=== PATIENT | male | born 1945 | race Caucasian/White ===

== ENCOUNTER → 2017-06-26 10:34 | Outpatient (CLI) | payer MEDICARE, OTHER, SELFPAY ==
[2017-06-26 12:41] LABS: BUN 24 mg/dL (7-18); Chloride 105 mmol/L (98-107); Creatinine, Serum 0.98 mg/dL (0.70-1.30); EST Glomerular Filtration Rate 81 mL/min (>60); Est Glom Filt Rate - Afr Amer 98 mL/min (>60); Potassium 4.5 mmol/L (3.5-5.1); Sodium Level 140 mmol/L (136-145)
== END ==
PROVIDERS: Family Provider Family Medicine; PCP Family Medicine
DX: Z94.1 Heart transplant status (principal)
CPT/HCPCS: 36415; 82435; 82565; 84132; 84295; 84520

== ENCOUNTER 2017-10-11 09:38 | Emergency (ER) | payer MEDICARE, OTHER, SELFPAY ==
[2017-10-11 09:40] VITALS: BP 135/74; PULSE 97; RESP 17; TEMP 36.9; O2SAT 97; BMI 34.0
--- NOTE | 2017-10-11 10:04 | ED.DCSUM_ITS ---
- ER Visit Summary Date of Service: 10/11/17 Chief Complaint: Diarrhea History of Present Illness: The patient is a 72 M who presents with diarrhea beginning on Saturday. Patient recently traveled home from [facility] where he was on vacation. Patient states that on Saturday evening at the airport he began to feel ill. By Saturday he was having diarrhea as well as a few small episodes of emesis. He notes borborygmi. He describes the stool as brown liquid. No bright red blood or mucus. He is a heart transplant patient on immunosuppressive therapy. He denies any fevers. He states he feels that perhaps he is not urinating as much as he normally has. Physical Examination: Afebrile vital signs are stable Gen: Well-nourished well-developed Head: Normocephalic atraumatic Eyes: Perrl EOMI ENT: TMs clear no rhinorrhea moist mucous membranes Neck: Supple no lymphadenopathy no JVD nontender CVS: Regular rate rhythm no murmurs normal S1-S2 Respiratory: No distress clear to auscultation bilaterally chest nontender Abdomen: Soft nontender nondistended normal bowel sounds no masses Back: Nontender Extremity: Nontender no edema Skin: Normal color no rash Neuro: alert orientated ?3 CN II-XII intact normal strength sensation reflexes gait cerebellar Psych: Normal affect normal mood Test Results: CBC is normal. BUN is 23 with a normal creatinine. Liver enzymes are normal. Emergency Department Course and Treatment: Patient provided a stool specimen and it was actually semisolid. He received IV fluids. Stool studies are pending. Going to write the patient to have ciprofloxacin if his diarrhea returns. Otherwise he will not take it and continue to hydrate at home Impression: 1. Diarrhea This note was generated with [employer] dictation software. It may contain incorrect words, spelling, and punctuation that were not noted in review of the chart prior to signing ED Disposition - Plan for ED Patient: Disposition: Home or Assisted Living Chief Complaint: Diarrhea Instructions: ED Gastroenteritis Report Pend Prescriptions: Ciprofloxacin [Cipro] 500 mg PO BID #10 tab Referrals: Sharan Solorzano DO [Primary Care Provider] - 3-5 Days if not improving
[2017-10-11] MEDS: 0.9% Normal Saline 1,000 ML 999 ML IV (10:15)
[2017-10-11 10:29] LABS: Absolute Lymphocyte Count 0.86 X10^3/ul (0.83-4.51); Absolute Neutrophil Count 4.2 X10^3/uL (2.0-7.7); Basophil# 0.01 X10^3/uL; Basophil% 0.2 % (0-1); Eosinophil# 0.05 X10^3/uL; Eosinophils% 0.9 % (0-5); Hematocrit 46.3 % (40-54); Hemoglobin 15.4 g/dl (13.0-16.5); Lymphocyte # 0.86 X10^3/ul (4.0); Lymphocyte % 14.9 % (19-41); Mean Corp Hgb Conc 33.3 g/gl (32-36); Mean Corpuscular Hgb 29.2 pg (27.0-32.0); Mean Corpuscular Volume 87.7 fL (80-94); Mean Platelet Vol. 10.6 fl (6.2-12.0); Monocyte# 0.62 X10^3/uL; Monocyte% 10.7 % (0-10); Neutrophil # 4.23 X10^3/uL (2.7-7.7); POSITIVE COUNT NO; POSITIVE DIFFERENTIAL NO; POSITIVE MORPHOLOGY NO; Platelet Count 132 K/mm3 (150-450); Red Blood Count 5.28 M/mm3 (4.6-6.2); White Blood Count 5.8 K/mm3 (4.4-11.0)
[2017-10-11 10:43] LABS: ALB/GLOB Ratio 1.1 RATIO (0.9-2.4); AST(SGOT) 11 U/L (15-37); Alanine Aminotransfer ALT/SGPT 21 U/L (16-61); Albumin, Serum 3.8 g/dL (3.2-5.0); Alkaline Phosphatase 100 U/L (45-117); Anion Gap 6 (5-15); BUN 23 mg/dL (7-18); BUN/Creat Ratio 24.8 RATIO (10-20); Calcium,Total 8.5 mg/dL (8.5-10.1); Chloride 109 mmol/L (98-107); Creatinine, Serum 0.93 mg/dL (0.70-1.30); EST Glomerular Filtration Rate 86 mL/min (>60); Est Glom Filt Rate - Afr Amer 104 mL/min (>60); Estimated Creatinine Clearance 76.31 ml/min; Globulin 3.4 g/dL (2.2-4.2); Glucose 88 mg/dL (74-106); Potassium 4.5 mmol/L (3.5-5.1); Protein, Total 7.2 g/dL (6.4-8.2); Sodium Level 139 mmol/L (136-145)
[2017-10-11 12:47] VITALS: BP 139/76; PULSE 68; RESP 15; O2SAT 96
--- NOTE | 2017-10-13 12:29 | ED.RN ---
Pt returned call and informed of positive stool culture for norovirus. He states his stool has progressed to mostly soft stools with intermittent watery stool. verbalized understanding that virus will progress naturally. he was encouraged to practice proper hygiene and return [facility] with any concerns.
== END 2017-10-11 12:52 | disposition home or self-care (01) ==
PROVIDERS: Emergency Provider Emergency Medicine; Family Provider Family Medicine; PCP Family Medicine
DX: R19.7 Diarrhea, unspecified (principal); I11.0 Hypertensive heart disease with heart failure; I50.9 Heart failure, unspecified; M10.9 Gout, unspecified; G47.33 Obstructive sleep apnea (adult) (pediatric); Z79.82 Long term (current) use of aspirin; Z79.899 Other long term (current) drug therapy; Z94.1 Heart transplant status; Z87.891 Personal history of nicotine dependence
CPT/HCPCS: 80053; 82274; 83630; 85025; 87177; 87209; 87506; 96360; 96361; 99283; J7030

== ENCOUNTER → 2018-02-25 10:02 | Outpatient (CLI) | payer MEDICARE, OTHER, SELFPAY ==
[2018-02-25 11:06] LABS: Uric Acid 5.4 mg/dL (3.5-7.2)
== END ==
PROVIDERS: Family Provider Family Medicine; PCP Family Medicine; Referring Provider Family Medicine; Visit Provider Family Medicine
DX: M10.9 Gout, unspecified (principal)
CPT/HCPCS: 36415; 84550

== ENCOUNTER → 2018-04-21 14:15 | Outpatient (CLI) | payer MEDICARE, OTHER, SELFPAY ==
[2018-04-20 08:40] VITALS: BMI 35.3
== END ==
PROVIDERS: Family Provider Family Medicine; PCP Family Medicine; Referring Provider Physician Assistant; Visit Provider Physician Assistant
DX: J02.9 Acute pharyngitis, unspecified (principal)
CPT/HCPCS: 87081

== ENCOUNTER → 2018-04-24 11:54 | Outpatient (CLI) | payer MEDICARE, OTHER, SELFPAY ==
[2018-04-24 11:06] VITALS: BMI 35.3
--- NOTE | 2018-04-24 11:59 | RAD_ITS ---
STUDY: X-RAY CHEST REASON FOR EXAM: Male, 73 years old. One-month history of cough. Hemoptysis. TECHNIQUE: PA and lateral views of the chest. COMPARISON: Comparison is made with prior study dated July 14, 2015. FINDINGS: Since prior study, there is a new infiltrate in the right middle lobe. Stable pleural parenchymal changes at the left lung base in keeping with scarring. Stable mild scarring at the right lung base. Sternal cerclage wires and vascular clips are present from a prior sternotomy and coronary artery bypass graft procedure (CABG). Normal mediastinum and palma. Normal visualized pulmonary arteries. There is atherosclerotic calcification of the aortic arch with tortuosity. There are diffuse degenerative changes of the visualized thoracic spine. Normal visualized ribs, clavicles, and shoulders. There is no demonstrated abnormality of the visualized soft tissue structures of the upper abdomen. RAD/Chest PA and Lateral IMPRESSION: New infiltrate in the right middle lobe. Stable pleural parenchymal changes at the left lung base. Electronically Signed: Luis Felipe Morales MD at 13:09 EST Tel [phone], Service support ,
== END ==
PROVIDERS: Family Provider Family Medicine; PCP Family Medicine; Referring Provider Nurse Practitioner Family; Visit Provider Nurse Practitioner Family
DX: R05 Cough (principal)
CPT/HCPCS: 71046

== ENCOUNTER → 2018-05-14 11:23 | Outpatient (CLI) | payer MEDICARE, OTHER, SELFPAY ==
[2018-05-14 10:32] VITALS: BMI 35.3
--- NOTE | 2018-05-14 11:40 | RAD_ITS ---
STUDY: X-RAY CHEST REASON FOR EXAM: Male, 73 years old. Pneumonia for follow-up. Patient feeling better. TECHNIQUE: PA and lateral chest. COMPARISON: April 24, 2017. July 14, 2015. October 07, 2013. FINDINGS: Previously noted patchy density right midlung is no longer present. Nodular density right lung base stable since at least 2014. No change in scattered areas of fibrosis left mid and lower lung as well as blunting left costophrenic angle, the latter compatible pleural scar. No pneumothorax. Sternal wires are present. Normal size heart. Normal mediastinum and palma. Normal visualized pulmonary arteries. Normal visualized aortic arch and descending thoracic aorta. Normal visualized thoracic spine. Normal visualized ribs, clavicles, and shoulders. There is no demonstrated abnormality of the visualized soft tissue structures of the upper abdomen. RAD/Chest PA and Lateral IMPRESSION: Resolution of right middle lobe pneumonia. Stable chronic changes bilaterally left greater than right. Electronically Signed: Adrien Nava MD at 3:21 EST , Service support ,
== END ==
PROVIDERS: Family Provider Family Medicine; PCP Family Medicine; Referring Provider Family Medicine; Visit Provider Family Medicine
DX: J18.1 Lobar pneumonia, unspecified organism (principal)
CPT/HCPCS: 71046

== ENCOUNTER → 2018-08-08 08:36 | Outpatient (CLI) | payer MEDICARE, OTHER, SELFPAY ==
[2018-08-07 16:43] VITALS: BMI 35.3
[2018-08-08 08:38] LABS: Bacteria 0 SEEN /hpf (None Seen); Mucous, Urine 0 SEEN /hpf (<or=2+); Red Blood Cells-Urine 0 SEEN /hpf (0-5); Squamous Epithelial Cells - UA 0 SEEN /hpf (0-5); White Blood Cells 0 SEEN /hpf (0-5)
[2018-08-08 12:49] LABS: Color, Urine Yellow (Yellow); Glucose, Dipstick Normal (Normal); Ketone-Dipstick Negative (Negative); Leukocyte Esterase-Dipstick Negative /ul (Negative); Nitrite-Dipstick Negative (Negative); Occult Blood-Urine Negative /ul (Negative); Protein-Dipstick Negative (Negative); Specific Gravity, Urine 1.015 (1.002-1.030); Urine Bilirubin Dipstick Negative (Negative); Urine Clarity Clear (Clear); Urine Urobilinogen Normal (Normal)
[2018-08-08 13:16] LABS: Anion Gap 8 (5-15); BUN 26 mg/dL (7-18); Calcium,Total 9.2 mg/dL (8.5-10.1); Chloride 109 mmol/L (98-107); Creatinine, Serum 1.04 mg/dL (0.70-1.30); EST Glomerular Filtration Rate 75 mL/min (>60); Est Glom Filt Rate - Afr Amer 90 mL/min (>60); Glucose 109 mg/dL (74-106); Potassium 4.6 mmol/L (3.5-5.1); Sodium Level 142 mmol/L (136-145)
== END ==
PROVIDERS: Family Provider Family Medicine; PCP Family Medicine; Visit Provider Family Medicine
DX: R55 Syncope and collapse (principal); E88.89 Other specified metabolic disorders
CPT/HCPCS: 36415; 80048; 81001

== ENCOUNTER → 2018-08-15 14:49 | Outpatient (CLI) | payer MEDICARE, OTHER, SELFPAY ==
[2018-08-07 16:43] VITALS: BMI 35.3
--- NOTE | 2018-08-15 14:53 | ECHOCS_ITS ---
Reason For Study: Syncope Procedure This was a 2D Doppler, Color Flow transthoracic echocardiogram. The study was technically difficult. Contrast injection was performed. Exam performed in department. Left Ventricle Normal LV size. Mild concentric left ventricular hypertrophy. Left ventricular systolic function is normal. The estimated ejection fraction is 55 %. Stage 3 diastolic dysfunction. No regional wall motion abnormalities noted. Right Ventricle Normal RV size. Normal systolic function. Atria The left atrium is moderately enlarged. Normal right atrium. Mitral Valve Mitral valve not well visualized. Tricuspid Valve The tricuspid valve is not well visualized. Mild (1+) tricuspid valve insufficiency. Pulmonary artery systolic pressure is 29 mmHg. Aortic Valve The aortic valve is not well visualized. Pulmonic Valve The pulmonic valve is not well visualized. Great Vessels Normal aortic root. The pulmonary artery is normal size. Normal inferior vena cava. Pericardium/Pleural No pericardial effusion. Medication 22 gauge I.V. with prn adaptor inserted into right arm. Diluted definity 3ml given slow IV push to enhance endocardial definition. MMode/2D Measurements & Calculations LVIDd: 3.9 cm IVSd: 1.4 cm Ao root diam: 3.5 cm LVIDs: 2.9 cm LVPWd: 1.3 cm LA dimension: 5.3 cm FS: 25.5 % LAV(MOD-sp4): 83.1 ml LVAd ap4: 31.8 cm2 SV(MOD-sp4): 51.2 ml EDV(MOD-sp4): 99.6 ml EDV(sp4-el): 101.4 ml LVAs ap4: 19.9 cm2 ESV(MOD-sp4): 48.3 ml ESV(sp4-el): 50.6 ml EF(MOD-sp4): 51.5 % EF(sp4-el): 50.1 % SV(sp4-el): 50.8 ml LA A4 area: 27.3 cm2 RA A4 area: 18.2 cm2 Time Measurements MV dec time: 0.18 sec Doppler Measurements & Calculations MV E max guillermo: 81.3 cm/sec Lat Peak E' Guillermo: 19.1 cm/sec Med Peak E' Guillermo: 14.6 cm/sec MV A max guillermo: 35.0 cm/sec E/E' lat: 4.2 E/E' med: 5.6 MV E/A: 2.3 MV V2 max: 118.5 cm/sec MV P1/2t max guillermo: 119.3 cm/sec Ao V2 max: 107.8 cm/sec MV max P.6 mmHg MV P1/2t: 45.0 msec Ao max P.7 mmHg MV V2 mean: 57.9 cm/sec Ao V2 mean: 69.9 cm/sec MV mean P.7 mmHg MV dec slope: 775.8 cm/sec2 Ao mean P.4 mmHg MV V2 VTI: 20.1 cm MVA(P1/2t): 4.9 cm2 Ao V2 VTI: 18.0 cm LV V1 max: 93.7 cm/sec TR max guillermo: 256.6 cm/sec LV V1 max P.5 mmHg TR max P.3 mmHg LV V1 mean P.8 mmHg LV V1 mean: 60.3 cm/sec LV V1 VTI: 17.2 cm Interpretation Summary Normal LV size. Mild concentric left ventricular hypertrophy. Left ventricular systolic function is normal. The estimated ejection fraction is 55 %. Stage 3 diastolic dysfunction. Mild (1+) tricuspid valve insufficiency. Contrast injection was performed. Ordering Physician: Sharan Solorzano Referring Physician: Sharan Solorzano Performed By: Jhon Nunez RCS
== END ==
PROVIDERS: Family Provider Family Medicine; PCP Family Medicine; Referring Provider Family Medicine; Visit Provider Family Medicine
DX: R55 Syncope and collapse (principal); G47.33 Obstructive sleep apnea (adult) (pediatric)
CPT/HCPCS: 93306; Q9957; A4216; C8929

== ENCOUNTER → 2019-03-10 10:02 | Outpatient (CLI) | payer MEDICARE, OTHER, SELFPAY ==
[2019-03-10 09:32] VITALS: BMI 34.7
[2019-03-10 13:08] LABS: Uric Acid 7.1 mg/dL (3.5-7.2)
== END ==
PROVIDERS: Family Provider Family Medicine; PCP Family Medicine; Visit Provider Family Medicine
DX: E78.5 Hyperlipidemia, unspecified (principal)
CPT/HCPCS: 36415; 84550

== ENCOUNTER → 2020-03-20 | Outpatient (CLI) | payer MEDICARE, OTHER, SELFPAY ==
[2020-02-03 10:13] VITALS: BMI 34.7
== END | disposition home or self-care (01) ==
PROVIDERS: PCP Family Medicine; Referring Provider Physician Assistant Medical; Visit Provider Physician Assistant Medical
DX: Z71.84 Encounter for health counseling related to travel (principal)
CPT/HCPCS: 87635; U0003

== ENCOUNTER → 2021-02-03 11:41 | Outpatient (CLI) | payer MEDICARE, OTHER, SELFPAY ==
[2021-02-03 15:12] LABS: Absolute Lymphocyte Count 0.95 X10^3/uL (0.83-4.51); Basophil# 0.03 X10^3/uL; Basophil% 0.5 % (0-1); Eosinophil# 0.06 X10^3/uL; Eosinophils% 1.1 % (0-5); Hematocrit 49.7 % (40-54); Hemoglobin 16.1 g/dL (13.0-16.5); Lymphocyte # 0.95 X10^3/ul (0.83-4.51); Lymphocyte % 17.1 % (19-41); Mean Corp Hgb Conc 32.4 g/dL (32-36); Mean Corpuscular Hgb 29.5 pg (27.0-32.0); Mean Corpuscular Volume 91.2 fL (80-94); Mean Platelet Vol. 11.8 fl (6.2-12.0); Monocyte# 0.52 X10^3/uL; Monocyte% 9.4 % (0-10); NRBC Flagged by Analyzer 0 % (0-5); Neutrophil # 3.95 X10^3/uL (2.7-7.7); Neutrophil % 71.4 % (47-70); Platelet Count 165 K/mm3 (150-450); RBC Distribution Width CV 14.3 % (11.6-14.6); Red Blood Count 5.45 M/mm3 (4.6-6.2); White Blood Count 5.5 K/mm3 (4.4-11.0)
[2021-02-03 15:28] LABS: Anion Gap 7 (5-15); BUN 23 mg/dL (7-18); BUN/Creat Ratio 21.9 RATIO (10-20); Calcium,Total 9.2 mg/dL (8.5-10.1); Chloride 105 mmol/L (98-107); Creatinine, Serum 1.05 mg/dL (0.70-1.30); EST Glomerular Filtration Rate 73 mL/min (>60); Est Glom Filt Rate - Afr Amer 89 mL/min (>60); Glucose 93 mg/dL (74-106); Potassium 4.6 mmol/L (3.5-5.1); Sodium Level 140 mmol/L (136-145)
== END ==
PROVIDERS: PCP Family Medicine; Referring Provider Physician Assistant; Visit Provider Physician Assistant
DX: R42 Dizziness and giddiness (principal)
CPT/HCPCS: 36415; 80048; 85025

== ENCOUNTER → 2021-03-16 10:14 | Outpatient (CLI) | payer MEDICARE, OTHER, SELFPAY ==
[2021-03-16 14:41] LABS: Mucous, Urine 0 SEEN /hpf (<or=2+); Red Blood Cells-Urine 0 SEEN /hpf (0-5); Squamous Epithelial Cells - UA 0 SEEN /hpf (0-5); White Blood Cells 0 SEEN /hpf (0-5)
[2021-03-16 15:22] LABS: Color, Urine Yellow (Yellow); Glucose, Dipstick Normal (Normal); Ketone-Dipstick Negative (Negative); Leukocyte Esterase-Dipstick Negative /ul (Negative); Nitrite-Dipstick Negative (Negative); Occult Blood-Urine Negative /ul (Negative); Protein-Dipstick 15 mg/dl (Negative); Specific Gravity, Urine 1.025 (1.002-1.030); Urine Bilirubin Dipstick Negative (Negative); Urine Clarity Clear (Clear); Urine Urobilinogen Normal (Normal)
[2021-03-16 15:41] LABS: Bacteria RARE /hpf (None Seen)
== END ==
PROVIDERS: PCP Family Medicine; Referring Provider Physician Assistant; Visit Provider Physician Assistant
DX: U07.1 COVID-19 (principal); R35.0 Frequency of micturition; R05.9 Cough, unspecified
CPT/HCPCS: 81001; 87635; U0005; U0003

== ENCOUNTER 2021-03-20 16:05 | Outpatient (CLI) | payer MEDICARE, OTHER, SELFPAY ==
[2021-03-20] MEDS: 0.9% Saline Lock 10 ML Syringe IV (16:33)
[2021-03-20 16:34] VITALS: BP 111/71; PULSE 90; RESP 16; TEMP 36.9; O2SAT 99; BMI 35.3
[2021-03-20 17:11] VITALS: BP 121/67; PULSE 80; RESP 16; TEMP 37.1; O2SAT 98
[2021-03-20 17:59] VITALS: BP 108/65; PULSE 80; RESP 16; TEMP 37; O2SAT 99
== END 2021-03-20 18:20 | disposition home or self-care (01) ==
LOC: MS3OUT 16:06 → MS3 16:07
PROVIDERS: PCP Family Medicine; Referring Provider Nurse Practitioner Adult Health; Visit Provider Nurse Practitioner Adult Health
DX: Z23 Encounter for immunization (principal); U07.1 COVID-19; Z94.1 Heart transplant status
CPT/HCPCS: J7050; M0245; Q0245; A4216

== ENCOUNTER → 2021-04-13 08:59 | Outpatient (CLI) | payer MEDICARE, OTHER, SELFPAY ==
[2021-04-13 10:31] LABS: Erythrocyte Sedimentation Rate 16 mm/hr (0-20)
[2021-04-13 10:53] LABS: CRP, High Sensitivity Cardiac 4.42 mg/L
== END ==
PROVIDERS: PCP Family Medicine; Referring Provider Family Medicine; Visit Provider Family Medicine
DX: U07.1 COVID-19 (principal); E78.2 Mixed hyperlipidemia
CPT/HCPCS: 36415; 85652; 86141

== ENCOUNTER 2021-08-14 08:33 | Emergency (ER) | payer MEDICARE, OTHER, SELFPAY ==
[2021-08-14 08:34] VITALS: BP 151/86; PULSE 81; RESP 21; TEMP 35.7; O2SAT 100; BMI 37.8
--- NOTE | 2021-08-14 09:11 | EKG12_ITS ---
Test Reason : Blood Pressure : / mmHG Vent. Rate : 081 BPM Atrial Rate : 081 BPM P-R Int : 166 ms QRS Dur : 104 ms QT Int : 390 ms P-R-T Axes : 039 -33 008 degrees QTc Int : 453 ms Normal sinus rhythm Left axis deviation Nonspecific T wave abnormality Abnormal ECG Confirmed by NURY GONZALEZ, SOILA ([id number]), videotape editor MAURO NICOLE ([id number]) on 08/16/2021 9:21:57 AM Referred By: HARSH Confirmed By:SOILA ARRINGTON MD
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
[2021-08-14 09:19] LABS: Absolute Lymphocyte Count 1.22 X10^3/uL (0.83-4.51); Absolute Neutrophil Count 3.6 X10^3/uL (2.0-7.7); Basophil# 0.03 X10^3/uL; Basophil% 0.5 % (0-1); Eosinophil# 0.08 X10^3/uL; Eosinophils% 1.4 % (0-5); Hematocrit 49.8 % (40-54); Hemoglobin 16.7 g/dL (13.0-16.5); Lymphocyte # 1.22 X10^3/ul (0.83-4.51); Lymphocyte % 22.1 % (19-41); Mean Corp Hgb Conc 33.5 g/dL (32-36); Mean Corpuscular Hgb 30.4 pg (27.0-32.0); Mean Corpuscular Volume 90.7 fL (80-94); Mean Platelet Vol. 10.6 fl (6.2-12.0); Monocyte# 0.54 X10^3/uL; Monocyte% 9.8 % (0-10); NRBC Flagged by Analyzer 0 % (0-5); Neutrophil # 3.61 X10^3/uL (2.7-7.7); Neutrophil % 65.5 % (47-70); Platelet Count 172 K/mm3 (150-450); RBC Distribution Width CV 14.1 % (11.6-14.6); RBC Distribution Width SD 47.3 fl (35.1-43.9); Red Blood Count 5.49 M/mm3 (4.6-6.2); White Blood Count 5.5 K/mm3 (4.4-11.0)
--- NOTE | 2021-08-14 09:30 | RAD_ITS ---
STUDY: X-RAY CHEST REASON FOR EXAM: Male, 76 years old. Syncope, Hx heart transplant 6 years ago TECHNIQUE: Single AP portable view of the chest. COMPARISON: Comparison is made with prior study dated 05/14/2018. FINDINGS: EKG electrodes are seen. Persistent pleural-parenchymal changes at the left lung base although there has been mild degree of improvement. Stable mild increased markings at the right lung base. There is no demonstrated pleural abnormality. Sternal cerclage wires are present from a prior sternotomy. Normal mediastinum and palma. Normal visualized pulmonary arteries. There is atherosclerotic calcification of the aortic arch with tortuosity. There are diffuse degenerative changes of the visualized thoracic spine. Normal visualized ribs, clavicles, and shoulders. There is no demonstrated abnormality of the visualized soft tissue structures of the upper abdomen. RAD/Chest 1 View (Portable) IMPRESSION: Persistent pleural parenchymal changes at the left lung base. There has been mild improvement as compared to prior study. Electronically Signed: Luis Felipe Morales MD at 10:10 EDT ,
[2021-08-14 09:52] LABS: ALB/GLOB Ratio 1.2 RATIO (0.9-2.4); AST(SGOT) 8 U/L (15-37); Alanine Aminotransfer ALT/SGPT 18 U/L (16-61); Albumin, Serum 4.2 g/dL (3.2-5.0); Alkaline Phosphatase 69 U/L (45-117); Anion Gap 5 (5-15); BUN 25 mg/dL (7-18); BUN/Creat Ratio 23.4 RATIO (10-20); Calcium,Total 9.4 mg/dL (8.5-10.1); Chloride 108 mmol/L (98-107); Creatinine, Serum 1.07 mg/dL (0.70-1.30); EST Glomerular Filtration Rate 72 mL/min (>60); Est Glom Filt Rate - Afr Amer 87 mL/min (>60); Estimated Creatinine Clearance 62.54 ml/min; Globulin 3.4 g/dL (2.2-4.2); Glucose 109 mg/dL (74-106); Potassium 4.7 mmol/L (3.5-5.1); Protein, Total 7.6 g/dL (6.4-8.2); Sodium Level 140 mmol/L (136-145); Troponin-I HS 4 pg/mL (3.0-78.0)
[2021-08-14 10:21] VITALS: BP 136/100; PULSE 77; RESP 22; O2SAT 100
[2021-08-14 10:42] VITALS: BP 141/68; PULSE 81; RESP 19; O2SAT 100
== END 2021-08-14 10:42 | disposition home or self-care (01) ==
PROVIDERS: Emergency Provider Emergency Medicine; PCP Family Medicine; Visit Provider Emergency Medicine
DX: R55 Syncope and collapse (principal); Z94.1 Heart transplant status; I10 Essential (primary) hypertension; E78.5 Hyperlipidemia, unspecified; E66.9 Obesity, unspecified; Z68.37 Body mass index [BMI] 37.0-37.9, adult; Z95.810 Presence of automatic (implantable) cardiac defibrillator; Z79.82 Long term (current) use of aspirin; Z79.899 Other long term (current) drug therapy; Z87.891 Personal history of nicotine dependence
CPT/HCPCS: 71045; 80053; 84484; 85025; 93005; 93225; 93226; 99285

== ENCOUNTER → 2021-08-14 | Outpatient (CLI) | payer MEDICARE, OTHER, SELFPAY | END | disposition home or self-care (01) | LOC: PSN 10:15 | PROVIDERS: PCP Family Medicine; Referring Provider Internal Medicine Cardiovascular Disease; Visit Provider Internal Medicine Cardiovascular Disease | DX: Z00.00 Encounter for general adult medical examination without abnormal findings (principal) ==

== ENCOUNTER → 2021-08-29 | Outpatient (CLI) | payer MEDICARE, OTHER, SELFPAY ==
--- NOTE | 2021-08-29 07:06 | MRI_ITS ---
EXAM: MR HEAD WITHOUT AND WITH INTRAVENOUS CONTRAST CLINICAL INDICATION: syncope, dizziness TECHNIQUE: Multiplanar and multisequence MR images of the brain were obtained without and with intravenous contrast. This report was created using [employer] report generation technology. CONTRAST: 23 mL of IV Dotarem. COMPARISON: CTA head 09/08/2016. FINDINGS: BRAIN AND EXTRA-AXIAL SPACES: No focal signal abnormalities throughout the brain parenchyma in all of the pulse sequences. Following IV contrast administration, there are no abnormal enhancing lesions intraaxially and extra-axially. No intra- or extra-axial hemorrhage. No evidence of acute infarct. No intracranial mass or mass effect. There is preservation of the alan/white matter interface. Posterior fossa structures are unremarkable. Ventricles are appropriate for age. No hydrocephalus. Basal cisterns are patent. SELLA: Unremarkable. Normal sella turcica, pituitary gland, infundibular stalk, optic chiasm and hypothalamus. AUDITORY SYSTEM: Unremarkable. The internal auditory canals are patent. BONES/JOINTS: Unremarkable. No discrete lytic or blastic abnormalities. SINUSES: Unremarkable as visualized. Clear. MASTOID AIR CELLS: Unremarkable as visualized. Clear. ORBITS: Unremarkable as visualized. Both globes, extraocular muscles, optic nerves and retrobulbar fat appear unremarkable. VASCULATURE: Unremarkable as visualized. Normal flow voids in the major intracranial circulation. MRI/Brain W/WO Contrast IMPRESSION: Normal MRI brain with and without contrast. Electronically Signed: Anderson Sequeira MD at 12:27 EDT ,
[2021-08-29 07:31] LABS: CREATININE FINGERSTICK 0.9 mg/dL (0.70-1.30); EGFR FINGERSTICK > 60.0000 mL/min (>60)
--- NOTE | 2021-08-29 08:18 | CDU_ITS ---
Reason For Study: syncope Rt. Velocities/BP Lt. Velocities/BP Prox CCA 89.1/18.6 cm/sec. Prox CCA 112.0/24.3 cm/sec. Mid CCA 72.1/14.7 cm/sec. Mid CCA 81.4/21.2 cm/sec. Dist CCA 70.8/14.7 cm/sec. Dist CCA 87.6/28.6 cm/sec. Prox ICA 70.9/20.0 cm/sec. Prox ICA 57.9/13.5 cm/sec. Mid ICA 61.8/16.3 cm/sec. Mid ICA 73.0/26.7 cm/sec. Dist ICA 69.1/23.7 cm/sec. Dist ICA 69.2/23.9 cm/sec. Rt. ICA/CCA = 1.1. Lt. ICA/CCA = .9. Prox ECA 122.9/20.6 cm/sec. Prox ECA 119.5/21.2 cm/sec. Rt. Vert. 43.4/12.7 cm/sec. Lt. Vert. 47.5/14.5 cm/sec. Right Extracranial There is homogeneous, smooth atherosclerotic plaque noted in the right common carotid artery. There is heterogeneous, irregular atherosclerotic plaque noted in the right internal carotid artery. There is heterogeneous, irregular atherosclerotic plaque noted in the right external carotid artery. Antegrade flow is noted in the right vertebral artery. Left Extracranial There is intimal thickening but no significant atherosclerotic plaque noted in the left common carotid artery. There is heterogeneous, irregular atherosclerotic plaque noted in the left internal carotid artery. There is intimal thickening but no significant atherosclerotic plaque noted in the left external carotid artery. Antegrade flow is noted in the left vertebral artery. Procedure Carotid Duplex 37705. This is a Carotid Duplex examination using B-mode, color flow and specral Doppler. The exam was diagnostic. Exam performed in department. VL/Carotid Duplex Ultrasound Interpretation Summary Mild (<50%) stenosis right extracranial internal carotid. Mild (<50%) stenosis left extracranial internal carotid. Flow within the vertebral arteries is antegrade bilaterally. Ordering Physician: Pedro Forbes Performed By: Fernando Delgado RVT
== END | disposition home or self-care (01) ==
LOC: MRI 07:06
PROVIDERS: PCP Family Medicine; Referring Provider Nurse Practitioner Family; Visit Provider Nurse Practitioner Family
DX: R55 Syncope and collapse (principal); R42 Dizziness and giddiness; E78.2 Mixed hyperlipidemia
CPT/HCPCS: 70553; 93880; A9575

== ENCOUNTER 2021-10-11 00:24 | Emergency (ER) | payer MEDICARE, OTHER, SELFPAY ==
[2021-10-11 00:24] VITALS: BP 151/87; PULSE 74; RESP 16; TEMP 35.9; O2SAT 96; BMI 36.1
--- NOTE | 2021-10-11 00:35 | RAD_ITS ---
EXAM: XR CHEST, 1 VIEW CLINICAL INDICATION: + COVID + COVID TECHNIQUE: Frontal view of the chest. This report was created using [employer] report generation technology. COMPARISON: Chest x-rays 08/14/2021 and 05/14/2018. CT scan chest 01/14/2015. FINDINGS: LUNGS AND PLEURAL SPACES: There are fibrotic changes in the left mid and lower lung castro as well as chronic pleural thickening. No pneumothorax. No effusion. HEART: Unremarkable. Cardiac silhouette not enlarged. MEDIASTINUM: Central airways and mediastinal contour are unremarkable. BONES/JOINTS: There are sternotomy wires. There are multilevel degenerative changes in the visualized spine. SOFT TISSUES: Unremarkable. RAD/Chest 1 View (Portable) IMPRESSION: 1. Chronic pleural and parenchymal changes in the left lung field. 2. No evidence for acute cardiopulmonary pathology. Electronically Signed: Gerardo Lam MD at 2:13 EDT Reading Location ID and State: [facility] / [place] , Service support ,
--- NOTE | 2021-10-11 00:36 | EKG12_ITS ---
Test Reason : N/V Blood Pressure : / mmHG Vent. Rate : 073 BPM Atrial Rate : 073 BPM P-R Int : 162 ms QRS Dur : 100 ms QT Int : 394 ms P-R-T Axes : 057 -23 064 degrees QTc Int : 434 ms Normal sinus rhythm Incomplete right bundle branch block Nonspecific T wave abnormality Abnormal ECG Confirmed by BOGDAN GONZALEZ, KAYLA ([id number]), greeting card editor MAURO NICOLE ([id number]) on 10/12/2021 11:06:34 AM Referred By: KALI Confirmed By:KAYLA MCFADDEN MD
--- NOTE | 2021-10-11 01:06 | EDS_ITS ---
HPI History of Present Illness Chief Complaint: Nausea/Vomiting/Diarrhea Informant: patient Narrative Narrative: Patient is 76-year-old male with history of heart transplant through [facility] in May 2015 as well as diagnosis of COVID-19 infection 1 week ago. Patient started having symptoms 10 days ago. He was placed on Paxlovid 1 week ago. He finished a 5-day course on Saturday (10/08) and notes he is continue to have body aches, headache, bad taste and smell, diarrhea and now is having worsening vomiting. He was concern for dehydration as he drove all the liquids to drink tonight and then started having dry heaves. He is also concerned because he continued to take his tacromilus while on the antiviral therapy and later found out that these can react. Not sure if this was contributing to his symptoms. Has had some mild blood in his stool but attributes that to a hemorrhoid that bleeds. Denies any recent fevers. Does have a mild cough that is intermittently productive. Does have some mild associated shortness of breath with exertion. Denies any chest pain. No other complaints at this time. States he did send a message to his information systems coordinator this evening but has not heard back as it is after hours. [facility] Medical History Acute renal insufficiency Cellulitis and abscess of face Chronic back pain COVID-19 (03/2021) Diastolic dysfunction Difficulty balancing Essential (primary) hypertension Fatigue Gout Hyperbilirubinemia Hyperlipemia Hyponatremia Nonischemic cardiomyopathy Obesity Obstructive sleep apnea Osteoarthritis Osteopenia Personal history of immunosuppressive therapy Positional lightheadedness Renal insufficiency Skin cancer SOB (shortness of breath) Spinal stenosis Ventricular tachycardia Ventricular tachycardia Home Medications pravastatin 40 mg tablet 40 mg PO QHS 07/21/15 [History Last Taken Unknown] magnesium oxide 400 mg PO QDAY 07/24/17 [History Last Taken Unknown] tacrolimus 1 mg capsule, immediate-release 1 mg PO Q12H 07/24/17 [History Last Taken Unknown] aspirin 81 mg tablet,delayed release (Adult Aspirin Regimen) 81 mg PO DAILY 09/15/19 [History Last Taken Unknown] melatonin 5 mg capsule 10 mg PO QHS 09/15/19 [History Last Taken Unknown] multivitamin 1 cap PO DAILY 09/15/19 [History Last Taken Unknown] mycophenolate mofetil 250 mg capsule 250 mg PO BID 09/15/19 [History Last Taken Unknown] vitamin B complex (B Complex-Vitamin B12) 1 tab PO DAILY 09/29/19 [History Last Taken Unknown] calcium carbonate 600 mg calcium (1,500 mg) tablet (Calcium) 600 mg PO BID 06/28/20 [History Last Taken Unknown] losartan 25 mg tablet 25 mg PO BID 08/21/21 [History Last Taken Unknown] cholestyramine (with sugar) 4 gram powder for susp in a packet 4 g PO TID #20 ea 09/26/21 [Rx Last Taken Unknown] nirmatrelvir 300 mg (150 mg x 2)-ritonavir 100 mg tablet (EUA) (Paxlovid 300 mg () See Rx Instructions PO .COMPLEX #30 tabs 10/04/21 [Rx Last Taken Unknown] Allergy/AdvReac Type Severity Reaction Status Date / Time ramipril AdvReac Intermediate Cough Verified 08/18/21 10:04 Family History Father Diabetes Heart disease Myocardial infarction, Onset Age: 65 Mother Heart disease Lupus Arthritis CVA (cerebral vascular accident) Grandfather Colon cancer Heart disease Aunt Diabetes Brother Seizures Surgical History H/O right heart catheterization (11/25/18) History of appendectomy History of basal cell carcinoma History of cataract extraction History of heart transplant (06/04/15) History of left heart catheterization (05/2018) history of LVAD implant History of nasal septoplasty History of tonsillectomy and adenoidectomy History of tricuspid valve annuloplasty Presence of biventricular implantable cardioverter-defibrillator (ICD) Social History Smoking Status: Former smoker how long ago did patient quit smokin alcohol intake: never substance use type: does not use what type of physical activity do you participate in: walking frequency: 5-6 times per week ROS ROS ED Constitutional Constitutional ED: Denies chills or fever(s) Eyes Eyes: Denies change in vision ENT ENT ED: Denies rhinorrhea or sore throat Cardiovascular Cardiovascular: Denies chest pain or palpitations Respiratory/Chest Respiratory/Chest: Reports cough and dyspnea on exertion; Denies dyspnea Gastrointestinal Gastrointestinal: Reports diarrhea, nausea and vomiting; Denies abdominal pain Genitourinary Genitourinary ED: Denies dysuria or hematuria Musculoskeletal Musculoskeletal: Reports myalgias; Denies back pain Integumentary Denies rash Neurologic Neurologic: Reports headache(s); Denies paresthesias or weakness Psychiatric Psychiatric: Denies anxiety Hematologic/Lymphatic Hematologic/Lymphatic: Denies easy bleeding or easy bruising EXAM Physical Exam Const Vital Signs: 10/11/21 00:24 10/11/21 01:53 10/11/21 05:47 Temperature 96.6 F L 98.1 F Temperature Source Oral Pulse Rate 74 72 77 Respiratory Rate 16 18 14 Blood Pressure 151/87 H 137/86 H 142/84 H Blood Pressure Mean 108 103 103 Pulse Ox 96 95 97 Oxygen Delivery Method Room Air Room Air Positive well nourished and well developed General Appearance ED: well developed and NAD HEENT Reports moist mucous membranes Negative for trauma Eyes PERRL and EOMs intact bilaterally Neck supple and no JVD Chest Wall inspection of chest normal Resp normal respiratory effort and clear to auscultation bilaterally Auscultation: Negative for rales, rhonchi or wheezes Cardio regular rate, regular rhythm and no murmurs GI normal to inspection, nondistended, normoactive bowel sounds and non-tender Neuro oriented x3 and CN's II-XII intact bilaterally Sensorium / Orientation: alert Motor Exam: Negative for general weakness Psych mental status grossly normal Skin no rashes or lesions noted and no wounds MDM MDM MDM Narrative Medical decision making narrative: Patient is evaluated for generalized malaise, vomiting and concern for dehydration. If he recently had COVID-19 infection and completed a course of antiviral therapy, Paxlovid, 3 days ago. In addition patient just realized today after looking up online that his antirejection medication interacted with the antiviral. Patient is given IV fluids as well as IV Zofran in the emergency room. He has symptomatic improvement and is looking better. He is found to have an NETTE with a creatinine of 1.43. His baseline is 1. Potassium is mildly elevated at 5.4 however he does not have EKG changes concerning for hyperkale lazarus. The remainder of his work-up is largely negative. I did send off a Tacrolimus level but this is a send out. Given that he is a heart transplant patient and it is possible that he could have tacrolimus toxicity causing acute kidney injury I did contact the information systems coordinator at [facility]. They recommended admission to [facility] instead of [facility]. Patient is begrudgingly agreeable with this. He is excepted by Dr. Lau for further treatment and evaluation of NETTE as well as monitoring his antirejection medications. Work-up is otherwise normal and he remains hemodynamically stable in the emergency room. Lab Data Attestation: I reviewed the patient's lab results. Labs: Laboratory Results - last 24 hr 10/11/21 10/11/21 10/11/21 01:35 01:35 01:35 WBC 7.8 RBC 4.89 Hgb 14.3 Hct 42.9 MCV 87.7 MCH 29.2 MCHC 33.3 RDW Std Deviation 44.1 H RDW Coeff of Jaimie 13.8 Plt Count 143 L MPV 10.3 Immature Gran % (Auto) 0.600 Neut % (Auto) 81.7 H Lymph % (Auto) 9.9 L [place] % (Auto) 7.4 Eos % (Auto) 0.1 Baso % (Auto) 0.3 Absolute Neuts (auto) 6.4 Absolute Lymphs (auto) 0.77 L Nucleated RBC % 0 Sodium 137 Potassium 5.4 H Chloride 104 Carbon Dioxide 28.0 Anion Gap 5 BUN 36 H Creatinine 1.43 H Estim Creat Clear Calc 46.79 Est GFR (MDRD) Af Amer 62 Est GFR (MDRD) Non-Af 51 L BUN/Creatinine Ratio 25.2 H Glucose 126 H Calcium 9.9 Total Bilirubin 1.30 H AST 7 L ALT 14 L Alkaline Phosphatase 72 Total Creatine Kinase 30 L Total Protein 7.4 Albumin 3.7 Globulin 3.7 Albumin/Globulin Ratio 1.0 Lipase 15 L Urine Color Urine Clarity Urine pH Ur Specific [place] Urine Protein Urine Glucose (UA) Urine Ketones Urine Occult Blood Urine Nitrite Urine Bilirubin Urine Urobilinogen Ur Leukocyte Esterase Urine RBC Urine WBC Ur Squamous Epith Cells Urine Bacteria Urine Mucus 10/11/21 03:20 WBC RBC Hgb Hct MCV MCH MCHC RDW Std Deviation RDW Coeff of Jaimie Plt Count MPV Immature Gran % (Auto) Neut % (Auto) Lymph % (Auto) [place] % (Auto) Eos % (Auto) Baso % (Auto) Absolute Neuts (auto) Absolute Lymphs (auto) Nucleated RBC % Sodium Potassium Chloride Carbon Dioxide Anion Gap BUN Creatinine Estim Creat Clear Calc Est GFR (MDRD) Af Amer Est GFR (MDRD) Non-Af BUN/Creatinine Ratio Glucose Calcium Total Bilirubin AST ALT Alkaline Phosphatase Total Creatine Kinase Total Protein Albumin Globulin Albumin/Globulin Ratio Lipase Urine Color Yellow Urine Clarity Clear Urine pH 6.0 Ur Specific [place] 1.015 Urine Protein Negative Urine Glucose (UA) Normal Urine Ketones Negative Urine Occult Blood Negative Urine Nitrite Negative Urine Bilirubin Negative Urine Urobilinogen Normal Ur Leukocyte Esterase Negative Urine RBC 0 SEEN Urine WBC 0 SEEN Ur Squamous Epith Cells 0 SEEN Urine Bacteria 0 SEEN Urine Mucus 0 SEEN Radiography Chest X-Ray - ED: 1 View, Read by ED Physician, Read by Radiologist and No Acute Disease Diagnostic Testing: Clinical Impression(s) from Imaging Studies Chest X-Ray 10/11/21 00:35 IMPRESSION: 1. Chronic pleural and parenchymal changes in the left lung field. 2. No evidence for acute cardiopulmonary pathology. Electronically Signed: Gerardo Lam MD at 2:13 EDT Reading Location ID and State: [facility] / [place] , Service support , Rhythm Strip Rhythm Strip: Sinus Rhythm Rate: 73 Ectopy: None EKG Initial EKG: Attestation: I personally reviewed and interpreted this EKG as follows: Interpretation: Sinus Rhythm Comments: Normal sinus rhythm at a rate of 73 Slight left axis Normal intervals Normal ST segments Discharge Plan Triage Chief Complaint: Nausea/Vomiting/Diarrhea ED Provider: Teressa George Dx/Rx/DC Orders Clinical Impression: NETTE (acute kidney injury), Heart transplant, orthotopic, status, COVID-19, Vomiting Prescriptions: No Action magnesium oxide 400 mg capsule 400 mg capsule 400 mg PO QDAY mycophenolate mofetil 250 mg capsule 250 mg PO BID aspirin [Adult Aspirin Regimen] 81 mg tablet,delayed release (DR/EC) 81 mg PO DAILY melatonin 5 mg capsule 10 mg PO QHS multivitamin capsule 1 cap PO DAILY calcium carbonate [Calcium 600] 600 mg calcium (1,500 mg) tablet 600 mg PO BID vitamin B complex [B Complex-Vitamin B12] Tablet 1 tab PO DAILY cholestyramine (with sugar) 4 gram powder in packet 4 g PO TID Qty: 20 2RF Rx Instructions: administer w/meal; avoid other meds within 1hr before or 4-6hr after dose Paxlovid (EUA) 300 mg (150 mg x 2)-100 mg tablet See Rx Instructions PO .COMPLEX Qty: 30 0RF Rx Instructions: take TWO 150 mg tablets of nirmatrelvir with ONE 100 mg tablet of ritonavir twice daily for 5 days PO pravastatin 40 MG tablet 40 mg PO QHS tacrolimus 1 mg capsule 1 mg PO Q12H losartan 25 mg tablet 25 mg PO BID Primary Care Provider: Sharan Solorzano Referrals: Sharan Solorzano, [Primary Care Provider] - Disposition Disposition: Acute Care Hospital Discharge Location: [facility]
[2021-10-11] MEDS: Ondansetron 4 MG/2 ML Vial IV (01:34)
[2021-10-11] MEDS: 0.9% Normal Saline 1,000 ML 1000 ML IV (01:35)
[2021-10-11 01:49] LABS: Absolute Lymphocyte Count 0.77 X10^3/uL (0.83-4.51); Absolute Neutrophil Count 6.4 X10^3/uL (2.0-7.7); Basophil# 0.02 X10^3/uL; Basophil% 0.3 % (0-1); Eosinophil# 0.01 X10^3/uL; Eosinophils% 0.1 % (0-5); Hematocrit 42.9 % (40-54); Hemoglobin 14.3 g/dL (13.0-16.5); Lymphocyte # 0.77 X10^3/ul (0.83-4.51); Lymphocyte % 9.9 % (19-41); Mean Corp Hgb Conc 33.3 g/dL (32-36); Mean Corpuscular Hgb 29.2 pg (27.0-32.0); Mean Corpuscular Volume 87.7 fL (80-94); Mean Platelet Vol. 10.3 fl (6.2-12.0); Monocyte# 0.58 X10^3/uL; Monocyte% 7.4 % (0-10); NRBC Flagged by Analyzer 0 % (0-5); Neutrophil # 6.36 X10^3/uL (2.7-7.7); Neutrophil % 81.7 % (47-70); Platelet Count 143 K/mm3 (150-450); RBC Distribution Width CV 13.8 % (11.6-14.6); RBC Distribution Width SD 44.1 fl (35.1-43.9); Red Blood Count 4.89 M/mm3 (4.6-6.2); White Blood Count 7.8 K/mm3 (4.4-11.0)
[2021-10-11 01:53] VITALS: BP 137/86; PULSE 72; RESP 18; O2SAT 95
[2021-10-11 02:03] LABS: AST(SGOT) 7 U/L (15-37); Alanine Aminotransfer ALT/SGPT 14 U/L (16-61); Albumin, Serum 3.7 g/dL (3.2-5.0); Alkaline Phosphatase 72 U/L (45-117); Anion Gap 5 (5-15); BUN 36 mg/dL (7-18); BUN/Creat Ratio 25.2 RATIO (10-20); Calcium,Total 9.9 mg/dL (8.5-10.1); Chloride 104 mmol/L (98-107); Creatinine, Serum 1.43 mg/dL (0.70-1.30); EST Glomerular Filtration Rate 51 mL/min (>60); Est Glom Filt Rate - Afr Amer 62 mL/min (>60); Estimated Creatinine Clearance 46.79 ml/min; Globulin 3.7 g/dL (2.2-4.2); Glucose 126 mg/dL (74-106); Lipase 15 U/L (73-393); Potassium 5.4 mmol/L (3.5-5.1); Protein, Total 7.4 g/dL (6.4-8.2); Sodium Level 137 mmol/L (136-145)
[2021-10-11 02:05] LABS: CPK Total, Creatine Kinase 30 U/L (39-308)
[2021-10-11 04:00] LABS: Bacteria 0 SEEN /hpf (None Seen); Mucous, Urine 0 SEEN /hpf (<or=2+); Red Blood Cells-Urine 0 SEEN /hpf (0-5); Squamous Epithelial Cells - UA 0 SEEN /hpf (0-5); White Blood Cells 0 SEEN /hpf (0-5)
[2021-10-11 04:09] LABS: Color, Urine Yellow (Yellow); Glucose, Dipstick Normal (Normal); Ketone-Dipstick Negative (Negative); Leukocyte Esterase-Dipstick Negative /ul (Negative); Nitrite-Dipstick Negative (Negative); Occult Blood-Urine Negative /ul (Negative); Protein-Dipstick Negative (Negative); Specific Gravity, Urine 1.015 (1.002-1.030); Urine Bilirubin Dipstick Negative (Negative); Urine Clarity Clear (Clear); Urine Urobilinogen Normal (Normal)
[2021-10-11 05:47] VITALS: BP 142/84; PULSE 77; RESP 14; TEMP 36.7; O2SAT 97
[2021-10-11 07:31] VITALS: BP 145/95; PULSE 81; RESP 20; O2SAT 96
[2021-10-18 11:14] LABS: Tacrolimus (FK506) 75.5 ng/mL (2.0-20.0)
--- NOTE | 2021-10-18 11:35 | ED.RN ---
1125 THIS RN SPOKE WITH , ED PHYSICIAN ON DUTY, TO REPORT HIGH TACROLIMUS VALUE OF 75.5. PER DR. BLAND, PT WAS TRANSFERRED TO [facility] FOR FURTHER TREATMENT. NO OTHER INTERVENTIONS ON OUR END NEEDED.
== END 2021-10-11 08:33 | disposition short-term general hospital (02) ==
PROVIDERS: Emergency Provider Emergency Medicine; PCP Family Medicine; Visit Provider Emergency Medicine
DX: N17.9 Acute kidney failure, unspecified (principal); Z94.1 Heart transplant status; U07.1 COVID-19; E78.5 Hyperlipidemia, unspecified; I10 Essential (primary) hypertension; E66.9 Obesity, unspecified; Z68.36 Body mass index [BMI] 36.0-36.9, adult; Z79.82 Long term (current) use of aspirin; Z79.899 Other long term (current) drug therapy; Z87.891 Personal history of nicotine dependence; Z86.16 Personal history of COVID-19
CPT/HCPCS: 71045; 80053; 80197; 81001; 82550; 83690; 85025; 93005; 96361; 96374; 99285; J7030; A4216; J2405

== ENCOUNTER → 2021-10-23 | Outpatient (CLI) | payer MEDICARE, OTHER, SELFPAY ==
[2021-10-23 11:08] LABS: BUN 35 mg/dL (7-18); Chloride 102 mmol/L (98-107); Creatinine, Serum 1.31 mg/dL (0.70-1.30); EST Glomerular Filtration Rate 57 mL/min (>60); Est Glom Filt Rate - Afr Amer 69 mL/min (>60); Glucose 128 mg/dL (74-106); Potassium 4.7 mmol/L (3.5-5.1); Sodium Level 138 mmol/L (136-145)
[2021-10-28 23:57] LABS: Tacrolimus (FK506) 4.7 ng/mL (2.0-20.0)
== END | disposition home or self-care (01) ==
PROVIDERS: PCP Family Medicine
DX: R40.20 Unspecified coma (principal); Z48.21 Encounter for aftercare following heart transplant; Z94.1 Heart transplant status
CPT/HCPCS: 36415; 80048; 80051; 80197; 82374; 82435; 82565; 82947; 84132; 84295; 84520

== ENCOUNTER → 2021-10-26 | Outpatient (CLI) | payer MEDICARE, OTHER, SELFPAY ==
[2021-10-26 12:00] LABS: Absolute Lymphocyte Count 0.95 X10^3/uL (0.83-4.51); Absolute Neutrophil Count 5.4 X10^3/uL (2.0-7.7); Basophil# 0.03 X10^3/uL; Basophil% 0.4 % (0-1); Eosinophil# 0.07 X10^3/uL; Hematocrit 41.5 % (40-54); Hemoglobin 13.7 g/dL (13.0-16.5); Lymphocyte # 0.95 X10^3/ul (0.83-4.51); Lymphocyte % 13.2 % (19-41); Mean Corpuscular Hgb 29.3 pg (27.0-32.0); Mean Corpuscular Volume 88.9 fL (80-94); Monocyte# 0.74 X10^3/uL; Monocyte% 10.3 % (0-10); NRBC Flagged by Analyzer 0 % (0-5); Neutrophil # 5.37 X10^3/uL (2.7-7.7); Neutrophil % 74.4 % (47-70); Platelet Count 211 K/mm3 (150-450); RBC Distribution Width CV 14.5 % (11.6-14.6); RBC Distribution Width SD 46.5 fl (35.1-43.9); Red Blood Count 4.67 M/mm3 (4.6-6.2); White Blood Count 7.2 K/mm3 (4.4-11.0)
[2021-10-26 12:25] LABS: Anion Gap 8 (5-15); BUN 28 mg/dL (7-18); BUN/Creat Ratio 24.1 RATIO (10-20); Calcium,Total 9.3 mg/dL (8.5-10.1); Chloride 104 mmol/L (98-107); Creatinine, Serum 1.16 mg/dL (0.70-1.30); EST Glomerular Filtration Rate 65 mL/min (>60); Est Glom Filt Rate - Afr Amer 79 mL/min (>60); Glucose 170 mg/dL (74-106); Potassium 4.4 mmol/L (3.5-5.1); Sodium Level 137 mmol/L (136-145)
== END | disposition home or self-care (01) ==
LOC: BIMLAB 10:36
PROVIDERS: PCP Family Medicine; Referring Provider Physician Assistant; Visit Provider Physician Assistant
DX: N14.1 Nephropathy induced by other drugs, medicaments and biological substances (principal); T45.1X5A Adverse effect of antineoplastic and immunosuppressive drugs, initial encounter; K63.89 Other specified diseases of intestine; U07.1 COVID-19; I10 Essential (primary) hypertension; E78.2 Mixed hyperlipidemia
CPT/HCPCS: 36415; 80048; 85025

== ENCOUNTER → 2021-12-20 | Outpatient (CLI) | payer MEDICARE, OTHER, SELFPAY ==
[2021-12-20 12:18] LABS: Creatinine, Serum 0.91 mg/dL (0.70-1.30); EST Glomerular Filtration Rate 86 mL/min (>60); Est Glom Filt Rate - Afr Amer 104 mL/min (>60); Uric Acid 6.9 mg/dL (3.5-7.2)
== END | disposition home or self-care (01) ==
LOC: BIMLAB 10:18
PROVIDERS: PCP Family Medicine; Referring Provider Family Medicine; Visit Provider Family Medicine
DX: M10.9 Gout, unspecified (principal)
CPT/HCPCS: 36415; 82565; 84550

== ENCOUNTER → 2022-06-20 | Outpatient (CLI) | payer MEDICARE, OTHER, SELFPAY ==
[2022-06-20 10:47] LABS: Bacteria 0 SEEN /hpf (None Seen); Mucous, Urine 0 SEEN /hpf (<or=2+); Red Blood Cells-Urine 0 SEEN /hpf (0-5); Squamous Epithelial Cells - UA 0 SEEN /hpf (0-5); White Blood Cells 0 SEEN /hpf (0-5)
[2022-06-20 12:31] LABS: Color, Urine Yellow (Yellow); Glucose, Dipstick Normal (Normal); Ketone-Dipstick Negative (Negative); Leukocyte Esterase-Dipstick Negative /ul (Negative); Nitrite-Dipstick Negative (Negative); Occult Blood-Urine Negative /ul (Negative); Protein-Dipstick Negative (Negative); Specific Gravity, Urine 1.015 (1.002-1.030); Urine Bilirubin Dipstick Negative (Negative); Urine Clarity Clear (Clear); Urine Urobilinogen Normal (Normal)
[2022-06-20 13:10] LABS: PSA,Total- Diagnostic 0.96 ng/mL (0.0-4.0)
== END | disposition home or self-care (01) ==
LOC: BIMLAB 10:47
PROVIDERS: PCP Family Medicine; Referring Provider Family Medicine; Visit Provider Family Medicine
DX: I10 Essential (primary) hypertension (principal); R35.0 Frequency of micturition
CPT/HCPCS: 36415; 81001; 84153

== ENCOUNTER 2022-07-30 13:00 | Outpatient (RCR) | payer MEDICARE, OTHER, SELFPAY ==
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
--- NOTE | 2022-07-30 14:48 | HP.PTDCSUM ---
It has been my pleasure to treat MARLENY DRAPER referred by Dr. Sharan Solorzano DO, with the diagnosis of Balance Problems for a total of 10 visit(s). Discharge Date: 07/30/22 Please see the following information for a summary of their discharge status. Subjective: Pt feels that there has been some improvement. He reports that at times he may have dizzy with rolling over or turning his head. As far as how he is improving. He feels that he is doing the exercises with less veering and swaying. R knee pain (arthritis) Pain Intensity (Out of 10): 2 % Improvement: 50 Objective/Function: FGA 22. CATSIB 120. Walks 90+ feet with EO and CGA and no veering. VOR: head and eyes together and smooth pursuit X 60 seconds with no dizziness and CGA Goal 1:: I HEP Goal Progress: Goal Met Goal 2:: Increase balance by increase FGA score (score at eval was 13) Goal Progress: Goal Met Goal 3:: Increase balance by increase CATSIB score (score was 90 at eval) Goal Progress: Goal Met Goal 4:: Be able to walk with horizontal head turns without veering or dizzines (pool door tp alan phil) Goal Progress: Goal Met Goal 5:: Be able to complete standing smooth pursuit and head and eye movements together for 1 min without dizziness or LOB Goal Progress: Progressing Goal 6:: Be able to walk 90 feet without veering Goal Progress: Goal Met Plan: DC PT to HEP Discharge Comments: DC PT to HEP If there are questions or concerns regarding this patient's physical therapy, please feel free to call me at [phone]. Thank you for the referral of this patient. Sincerely, Geneva Pratt, MPT Balance/Gait/Functional tests - Balance/Special Test Scores Functional Gait Assessment Score: 22 % Disability: 26.6700 CATSIB Score (Max score 120 seconds): 120 Lower Extremity Functional Score: 54
== END 2022-07-30 19:00 | disposition home or self-care (01) ==
LOC: PT 13:00
PROVIDERS: PCP Family Medicine; Referring Provider Family Medicine; Visit Provider Family Medicine
DX: R26.81 Unsteadiness on feet (principal)
CPT/HCPCS: 97110; 97162; 97530

== ENCOUNTER 2023-02-02 11:39 | Emergency (ER) | payer MEDICARE, OTHER, SELFPAY ==
[2023-02-02 11:40] VITALS: BP 133/82; PULSE 80; RESP 16; TEMP 36.6; O2SAT 100
--- NOTE | 2023-02-02 12:01 | RAD_ITS ---
INDICATION: fall EXAMINATION/TECHNIQUE: X-RAY - XR Chest 1 View COMPARISON: 02/10 2022 FINDINGS: LINES/DEVICES: None. LUNGS: Moderate left lower lobe and mild right lower lobe fibrosis stable. MEDIASTINUM AND CARDIOVASCULAR STRUCTURES: Mild cardiomegaly. Status post sternotomy. BONES AND SOFT TISSUES: Unremarkable. RAD/Chest 1 View (Portable) IMPRESSION: Moderate left lower lobe and mild right lower lobe fibrosis. Electronically Signed: Pedro Taylor MD at 12:38 EDT ,
--- NOTE | 2023-02-02 12:03 | EKG12_ITS ---
Test Reason : SYNCOPE Blood Pressure : / mmHG Vent. Rate : 080 BPM Atrial Rate : 080 BPM P-R Int : 160 ms QRS Dur : 102 ms QT Int : 388 ms P-R-T Axes : 054 -33 022 degrees QTc Int : 447 ms Normal sinus rhythm Left axis deviation Incomplete right bundle branch block Nonspecific T wave abnormality Abnormal ECG Confirmed by REYES GONZALEZ, WALLY ([id number]), editorial manager MAGALY RODRIGUEZ ([id number]) on 02/05/2023 12:37:10 PM Referred By: SANTI Confirmed By:JANENE CHAMBERS MD
--- NOTE | 2023-02-02 12:05 | EDS_ITS ---
HPI History of Present Illness Chief Complaint: Syncope Narrative Narrative: Presents after syncopal episode. He developed hiccups after which he became quite lightheaded felt like he was going to pass out braced himself and then had a syncopal episode. He has had 3 prior episodes of syncope secondary to hiccups in the past. He does have a history of heart transplant, he is on immune suppressants. No head injury. He has some slight right-sided chest wall pain after the fall no extremity injury. He is denying any palpitations. No fevers or chills. No shortness of breath or pleuritic component. [facility] Medical History Acute renal insufficiency Cellulitis and abscess of face Chronic back pain COVID-19 (03/2021) COVID-19 (10/04/21) Diastolic dysfunction Difficulty balancing Essential (primary) hypertension Fatigue Fecal urgency Gastroenteritis due to norovirus Gout Hyperbilirubinemia Hyperlipemia Hyponatremia Loss of consciousness Nonischemic cardiomyopathy Obesity Obstructive sleep apnea Osteoarthritis Osteopenia Personal history of immunosuppressive therapy Positional lightheadedness Renal insufficiency Skin cancer SOB (shortness of breath) Spinal stenosis 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 Ventricular tachycardia Ventricular tachycardia Home Medications pravastatin 40 mg tablet 40 mg PO QHS 07/21/15 [History Last Taken Unknown] magnesium oxide 400 mg PO QDAY 07/24/17 [History Last Taken Unknown] tacrolimus 1 mg capsule, immediate-release 1 mg PO Q12H 07/24/17 [History Last Taken Unknown] aspirin 81 mg tablet,delayed release (Adult Aspirin Regimen) 81 mg PO DAILY 09/15/19 [History Last Taken Unknown] melatonin 5 mg capsule 10 mg PO QHS 09/15/19 [History Last Taken Unknown] multivitamin 1 cap PO DAILY 09/15/19 [History Last Taken Unknown] mycophenolate mofetil 250 mg capsule 250 mg PO BID 09/15/19 [History Last Taken Unknown] calcium citrate 315 mg calcium-vitamin D3 6.25 mcg (250 unit) tablet 1 tab PO BID 05/25/22 [History Last Taken Unknown] cyanocobalamin (vitamin B-12) 1,000 mcg capsule 1,000 mcg PO DAILY 05/25/22 [History Last Taken Unknown] losartan 50 mg tablet 50 mg PO DAILY 05/25/22 [History Last Taken Unknown] allopurinol 100 mg tablet 100 mg PO DAILY #90 tabs 12/26/22 [Rx Last Taken Unknown] terbinafine HCl 250 mg tablet 250 mg PO DAILY #30 tabs 12/26/22 [Rx Last Taken Unknown] Allergy/AdvReac Type Severity Reaction Status Date / Time ramipril AdvReac Intermediate Cough Verified 02/02/23 11:43 Family History Father Diabetes Heart disease Myocardial infarction, Onset Age: 65 Mother Heart disease Lupus Arthritis CVA (cerebral vascular accident) Grandfather Colon cancer Heart disease Aunt Diabetes Brother Seizures Surgical History H/O right heart catheterization (11/25/18) Heart transplant, orthotopic, 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) History of appendectomy History of basal cell carcinoma History of cataract extraction History of heart transplant (06/04/15) History of left heart catheterization (05/2018) history of LVAD implant History of nasal septoplasty History of tonsillectomy and adenoidectomy History of tricuspid valve annuloplasty Presence of biventricular implantable cardioverter-defibrillator (ICD) Social History Smoking Status: Former smoker how long ago did patient quit smokin alcohol intake: never substance use type: does not use what type of physical activity do you participate in: walking frequency: 5-6 times per week ROS ROS ED ROS Narrative Past medical history: Reviewed Medications: Reviewed Social history: Noncontributory Review of systems: All systems negative except as indicated General: No fever. Syncope as in HPI Eyes: No visual changes ENT: No upper airway congestion, normal voice Neck: No neck pain Cardiovascular: No chest pain Respiratory: No shortness of breath or cough Gastrointestinal: No abdominal pain, nausea vomiting or diarrhea Genitourinary: No dysuria Musculoskeletal: Denies myalgias no difficulty with ambulation Skin: No rash Neurological: No memory loss, confusion or any focal weakness EXAM Physical Exam Narrative Exam Narrative: Physical exam General: Well nourished, Well developed, No Acute Distress Head: Normocephalic, Atraumatic Eyes: Conjunctiva not pale ENT: Moist mucous membranes Neck: Supple, Nontender, No lymphadenopathy Cardiovascular: Regular rate, Regular rhythm Chest wall: Midline scars that are old, left posterior axillary line lower rib pain this is mild without any evidence of bruising. Respiratory: No distress, CTA bilaterally Abdomen: Soft, Nontender, Nondistended Back: Nontender, Normal Inspection. Negative for: CVA tenderness Extremities: Nontender, No edema Skin: Normal color, No rash Neurological: Alert, Normal Strength, Normal Sensation Psychological: Normal affect Const Vital Signs: 02/02/23 11:40 02/02/23 11:56 Temperature 98 F Temperature Source Temporal Pulse Rate 80 Respiratory Rate 16 Respiratory Effort Normal Non-Labored Blood Pressure 133/82 H Blood Pressure Mean 99 Pulse Ox 100 Oxygen Delivery Method Room Air MDM MDM MDM Narrative Medical decision making narrative: Patient's work-up is unremarkable. He had a syncopal episode, I do believe this was induced by the hiccups since this is happened in the past. There is no evidence of cardiac involvement EKG is unremarkable he did not have palpitations, he did have quite a bit of lightheadedness and felt like he was going to pass out before hand. It was not sudden. I do not believe he meets admission criteria. I talked to family members also given history and they are okay with discharge. Reviewed his history and I do not believe any medication changes are needed. Lab Data Labs: Laboratory Results - last 24 hr 02/02/23 12:04 WBC 7.2 RBC 5.51 Hgb 16.1 Hct 48.9 MCV 88.7 MCH 29.2 MCHC 32.9 RDW Std Deviation 46.8 H RDW Coeff of Jaimie 14.6 Plt Count 185 MPV 10.4 Immature Gran % (Auto) 0.800 Neut % (Auto) 72.3 H Lymph % (Auto) 18.9 L [place] % (Auto) 6.9 Eos % (Auto) 0.7 Baso % (Auto) 0.4 Absolute Neuts (auto) 5.2 Absolute Lymphs (auto) 1.37 Nucleated RBC % 0 Troponin I High Sens 10 Radiography Diagnostic Testing: Clinical Impression(s) from Imaging Studies Chest X-Ray 02/02/23 12:01 IMPRESSION: Moderate left lower lobe and mild right lower lobe fibrosis. Electronically Signed: Pedro Taylor MD at 12:38 EDT , Chest x-ray read by me as no new changes and unremarkable. Discharge Plan Triage Chief Complaint: Syncope ED Provider: Nimesh Bell Dx/Rx/DC Orders Clinical Impression: Syncope, History of heart transplant Instructions: What Is Syncope Prescriptions: No Action magnesium oxide 400 mg capsule 400 mg capsule 400 mg PO QDAY mycophenolate mofetil 250 mg capsule 250 mg PO BID aspirin [Adult Aspirin Regimen] 81 mg tablet,delayed release (DR/EC) 81 mg PO DAILY melatonin 5 mg capsule 10 mg PO QHS multivitamin capsule 1 cap PO DAILY losartan 50 mg tablet 50 mg PO DAILY calcium citrate-vitamin D3 315 mg-6.25 mcg (250 unit) tablet 1 tab PO BID cyanocobalamin (vitamin B-12) 1,000 mcg capsule 1,000 mcg PO DAILY terbinafine HCl 250 mg tablet 250 mg PO DAILY Qty: 30 12RF allopurinol 100 mg tablet 100 mg PO DAILY Qty: 90 1RF pravastatin 40 MG tablet 40 mg PO QHS tacrolimus 1 mg capsule 1 mg PO Q12H Primary Care Provider: Sharan Solorzano Referrals: Sharan Solorzano, DO [Primary Care Provider] - 3-5 Days
[2023-02-02 12:11] LABS: Absolute Lymphocyte Count 1.37 X10^3/uL (0.83-4.51); Absolute Neutrophil Count 5.2 X10^3/uL (2.0-7.7); Basophil# 0.03 X10^3/uL; Basophil% 0.4 % (0-1); Eosinophil# 0.05 X10^3/uL; Eosinophils% 0.7 % (0-5); Hematocrit 48.9 % (40-54); Hemoglobin 16.1 g/dL (13.0-16.5); Lymphocyte # 1.37 X10^3/ul (0.83-4.51); Lymphocyte % 18.9 % (19-41); Mean Corp Hgb Conc 32.9 g/dL (32-36); Mean Corpuscular Hgb 29.2 pg (27.0-32.0); Mean Corpuscular Volume 88.7 fL (80-94); Mean Platelet Vol. 10.4 fl (6.2-12.0); Monocyte% 6.9 % (0-10); NRBC Flagged by Analyzer 0 % (0-5); Neutrophil # 5.22 X10^3/uL (2.7-7.7); Neutrophil % 72.3 % (47-70); Platelet Count 185 K/mm3 (150-450); RBC Distribution Width CV 14.6 % (11.6-14.6); RBC Distribution Width SD 46.8 fl (35.1-43.9); Red Blood Count 5.51 M/mm3 (4.6-6.2); White Blood Count 7.2 K/mm3 (4.4-11.0)
[2023-02-02 12:28] LABS: Troponin-I HS 10 pg/mL (3.0-78.0)
[2023-02-02 13:17] VITALS: PULSE 85; RESP 18; O2SAT 97
== END 2023-02-02 13:18 | disposition home or self-care (01) ==
LOC: ED 11:58
PROVIDERS: Emergency Provider Emergency Medicine; PCP Family Medicine; Visit Provider Emergency Medicine
DX: R55 Syncope and collapse (principal); Z94.1 Heart transplant status; G47.33 Obstructive sleep apnea (adult) (pediatric); Z86.16 Personal history of COVID-19; Z87.891 Personal history of nicotine dependence
CPT/HCPCS: 71045; 84484; 85025; 93005; 99283; A4216

== ENCOUNTER → 2024-06-10 | Outpatient (CLI) | payer MEDICARE, OTHER, SELFPAY ==
[2024-06-10 15:23] LABS: Absolute Lymphocyte Count 0.95 X10^3/uL (0.83-4.51); Absolute Neutrophil Count 4.2 X10^3/uL (2.0-7.7); Basophil# 0.03 X10^3/uL; Basophil% 0.5 % (0-1); Eosinophil# 0.04 X10^3/uL; Eosinophils% 0.7 % (0-5); Hematocrit 49.6 % (40-54); Hemoglobin 15.6 g/dL (13.0-16.5); Lymphocyte # 0.95 X10^3/ul (0.83-4.51); Lymphocyte % 16.8 % (19-41); Mean Corp Hgb Conc 31.5 g/dL (32-36); Mean Corpuscular Hgb 28.1 pg (27.0-32.0); Mean Corpuscular Volume 89.2 fL (80-94); Mean Platelet Vol. 10.5 fl (6.2-12.0); Monocyte# 0.45 X10^3/uL; Monocyte% 7.9 % (0-10); NRBC Flagged by Analyzer 0 % (0-5); Neutrophil # 4.18 X10^3/uL (2.7-7.7); Neutrophil % 73.7 % (47-70); Platelet Count 194 K/mm3 (150-450); RBC Distribution Width CV 14.6 % (11.6-14.6); RBC Distribution Width SD 47.8 fl (35.1-43.9); Red Blood Count 5.56 M/mm3 (4.6-6.2); White Blood Count 5.7 K/mm3 (4.4-11.0)
[2024-06-13 20:08] LABS: Vitamin D 1,25-Dihydroxy 22.6 pg/mL (24.8-81.5)
[2024-06-14 13:07] LABS: Vitamin B1, Thiamine 174.3 nmol/L (66.5-200.0)
== END | disposition home or self-care (01) ==
LOC: BIMLAB 11:52
PROVIDERS: PCP Family Medicine; Referring Provider Family Medicine; Visit Provider Family Medicine
DX: G57.93 Unspecified mononeuropathy of bilateral lower limbs (principal); G62.9 Polyneuropathy, unspecified
CPT/HCPCS: 36415; 82652; 82746; 82747; 84425; 84443; 85014; 85025

== ENCOUNTER → 2024-12-15 | Outpatient (CLI) | payer MEDICARE, OTHER, SELFPAY ==
[2024-12-15 16:06] LABS: PSA,Total - Annual Screen 0.77 ng/mL (0.02-4.00); Uric Acid 7.0 mg/dL (3.5-7.2); Vitamin D,25 Hydroxy 39.1 ng/mL (30-100)
--- OUTSIDE RECORDS SUMMARY | 2024-12-15 23:12 | XMS RPT_ITS | CCD ---
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 Leoncio Acevedo Primary Care Provider Dr. Leoncio Acevedo Attending Provider Dr. Leoncio Acevedo Referring Provider Andrei ELEVATOR MECHANIC, ELEVATOR MECHANIC-C Pedro Attending Provider Mckinley Villarreal MD Unavailable Dr. Leoncio Acevedo Primary Care Provider Dr. Leoncio Acevedo Referring Provider Dr. Leoncio Acevedo Attending Provider FELICITA Chow Attending Provider [phone] Iain Dutta DO Unavailable Juma Celestin MD Unavailable FELICITA Stephens Attending Provider Unavailab Dr. Leoncio Frey Primary Care Provider Dr. Leoncio Acevedo Referring Provider Dr. Mckinley Villarreal Attending Provider Leoncio Acevedo DO Primary Care Provider Mckinley Villarreal MD S Unavailable Andrea Gibbs,PharmD, Miguel Angel Unavailable Unavailab [facility], Brianna C Unavailable Luzmaria DO, Iain C Unavailable Juma Celestin MD Unavailable Dr. Leoncio Acevedo Primary Care Provider [phone] Dr. Leoncio Acevedo Referring Provider Dr. Mckinley Villarreal Attending Provider Dr. Leoncio Acevedo Attending Provider Leoncio Acevedo DO Primary Care Provider Mckinley Villarreal MD Unavailable Fete [facility],PharmD, Miguel Angel Unavailable Unavailab [facility], Brianna C Unavailable [phone] Luzmaria DO, Iain C Unavailable Juma Celestin MD Unavailable Dr. Leoncio Acevedo Primary Care Provider [phone] Dr. Leoncio Acevedo Referring Provider FELICITA Chow Attending Provider [phone] Dr. Leoncio Acevedo Attending Provider [phone] Luzmaria DO, Iain C Unavailable Luzmaria DO, Iain C Unavailable Juma Celestin MD Unavailable [phone] Fete, Miguel Angel Unavailable Unavailable Dr. Leoncio Acevedo DO Primary Care Provider [phone] Dr. Leoncio Acevedo DO Attending Provider [phone] Dr. Leoncio Acevedo DO Referring Provider [phone] Nancy Marcos Attending Provider [phone] Leoncio Acevedo Referring Unavailable Brown, Leoncio R Primary Care Unavailable Brown, Leoncio R Attending Unavailable Brown, Leoncio R Referring Unavailable Brown, Leoncio R Primary Care Unavailable Brown, Lenocio R Attending Unavailable Brown, Leoncio R Referring Unavailable Brown, Leoncio R Primary Care Unavailable Brown, Leoncio R Attending Unavailable Brown, Leoncio R Referring Unavailable Brown, Leoncio R Primary Care Unavailable Nancy Hampton NP Attending Unavailable VALLE, ISSAIIBHAV N Attending Unavailable LEONARD, ISSAIIBHAV N Referring Unavailable CURTIS LEONCIO R Primary Care Unavailable CURTIS LEONCIO R Primary Care Unavailable CURTIS LEONCIO R Referring Unavailable JUMA CELESTIN Attending Unavailable BIJU ACEVEDOLAS R Primary Care Unavailable VALLE, ISSAIIBHAV N Attending Unavailable ISSA VALLEIIBHAV N Referring Unavailable Dr. Leoncio Aecvedo DO Primary Care Provider Dr. Leoncio Acevedo DO Referring Provider [phone] Dr. Leoncio Acevedo DO Attending Provider [phone] Allergies Allergy Classification Reported Allergen(s) Allergy Type Date of Onset Reaction(s) Facility (13 sources) Ramipril Drug Allergy 08-14-2021 [facility] (1 source) Ramipril Drug Allergy 09-22-2024 [facility] Repository Medications Current Medications Medication Drug Class(es) Dates Sig (Normalized) Sig (Original) calcium citrate 1500 mg / cholecalciferol 250 unt oral tablet (20 sources) Vitamin D Start: 05-25-2022 Calcium Citrate-Vitamin D3 315 mg-6.25 mcg (250 unit) tablet Active 1 {tbl} PO TWICE A DAY May 25, 2022 1:00am Start: 05-25-2022 take 1 tablet by aleena th twice daily Calcium Citrate-Vitamin D3 Active 1 TABLET PO TWICE A DAY May 25, 2022 1:00am Start: 10-11-2021 End: 10-17-2021 take 1 tablet by mouth twice daily 1 tablet, Oral, 2 TIMES DAILY, First dose on Sat10/11/21 at 1700, Until Discontinued Start: 06-25-2016 calcium citrat e-vitamin D 315-250 MG-UNIT Tab take 1 tablet by mouth 2 times daily.. 60 tablet 12 06/25/2016 Active cholecalciferol 0.05 mg oral capsule (2 sources) Vitamin D Start: 09-22-2024 take 1 capsule by mouth once daily Cholecalciferol (Vitamin D3) 50 mcg (2,000 unit) capsule Active 50 ug PO daily September 22, 2024 12:00am CUSTOM MEDICATION (20 sources) Start: 10-17-2021 CUSTOM MEDICAT ION Please obtain chem 6 and tacrolimus trough on 10/23/21 and fax to attn: Lesly Segal. Fax#: [phone] 1 Each 10/17/2021 Active Start: 10-17-2021 CUSTOM MEDICAT ION Please obtain chem 6 and tacrolimus trough on 10/23/21 and fax to attn: Lesly Segal. Fax#: [phone] 1 Each 0 10/17/2021 Active losartan potassium 50 mg oral tablet (20 sources) Angiotensin 2 Receptor Jessie Start: 06-10-2024 Losartan 50 mg tablet Active 25 mg PO DAILY June 10, 2024 12:04pm Start: 05-25-2022 End: 06-10-2024 take 1 tablet by mouth once daily Losartan 50 mg tablet Discontinued 50 mg PO DAILY May 25, 2022 11:22am June 10, 2024 12:05pm Start: 11-17-2021 End: 05-25-2022 Losartan 50 mg tablet Discon tinued 25 mg PO TWICE A DAY November 17, 2021 12:00am May 25, 2022 11:24am Start: 11-17-2021 End: 05-25-2022 take 25 mg by mouth twice daily Losartan Discontinued 25 MG PO TWICE A DAY November 17, 2021 12:00am May 25, 2022 11:24am Start: 08-21-2021 End: 11-17-2021 take 1 tablet by mouth twice daily Losartan 25 mg tablet Discontinued 25 mg PO TWICE A DAY August 21, 2021 1:36pm November 17, 2021 2:04pm Start: 03-24-2021 End: 10-17-2021 take 50 mg by mouth once daily Losartan Active 50 MG P O DAILY May 25, 2022 11:22am Start: 08-07-2018 End: 08-21-2021 take 2 tablets by mouth once daily Losartan 25 mg tablet Discontinued 50 mg PO DAILY August 07, 2018 4:38pm August 21, 2021 1:38pm Start: 08-07-2018 End: 08-21-2021 take 50 mg by mouth once daily Losartan Discontinued 5 0 MG PO DAILY August 07, 2018 4:38pm August 21, 2021 1:38pm Start: 02-25-2018 End: 08-07-2018 take 1 tablet by mouth once daily Losartan 25 mg tablet Discontinued 25 mg PO DAILY February 25, 2018 1:00am August 07, 2018 4:40pm Multiple Vitamin (MULTIVITAMIN) Cap (20 sources) Start: 06-22-2015 take 1 capsule by mouth once daily Multiple Vitamin (MULTIVITAMIN) Cap take 1 capsule by mouth daily. 30 capsule 12 06/22/2015 Active Multivitamin capsule (6 sources) Start: 09-15-2019 Multivitamin c apsule Active 1 NMA PO DAILY September 15, 2019 12:00am Start: 07-24-2017 End: 03-21-2019 Multivitamin capsule Discont inued 1 NMA PO EVERY MORNING July 24, 2017 12:00am March 21, 2019 10:02am Multivitamin preparation (10 sources) Start: 09-15-2019 take 1 capsule by mouth once daily multivitamin Active 1 CAP PO DAILY September 15, 2019 10:50am Start: 09-15-2019 take 1 capsule by mo uth once daily multivitamin Active 1 CAP PO DAILY September 15, 2019 12:00am mycophenolate mofetil 250 mg oral capsule (20 sources) Start: 09-15-2019 End: 10-17-2021 take 1 capsule by mouth twice daily Mycophenolate mofetil (CELLCEPT) 250 MG capsule 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 60 capsule 11 05/07/2024 Active Start: 06-30-2019 End: 09-15-2019 take 250 mg by mouth twice daily Mycophenolate Mofetil Discontinued 250 MG PO TWICE A DAY June 30, 2019 9:09am September 15, 2019 10:48am Start: 03-10-2019 End: 09-15-2019 take 1 tablet by mouth twice daily Mycophenolate Mofetil 500 mg tablet Discontinued 250 mg PO TWICE A DAY June 30, 2019 9:09am September 15, 2019 10:48am Start: 07-21-2015 End: 03-10-2019 take 1 capsule by mouth twice daily Mycophenolate Mofetil 250 mg capsule Discontinued 750 mg PO TWICE A DAY September 18, 2018 11:09am March 10, 2019 10:31am Start: 07-21-2015 End: 03-10-2019 take 750 mg by mouth twice daily Mycophenolate Mofetil Discontinued 750 MG PO TWICE A DAY September 18, 2018 11:09am March 10, 2019 10:31am Nirmatrelvir-Ritonavir (Paxlovid (Eua)) 300 mg (150 mg x 2)-100 mg tablet (1 source) Start: 10-04-2021 Nirmatrelvir-Ritonavir (Paxlovid (Eua)) 300 mg (150 mg x 2)-100 mg tablet Active 0 PO .COMPLEX October 04, 2021 12:00am take TWO 150 mg tablets of nirmatrelvir with ONE 100 mg tablet of ritonavir twice daily for 5 days PO pravastatin sodium 40 mg oral tablet (20 sources) HMG-CoA Reductase Inhibitor Start: 07-21-2015 End: 09-30-2023 take 1 tablet by mouth at bedtime Pravastatin 40 MG tablet Active 40 mg PO AT BEDTIME July 21, 2015 12:00am tacrolimus 0.5 mg oral capsule (20 sources) Calcineurin Inhibitor Immunosuppressant Start: 05-07-2024 take 1 capsule by mouth twice daily Tacrolimus (PROGRAF) 0.5 MG capsule 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 120 capsule 04/26/2022 Active Start: 10-11-2021 End: 10-17-2021 take 1 mg by mouth twice daily 1 mg, Oral, 2 TIMES JOSÉ LY, First dose on Sat10/11/21 at 2100, Until Discontinued Do not split, break, crush, or open doses of this medication. Contact pharmacy if altered dose or route needed. Do not split, break, crush, or open doses of this medication. Contact pharmacy if altered dose or route needed. 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 120 capsule 05/10/2020 Active Start: 09-08-2016 End: 07-24-2017 take 1 capsule by mouth at dinner Tacrolimus 1 MG capsule Discontinued 1 mg PO WITH DINNER September 08, 2016 12:00am July 24, 2017 9:29am Start: 09-08-2016 End: 07-24-2017 take 1 capsule by mouth every twelve hours Tacrolimus 1 mg capsule Active 1 mg PO Q12H July 24, 2017 9:27am Start: 07-21-2015 End: 07-24-2017 take 1.5 mg by mouth at breakfast Tacrolimus 1 MG capsule Discontinued 1.5 mg PO WITH BREAKFAST July 21, 2015 12:00am July 24, 2017 9:27am Start: 07-21-2015 End: 07-24-2017 take 1.5 mg by mouth at breakfast Tacrolimus Discontinued 1.5 MG PO WITH BREAKFAST July 21, 2015 12:00am July 24, 2017 9:27am Vitamin B Complex (B Complex-Vitamin B12) tablet (20 sources) Start: 09-29-2019 take 1 tablet by mouth once daily Vitamin B Complex (B Complex-Vitamin B12) tablet Active 1 TABLET PO DAILY September 29, 2019 11:37am Start: 09-29-2019 End: 05-25-2022 Vitamin B Complex (B Complex -Vitamin B12) tablet Discontinued 1 {tbl} PO DAILY September 29, 2019 12:00am May 25, 2022 11:23am Start: 09-29-2019 End: 05-25-2022 take 1 tablet by mouth once daily Vitamin B Complex (B Complex-Vitamin B12) tablet Discontinued 1 TABLET PO DAILY September 29, 2019 12:00am May 25, 2022 11:23am Start: 09-29-2019 [facility] Vitamin B Complex (B Complex-Vitamin B12) tablet Active 1 TABLET PO DAILY September 29, 2019 12:00am Start: 08-26-2017 End: 03-21-2019 take 1 tablet by mouth once daily Vitamin B Complex (B Complex-Vitamin B12) tablet Discontinued 1 TABLET PO daily August 26, 2017 10:18am March 21, 2019 10:02am Start: 08-26-2017 End: 03-21-2019 Vitamin B Complex (B Complex -Vitamin B12) tablet Discontinued 1 {tbl} PO daily August 26, 2017 12:00am March 21, 2019 10:02am Start: 08-26-2017 End: 03-21-2019 take 1 tablet by mouth once daily Vitamin B Complex (B Complex-Vitamin B12) tablet Discontinued 1 TABLET PO daily August 26, 2017 12:00am March 21, 2019 10:02am vitamin b12 1 mg oral capsule (20 sources) Vitamin B12 Start: 05-25-2022 take 1 capsule by mouth once daily Cyanocobalamin (Vitamin B-12) 1,000 mcg capsule Active 1000 ug PO DAILY May 25, 2022 1:00am take 1 tablet by mouth once abdulaziz y cyanocobalamin 100 MCG Tab Take 1 tablet by mouth daily. Active Completed/Discontinued Medications Medication Drug Class(es) Dates Sig (Normalized) Sig (Original) acetaminophen 325 mg oral tablet (3 sources) Start: 05-14-2023 End: 05-14-2023 take 1 tablet by mouth every six hours as needed Acetaminophen (TYLENOL) tablet 325 mg Start: 10-13-2021 End: 10-17-2021 take 1 tablet by mouth every four hours as needed acetaminophen (TYLENOL) tablet 650 mg Start: 10-11-2021 End: 10-11-2021 acetaminophen (TYLENOL) tabl et 975 mg Albuterol Sulfate (13 sources) beta2-Adrenergic Agonist Start: 04-24-2018 End: 08-07-2018 take 1 puff(s) by inhalation every six hours Albuterol Sulfate (Ventolin Hfa) 90 mcg/actuation HFA aerosol inhaler Discontinued 2 PUFF INHALATION EVERY 6 HOURS April 24, 2018 12:32pm August 07, 2018 4:41pm Start: 04-24-2018 End: 08-07-2018 Albuterol Sulfate (Ventolin Hfa) 90 mcg/actuation HFA aerosol inhaler Discontinued 2 NMA INHALATION EVERY 6 HOURS as needed for shortness of breath or wheezing 8 April 24, 2018 1:00am August 07, 2018 4:41pm Start: 04-24-2018 End: 08-07-2018 take 1 puff(s) by inhalation every six hours Albuterol Sulfate (Ventolin Hfa) 90 mcg/actuation HFA aerosol inhaler Discontinued 2 PUFF INHALATION EVERY 6 HOURS April 24, 2018 1:00am August 07, 2018 4:41pm alendronic acid 70 mg oral tablet (13 sources) Bisphosphonate Start: 09-08-2016 End: 07-24-2017 Alendronate 70 MG tablet Discontinued 70 mg PO BOLANOS September 08, 2016 12:00am July 24, 2017 9:36am allopurinol 100 mg oral tablet (20 sources) Xanthine Oxidase Inhibitor Start: 10-17-2021 End: 06-10-2024 take 1 tablet by mouth once daily Allopurinol 100 mg tablet Discontinued 100 mg PO DAILY 90 December 27, 2021 12:00am June 20, 2022 11:18am Start: 02-27-2018 End: 03-21-2019 take 1 tablet by mouth once daily at mealtime Allopurinol 100 mg tablet Discontinued 100 mg PO DAILY WITH MEALS 90 September 03, 2018 9:30am March 21, 2019 10:01am Start: 09-08-2016 End: 02-27-2018 take 2 tablets by mouth once daily at mealtime Allopurinol 100 MG tablet Discontinued 200 mg PO DAILY WITH MEALS September 08, 2016 12:00am February 27, 2018 11:24am Start: 09-08-2016 End: 02-27-2018 take 200 mg by mouth once daily at mealtime Allopurinol Discontinued 200 MG PO DAILY WITH MEALS September 08, 2016 12:00am February 27, 2018 11:24am amoxicillin 875 mg / clavulanate 125 mg oral tablet (20 sources) Penicillin-class Antibacterial Start: 06-23-2019 End: 06-30-2019 Amoxicillin-Pot Clavulanate (Augmentin) 875-125 mg tablet Discontinued 1 {tbl} PO TWICE A DAY 14 June 23, 2019 12:00am June 30, 2019 9:08am Start: 03-30-2018 End: 04-20-2018 Amoxicillin-Pot Clavulanate (Augmentin) 875-125 mg tablet Discontinued 1 {tbl} PO Q12H 20 March 30, 2018 1:00am April 20, 2018 9:40am aspirin 81 mg chewable tablet (20 sources) Platelet Aggregation Inhibitor, Nonsteroidal Anti-inflammatory Drug Start: 05-14-2023 End: 05-14-2023 aspirin chewable tablet 324 mg Start: 10-11-2021 End: 10-17-2021 take 81 mg by mouth once daily at bedtime 81 mg, Oral, DAILY AT BEDTIME, First dose on Sat10/11/21 at 2100, Until Discontinued Start: 09-15-2019 take 1 tablet by aleena th once daily Aspirin (Adult Aspirin Regimen) 81 mg tablet,delayed release (DR/EC) Active 81 mg PO DAILY September 15, 2019 12:00am Start: 09-08-2016 End: 03-21-2019 take 1 tablet by mouth once daily Aspirin 81 MG tablet,chewable Discontinued 81 mg PO DAILY September 08, 2016 12:00am March 21, 2019 10:01am Start: 06-22-2015 take 1 tablet by aleena th once daily aspirin 81 MG Tab take 1 tablet by mouth daily. 30 tablet 3 06/22/2015 Active azithromycin 250 mg oral tablet (13 sources) Macrolide Antimicrobial Start: 03-21-2019 End: 04-09-2019 take 2-4 tablets by mouth once daily Azithromycin 250 mg tablet Discontinued 0 PO .COMPLEX 6 0 March 21, 2019 1:00am April 09, 2019 12:31pm 500 mg day 1, then 250 mg days 2-4 PO benzonatate 100 mg oral capsule (20 sources) Non-narcotic Antitussive Start: 03-16-2021 End: 04-12-2021 take 1 capsule by mouth three times daily as needed for cough Benzonatate 100 mg capsule Discontinued 100 mg PO THREE TIMES A DAY as needed for cough 30 March 16, 2021 1:00am April 12, 2021 12:00pm Start: 04-04-2018 End: 05-14-2018 take 1 capsule by mouth three times daily as needed for cough Benzonatate (Tessalon Perles) 100 mg capsule Discontinued 100 mg PO THREE TIMES A DAY as needed for cough 30 0 April 04, 2018 1:00am May 14, 2018 11:29am Ca-D3-Mag Lo-Usoi-Ysv-Leroy-Bor (10 sources) Start: 09-03-2017 End: 09-15-2019 take 1 tablet by mouth twice daily Ca-D3-Mag Nf-Omub-Ezx-Leroy-Bor Discontinued 1 TABLET PO TWICE A DAY September 03, 2017 9:29am September 15, 2019 10:49am Ca-D3-Mag Sd-Ublp-Rit-Leroy-Bor 600 mg calcium- 400 unit-40 mg tablet,chewable (3 sources) Start: 09-03-2017 End: 09-15-2019 Ca-D3-Mag Nf-Gvfa-Dev-Leroy-Bor 600 mg calcium- 400 unit-40 mg tablet,chewable Discontinued 1 {tbl} PO TWICE A DAY September 03, 2017 9:29am September 15, 2019 10:49am calcium carbonate 1500 mg oral tablet (20 sources) Start: 06-28-2020 End: 05-25-2022 take 1 tablet by mouth twice daily Calcium Carbonate (Calcium 600) 600 mg calcium (1,500 mg) tablet Discontinued 600 mg PO TWICE A DAY June 28, 2020 11:33am May 25, 2022 11:22am Start: 09-15-2019 End: 06-28-2020 take 1 tablet by mouth once daily Calcium Carbonate (Calcium 600) 600 mg calcium (1,500 mg) tablet Discontinued 600 mg PO DAILY September 15, 2019 12:00am June 28, 2020 11:34am calcium carbonate 1500 mg / cholecalciferol 800 unt chewable tablet (13 sources) Vitamin D Start: 07-21-2015 End: 09-03-2017 take 1 tablet by mouth twice daily Ca-D3-Mag Oj-Vvgh-Zjw-Leroy-Bor 1 EACH tablet,chewable Discontinued 1 {tbl} PO TWICE A DAY July 21, 2015 12:00am September 03, 2017 9:31am Start: 07-21-2015 End: 09-03-2017 take 1 tablet by mouth twice daily Ca-D3-Mag Ta-Gvmh-Dww-Leroy-Bor Discontinued 1 TABLET PO TWICE A DAY July 21, 2015 12:00am September 03, 2017 9:31am calcium chloride 0.0014 meq/ml / potassium chloride 0.004 meq/ml / sodium chloride 0.103 meq/ml / sodium lactate 0.028 meq/ml injectable solution (2 sources) Start: 10-11-2021 End: 10-11-2021 lactated ringers IV solution cephalexin 500 mg oral capsule (13 sources) Cephalosporin Antibacterial Start: 08-26-2017 End: 09-03-2017 take 1 capsule by mouth three times daily Cephalexin 500 mg capsule Discontinued 500 mg PO THREE TIMES A DAY 30 0 August 26, 2017 12:00am September 03, 2017 9:29am space evenly during waking hours cholestyramine resin 4000 mg powder for oral suspension (10 sources) Bile Acid Sequestrant Start: 09-26-2021 End: 11-17-2021 take 1 dose by mouth three times daily Cholestyramine (With Sugar) 4 gram powder in packet Discontinued 4 g PO THREE TIMES A DAY 20 September 26, 2021 12:00am November 17, 2021 2:01pm administer w/meal; avoid other meds within 1hr before or 4-6hr after dose ciprofloxacin 500 mg oral tablet (13 sources) Quinolone Antimicrobial Start: 10-11-2017 End: 02-25-2018 take 1 tablet by mouth twice daily Ciprofloxacin Hcl 500 MG tablet Discontinued 500 mg PO TWICE A DAY 10 October 11, 2017 12:00am February 25, 2018 9:43am codeine phosphate 2 mg/ml / guaiFENesin 20 mg/ml oral solution (20 sources) Opioid Agonist Start: 06-23-2019 End: 09-15-2019 take 1 mL by mouth every six hours as needed for cough Codeine-Guaifenesin 10-100 mg/5 mL liquid Discontinued 5 mL PO EVERY 6 HOURS as needed for cough 120 0 June 23, 2019 12:00am September 15, 2019 10:49am Start: 06-23-2019 End: 09-15-2019 take 1 mL by mouth every six hours Codeine-Guaifenesin Discontinued 5 ML PO EVERY 6 HOURS 120 June 23, 2019 12:00am September 15, 2019 10:49am Start: 04-04-2018 End: 05-14-2018 take 5-10 mL by mouth every six hours as needed for cough Codeine-Guaifenesin (Cheratussin Ac) 10-100 mg/5 mL liquid Discontinued 0 PO EVERY 6 HOURS as needed for cough 120 0 April 24, 2018 12:34pm May 14, 2018 11:29am 5-10 mL PO Q6H PRN Start: 04-04-2018 End: 05-14-2018 take 5-10 mL by mouth every six hours as needed Codeine-Guaifenesin (Cheratussin Ac) 10-100 mg/5 mL liquid Discontinued 0 PO EVERY 6 HOURS 120 April 24, 2018 12:34pm May 14, 2018 11:29am 5-10 mL PO Q6H PRN colchicine 0.6 mg oral tablet (1 source) Start: 10-15-2021 End: 10-17-2021 colchicine tablet 0.6 mg 250 ml DOBUTamine 1 mg/ml injection (1 source) beta-Adrenergic Agonist Start: 05-15-2022 End: 05-16-2022 DOBUTamine (DOBUTREX) 1 MG/ML premix infusion dofetilide 0.125 mg oral capsule (13 sources) Antiarrhythmic Start: 11-25-2013 End: 11-28-2013 take 1 capsule by mouth every twelve hours Dofetilide 125 MCG capsule Discontinued 125 ug PO EVERY 12 HOURS November 25, 2013 12:00am November 28, 2013 9:06am ferrous sulfate 325 mg oral tablet (13 sources) Start: 07-21-2015 End: 11-12-2018 Ferrous Sulfate 325 MG tablet Discontinued 324 mg PO DAILY@0800 July 21, 2015 12:00am November 12, 2018 10:29am Start: 07-21-2015 End: 11-12-2018 take 324 mg by mouth once daily Ferrous Sulfate Discontinued 324 MG PO DAILY@0800 July 21, 2015 12:00am November 12, 2018 10:29am heparin injection 5,000 Units (1 source) Start: 10-11-2021 End: 10-17-2021 heparin injection 5,000 Units hydrALAZINE hydrochloride 25 mg oral tablet (1 source) Arteriolar Vasodilator Start: 10-17-2021 End: 10-17-2021 hydrALAZINE (APRESOLINE) tablet 25 mg levoFLOXacin 750 mg oral tablet (13 sources) Quinolone Antimicrobial Start: 04-25-2018 End: 05-14-2018 take 1 tablet by mouth once daily Levofloxacin (Levaquin) 750 mg tablet Discontinued 750 mg PO DAILY 7 0 April 25, 2018 1:00am May 14, 2018 11:29am lisinopril 5 mg oral tablet (13 sources) Angiotensin Converting Enzyme Inhibitor Start: 09-08-2016 End: 07-24-2017 take 1 tablet by mouth twice daily Lisinopril 5 MG tablet Discontinued 5 mg PO TWICE A DAY September 08, 2016 12:00am July 24, 2017 9:29am magnesium oxide 400 mg oral tablet (20 sources) Start: 10-11-2021 End: 10-17-2021 magnesium oxide (MAG-OX) tablet 800 mg Start: 07-24-2017 take 1 capsule by mo uth once daily Magnesium Oxide 400 mg capsule Active 400 mg PO daily July 24, 2017 12:00am Start: 01-25-2016 magnesium oxid e 400 MG Tab take 1 tablet by mouth daily.. 30 tablet 11 01/25/2016 Active 100 ml magnesium sulfate 10 mg/ml injection (2 sources) Start: 10-11-2021 End: 10-11-2021 magnesium sulfate 1 g in dextrose 5% 100 mL premix IVPB Start: 10-11-2021 End: 10-17-2021 Magnesium Sulfate 4 g in max rile water 50 ml premix IVPB melatonin 3 mg oral tablet (20 sources) Start: 10-11-2021 End: 10-17-2021 take 6 mg by mouth once daily at bedtime 6 mg, Oral, DAILY AT BEDTIME, First dose on Sat10/11/21 at 2100, Until Discontinued Start: 09-15-2019 take 2 capsules by m out at bedtime Melatonin 5 mg capsule Active 10 mg PO AT BEDTIME September 15, 2019 12:00am Start: 09-15-2019 take 10 mg by mouth at bedtime Melatonin Active 10 MG PO AT BEDTIME September 15, 2019 12:00am Start: 11-27-2018 take 2 tablets by mo ut at bedtime melatonin 3 MG Tab tablet Take 2 tablets by mouth at bedtime. 1 tablet 11/27/2018 Active Start: 09-03-2017 End: 03-21-2019 take 1 tablet by mouth at bedtime Melatonin 5 mg tablet Discontinued 5 mg PO BEDTIME September 03, 2017 12:00am March 21, 2019 10:01am Start: 09-08-2016 End: 07-24-2017 take 2 tablets by mouth at bedtime Melatonin 3 MG tablet Discontinued 6 mg PO AT BEDTIME September 08, 2016 12:00am July 24, 2017 9:29am Start: 09-08-2016 End: 07-24-2017 take 6 mg by mouth at bedtime Melatonin Discontinued 6 MG PO AT BEDTIME September 08, 2016 12:00am July 24, 2017 9:29am multivitamin capsule (10 sources) Start: 07-24-2017 End: 03-21-2019 take 1 capsule by mouth once daily in the morning multivitamin capsule Discontinued 1 CAP PO EVERY MORNING July 24, 2017 9:36am March 21, 2019 10:02am Start: 07-24-2017 End: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 40-54 [facility] Comment on above: Performed By: #### L 3300.8000, L501.9520, L506.0250, L100.0100, L3300.0960 #### [facility] [address] [place], [address] Hemoglobin (Bld) [Mass/Vol] 15.6 g/dL Normal 13.0-16.5 [facility] Comment on above: Performed By: #### L 3300.8000, L501.9520, L506.0250, L100.0100, L3300.0960 #### [facility] [address] [place], [address] IG% 0.400 Normal 0.0-0.9 [facility] Comment on above: Result Comment: IG% - Immature Granulocytes (promyelocytes, myelocytes and metamyelocytes) > 1% indicates that a LEFT SHIFT is Present. Performed By: #### L 3300.8000, L501.9520, L506.0250, L100.0100, L3300.0960 #### [facility] [address] [place], [address] Lymphocytes/100 WBC (Bld) 16.8 % Low 19-41 [facility] Comment on above: Performed By: #### L 3300.8000, L501.9520, L506.0250, L100.0100, L3300.0960 #### [facility] [address] [place], [address] MCH (RBC) [Entitic mass] 28.1 pg Normal 27.0-32.0 [facility] Comment on above: Performed By: #### L 3300.8000, L501.9520, L506.0250, L100.0100, L3300.0960 #### [facility] [address] [place], [address] MCHC (RBC) [Mass/Vol] 31.5 g/dL Low 32-36 [facility] Comment on above: Performed By: #### L 3300.8000, L501.9520, L506.0250, L100.0100, L3300.0960 #### [facility] [address] [place], [address] MCV (RBC) [Entitic vol] 89.2 fL Normal 80-94 [facility] Comment on above: Performed By: #### L 3300.8000, L501.9520, L506.0250, L100.0100, L3300.0960 #### [facility] [address] [place], [address] Monocytes/100 WBC (Bld) 7.9 % Normal 0-10 [facility] Comment on above: Performed By: #### L 3300.8000, L501.9520, L506.0250, L100.0100, L3300.0960 #### [facility] [address] [place], [address] Neutrophils/100 WBC (Bld) 73.7 % High 47-70 [facility] Comment on above: Performed By: #### L 3300.8000, L501.9520, L506.0250, L100.0100, L3300.0960 #### [facility] [address] [place], [address] Nucleated RBC (Bld) [#/Vol] 0 10*3/uL Normal 0-5 [facility] Comment on above: Performed By: #### L 3300.8000, L501.9520, L506.0250, L100.0100, L3300.0960 #### [facility] [address] [place], [address] Platelet mean volume (Bld) [Entitic vol] 10.5 fL Normal 6.2-12.0 [facility] Comment on above: Performed By: #### L 3300.8000, L501.9520, L506.0250, L100.0100, L3300.0960 #### [facility] [address] [place], [address] Platelets (Bld) [#/Vol] 194 10*3/uL Normal 150-450 [facility] Comment on above: Performed By: #### L 3300.8000, L501.9520, L506.0250, L100.0100, L3300.0960 #### [facility] [address] [place], [address] RBC (Bld) [#/Vol] 5.56 10*6/uL Normal 4.6-6.2 [facility] Comment on above: Performed By: #### L 3300.8000, L501.9520, L506.0250, L100.0100, L3300.0960 #### [facility] [address] [place], [address] RDW SD 47.8 fl High 35.1-43.9 [facility] Comment on above: Performed By: #### L 3300.8000, L501.9520, L506.0250, L100.0100, L3300.0960 #### [facility] [address] [place], [address] WBC (Bld) [#/Vol] 5.7 10*3/uL Normal 4.4-11.0 [facility] Comment on above: Performed By: #### L 3300.8000, L501.9520, L506.0250, L100.0100, L3300.0960 #### [facility] [address] [place], [address] Eosinophil percentageOrdered By: Leoncio Acevedo on 06-10-2024 Eosinophils/100 WBC (Bld) 0.7 % 0-5 [facility] Erythrocyte distribution wid th ratioOrdered By: Leoncio Brown on 06-10-2024 Erythrocyte distribution width (RBC) [Ratio] 14.6 % 11.6-14.6 [facility] Erythrocyte distribution wid th standard deviationOrdered By: Leoncio Acevedo on 06-10-2024 Erythrocyte distribution width (RBC) [Entitic vol] 47.8 fL High 35.1-43.9 [facility] Erythrocyte distribution width (RBC) [Ratio] 47.8 fl High 35.1-43.9 [facility] Folate measurementOrdered By : Leoncio Aceveod on 06-10-2024 Folate 29.70 ng/mL 4.60-34.80 [facility] Comment on above: Hemolysis, Results w ill be affected, Requires Recollection. Folates, (Folic Acid)on 05-17 FOLATES 29.70 ng/mL Normal 4.60-34.80 [facility] Comment on above: Order Comment: N Result Comment: Hemo lysis, Results will be affected, Requires Recollection. Performed By: #### L 3300.8000, L501.9520, L506.0250, L100.0100, L3300.0960 #### [facility] [place], [address] Hematocrit Auto (Bld) [Volum e fraction]Ordered By: Leoncio Acevedo on 06-10-2024 Hematocrit (Bld) [Volume fraction] 49.6 % 40-54 [facility] Hemoglobin measurementOrdere d By: Leoncio Acevedo on 06-10-2024 Hemoglobin (Bld) [Mass/Vol] 15.6 g/dL 13.0-16.5 [facility] Immature granulocytes/100 WB C Auto (Bld)Ordered By: Leoncio Acevedo on 06-10-2024 Immature granulocytes/100 WBC (Bld) 0.400 % 0.0-0.9 [facility] Comment on above: IG% - Immature Granu locytes (promyelocytes, myelocytes and metamyelocytes) > 1% indicates that a LEFT SHIFT is Present. Internal Medicine Office Vis iton 06-10-2024 Internal Medicine Office Visit [facility] [address] [place] [address] [place] [address] OFFICE VISIT Date of Service: 06/10/24 MR#: [id number] Acct: [id number] Name: SUMIT DRAPER Rep #: [id number] 1 : 1945 Provider: Dr. Leoncio rodriguez, DO Age/Sex: 79/M Location: [facility] Status: Signed Intake Vital Signs 12/11/23 09:54 06/10/24 11:02 Height 5 ft 10 in 5 ft 10 in Weight: 258 lb 259 lb BMI 37.0 37.1 BP 112/72 130/76 H Blood Pressure Location Lt brachial Lt brachial Position Sitting Sitting Respiration 16 18 Pulse 80 92 Pulse Source Monitor Monitor Temp 97.6 F L 97.8 F Temp Source Temporal Temporal Pulse Oximetry (%) 98 98 Oxygen Delivery Method room air room air Comment pt reports his clothes weigh 4.5 lb Intake Visit Reasons: 6 M FU Chief Complaint: 6 M FU Is patient in pain?: Yes (2 bilateral knees, and twitching pain in feet ) Allergies ramipril Adverse Reaction (Intermediate, Verified 06/10/24 11:03) Cough Medications ???Medication ???Instructions ???Recorded ???Confirmed ???Type pravastatin 40 mg tablet 40 mg PO QHS 07/21/15 06/10/24 His tory magnesium oxide 400 mg PO QDAY 07/24/17 06/10/24 H istory tacrolimus 1 mg capsule, 1 mg PO Q12H 07/24/17 06/10/24 His tory immediate-release aspirin 81 mg tablet,delayed 81 mg PO DAILY 09/15/19 06/10/24 H istory release (Adult Aspirin Regimen) melatonin 5 mg capsule 10 mg PO QHS 09/15/19 06/10/24 His tory multivitamin 1 cap PO DAILY 09/15/19 06/10/24 H istory mycophenolate mofetil 250 mg 250 mg PO BID 09/15/19 06/10/24 Hi story capsule calcium 315 mg (as 1 tab PO BID 05/25/22 06/10/24 His tory citrate)-vitamin D3 6.25 mcg (250 unit) tablet cyanocobalamin (vitamin B-12) 1,000 mcg PO DAILY 05/25/22 History 1,000 mcg capsule allopurinol 100 mg tablet 100 mg PO DAILY #90 tabs 06/10/24 06/10/24 Rx losartan 50 mg tablet 25 mg PO DAILY 06/10/24 06/10/24 H istory terbinafine HCl 250 mg tablet 250 mg PO DAILY #30 tabs 06/10/24 06/10/24 Rx Have you fallen in the past year?: No PFSH Medical History Vasovagal syncope Fecal urgency 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 COVID-19 (10/04/21) Loss of consciousness Gastroenteritis due to norovirus COVID-19 (03/2021) Obesity Positional lightheadedness Skin cancer Spinal stenosis Personal history of immunosuppressive therapy Difficulty balancing Fatigue SOB (shortness of breath) Nonischemic cardiomyopathy Ventricular tachycardia Diastolic dysfunction Gout Osteoarthritis Osteopenia Essential (primary) hypertension Obstructive sleep apnea Renal insufficiency Hyperbilirubinemia Cellulitis and abscess of face Chronic back pain Hyperlipemia Ventricular tachycardia Hyponatremia Acute renal insufficiency Surgical History Heart transplant, orthotopic, 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) H/O right heart catheterization (11/25/18) History of left heart catheterization (05/2018) History of cataract extraction Presence of biventricular implantable cardioverter-defibril lator (ICD) History of tricuspid valve annuloplasty History of nasal septoplasty History of tonsillectomy and adenoidectomy History of basal cell carcinoma History of appendectomy history of LVAD implant History of heart transplant (06/04/15) Family History Father Diabetes Heart disease Myocardial infarction, Onset Age: 65 Mother Heart disease Lupus Arthritis CVA (cerebral vascular accident) Grandfather Colon cancer Heart disease Aunt Diabetes Brother Seizures Social History Smoking Status: Former smoker how long ago did patient quit smokin alcohol intake: never substance use type: does not use what type of physical activity do you participate in: walking frequency: 5-6 times per week HPI HPI Chief Complaint: 6 M FU Details: SUMIT DRAPER, is a 79 M who presents to the office today for numbness of all the fingers in both hands and occasional shooting pain and numbness of both feet. ROS Const Constitutional: No body ache, chills, excessive sweating, fatigue, fever(s), frequent falls, headache(s), snoring, weight change, sleep problems, abnormal sleep pattern or change in appetite Eyes Eyes: No blurry vision, change in vision, eye pain or Light sensitivity ENT ENT: No abnormal hearing, ear or mastoid pain, tinnitus, nasal congestion, headache(s), neck pain or sore throat Resp Respiratory: No cough, shortness of breath, snoring or wheezing Cardio Cardiology: No chest pain at rest, chest pain with exertion, (more content not included)... Normal [facility] Lymphocytes Auto (Unsp spec) [#/Vol]Ordered By: Leoncio Acevedo on 06-10-2024 Lymphocytes (Bld) [#/Vol] 0.95 10*3/uL 0.83-4.51 [facility] Lymphocytes/100 WBC Auto (Un sp spec)Ordered By: Leoncio Acevedo on 06-10-2024 Lymphocytes/100 WBC (Bld) 16.8 % Low 19-41 [facility] MCV (mean corpuscular volume ) determinationOrdered By: Leoncio Acevedo on 06-10-2024 MCV (RBC) [Entitic vol] 89.2 fL 80-94 [facility] Mean corpuscular hemoglobin (MCH) determinationOrdered By: Leoncio Acevedo on 06-10-2024 MCH (RBC) [Entitic mass] 28.1 pg 27.0-32.0 [facility] Mean corpuscular hemoglobin concentration (MCHC) determinationOrdered By: Leoncio Acevedo on 06-10-2024 MCHC (RBC) [Mass/Vol] 31.5 g/dL Low 32-36 [facility] Mean platelet volume determi nationOrdered By: Leoncio Acevedo on 06-10-2024 Platelet mean volume (Bld) [Entitic vol] 10.5 fL 6.2-12.0 [facility] Monocyte percentageOrdered B y: Leoncio Acevedo on 06-10-2024 Monocytes/100 WBC (Bld) 7.9 % 0-10 [facility] Neutrophil percentageOrdered By: Leoncio Acevedo on 06-10-2024 Neutrophils/100 WBC (Bld) 73.7 % High 47-70 [facility] Nucleated red blood cell per centageOrdered By: Leoncio Acevedo on 06-10-2024 Nucleated RBC/100 WBC (Bld) [Ratio] 0 % 0-5 [facility] Platelet countOrdered By: Do kwame Acevedo on 06-10-2024 Platelets (Bld) [#/Vol] 194 10*3/uL 150-450 [facility] RBC Auto (Bld) [#/Vol]Ordere d By: Leoncio Acevedo on 06-10-2024 RBC (Bld) [#/Vol] 5.56 10*6/uL 4.6-6.2 [facility] Serum or plasma calcitriol m easurement (mass/volume)Ordered By: Leoncio Acevedo on 06-10-2024 1,25-dihydroxyvitamin D3 [Mass/Vol] 22.6 pg/mL Low 24.8-81.5 [facility] Comment on above: Performed at: [address] [id number] Director: Amy Gonzalez MD, Phone: [phone] Serum or plasma thiamine nori surement (mass/volume)Ordered By: Leoncio Acevedo on 06-10-2024 Thiamine [Mass/Vol] 174.3 nmol/L 66.5-200.0 [facility] Comment on above: Performed at: [facility] [id number] [place], [place] [id number] Director: Amy Gonzalez MD, Phone: [phone] TSH DL <= 0.005 mIU/L QnOrde red By: Leoncio Acevedo on 06-10-2024 Thyroid Stimulating Hormone (TSH) 2.360 uIU/mL 0.300-4.200 [facility] TSH Qn 2.360 uIU/mL 0.300-4.200 [facility] Thiamine [Mass/Vol]Ordered B y: Leoncio Acevedo on 06-10-2024 Whole Blood Vitamin B1 Level 174.3 nmol/L 66.5-200.0 [facility] Comment on above: Performed at: [facility] [address] [id number] Director: Amy Gonzalez MD, Phone: [phone] Thyroid Stim Hormone (TSH)on 06-10-2024 TSH 2.360 uIU/mL Normal 0.300-4.200 [facility] Comment on above: Performed By: #### L 3300.8000, L501.9520, L506.0250, L100.0100, L3300.0960 #### [facility] [place], [address] White blood cell (WBC) count Ordered By: Leoncio Acevedo on 06-10-2024 WBC (Bld) [#/Vol] 5.7 10*3/uL 4.4-11.0 [facility] ALLOSCREEN RECIPIENT (POST T X PRA)on 05-14-2024 AB SPECIFICITY CLASS COMMENT Antibody Specificity testing performed by [facility]. cPRA calculation based on identification of HLA antibody specificities at MFI >2000 and/or presence of CREG antibodies. [facility] Comment on above: Some of the reagents used for testing in the Clinical Histocompatibility Laboratory have yet to be approved by the FDA. Our certification by CLIA to perform high complexity tests allows us to use these reagents in the context of a stringent QC program, and obviates the need for FDA approval.Testing performed by the [facility] Clinical Histocompatibility Laboratory. [facility] number: [id number]. CLIA number: [id number], Director: Gorge Helm, PhD, F([facility]). ANTIBODY SPECIFICITY INTERPRETATION Detected [facility] CLASS I SPECIFICITIES Not detected [facility] CLASS II SPECIFICITIES Not detected [facility] HLA Ab (S) 0 % 0 [facility] ALLOSCREEN RECIPIENT (POST T X PRA)on 05-12-2024 AB SPECIFICITY CLASS COMMENT Antibody Specificity testing performed by [facility]. cPRA calculation based on identification of HLA antibody specificities at MFI >2000 and/or presence of CREG antibodies. Normal [facility] Comment on above: Result Comment: Some of the reagents used for testing in the Clinical Histocompatibility Laboratory have yet to be approved by the FDA. Our certification by CLIA to perform high complexity tests allows us to use these reagents in the context of a stringent QC program, and obviates the need for FDA approval.Testing performed by the [facility] Clinical Histocompatibility Laboratory. [facility] number: [id number]. CLIA number: [id number], Director: Gorge Helm, PhD, F([facility]). Performed By: #### A LLOR #### [facility] (DEFAULT) [address] [place] [address] ANTIBODY SPECIFICITY INTERPRETATION Detected Normal [facility] Comment on above: Performed By: #### A LLOR #### [facility] (DEFAULT) [address] [place] [address] CLASS I SPECIFICITIES Not detected Normal [facility] Comment on above: Performed By: #### A LLOR #### [facility] (DEFAULT) [address] [place] [address] CLASS II SPECIFICITIES Not detected Normal [facility] Comment on above: Performed By: #### A LLOR #### [facility] (DEFAULT) [address] [place] [address] cPRA 0 % Normal 0 [facility] Comment on above: Performed By: #### A [facility] #### [facility] (DEFAULT) [address] [place] [address] CBC,PLATELETSon 05-12-2024 Erythrocyte distribution width (RBC) [Ratio] 14.6 % High 10.9 - 14.3 % [facility] Hematocrit (Bld) [Volume fraction] 49.5 % High 39.6 - 48.8 % [facility] Hemoglobin (Bld) [Mass/Vol] 16.0 g/dL 13.4 - 16.8 g/dL [facility] Interpretation and review of laboratory results Abnormal [facility] MCH (RBC) [Entitic mass] 28.4 pg 26. 1 - 33.3 pg [facility] MCHC (RBC) [Mass/Vol] 32.3 g/dL 31.9 - 36.5 g/dL [facility] MCV (RBC) [Entitic vol] 87.8 fL 79.0 - 94.5 fL [facility] Platelet mean volume (Bld) [Entitic vol] 10.3 fL 8.7 - 12.3 fL [facility] Platelets (Bld) [#/Vol] 208 10*3/uL 146 - 337 K/uL [facility] RBC (Bld) [#/Vol] 5.64 10*6/uL [facility] WBC (Bld) [#/Vol] 6.61 10*3/uL 3.73 - 10. 10 K/uL [facility] Hematocrit (Bld) [Volume fraction] 49.5 % High 39.6-48.8 [facility] Comment on above: Performed By: #### H [facility] #### [facility] (DEFAULT) [address] [place] [address] Hemoglobin (Bld) [Mass/Vol] 16.0 g/dL Normal 13.4-16.8 [facility] Comment on above: Performed By: #### H [facility] #### [facility] (DEFAULT) [address] [place] [address] MCV (RBC) [Entitic vol] 87.8 fL Normal 79.0-94.5 [facility] Comment on above: Performed By: #### H EMOGC #### [facility] (DEFAULT) [address] [place] [address] Mean Cell Hgb 28.4 pg Normal 26.1-33.3 [facility] Comment on above: Performed By: #### H EMOGC #### [facility] (DEFAULT) [address] [address] Mean Cell Hgb Conc 32.3 g/dL Normal 31.9-36.5 [facility] Comment on above: Performed By: #### H EMOGC #### [facility] (DEFAULT) [address] [place] [address] Platelet mean volume (Bld) [Entitic vol] 10.3 fL Normal 8.7-12.3 [facility] Comment on above: Performed By: #### H EMOGC #### [facility] (DEFAULT) [address] [address] Platelets (Bld) [#/Vol] 208 10*3/uL Normal 146-337 [facility] Comment on above: Performed By: #### H EMOGC #### [facility] (DEFAULT) [address] [address] RBC (Bld) [#/Vol] 5.64 10*6/uL Normal 4.38-5.83 [facility] Comment on above: Performed By: #### H EMOGC #### [facility] (DEFAULT) [address] [address] RBC Distribution 14.6 % High 10.9-14.3 [facility] Comment on above: Performed By: #### H EMOGC #### [facility] (DEFAULT) [address] [address] WBC (Bld) [#/Vol] 6.61 10*3/uL Normal 3.73-10.10 [facility] Comment on above: Performed By: #### H [facility] #### [facility] (DEFAULT) [address] [place] [address] COMPREHENSIVE METABOLIC PANE Mychal 05-12-2024 Albumin [Mass/Vol] 4.6 g/dL 3.5 - 5.0 g/dL [facility] ALP [Catalytic activity/Vol] 87 U/L 32 - 126 U/L [facility] ALT [Catalytic activity/Vol] 10 U/L 10 - 52 U/L [facility] Anion gap [Moles/Vol] 11 mmol/L 7 - 17 mmol/L [facility] AST [Catalytic activity/Vol] 12 U/L 10 - 39 U/L [facility] Bilirubin [Mass/Vol] 1.1 mg/dL NINF - 1.5 mg/dL [facility] Calcium [Mass/Vol] 9.6 mg/dL 8.6 - 10. 5 mg/dL [facility] Chloride [Moles/Vol] 103 mmol/L 98 - 10 8 mmol/L [facility] CO2 [Moles/Vol] 29 mmol/L 21 - 31 mmol/L [facility] Creatinine [Mass/Vol] 0.88 mg/dL 0.70 - 1.30 mg/dL [facility] eGFR, CKD-EPI, Male 89 - PINF [facility] Comment on above: Reported eGFR is bas ed on the CKD-EPI 2020 equation using creatinine, age, and sex. Glucose [Mass/Vol] 98 mg/dL 70 - 99 mg/dL [facility] Osmolality Calc [Osmolality] 293 [facility] Potassium [Moles/Vol] 4.3 mmol/L 3.5 - 5.0 mmol/L [facility] Protein [Mass/Vol] 7.5 g/dL 6.4 - 8.3 g/dL [facility] Sodium [Moles/Vol] 139 mmol/L 135 - 145 mmol/L [facility] Urea nitrogen [Mass/Vol] 18 mg/dL 7 - 25 mg/d L [facility] Urea nitrogen/Creatinine [Mass ratio] 20 mg/mg [facility] Albumin [Mass/Vol] 4.6 g/dL Normal 3.5-5.0 [facility] Comment on above: Performed By: #### M GO, CMPN, HDLT #### [facility] (DEFAULT) [address] [place] [address] ALP [Catalytic activity/Vol] 87 U/L Normal 32-126 [facility] Comment on above: Performed By: #### M GO, CMPN, HDLT #### [facility] (DEFAULT) [address] [place] [address] ALT [Catalytic activity/Vol] 10 U/L Normal 10-52 [facility] Comment on above: Performed By: #### M GO, CMPN, HDLT #### [facility] (DEFAULT) [address] [place] [address] Anion gap [Moles/Vol] 11 mmol/L Normal 7-17 [facility] Comment on above: Performed By: #### M GO, CMPN, HDLT #### [facility] (DEFAULT) [address] [place] [address] AST [Catalytic activity/Vol] 12 U/L Normal 10-39 [facility] Comment on above: Performed By: #### M GO, CMPN, HDLT #### [facility] (DEFAULT) [address] [place] [address] [phone] Bilirubin [Mass/Vol] 1.1 mg/dL Normal <1.5 [facility] Comment on above: Performed By: #### M GO, CMPN, HDLT #### [facility] (DEFAULT) [address] [place] [address] 62220 Calcium [Mass/Vol] 9.6 mg/dL Normal 8.6-10.5 [facility] Comment on above: Performed By: #### M GO, CMPN, HDLT #### [facility] (DEFAULT) [address] [place] [address] 98785 Chloride [Moles/Vol] 103 mmol/L Normal 98-108 [facility] Comment on above: Performed By: #### M GO, CMPN, HDLT #### [facility] (DEFAULT) [address] [place] [address] 32610 CO2 [Moles/Vol] 29 mmol/L Normal 21-31 [facility] Comment on above: Performed By: #### M GO, CMPN, HDLT #### [facility] (DEFAULT) [address] [place] [address] 48661 Creatinine [Mass/Vol] 0.88 mg/dL Normal 0.70-1.30 [facility] Comment on above: Performed By: #### M GO, CMPN, HDLT #### [facility] (DEFAULT) [address] [place] [address] 32223 GFR/1.73 sq M.predicted among non-blacks MDRD (S/P/Bld) [Vol rate/Area] 89 mL/min/{1.73_m2} Normal >=60 [facility] Comment on above: Result Comment: Repo rted eGFR is based on the CKD-EPI 2020 equation using creatinine, age, and sex. Performed By: #### M GO, CMPN, HDLT #### [facility] (DEFAULT) [address] [place] [address] 66581 Glucose [Mass/Vol] 98 mg/dL Normal 70-99 [facility] Comment on above: Performed By: #### M GO, CMPN, HDLT #### [facility] (DEFAULT) [address] [place] [address] 42482 Osmolality [Osmolality] 293 mosm/kg Normal 278-305 [facility] Comment on above: Performed By: #### M GO, CMPN, HDLT #### [facility] (DEFAULT) [address] [place] [address] 11658 Potassium [Moles/Vol] 4.3 mmol/L Normal 3.5-5.0 [facility] Comment on above: Performed By: #### M GO, CMPN, HDLT #### [facility] (DEFAULT) [address] [place] [address] 97152 Protein [Mass/Vol] 7.5 g/dL Normal 6.4-8.3 [facility] Comment on above: Performed By: #### M GO, CMPN, HDLT #### [facility] (DEFAULT) [address] [place] [address] 53706 Sodium [Moles/Vol] 139 mmol/L Normal 135-145 [facility] Comment on above: Performed By: #### M GO, CMPN, HDLT #### [facility] (DEFAULT) [address] [place] [address] 55892 Urea nitrogen [Mass/Vol] 18 mg/dL Normal 7-25 [facility] Comment on above: Performed By: #### M GO, CMPN, HDLT #### [facility] (DEFAULT) [address] [place] [address] 04212 Urea nitrogen/Creatinine [Mass ratio] 20 mg/mg Normal [facility] Comment on above: Performed By: #### M GO, CMPN, HDLT #### [facility] (DEFAULT) [address] [place] [address] 96310 ECHOCARDIOGRAMon 05-12-2024 Echocardiography S/P OHT 2016 Normal left ventricular size and systolic function. EF 50-55%. Normal diastolic filling parameters. Normal right ventricular size and function. No significant valvular disease identified. Table formatting from the original result was not included. Images from the original result were not included. Facility [facility] Patient Information Patient Name Sumit Draper Legal Sex Male Indication for Exam Priority: Routine Dx: Heart replaced by transplant [Z94.1 (ICD-10-CM)] Comments: S/p heart transplant Interpretation Summary Result History is available. S/P OHT 2015 Normal left ventricular size and systolic function. EF 50-55%. Normal diastolic filling parameters. Normal right ventricular size and function. No significant valvular disease identified. Findings Left Ventricle Chamber size is normal. Normal wall thickness. Normal global systolic function. Regional wall motion is normal. Ejection fraction is low normal (50-55%). Diastolic function is normal. Right Ventricle Chamber size is normal. Systolic function is normal. Estimated right ventricular systolic pressure is 26 mmHg. Left Atrium Chamber size is normal. Right Atrium Chamber size is normal. Septum The atrial septum is normal. Mitral Valve Normal appearing leaflets. Leaflet mobility is normal. No regurgitation. No valve stenosis. Aortic Valve Trileaflet valve. Leaflet mobility is normal. No regurgitation. No stenosis. Tricuspid Valve Normal leaflets. Leaflet mobility is normal. Trace regurgitation. No stenosis. Estimated right ventricular systolic pressure is 26 mmHg. Pulmonic Valve Trace regurgitation. No stenosis. Aorta No dilation to extent seen. SOV: 3.10 cm. STJ: 3.10 cm. Ascendin.00 cm. Pericardium No pericardial effusion. IVC/SVC The inferior vena cava is normal in size. The inferior vena cava structure has a diameter <21 mm and decreases >50% during inspiration. Reading Providers Reading Role Read Date Elton Hill MD Echo [place] 05/12/2024 Left Heart Measurements LV - Systole LVIDD 4.2 cm IVS 1 cm LVIDS 3 cm PW 1.1 cm LV RWT 0.52 LV Mass Index 63.6 g/m2 LV EDV BP 100 mL LV ESV BP 49 mL BP EF 51 % LV stroke volume BP (ml) 51 mL LV stroke volume index BP 22.08 mL/m2 LV - Diastole MV pk E timi 0.76 m/s MV pk A timi 0.36 m/s E/A ratio 2.11 e' septal pk timi 0.11 m/s e' lateral pk timi 0.17 m/s Avg e' pk timi 0.14 m/s E/e' septal ratio 6.79 E/e' lateral ratio 4.58 Avg E/e' ratio 5.68 LV - HCM AV LVOT peak gradient 1 mmHg Left Atrium LA ESV SP 4CH (MOD) 59 mL LA ESV SP 2CH (MOD) 54 mL LA ESV BP (MOD) index 25 mL/m2 Right Heart Measurements RV - 2D RV basal diam 2.73 cm RV mid diam 2.13 cm RV long diam 7.52 cm RV - Doppler TAPSE 1.41 cm RV S' 10 cm/s Right Atrium RA vol index 4CH (MOD) 10.82 mL/m2 EST RAP 3 mmHg Great Vessels Aortic Root - End Diastolic Sinus 3.1 cm STJ 3.1 cm Ascending aorta 3 cm Inferior Vena Cava IVC ostium 1.8 cm Doppler Measurements - Aortic Valve Stenosis LVOT diameter 2.3 cm LVOT area 4.15 cm2 LVOT peak timi 0.48 m/s LVOT peak VTI 10.2 cm Stroke Volume 42 cm/mL Stroke volume index 18 Ao peak timi 0.74 m/s Ao VTI 14.5 cm AV peak gradient 2 mmHG AV mean gradient 1 mmHg DI (VTI) 0.7 m/2 DI (Vmax) 0.65 RENETTA (continuity Vmax) 2.69 cm2 RENETTA index (continuity Vmax) 1.17 m/s RENETTA (continuity VTI) 2.92 cm2 RENETTA index (continuity VTI) 1.26 cm2/m2 LVOT stroke volume 42 cm3 LVOT stroke volume index 18.34 ml/m2 Doppler Measurements - Mitral Valve Stenosis MV pk E timi 0.76 m/s MV pk A timi 0.36 m/s E/A ratio 2.11 MV stenosis pressure 1/2 time 35 ms MV valve area p 1/2 method 6.29 cm2 PISA-MS MV pk E timi 0.76 m/s Doppler Measurements - Tricuspid Valve Stenosis IVC ostium 1.8 cm Regurgitation TR pk timi 2.4 m/s TR pk grad 23 mmHg EST RAP 3 mmHg EST RVSP 26 mmHg Doppler Measurements - Pulmonic Valve Stenosis PV PK TIMI 1.05 m/s PV VTI 18.1 cm PV peak gradient 4 mmHg PV mean gradient 2 mmHg RVOT peak timi 0.65 m/s RVOT peak VTI 13 cm RVOT peak gradient 2 mmHg Vitals Height Weight BSA (Calculated - sq m) BP Pulse 1.778 m (5' 10) 114.8 kg (253 lb) 2.31 m2 Performing Staff David Rodriguez Study Details A complete echocardiography study (including color flow Doppler, spectral Doppler, M-mode and microbubbles) was performed. Contrast indication: evaluation of left ventricle contiguous segments. Study limitations include poor apical window, patient body habitus and technically difficult study (more content not included)... Normal [facility] LIPID PANEL W CALCULATED LDL on 05-12-2024 Cholesterol [Mass/Vol] 119 mg/dL NINF - 200 mg/dL [facility] Comment on above: [<200 mg/dL: Desirab le] [200-239 mg/dL: Borderline High] [>239 mg/dL: High] Cholesterol in HDL [Mass/Vol] 38 mg/dL Low 40 - PINF mg/dL [facility] Comment on above: [<40 mg/dL: Low (Hig h Risk)] [>59 mg/dL: High (Low Risk)] Cholesterol in LDL [Mass/Vol] 59 mg/dL 0 - 99 mg/dL [facility] Comment on above: [<100 mg/dL: Optimal ] [100-129 mg/dL: Near Optimal] [130-159 mg/dL: Borderline High] [160-189 mg/dL: High] [>189 mg/dL: Very High] Cholesterol non HDL [Mass/Vol] 81 mg/dL NINF - 130 mg/dL [facility] Cholesterol.total/Choles terol in HDL [Mass ratio] 3.1 {ratio} NINF - 4.5 [facility] Interpretation and review of laboratory results Abnormal [facility] Triglyceride [Mass/Vol] 110 mg/dL NINF - 150 mg/dL [facility] Comment on above: [<150 mg/dL: Desirab le] [150-199 mg/dL: Borderline] [200-499 mg/dL: High] [>500 mg/dL: Very High] Calculated LDL Cholesterol 59 mg/dL Normal 0-99 [facility] Comment on above: Result Comment: [<10 0 mg/dL: Optimal] [100-129 mg/dL: Near Optimal] [130-159 mg/dL: Borderline High] [160-189 mg/dL: High] [>189 mg/dL: Very High] Performed By: #### M GO, CMPN, HDLT #### [facility] (DEFAULT) [address] [place] [address] Cholesterol [Mass/Vol] 119 mg/dL Normal <200 [facility] Comment on above: Result Comment: [<20 0 mg/dL: Desirable] [200-239 mg/dL: Borderline High] [>239 mg/dL: High] Performed By: #### M GO, CMPN, HDLT #### [facility] (DEFAULT) [address] [place] [address] 72022 Cholesterol in HDL [Mass/Vol] 38 mg/dL Low >=40 [facility] Comment on above: Result Comment: [<40 mg/dL: Low (High Risk)] [>59 mg/dL: High (Low Risk)] Performed By: #### M GO, CMPN, HDLT #### [facility] (DEFAULT) [address] [place] [address] 22678 Non HDL Cholesterol 81 mg/dL Normal <130 [facility] Comment on above: Performed By: #### M GO, CMPN, HDLT #### [facility] (DEFAULT) [address] [place] [address] 92527 Total Cholesterol/HDL Ratio 3.1 Normal <4.5 [facility] Comment on above: Performed By: #### M GO, CMPN, HDLT #### [facility] (DEFAULT) [address] [place] [address] 87184 Triglyceride [Mass/Vol] 110 mg/dL Normal <150 [facility] Comment on above: Result Comment: [<15 0 mg/dL: Desirable] [150-199 mg/dL: Borderline] [200-499 mg/dL: High] [>500 mg/dL: Very High] Performed By: #### M GO, CMPN, HDLT #### [facility] (DEFAULT) [address] [place] [address] 04166 MAGNESIUMon 05-12-2024 Interpretation and review of laboratory results Normal [facility] Magnesium [Mass/Vol] 1.8 mg/dL 1.6 - 2 .6 mg/dL [facility] Magnesium [Mass/Vol] 1.8 mg/dL Normal 1.6-2.6 [facility] Comment on above: Performed By: #### M GO, CMPN, HDLT #### [facility] (DEFAULT) [address] [place] [address] No Panel Informationon 05-12 [facility] TACROLIMUS LEVEL, TROUGH (VA E DRUG LEVEL)on 05-12-2024 Tacrolimus (Bld) [Mass/Vol] 5.5 ng/mL Bone Marrow Transplant: 5.0-15.0 Kidney/Pancr eatic Transplant: 0 to 3 months: 8.0-10.0, 3 to 12 months: 6.0-8.0, >12 months: 4.0-6.0 [facility] Method performed is a chemiluminescent microparticle immunoasssay on the Murphy Stereo Map Plotter Operator i2000. The range is based on experience at [facility] and users should be aware that target concentrations vary widely depending on concomitant therapy, time post-transplant, and desired degree of immunosuppression. [facility] Tacrolimus, Trough 5.5 ng/mL Normal Bone Ashley ow Transplant: 5.0-15.0 Kidney/Pancr eatic Transplant: 0 to 3 months: 8.0-10.0, 3 to 12 months: 6.0-8.0, >12 months: 4.0-6.0 [facility] Comment on above: Order Comment: Metho d performed is a chemiluminescent microparticle immunoasssay on the Murphy Stereo Map Plotter Operator i2000. The range is based on experience at [facility] and users should be aware that target concentrations vary widely depending on concomitant therapy, time post-transplant, and desired degree of immunosuppression. Performed By: #### T ACRO #### [facility] (DEFAULT) [address] [place] [address] Internal Medicine Office Vis donna 12-11-2023 Internal Medicine Office Visit [facility] [address] [place] [address] [address] [place] [address] OFFICE VISIT Date of Service: 12/11/23 MR#: [id number] Acct: [id number] Name: SUMIT DRAPER Rep #: [id number] : 1945 Provider: Dr. Leoncio R Br own, DO Age/Sex: 78/M Location: [facility] Status: Signed Intake Vital Signs 06/12/23 10:07 07/23/23 10:56 12/11/23 09:54 Height 5 ft 10 in 5 ft 10 in 5 ft 10 in Weight: 260 lb 257 lb 258 lb BMI 37.3 36.8 37.0 BP 122/76 H 124/81 H 112/72 Blood Pressure Location Lt brachial Lt brachial Lt brachial Position Sitting Sitting Sitting Respiration 16 16 16 Pulse 83 80 80 Pulse Source Monitor Monitor Monitor Temp 97.9 F 97.6 F L Temp Source Temporal Temporal Pulse Oximetry (%) 96 98 Oxygen Delivery Method room air room air Intake Visit Reasons: 6 m fu Chief Complaint: 5 month follow up Provider Relations Specialist Required: No Is patient in pain?: No Allergies ramipril Adverse Reaction (Intermediate, Verified 12/11/23 09:45) Cough Medications ???Medication ???Instructions ???Recorded ???Confirmed ???Type pravastatin 40 mg tablet 40 mg PO QHS 07/21/15 12/11/23 History magnesium oxide 400 mg PO QDAY 07/24/17 12/11/23 History tacrolimus 1 mg capsule, 1 mg PO Q12H 07/24/17 12/11/23 History immediate-release aspirin 81 mg tablet,delayed 81 mg PO DAILY 09/15/19 12/11/23 History release (Adult Aspirin Regimen) melatonin 5 mg capsule 10 mg PO QHS 09/15/19 12/11/23 History multivitamin 1 cap PO DAILY 09/15/19 12/11/23 History mycophenolate mofetil 250 mg 250 mg PO BID 09/15/19 12/11/23 History capsule calcium citrate 315 mg 1 tab PO BID 05/25/22 12/11/23 History calcium-vitamin D3 6.25 mcg (250 unit) tablet cyanocobalamin (vitamin B-12) 1,000 mcg PO DAILY 05/25/22 12/11/23 History 1,000 mcg capsule losartan 50 mg tablet 50 mg PO DAILY 05/25/22 12/11/23 History terbinafine HCl 250 mg tablet 250 mg PO DAILY #30 tabs 04/09/23 12/11/23 Rx allopurinol 100 mg tablet 100 mg PO DAILY #90 tabs 12/11/23 12/11/23 Rx Have you fallen in the past year?: Yes (11/2023) Nurse's Note: Needing refills on allopurinol. 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 COVID-19 (10/04/21) Loss of consciousness Gastroenteritis due to norovirus COVID-19 (03/2021) Obesity Positional lightheadedness Skin cancer Spinal stenosis Personal history of immunosuppressive therapy Difficulty balancing Fatigue SOB (shortness of breath) Nonischemic cardiomyopathy Ventricular tachycardia Diastolic dysfunction Gout Osteoarthritis Osteopenia Essential (primary) hypertension Obstructive sleep apnea Renal insufficiency Hyperbilirubinemia Cellulitis and abscess of face Chronic back pain Hyperlipemia Ventricular tachycardia Hyponatremia Acute renal insufficiency Surgical History Heart transplant, orthotopic, 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) H/O right heart catheterization (11/25/18) History of left heart catheterization (05/2018) History of cataract extraction Presence of biventricular implantable cardioverter-defibril lator (ICD) History of tricuspid valve annuloplasty History of nasal septoplasty History of tonsillectomy and adenoidectomy History of basal cell carcinoma History of appendectomy history of LVAD implant History of heart transplant (06/04/15) Family History Father Diabetes Heart disease Myocardial infarction, Onset Age: 65 Mother Heart disease Lupus Arthritis CVA (cerebral vascular accident) Grandfather Colon cancer Heart disease Aunt Diabetes Brother Seizures Social History Smoking Status: Former smoker how long ago did patient quit smokin alcohol intake: never substance use type: does not use what type of physical activity do you participate in: walking frequency: 5-6 times per week HPI HPI Chief Complaint: 5 month follow up Details: SUMIT DRAPER, is a 78 M who presents to the office today for a follow-up exam. He said 1 episode of syncope where he fell in his new bedroom in the basement and hurt his knees. The knees are still sore but motion is good. He also has concerns that sometimes when he is walking he feels a little lightheaded. His blood pressures at home have been quite low and he is decreased his losartan from 50 mg to 25 mg. The episode of getting up at night and feeling dizzy has not been repeated. He continues to wear his CPAP and his follow-up with cardiology exams showed normal ejection function and normal cardiac functio (more content not included)... Normal [facility] ALLOSCREEN RECIPIENT (POST T X PRA)on 05-16-2023 AB SPECIFICITY CLASS COMMENT Antibody Specificity testing performed by [employer]. cPRA calculation based on identification of HLA antibody specificities at MFI >2000 and/or presence of CREG antibodies. [facility] Comment on above: Some of the reagents used for testing in the Clinical Histocompatibility Laboratory have yet to be approved by the FDA. Our certification by CLIA to perform high complexity tests allows us to use these reagents in the context of a stringent QC program, and obviates the need for FDA approval.Testing performed by the [facility] Clinical Histocompatibility Laboratory. [facility] number: [id number]. CLIA number: [id number], Director: Gorge Helm, PhD, F([facility]). ANTIBODY SPECIFICITY INTERPRETATION Detected [facility] CLASS I SPECIFICITIES Not detected [facility] CLASS II SPECIFICITIES Not detected [facility] HLA Ab (S) 0 % 0 [facility] CBC,PLATELETSon 05-14-2023 Erythrocyte distribution width (RBC) [Ratio] 14.5 % High 10.9 - 14.3 % [facility] Hematocrit (Bld) [Volume fraction] 48.1 % 39.6 - 48.8 % [facility] Hemoglobin (Bld) [Mass/Vol] 15.6 g/dL 13.4 - 16.8 g/dL [facility] Interpretation and review of laboratory results Abnormal [facility] MCH (RBC) [Entitic mass] 29.1 pg 26. 1 - 33.3 pg [facility] MCHC (RBC) [Mass/Vol] 32.4 g/dL 31.9 - 36.5 g/dL [facility] MCV (RBC) [Entitic vol] 89.6 fL 79.0 - 94.5 fL [facility] Platelet mean volume (Bld) [Entitic vol] 10.3 fL 8.7 - 12.3 fL [facility] Platelets (Bld) [#/Vol] 180 10*3/uL 146 - 337 K/uL [facility] RBC (Bld) [#/Vol] 5.37 10*6/uL [facility] WBC (Bld) [#/Vol] 5.63 10*3/uL 3.73 - 10. 10 K/uL [facility] CHEM 6 (LYTES, BUN CREA)on 0 05-14-2023 Anion gap [Moles/Vol] 13 mmol/L 7 - 17 mmol/L [facility] Chloride [Moles/Vol] 106 mmol/L 98 - 10 8 mmol/L [facility] CO2 [Moles/Vol] 29 mmol/L 21 - 31 mmol/L [facility] Creatinine [Mass/Vol] 1.07 mg/dL 0.70 - 1.30 mg/dL [facility] eGFR, CKD-EPI, Male 74 - PINF [facility] Comment on above: Reported eGFR is bas ed on the CKD-EPI 2020 equation using creatinine, age, and sex. Potassium [Moles/Vol] 4.7 mmol/L 3.5 - 5.0 mmol/L [facility] Sodium [Moles/Vol] 143 mmol/L 135 - 145 mmol/L [facility] Urea nitrogen [Mass/Vol] 23 mg/dL 7 - 25 mg/d L [facility] Urea nitrogen/Creatinine [Mass ratio] 21 mg/mg [facility] Cardiac catheterization stud yon 05-14-2023 [facility] Radiology Study observation (narrative) [facility] HEPATIC FUNCTION PANELon Albumin [Mass/Vol] 4.7 g/dL 3.5 - 5.0 g/dL [facility] ALP [Catalytic activity/Vol] 88 U/L 32 - 126 U/L [facility] ALT [Catalytic activity/Vol] 14 U/L 10 - 52 U/L [facility] AST [Catalytic activity/Vol] 13 U/L 10 - 39 U/L [facility] Bilirubin [Mass/Vol] 0.9 mg/dL NINF - 1.5 mg/dL [facility] Bilirubin.direct [Mass/Vol] 0.3 mg/dL High NINF - 0.3 mg/dL [facility] Protein [Mass/Vol] 7.3 g/dL 6.4 - 8.3 g/dL [facility] LIPID PANEL W CALCULATED LDL on 05-14-2023 Cholesterol [Mass/Vol] 118 mg/dL NINF - 200 mg/dL [facility] Comment on above: [<200 mg/dL: Desirab le] [200-239 mg/dL: Borderline High] [>239 mg/dL: High] Cholesterol in HDL [Mass/Vol] 36 mg/dL Low 40 - PINF mg/dL [facility] Comment on above: [<40 mg/dL: Low (Hig h Risk)] [>59 mg/dL: High (Low Risk)] Cholesterol in LDL [Mass/Vol] 60 mg/dL 0 - 99 mg/dL [facility] Comment on above: [<100 mg/dL: Optimal ] [100-129 mg/dL: Near Optimal] [130-159 mg/dL: Borderline High] [160-189 mg/dL: High] [>189 mg/dL: Very High] Cholesterol non HDL [Mass/Vol] 82 mg/dL NINF - 130 mg/dL [facility] Cholesterol.total/Choles terol in HDL [Mass ratio] 3.3 {ratio} NINF - 4.5 [facility] Triglyceride [Mass/Vol] 109 mg/dL NINF - 150 mg/dL [facility] Comment on above: [<150 mg/dL: Desirab le] [150-199 mg/dL: Borderline] [200-499 mg/dL: High] [>500 mg/dL: Very High] MAGNESIUMon 05-14-2023 Interpretation and review of laboratory results Normal [facility] Magnesium [Mass/Vol] 2.0 mg/dL 1.6 - 2 .6 mg/dL [facility] No Panel Informationon 05-14 Interpretation and review of laboratory results Abnormal [facility] TACROLIMUS LEVEL, TROUGH (VA E DRUG LEVEL)Ordered By: Cheyanne Ng on 05-14-2023 Interpretation and review of laboratory results Normal [facility] Tacrolimus (Bld) [Mass/Vol] 4.3 ng/mL [facility] Method performed is a chemiluminescent microparticle immunoasssay on the [employer] Stereo Map Plotter Operator i2000. The range is based on experience at [facility] and users should be aware that target concentrations vary widely depending on concomitant therapy, time post-transplant, and desired degree of immunosuppression. [facility] Absolute lymphocyte countOrd ered By: Nimesh Bell on 02-02-2023 Lymphocytes Auto (Unsp spec) [#/Vol] 1.37 10*3/uL 0.83-4.51 [facility] Basophil percentageOrdered B y: Nimesh Bell on 02-02-2023 Basophils/100 WBC (Bld) 0.4 % 0-1 [facility] Eosinophils/100 WBC (Bld) 0.7 % 0-5 [facility] Neutrophils (Bld) [#/Vol] 5.2 10*3/uL 2.0-7.7 [facility] Neutrophils/100 WBC (Bld) 72.3 % 47-70 [facility] WBC (Bld) [#/Vol] 7.2 10*3/uL 4.4-11.0 [facility] Blood erythrocytes count (nu mber/volume)Ordered By: Nimesh Bell on 02-02-2023 RBC (Bld) [#/Vol] 5.51 10*6/uL 4.6-6.2 [facility] Blood hemoglobin measurement (mass/volume)Ordered By: Nimesh Bell on 02-02-2023 Hemoglobin (Bld) [Mass/Vol] 16.1 g/dL 13.0-16.5 [facility] Blood lymphocytes/100 leukoc ytesOrdered By: Nimesh Bell on 02-02-2023 Lymphocytes/100 WBC (Bld) 18.9 % 19-41 [facility] Blood monocytes/100 leukocyt esOrdered By: Nimesh Bell on 02-02-2023 Monocytes/100 WBC (Bld) 6.9 % 0-10 [facility] Blood platelet mean volumeOr dered By: Nimesh Bell on 02-02-2023 Platelet mean volume (Bld) [Entitic vol] 10.4 fL 6.2-12.0 [facility] Determination of erythrocyte mean corpuscular volume (MCV)Ordered By: Nimesh Bell on 02-02-2023 MCV (RBC) [Entitic vol] 88.7 fL 80-94 [facility] Hematocrit Auto (Bld) [Volum e fraction]Ordered By: Nimesh Bell on 02-02-2023 Hematocrit (Bld) [Volume fraction] 48.9 % 40-54 [facility] Laboratory - Hematology and Cell countsOrdered By: Nimesh Bell on 02-02-2023 Erythrocyte distribution width (RBC) [Entitic vol] 46.8 fL 35.1-43.9 [facility] Erythrocyte distribution width (RBC) [Ratio] 14.6 % 11.6-14.6 [facility] Immature granulocytes/100 WBC (Bld) 0.800 % 0.0-0.9 [facility] Comment on above: IG% - Immature Granu locytes (promyelocytes, myelocytes and metamyelocytes) > 1% indicates that a LEFT SHIFT is Present. MCH (RBC) [Entitic mass] 29.2 pg 27.0-32.0 [facility] Nucleated RBC/100 WBC (Bld) [Ratio] 0 % 0-5 [facility] MCHC Auto (RBC) [Mass/Vol]Or dered By: Nimesh Bell on 02-02-2023 MCHC (RBC) [Mass/Vol] 32.9 g/dL 32-36 [facility] No Panel InformationOrdered By: Nimesh Bell on 02-02-2023 Troponin I High Sensitivity 10 pg/mL 3.0-78.0 [facility] Comment on above: Please Note: New Teresa t Units and Gender Specific Reference Ranges. For more information see Policy Stat Procedure [place] High Sensitivity Troponin (TNIH) and attachments. Platelets bldOrdered By: Raven Bell on 02-02-2023 Platelets (Bld) [#/Vol] 185 10*3/uL 150-450 [facility] Basophil percentageOrdered B y: Dr. Acevedo on 06-20-2022 Basophil percentage 0 SEEN /hpf 0-5 [facility] Bilirubin Test strip Ql (U)O rdered By: Dr. Acevedo on 06-20-2022 Bilirubin Ql (U) Negative Negative [facility] Ketones Test strip Ql (U)Ord ered By: Dr. Acevedo on 06-20-2022 Ketones Ql (U) Negative Negative [facility] Mucus LM Ql (Urine sed)Order ed By: Dr. Acevedo on 06-20-2022 Mucus Ql (Urine sed) 0 SEEN /hpf [facility] Nitrite Test strip Ql (U)Ord ered By: Dr. Acevedo on 06-20-2022 Nitrite Ql (U) Negative Negative [facility] No Panel InformationOrdered By: Dr. Acevedo on 06-20-2022 Prostate Specific Antigen Total 0.96 ng/mL 0.0-4.0 [facility] Comment on above: This test was perfor med using the TPSA assay method for theApartment List chemistry system. Values obtained with differentassay methods cannot be used interchangably.When changing PSA assays in the course of monitoring apatient, additional sequential testing should be carriedout to confirm baseline values. Protein Test strip Ql (U)Ord ered By: Dr. Acevedo on 06-20-2022 Protein Ql (U) Negative Negative [facility] Squamous epithelial cells de tection in urine sediment by light microscopyOrdered By: Dr. Acevedo on 06-20-2022 Epithelial cells.squamous LM Ql (Urine sed) 0 SEEN /hpf 0-5 [facility] Urine blood detectionOrdered By: Dr. Acevedo on 06-20-2022 RBC Ql (U) Negative Negative [facility] RBC Ql (U) 0 SEEN /hpf 0-5 [facility] Urine clarityOrdered By: Dr. Acevedo on 06-20-2022 Clarity (U) Clear Clear [facility] Urine color determinationOrd ered By: Dr. Acevedo on 06-20-2022 Color (U) Yellow Yellow [facility] Urine glucose detectionOrder ed By: Dr. Acevedo on 06-20-2022 Glucose Ql (U) Normal mg/dl Normal [facility] Urine leukocyte esterase det ection by dipstickOrdered By: Dr. Acevedo on 06-20-2022 Leukocyte esterase Test strip Ql (U) Negative Negative [facility] Urine pHOrdered By: Dr. Yecenia salvador on 06-20-2022 pH (U) 6.0 [pH] 5.0 - 8.0 [facility] Urine sediment bacteria coun t by microscopy (number/high power field)Ordered By: Dr. Acevedo on 06-20-2022 Bacteria LM.HPF (Urine sed) [#/Area] 0 /[HPF] None Seen [facility] Urine specific gravity measu rementOrdered By: Dr. Acevedo on 06-20-2022 Specific gravity (U) [Rel density] 1.015 1.002-1.030 [facility] Urobilinogen Auto test strip Ql (U)Ordered By: Dr. Acevedo on 06-20-2022 Urobilinogen Ql (U) Normal mg/dl Normal [facility] CBC,PLATELETSon 05-15-2022 Erythrocyte distribution width (RBC) [Ratio] 14.6 % High 10.9 - 14.3 % [facility] Hematocrit (Bld) [Volume fraction] 46.4 % 39.6 - 48.8 % [facility] Hemoglobin (Bld) [Mass/Vol] 15.5 g/dL 13.4 - 16.8 g/dL [facility] Interpretation and review of laboratory results Abnormal [facility] MCH (RBC) [Entitic mass] 29.0 pg 26. 1 - 33.3 pg [facility] MCHC (RBC) [Mass/Vol] 33.4 g/dL 31.9 - 36.5 g/dL [facility] MCV (RBC) [Entitic vol] 86.9 fL 79.0 - 94.5 fL [facility] Platelet mean volume (Bld) [Entitic vol] 11.2 fL 8.7 - 12.3 fL [facility] Platelets (Bld) [#/Vol] 161 10*3/uL 146 - 337 K/uL [facility] RBC (Bld) [#/Vol] 5.34 10*6/uL [facility] WBC (Bld) [#/Vol] 4.74 10*3/uL 3.73 - 10. 10 K/uL [facility] COMPREHENSIVE METABOLIC PANE Mychal 05-15-2022 Albumin [Mass/Vol] 4.4 g/dL 3.5 - 5.0 g/dL [facility] ALP [Catalytic activity/Vol] 63 U/L 32 - 126 U/L [facility] ALT [Catalytic activity/Vol] 14 U/L 10 - 52 U/L [facility] Anion gap [Moles/Vol] 11 mmol/L 7 - 17 mmol/L [facility] AST [Catalytic activity/Vol] 15 U/L 10 - 39 U/L [facility] Bilirubin [Mass/Vol] 1.7 mg/dL High NINF - 1.5 mg/dL [facility] Calcium [Mass/Vol] 9.4 mg/dL 8.6 - 10. 5 mg/dL [facility] Chloride [Moles/Vol] 107 mmol/L 98 - 10 8 mmol/L [facility] CO2 [Moles/Vol] 28 mmol/L 21 - 31 mmol/L [facility] Creatinine [Mass/Vol] 0.99 mg/dL 0.70 - 1.30 mg/dL [facility] GFR/1.73 sq M.predicted CKD-EPI (S/P/Bld) [Vol rate/Area] 79 - PINF [facility] Comment on above: Reported eGFR is bas ed on the CKD-EPI 2020 equation using creatinine, age, and sex. Glucose [Mass/Vol] 93 mg/dL 70 - 99 mg/dL [facility] Osmolality Calc [Osmolality] 301 [facility] Potassium [Moles/Vol] 4.4 mmol/L 3.5 - 5.0 mmol/L [facility] Protein [Mass/Vol] 6.8 g/dL 6.4 - 8.3 g/dL [facility] Sodium [Moles/Vol] 142 mmol/L 135 - 145 mmol/L [facility] Urea nitrogen [Mass/Vol] 24 mg/dL 7 - 25 mg/d L [facility] Urea nitrogen/Creatinine [Mass ratio] 24 mg/mg [facility] Cardiac echo study Procedure stress methodOrdered By: Nancy Prieto on 05-15-2022 % [facility] 92 % [facility] Work [facility]: APHRMAX 145 bpm [facility] Work Phone: Baseline DBP [facility] Work [facility]: Baseline HR 85 bpm [facility] Work Phone: Baseline SBP 121 mmHg [facility] Work Phone: Body surface area Derived from formula 2.28 m2 [facility] Work Phone: Exercise duration (min) 9 min O [facility] Work Phone: Exercise duration (sec) 35 sec O [facility] Work Phone: Peak DBP 40 mmHg [facility] Work Phone: Peak HR 133 bpm [facility] Work Phone: Peak SBP 123 mmHg [facility] Work Phone: Rate Pressure Product [id number] [facility] Work Phone: [facility] Work Phone: Cardiac echo study Procedure stress methodon 05-15-2022 NEGATIVE, ADEQUATE DOBUTAMINE STRESS ECHO Resting EKG shows NSR with RBBB. Grade infusion of Dobutamine to 30mcg, achieving 91% MPHR. With Dobutamine infusion, the patient developed no chest pain or diagnostic ST changes. The echo shows normal LV wall motion at rest and with Dobutamine infusion. Rest EF is 55-60% , Stress EF is >70%. Left Ventricle Normal global systolic function. Regional wall motion is normal. Ejection fraction is normal (55 - 60%). Left Ventricle - Stress Normal global systolic function. Regional wall motion is normal. Ejection fraction normal (60 - 65%). Left Ventricle - Peak Stress Normal global systolic function. Regional wall motion is normal. Ejection fraction is hyperdynamic (>70%). LV Response to Stress - Peak-Dose Normal contractility to all segments. Study Details A stress echocardiography study was performed. Contrast indication: evaluation of left ventricle contiguous segments. Contrast was administered. Study limitations include poor cardiac windows. Stress Findings A pharmacological stress test was performed using dobutamine without low-level exercise. The patient reported no symptoms prior to the stress test. The patient reported no symptoms during the stress test. The patient achieved the target heart rate. The patient wore a mask during procedure due to COVID-19 precautions. ECG Baseline ECG is normal with normal sinus rhythm. Baseline ECG shows right bundle branch block. Stress ECG is unchanged from baseline. There was no ST segment deviation noted during stress. There were no arrhythmias during stress. Stress QRS duration is normal (80-100ms). Recovery ECG returned to baseline. Arrhythmias during recovery: rare premature ventricular contractions. Recovery QRS duration is normal (80-100ms). Negative pharm stress test. Wall Scoring Resting Score Index: 1.00 The left ventricular wall motion is normal. Wall Scoring Stress Score Index: 1.00 The left ventricular wall motion is globally hyperkinetic. [facility] Radiology Study observation (narrative) [facility] HEMOGLOBIN [id number] By: Hansel De La Garza on 05-15-2022 Average glucose Estimated from glycated hemoglobin (Bld) [Mass/Vol] 123 mg/dL [facility] HbA1c (Bld) [Mass fraction] 5.9 % High 4.7 - 5.6 % [facility] Interpretation and review of laboratory results Abnormal [facility] LIPID PANEL W CALCULATED LDL on 05-15-2022 Cholesterol [Mass/Vol] 101 mg/dL NINF - 200 mg/dL [facility] Comment on above: [<200 mg/dL: Desirab le] [200-239 mg/dL: Borderline High] [>239 mg/dL: High] Cholesterol in HDL [Mass/Vol] 32 mg/dL Low 40 - PINF mg/dL [facility] Comment on above: [<40 mg/dL: Low (Hig h Risk)] [>59 mg/dL: High (Low Risk)] Cholesterol in HDL [Mass/Vol] 69 mg/dL NINF - 130 mg/dL [facility] Cholesterol in LDL [Mass/Vol] 49 mg/dL 0 - 99 mg/dL [facility] Comment on above: [<100 mg/dL: Optimal ] [100-129 mg/dL: Near Optimal] [130-159 mg/dL: Borderline High] [160-189 mg/dL: High] [>189 mg/dL: Very High] Cholesterol.total/Choles terol in HDL [Mass ratio] 3.2 {ratio} NINF - 4.5 [facility] Triglyceride [Mass/Vol] 101 mg/dL NINF - 150 mg/dL [facility] Comment on above: [<150 mg/dL: Desirab le] [150-199 mg/dL: Borderline] [200-499 mg/dL: High] [>500 mg/dL: Very High] MAGNESIUMon 05-15-2022 Interpretation and review of laboratory results Normal [facility] Magnesium [Mass/Vol] 2.0 mg/dL 1.6 - 2 .6 mg/dL [facility] No Panel Informationon 05-15 Interpretation and review of laboratory results Abnormal [facility] TACROLIMUS LEVEL, TROUGH (VA E DRUG LEVEL)Ordered By: Lencho Moeller on 05-15-2022 Interpretation and review of laboratory results Normal [facility] Tacrolimus (Bld) [Mass/Vol] 5.0 ng/mL [facility] Method performed is a chemiluminescent microparticle immunoasssay on the [employer] Stereo Map Plotter Operator i2000. The range is based on experience at [facility] and users should be aware that target concentrations vary widely depending on concomitant therapy, time post-transplant, and desired degree of immunosuppression. [facility] No Panel Informationon 12-20 Estimated GFR (MDRD) Amer 104 mL/min >60 [facility] Work Phone: Comment on above: GFR Calc Estimated GFR (MDRD) Non-Af Amer 86 mL/min >60 [facility] Work Phone: Comment on above: Non- GFR Calc Serum or plasma creatinine m easurement (mass/volume)on 12-20-2021 Creatinine [Mass/Vol] 0.91 mg/dL 0.70-1.30 [facility]: Comment on above: The validity of the calculated GFR & GFRAA in patients over 70 years has not been determined. Clinical correlation is essential. Serum or plasma uric acid me asurement (mass/volume)on 12-20-2021 Urate [Mass/Vol] 6.9 mg/dL 3.5-7.2 [facility] Work Phone: Comment on above: The drugs N-Acetylcy steine and Metamizole may falsely depress this assay. Absolute lymphocyte counton 10-26-2021 Lymphocytes Auto (Unsp spec) [#/Vol] 0.95 10*3/uL 0.83-4.51 [facility] Work Phone: Basophil percentageon 2021 Basophils/100 WBC (Bld) 0.4 % 0-1 [facility] Work Phone: Chloride [Moles/Vol] 104 mmol/L 98-107 [facility] Work Phone: Eosinophils/100 WBC (Bld) 1.0 % 0-5 [facility] Work Phone: Glucose [Mass/Vol] 170 mg/dL 74-106 [facility] Work Phone: Comment on above: Fasting Glucose resu lt greater than or equal to 126 mg/dL suggests DIABETES MELLITUS per A.D.A. criteria. Neutrophils (Bld) [#/Vol] 5.4 10*3/uL 2.0-7.7 [facility] Work Phone: Neutrophils/100 WBC (Bld) 74.4 % 47-70 [facility] Work Phone: Potassium [Moles/Vol] 4.4 mmol/L 3.5-5.1 [facility] Work Phone: Sodium [Moles/Vol] 137 mmol/L 136-145 [facility] Work Phone: WBC (Bld) [#/Vol] 7.2 10*3/uL 4.4-11.0 [facility] Work Phone: Blood erythrocytes count (nu mber/volume)on 10-26-2021 RBC (Bld) [#/Vol] 4.67 10*6/uL 4.6-6.2 [facility] Work Phone: Blood hemoglobin measurement (mass/volume)on 10-26-2021 Hemoglobin (Bld) [Mass/Vol] 13.7 g/dL 13.0-16.5 [facility] Work Phone: Blood lymphocytes/100 leukoc yteson 10-26-2021 Lymphocytes/100 WBC (Bld) 13.2 % 19-41 [facility] Work Phone: Blood monocytes/100 leukocyt eson 10-26-2021 Monocytes/100 WBC (Bld) 10.3 % 0-10 [facility] Work Phone: Blood platelet mean volumeon 10-26-2021 Platelet mean volume (Bld) [Entitic vol] 11.0 fL 6.2-12.0 [facility] Work Phone: Determination of erythrocyte mean corpuscular volume (MCV)on 10-26-2021 MCV (RBC) [Entitic vol] 88.9 fL 80-94 [facility] Work Phone: Hematocrit Auto (Bld) [Volum e fraction]on 10-26-2021 Hematocrit (Bld) [Volume fraction] 41.5 % 40-54 [facility] Work Phone: Laboratory - Chemistry and C hemistry - challengeon 10-26-2021 CO2 [Moles/Vol] 25.0 mmol/L 21.0-32.0 [facility] Work Phone: Urea nitrogen/Creatinine [Mass ratio] 24.1 mg/mg 10-20 [facility] Work Phone: Laboratory - Hematology and Cell countson 10-26-2021 Erythrocyte distribution width (RBC) [Entitic vol] 46.5 fL 35.1-43.9 [facility] Work Phone: Erythrocyte distribution width (RBC) [Ratio] 14.5 % 11.6-14.6 [facility] Work Phone: Immature granulocytes/100 WBC (Bld) 0.700 % 0.0-0.9 [facility] Work Phone: Comment on above: IG% - Immature Granu locytes (promyelocytes, myelocytes and metamyelocytes) > 1% indicates that a LEFT SHIFT is Present. MCH (RBC) [Entitic mass] 29.3 pg 27.0-32.0 [facility] Work Phone: Nucleated RBC/100 WBC (Bld) [Ratio] 0 % 0-5 [facility] Work Phone: MCHC Auto (RBC) [Mass/Vol]on 10-26-2021 MCHC (RBC) [Mass/Vol] 33.0 g/dL 32-36 [facility] Work Phone: No Panel Informationon 10-26 Estimated GFR (MDRD) Amer 79 mL/min >60 [facility] Work Phone: Comment on above: GFR Calc Estimated GFR (MDRD) Non-Af Amer 65 mL/min >60 [facility] Work Phone: Comment on above: Non- GFR Calc Platelets bldon 10-26-2021 Platelets (Bld) [#/Vol] 211 10*3/uL 150-450 [facility] Work Phone: Serum or plasma calcium edwin urement (mass/volume)on 10-26-2021 Calcium [Mass/Vol] 9.3 mg/dL 8.5-10.1 [facility] Work Phone: Serum or plasma creatinine m easurement (mass/volume)on 10-26-2021 Creatinine [Mass/Vol] 1.16 mg/dL 0.70-1.30 [facility] Work Phone: Comment on above: The validity of the calculated GFR & GFRAA in patients over 70 years has not been determined. Clinical correlation is essential. Serum or plasma urea nitroge n measurement (mass/volume)on 10-26-2021 Urea nitrogen [Mass/Vol] 28 mg/dL 7-18 [facility] Work Phone: Thin prep Papanicolaou smear with manual screeningon 10-26-2021 Thin prep Papanicolaou smear with manual screening 8 5-15 [facility] Work Phone: No Panel Informationon 10-24 Tacrolimus (Prograf) Level 4.7 ng/mL 2.0-20.0 [facility] Work Phone: Comment on above: Trough (immediately following transplant) 15.0 Trough (steady state, 2 weeks or more after transplant): 3.0 - 8.0 Performed by LC-MS/MS technology.Performed at: [address] [id number] Director: Amy Gonzalez MD, Phone: [phone] Basophil percentageon 2021 Chloride [Moles/Vol] 102 mmol/L 98-107 [facility] Work Phone: Glucose [Mass/Vol] 128 mg/dL 74-106 [facility] Work Phone: Comment on above: Fasting Glucose resu lt greater than or equal to 126 mg/dL suggests DIABETES MELLITUS per A.D.A. criteria. Potassium [Moles/Vol] 4.7 mmol/L 3.5-5.1 [facility] Work Phone: Sodium [Moles/Vol] 138 mmol/L 136-145 [facility] Work Phone: Laboratory - Chemistry and C hemistry - challengeon 10-23-2021 CO2 [Moles/Vol] 26.0 mmol/L 21.0-32.0 [facility] Work Phone: No Panel Informationon 10-23 Estimated GFR (MDRD) Amer 69 mL/min >60 [facility] Work Phone: Comment on above: GFR Calc Estimated GFR (MDRD) Non-Af Amer 57 mL/min >60 [facility] Work Phone: Comment on above: Non- GFR Calc Serum or plasma creatinine m easurement (mass/volume)on 10-23-2021 Creatinine [Mass/Vol] 1.31 mg/dL 0.70-1.30 [facility] Work Phone: Comment on above: The validity of the calculated GFR & GFRAA in patients over 70 years has not been determined. Clinical correlation is essential. Serum or plasma urea nitroge n measurement (mass/volume)on 10-23-2021 Urea nitrogen [Mass/Vol] 35 mg/dL 7-18 [facility] Work Phone: CBC,PLATELETSon 10-17-2021 Erythrocyte distribution width (RBC) [Ratio] 14.1 % 10.9 - 14.3 % [facility] Hematocrit (Bld) [Volume fraction] 35.5 % Low 39.6 - 48.8 % [facility] Hemoglobin (Bld) [Mass/Vol] 12.1 g/dL Low 13.4 - 16.8 g/dL [facility] Interpretation and review of laboratory results Abnormal [facility] MCH (RBC) [Entitic mass] 29.4 pg 26. 1 - 33.3 pg [facility] MCHC (RBC) [Mass/Vol] 34.1 g/dL 31.9 - 36.5 g/dL [facility] MCV (RBC) [Entitic vol] 86.4 fL 79.0 - 94.5 fL [facility] Platelet mean volume (Bld) [Entitic vol] 10.4 fL 8.7 - 12.3 fL [facility] Platelets (Bld) [#/Vol] 211 10*3/uL 146 - 337 K/uL [facility] RBC (Bld) [#/Vol] 4.11 10*6/uL Low [facility] WBC (Bld) [#/Vol] 5.96 10*3/uL 3.73 - 10. 10 K/uL [facility] CHEM 7 (LYTES,BUN,CREA,GLUC) on 10-17-2021 Anion gap [Moles/Vol] 14 mmol/L 7 - 17 mmol/L [facility] Chloride [Moles/Vol] 108 mmol/L 98 - 10 8 mmol/L [facility] CO2 [Moles/Vol] 21 mmol/L 21 - 31 mmol/L [facility] Creatinine [Mass/Vol] 1.16 mg/dL 0.70 - 1.30 mg/dL [facility] GFR/1.73 sq M.predicted CKD-EPI (S/P/Bld) [Vol rate/Area] 66 >=60 mL/min/1.73m 2 [facility] Comment on above: Reported eGFR is bas ed on the CKD-EPI 2020 equation using creatinine, age, and sex. Glucose [Mass/Vol] 110 mg/dL High 70 - 99 mg/dL [facility] Interpretation and review of laboratory results Abnormal [facility] Osmolality Calc [Osmolality] 295 [facility] Potassium [Moles/Vol] 4.9 mmol/L 3.5 - 5.0 mmol/L [facility] Sodium [Moles/Vol] 138 mmol/L 135 - 145 mmol/L [facility] Urea nitrogen [Mass/Vol] 23 mg/dL 7 - 25 mg/d L [facility] Urea nitrogen/Creatinine [Mass ratio] 20 mg/mg [facility] TACROLIMUS, RANDOMOrdered By : Farida Barone on 10-17-2021 Interpretation and review of laboratory results Abnormal [facility] Tacrolimus (Bld) [Mass/Vol] 15.7 ng/mL High Bone Marrow Transplant: 4.0-12.0, Therapeutic: 5.0-15.0 [facility] Method performed is a chemiluminescent microparticle immunoasssay on the [place] Stereo Map Plotter Operator i2000. The range is based on experience at [facility] and users should be aware that target concentrations vary widely depending on concomitant therapy, time post-transplant, and desired degree of immunosuppression. [facility] CBC,PLATELETSon 10-16-2021 Erythrocyte distribution width (RBC) [Ratio] 14.0 % 10.9 - 14.3 % [facility] Hematocrit (Bld) [Volume fraction] 36.2 % Low 39.6 - 48.8 % [facility] Hemoglobin (Bld) [Mass/Vol] 12.0 g/dL Low 13.4 - 16.8 g/dL [facility] Interpretation and review of laboratory results Abnormal [facility] MCH (RBC) [Entitic mass] 29.2 pg 26. 1 - 33.3 pg [facility] MCHC (RBC) [Mass/Vol] 33.1 g/dL 31.9 - 36.5 g/dL [facility] MCV (RBC) [Entitic vol] 88.1 fL 79.0 - 94.5 fL [facility] Platelet mean volume (Bld) [Entitic vol] 10.5 fL 8.7 - 12.3 fL [facility] Platelets (Bld) [#/Vol] 180 10*3/uL 146 - 337 K/uL [facility] RBC (Bld) [#/Vol] 4.11 10*6/uL Low [facility] WBC (Bld) [#/Vol] 6.31 10*3/uL 3.73 - 10. 10 K/uL [facility] CHEM 7 (LYTES,BUN,CREA,GLUC) on 10-16-2021 Anion gap [Moles/Vol] 14 mmol/L 7 - 17 mmol/L [facility] Chloride [Moles/Vol] 109 mmol/L High 98 - 10 8 mmol/L [facility] CO2 [Moles/Vol] 21 mmol/L 21 - 31 mmol/L [facility] Creatinine [Mass/Vol] 1.07 mg/dL 0.70 - 1.30 mg/dL [facility] GFR/1.73 sq M.predicted CKD-EPI (S/P/Bld) [Vol rate/Area] 73 >=60 mL/min/1.73m 2 [facility] Comment on above: Reported eGFR is bas ed on the CKD-EPI 2020 equation using creatinine, age, and sex. Glucose [Mass/Vol] 121 mg/dL High 70 - 99 mg/dL [facility] Interpretation and review of laboratory results Abnormal [facility] Osmolality Calc [Osmolality] 296 [facility] Potassium [Moles/Vol] 4.8 mmol/L 3.5 - 5.0 mmol/L [facility] Sodium [Moles/Vol] 139 mmol/L 135 - 145 mmol/L [facility] Urea nitrogen [Mass/Vol] 20 mg/dL 7 - 25 mg/d L [facility] Urea nitrogen/Creatinine [Mass ratio] 19 mg/mg [facility] TACROLIMUS, RANDOMon 022 Interpretation and review of laboratory results Abnormal [facility] Tacrolimus (Bld) [Mass/Vol] 21.0 ng/mL High Bone Marrow Transplant: 4.0-12.0, Therapeutic: 5.0-15.0 [facility] Method performed is a chemiluminescent microparticle immunoasssay on the Murphy Stereo Map Plotter Operator i2000. The range is based on experience at [facility] and users should be aware that target concentrations vary widely depending on concomitant therapy, time post-transplant, and desired degree of immunosuppression. [facility] CBC,PLATELETSon 10-15-2021 Erythrocyte distribution width (RBC) [Ratio] 13.8 % 10.9 - 14.3 % [facility] Hematocrit (Bld) [Volume fraction] 34.9 % Low 39.6 - 48.8 % [facility] Hemoglobin (Bld) [Mass/Vol] 11.9 g/dL Low 13.4 - 16.8 g/dL [facility] Interpretation and review of laboratory results Abnormal [facility] MCH (RBC) [Entitic mass] 28.9 pg 26. 1 - 33.3 pg [facility] MCHC (RBC) [Mass/Vol] 34.1 g/dL 31.9 - 36.5 g/dL [facility] MCV (RBC) [Entitic vol] 84.7 fL 79.0 - 94.5 fL [facility] Platelet mean volume (Bld) [Entitic vol] 10.6 fL 8.7 - 12.3 fL [facility] Platelets (Bld) [#/Vol] 159 10*3/uL 146 - 337 K/uL [facility] RBC (Bld) [#/Vol] 4.12 10*6/uL Low [facility] WBC (Bld) [#/Vol] 6.53 10*3/uL 3.73 - 10. 10 K/uL [facility] CHEM 7 (LYTES,BUN,CREA,GLUC) on 10-15-2021 Anion gap [Moles/Vol] 15 mmol/L 7 - 17 mmol/L [facility] Chloride [Moles/Vol] 107 mmol/L 98 - 10 8 mmol/L [facility] CO2 [Moles/Vol] 21 mmol/L 21 - 31 mmol/L [facility] Creatinine [Mass/Vol] 1.16 mg/dL 0.70 - 1.30 mg/dL [facility] GFR/1.73 sq M.predicted CKD-EPI (S/P/Bld) [Vol rate/Area] 66 >=60 mL/min/1.73m 2 [facility] Comment on above: Reported eGFR is bas ed on the CKD-EPI 2020 equation using creatinine, age, and sex. Glucose [Mass/Vol] 113 mg/dL High 70 - 99 mg/dL [facility] Interpretation and review of laboratory results Abnormal [facility] Osmolality Calc [Osmolality] 295 [facility] Potassium [Moles/Vol] 5.1 mmol/L High 3.5 - 5.0 mmol/L [facility] Sodium [Moles/Vol] 138 mmol/L 135 - 145 mmol/L [facility] Urea nitrogen [Mass/Vol] 22 mg/dL 7 - 25 mg/d L [facility] Urea nitrogen/Creatinine [Mass ratio] 19 mg/mg [facility] TACROLIMUS, RANDOMon 022 Interpretation and review of laboratory results Abnormal [facility] Tacrolimus (Bld) [Mass/Vol] 26.2 ng/mL High Bone Marrow Transplant: 4.0-12.0, Therapeutic: 5.0-15.0 [facility] Method performed is a chemiluminescent microparticle immunoasssay on the [place] Stereo Map Plotter Operator i2000. The range is based on experience at [facility] and users should be aware that target concentrations vary widely depending on concomitant therapy, time post-transplant, and desired degree of immunosuppression. [facility] CBC,PLATELETSon 10-14-2021 Erythrocyte distribution width (RBC) [Ratio] 13.7 % 10.9 - 14.3 % [facility] Hematocrit (Bld) [Volume fraction] 35.1 % Low 39.6 - 48.8 % [facility] Hemoglobin (Bld) [Mass/Vol] 11.9 g/dL Low 13.4 - 16.8 g/dL [facility] Interpretation and review of laboratory results Abnormal [facility] MCH (RBC) [Entitic mass] 29.2 pg 26. 1 - 33.3 pg [facility] MCHC (RBC) [Mass/Vol] 33.9 g/dL 31.9 - 36.5 g/dL [facility] MCV (RBC) [Entitic vol] 86.0 fL 79.0 - 94.5 fL [facility] Platelet mean volume (Bld) [Entitic vol] 10.5 fL 8.7 - 12.3 fL [facility] Platelets (Bld) [#/Vol] 149 10*3/uL 146 - 337 K/uL [facility] RBC (Bld) [#/Vol] 4.08 10*6/uL Low [facility] WBC (Bld) [#/Vol] 5.83 10*3/uL 3.73 - 10. 10 K/uL [facility] CHEM 7 (LYTES,BUN,CREA,GLUC) on 10-14-2021 Anion gap [Moles/Vol] 13 mmol/L 7 - 17 mmol/L [facility] Chloride [Moles/Vol] 108 mmol/L 98 - 10 8 mmol/L [facility] CO2 [Moles/Vol] 23 mmol/L 21 - 31 mmol/L [facility] Creatinine [Mass/Vol] 1.18 mg/dL 0.70 - 1.30 mg/dL [facility] GFR/1.73 sq M.predicted CKD-EPI (S/P/Bld) [Vol rate/Area] 65 >=60 mL/min/1.73m 2 [facility] Comment on above: Reported eGFR is bas ed on the CKD-EPI 2020 equation using creatinine, age, and sex. Glucose [Mass/Vol] 98 mg/dL 70 - 99 mg/dL [facility] Interpretation and review of laboratory results Abnormal [facility] Osmolality Calc [Osmolality] 297 [facility] Potassium [Moles/Vol] 5.1 mmol/L High 3.5 - 5.0 mmol/L [facility] Sodium [Moles/Vol] 139 mmol/L 135 - 145 mmol/L [facility] Urea nitrogen [Mass/Vol] 25 mg/dL 7 - 25 mg/d L [facility] Urea nitrogen/Creatinine [Mass ratio] 21 mg/mg [facility] TACROLIMUS, RANDOMOrdered By : Senia Martinez on 10-14-2021 Interpretation and review of laboratory results Abnormal [facility] Tacrolimus (Bld) [Mass/Vol] 32.9 ng/mL High Bone Marrow Transplant: 4.0-12.0, Therapeutic: 5.0-15.0 [facility] Method performed is a chemiluminescent microparticle immunoasssay on the [employer] Stereo Map Plotter Operator i2000. The range is based on experience at [facility] and users should be aware that target concentrations vary widely depending on concomitant therapy, time post-transplant, and desired degree of immunosuppression. [facility] URIC ACIDon 10-14-2021 Interpretation and review of laboratory results Abnormal [facility] Urate [Mass/Vol] 7.4 mg/dL High 3.5 - 7.0 mg/dL [facility] CBC,PLATELETSon 10-13-2021 Erythrocyte distribution width (RBC) [Ratio] 13.8 % 10.9 - 14.3 % [facility] Hematocrit (Bld) [Volume fraction] 38.6 % Low 39.6 - 48.8 % [facility] Hemoglobin (Bld) [Mass/Vol] 13.1 g/dL Low 13.4 - 16.8 g/dL [facility] Interpretation and review of laboratory results Abnormal [facility] MCH (RBC) [Entitic mass] 29.2 pg 26. 1 - 33.3 pg [facility] MCHC (RBC) [Mass/Vol] 33.9 g/dL 31.9 - 36.5 g/dL [facility] MCV (RBC) [Entitic vol] 86.2 fL 79.0 - 94.5 fL [facility] Platelet mean volume (Bld) [Entitic vol] 10.5 fL 8.7 - 12.3 fL [facility] Platelets (Bld) [#/Vol] 172 10*3/uL 146 - 337 K/uL [facility] RBC (Bld) [#/Vol] 4.48 10*6/uL [facility] WBC (Bld) [#/Vol] 7.23 10*3/uL 3.73 - 10. 10 K/uL [facility] CHEM 7 (LYTES,BUN,CREA,GLUC) on 10-13-2021 Anion gap [Moles/Vol] 15 mmol/L 7 - 17 [facility] Chloride [Moles/Vol] 106 mmol/L 98 - 10 8 mmol/L [facility] CO2 [Moles/Vol] 22 mmol/L 21 - 31 mmol/L [facility] Creatinine [Mass/Vol] 1.22 mg/dL 0.70 - 1.30 mg/dL [facility] GFR/1.73 sq M.predicted CKD-EPI (S/P/Bld) [Vol rate/Area] 62 >=60 mL/min/1.73m 2 [facility] Comment on above: Reported eGFR is bas ed on the CKD-EPI 2020 equation using creatinine, age, and sex. Glucose [Mass/Vol] 98 mg/dL 70 - 99 mg/dL [facility] Interpretation and review of laboratory results Abnormal [facility] Osmolality Calc [Osmolality] 297 [facility] Potassium [Moles/Vol] 5.1 mmol/L High 3.5 - 5.0 mmol/L [facility] Sodium [Moles/Vol] 138 mmol/L 135 - 145 mmol/L [facility] Urea nitrogen [Mass/Vol] 30 mg/dL High 7 - 25 mg/d L [facility] Urea nitrogen/Creatinine [Mass ratio] 25 mg/mg [facility] CT Head WO contraston 2021 IMPRESSION: No acute intracranial findings. OLOGY EXAM: CT HEAD WITHOU T CONTRAST, 10/13/2021 2:15 PM COMPARISON: Head CT March 31, 2015 CLINICAL INDICATIONS: 76 years Male headache; RELEVANT CLINICAL HISTORY: TECHNIQUE: A series of transaxial computerized tomographic images are obtained from base of skull to vertex without intravenous contrast. Axial whole-head and thin section posterior fossa slices are provided. Reformats: Sagittal and coronal. FINDINGS: There is no abnormal increased or decreased attenuation. There is no mass lesion or midline shift. There is no evidence of hemorrhage or acute infarct. There is no extracerebral collection. Ventricles are normal in size and configuration for patient's stated age. Posterior fossa is within normal limits. Calvarium and skull base appear intact. Visualized sinuses show no air fluid levels. Visualized orbits are unremarkable. RADIOLOGY [address] M D - 10/13/2021 EXAM: CT HEAD WITHOUT CONTRAST, 10/13/2021 2:15 PM COMPARISON: Head CT March 31, 2015 CLINICAL INDICATIONS: 76 years Male headache; RELEVANT CLINICAL HISTORY: TECHNIQUE: A series of transaxial computerized tomographic images are obtained from base of skull to vertex without intravenous contrast. Axial whole-head and thin section posterior fossa slices are provided. Reformats: Sagittal and coronal. FINDINGS: There is no abnormal increased or decreased attenuation. There is no mass lesion or midline shift. There is no evidence of hemorrhage or acute infarct. There is no extracerebral collection. Ventricles are normal in size and configuration for patient's stated age. Posterior fossa is within normal limits. Calvarium and skull base appear intact. Visualized sinuses show no air fluid levels. Visualized orbits are unremarkable. IMPRESSION IMPRESSION: No acute intracranial findings. [facility] Radiology Study observation (narrative) [facility] CT Head WO contrastOrdered B y: Niko Street on 10-13-2021 [facility] Work Phone: TACROLIMUS, RANDOMon 022 Interpretation and review of laboratory results Abnormal [facility] Tacrolimus (Bld) [Mass/Vol] 53.3 ng/mL High Bone Marrow Transplant: 4.0-12.0, Therapeutic: 5.0-15.0 [facility] Method performed is a chemiluminescent microparticle immunoasssay on the Murphy Stereo Map Plotter Operator i2000. The range is based on experience at [facility] and users should be aware that target concentrations vary widely depending on concomitant therapy, time post-transplant, and desired degree of immunosuppression. [facility] Interpretation and review of laboratory results Abnormal [facility] Tacrolimus (Bld) [Mass/Vol] ng/mL High Bone Marrow Transplant: 4.0-12.0, Therapeutic: 5.0-15.0 ng/mL [facility] Method performed is a chemiluminescent microparticle immunoasssay on the [employer] Stereo Map Plotter Operator i2000. The range is based on experience at [facility] and users should be aware that target concentrations vary widely depending on concomitant therapy, time post-transplant, and desired degree of immunosuppression. [facility] CBC,PLATELETSon 10-12-2021 Erythrocyte distribution width (RBC) [Ratio] 13.9 % 10.9 - 14.3 % [facility] Hematocrit (Bld) [Volume fraction] 38.1 % Low 39.6 - 48.8 % [facility] Hemoglobin (Bld) [Mass/Vol] 12.7 g/dL Low 13.4 - 16.8 g/dL [facility] Interpretation and review of laboratory results Abnormal [facility] MCH (RBC) [Entitic mass] 29.4 pg 26. 1 - 33.3 pg [facility] MCHC (RBC) [Mass/Vol] 33.3 g/dL 31.9 - 36.5 g/dL [facility] MCV (RBC) [Entitic vol] 88.2 fL 79.0 - 94.5 fL [facility] Platelet mean volume (Bld) [Entitic vol] [facility] Comment on above: Not measured Platelets (Bld) [#/Vol] 154 10*3/uL 146 - 337 K/uL [facility] RBC (Bld) [#/Vol] 4.32 10*6/uL Low [facility] WBC (Bld) [#/Vol] 5.67 10*3/uL 3.73 - 10. 10 K/uL [facility] CHEM 6 (LYTES, BUN CREA)on 0 10-12-2021 Anion gap [Moles/Vol] 14 mmol/L 7 - 17 mmol/L [facility] Chloride [Moles/Vol] 105 mmol/L 98 - 10 8 mmol/L [facility] CO2 [Moles/Vol] 24 mmol/L 21 - 31 mmol/L [facility] Creatinine [Mass/Vol] 1.30 mg/dL 0.70 - 1.30 mg/dL [facility] GFR/1.73 sq M.predicted CKD-EPI (S/P/Bld) [Vol rate/Area] 58 Low >=60 mL/min/1.73m 2 [facility] Comment on above: Reported eGFR is bas ed on the CKD-EPI 2020 equation using creatinine, age, and sex. Interpretation and review of laboratory results Abnormal [facility] Potassium [Moles/Vol] 5.0 mmol/L 3.5 - 5.0 mmol/L [facility] Sodium [Moles/Vol] 138 mmol/L 135 - 145 mmol/L [facility] Urea nitrogen [Mass/Vol] 32 mg/dL High 7 - 25 mg/d L [facility] Urea nitrogen/Creatinine [Mass ratio] 25 mg/mg [facility] CHEM 7 (LYTES,BUN,CREA,GLUC) on 10-12-2021 Anion gap [Moles/Vol] 14 mmol/L 7 - 17 mmol/L [facility] Chloride [Moles/Vol] 106 mmol/L 98 - 10 8 mmol/L [facility] CO2 [Moles/Vol] 23 mmol/L 21 - 31 mmol/L [facility] Creatinine [Mass/Vol] 1.40 mg/dL High 0.70 - 1.30 mg/dL [facility] GFR/1.73 sq M.predicted CKD-EPI (S/P/Bld) [Vol rate/Area] 53 Low >=60 mL/min/1.73m 2 [facility] Comment on above: Reported eGFR is bas ed on the CKD-EPI 2020 equation using creatinine, age, and sex. Glucose [Mass/Vol] 97 mg/dL 70 - 99 mg/dL [facility] Osmolality Calc [Osmolality] [facility] Potassium [Moles/Vol] 5.1 mmol/L High 3.5 - 5.0 mmol/L [facility] Sodium [Moles/Vol] 138 mmol/L 135 - 145 mmol/L [facility] Urea nitrogen [Mass/Vol] 34 mg/dL High 7 - 25 mg/d L [facility] Urea nitrogen/Creatinine [Mass ratio] 24 mg/mg [facility] CONTINUOUS CARDIAC MONITORIN G STRIPon 10-12-2021 [facility] EXTRA MICROon 10-12-2021 [facility] HEMOGLOBIN [id number] By: Jordyn Jimenez on 10-12-2021 Average glucose Estimated from glycated hemoglobin (Bld) [Mass/Vol] 128 mg/dL [facility] HbA1c (Bld) [Mass fraction] 6.1 % High 4.7 - 5.6 % [facility] Interpretation and review of laboratory results Abnormal [facility] HEPATIC FUNCTION PANELon Albumin [Mass/Vol] 3.8 g/dL 3.5 - 5.0 g/dL [facility] ALP [Catalytic activity/Vol] 56 U/L 32 - 126 U/L [facility] ALT [Catalytic activity/Vol] 4 U/L Low 10 - 52 U/L [facility] AST [Catalytic activity/Vol] 8 U/L Low 10 - 39 U/L [facility] Bilirubin [Mass/Vol] 0.9 mg/dL <1.5 [facility] Bilirubin.direct [Mass/Vol] 0.2 mg/dL <0.3 [facility] Protein [Mass/Vol] 6.2 g/dL Low 6.4 - 8.3 g/dL [facility] LIPID PANEL W CALCULATED LDL on 10-12-2021 Cholesterol [Mass/Vol] 105 mg/dL <200 [facility] Comment on above: [<200 mg/dL: Desirab le] [200-239 mg/dL: Borderline High] [>239 mg/dL: High] Cholesterol in HDL [Mass/Vol] 32 mg/dL Low >=40 [facility] Comment on above: [<40 mg/dL: Low (Hig h Risk)] [>59 mg/dL: High (Low Risk)] Cholesterol in HDL [Mass/Vol] 73 mg/dL <130 [facility] Cholesterol in LDL [Mass/Vol] 43 mg/dL 0 - 99 mg/dL [facility] Comment on above: [<100 mg/dL: Optimal ] [100-129 mg/dL: Near Optimal] [130-159 mg/dL: Borderline High] [160-189 mg/dL: High] [>189 mg/dL: Very High] Cholesterol.total/Choles terol in HDL [Mass ratio] 3.3 {ratio} <4.5 [facility] Triglyceride [Mass/Vol] 149 mg/dL <150 [facility] Comment on above: [<150 mg/dL: Desirab le] [150-199 mg/dL: Borderline] [200-499 mg/dL: High] [>500 mg/dL: Very High] MAGNESIUMon 10-12-2021 Interpretation and review of laboratory results Normal [facility] Magnesium [Mass/Vol] 1.7 mg/dL 1.6 - 2 .6 mg/dL [facility] No Panel Informationon 10-12 Interpretation and review of laboratory results Abnormal [facility] POTASSIUMon 10-12-2021 Interpretation and review of laboratory results Normal [facility] Potassium [Moles/Vol] 5.0 mmol/L 3.5 - 5.0 mmol/L [facility] TACROLIMUS LEVEL, TROUGH (VA E DRUG LEVEL)Ordered By: Deborah Harper on 10-12-2021 Interpretation and review of laboratory results Abnormal [facility] Tacrolimus (Bld) [Mass/Vol] ng/mL High Bone Marrow Transplant: 4.0-12.0, Therapeutic: 5.0-15.0 ng/mL [facility] Method performed is a chemiluminescent microparticle immunoasssay on the [place] Stereo Map Plotter Operator i2000. The range is based on experience at [facility] and users should be aware that target concentrations vary widely depending on concomitant therapy, time post-transplant, and desired degree of immunosuppression. [facility] TSHon 10-12-2021 Interpretation and review of laboratory results Normal [facility] TSH Qn 0.732 m[IU]/L [facility] Absolute lymphocyte counton 10-11-2021 Lymphocytes Auto (Unsp spec) [#/Vol] 0.77 10*3/uL 0.83-4.51 [facility] Work Phone: B-TYPE NATRIURETIC PEPTIDE ( BRAIN)on 10-11-2021 Interpretation and review of laboratory results Abnormal [facility] Natriuretic peptide B (Bld) [Mass/Vol] 106 pg/mL High 0 - 100 pg/mL [facility] Basophil percentageon 2021 Basophil percentage 0 SEEN /hpf 0-5 [facility] Work Phone: Basophils/100 WBC (Bld) 0.3 % 0-1 [facility] Work Phone: Bilirubin [Mass/Vol] 1.30 mg/dL 0.20-1.00 [facility] Work Phone: Comment on above: For patients on eltr ombopag therapy, use of [employer]ension [place] TBIL is not recommended. Chloride [Moles/Vol] 104 mmol/L 98-107 [facility] Work Phone: Eosinophils/100 WBC (Bld) 0.1 % 0-5 [facility] Work Phone: Glucose [Mass/Vol] 126 mg/dL 74-106 [facility] Work Phone: Comment on above: Fasting Glucose resu lt greater than or equal to 126 mg/dL suggests DIABETES MELLITUS per A.D.A. criteria. Neutrophils (Bld) [#/Vol] 6.4 10*3/uL 2.0-7.7 [facility] Work Phone: Neutrophils/100 WBC (Bld) 81.7 % 47-70 [facility] Work Phone: Potassium [Moles/Vol] 5.4 mmol/L 3.5-5.1 [facility] Work Phone: Protein [Mass/Vol] 7.4 g/dL 6.4-8.2 [facility]: Sodium [Moles/Vol] 137 mmol/L 136-145 [facility] Work Phone: WBC (Bld) [#/Vol] 7.8 10*3/uL 4.4-11.0 [facility] Work Phone: Bilirubin Test strip Ql (U)o n 10-11-2021 Bilirubin Ql (U) Negative Negative [facility] Work Phone: Blood erythrocytes count (nu mber/volume)on 10-11-2021 RBC (Bld) [#/Vol] 4.89 10*6/uL 4.6-6.2 [facility]: Blood hemoglobin measurement (mass/volume)on 10-11-2021 Hemoglobin (Bld) [Mass/Vol] 14.3 g/dL 13.0-16.5 [facility] Work Phone: Blood lymphocytes/100 leukoc yteson 10-11-2021 Lymphocytes/100 WBC (Bld) 9.9 % 19-41 [facility] Work Phone: Blood monocytes/100 leukocyt eson 10-11-2021 Monocytes/100 WBC (Bld) 7.4 % 0-10 [facility] Work Phone: Blood platelet mean volumeon 10-11-2021 Platelet mean volume (Bld) [Entitic vol] 10.3 fL 6.2-12.0 [facility] Work Phone: CALCIUMon 10-11-2021 Calcium [Mass/Vol] 9.5 mg/dL 8.6 - 10. 5 mg/dL [facility] CBC AND ELECTRONIC DIFFon Basophils (Bld) [#/Vol] 10*3/uL 0.00 - 0.09 K/uL [facility] Basophils/100 WBC (Bld) 0.0 % [facility] Differential cell count method Nom (Bld) Electronic Differential [facility] Eosinophils (Bld) [#/Vol] 10*3/uL 0.00 - 0.48 K/uL [facility] Eosinophils/100 WBC (Bld) 0.1 % [facility] Erythrocyte distribution width (RBC) [Ratio] 13.9 % 10.9 - 14.3 % [facility] Hematocrit (Bld) [Volume fraction] 40.9 % 39.6 - 48.8 % [facility] Hemoglobin (Bld) [Mass/Vol] 13.8 g/dL 13.4 - 16.8 g/dL [facility] Immature granulocytes (Bld) [#/Vol] 0.05 10*3/uL <=0.07 [facility] Immature granulocytes/100 WBC (Bld) 0.7 % [facility] Interpretation and review of laboratory results Abnormal [facility] Lymphocytes (Bld) [#/Vol] 0.77 10*3/uL Low 0.83 - 3.57 K/uL [facility] Lymphocytes/100 WBC (Bld) 10.1 % [facility] MCH (RBC) [Entitic mass] 29.2 pg 26. 1 - 33.3 pg [facility] MCHC (RBC) [Mass/Vol] 33.7 g/dL 31.9 - 36.5 g/dL [facility] MCV (RBC) [Entitic vol] 86.5 fL 79.0 - 94.5 fL [facility] Monocytes (Bld) [#/Vol] 0.54 10*3/uL 0.24 - 0.93 K/uL [facility] Monocytes/100 WBC (Bld) 7.0 % [facility] Neutrophils (Bld) [#/Vol] 6.29 10*3/uL High 1.57 - 6.19 K/uL [facility] Nucleated RBC/100 WBC (Bld) [Ratio] 0.0 % <=0.2 /100 WBC [facility] Platelet mean volume (Bld) [Entitic vol] 10.3 fL 8.7 - 12.3 fL [facility] Platelets (Bld) [#/Vol] 141 10*3/uL Low 146 - 337 K/uL [facility] RBC (Bld) [#/Vol] 4.73 10*6/uL [facility] Segmented neutrophils/100 WBC (Bld) 82.1 % [facility] WBC (Bld) [#/Vol] 7.66 10*3/uL 3.73 - 10. 10 K/uL [facility] CHEM 7 (LYTES,BUN,CREA,GLUC) on 10-11-2021 Anion gap [Moles/Vol] 15 mmol/L 7 - 17 mmol/L [facility] Chloride [Moles/Vol] 103 mmol/L 98 - 10 8 mmol/L [facility] CO2 [Moles/Vol] 25 mmol/L 21 - 31 mmol/L [facility] Creatinine [Mass/Vol] 1.31 mg/dL High 0.70 - 1.30 mg/dL [facility] GFR/1.73 sq M.predicted CKD-EPI (S/P/Bld) [Vol rate/Area] 57 Low >=60 mL/min/1.73m 2 [facility] Comment on above: Reported eGFR is bas ed on the CKD-EPI 2020 equation using creatinine, age, and sex. Glucose [Mass/Vol] 107 mg/dL High 70 - 99 mg/dL [facility] Interpretation and review of laboratory results Abnormal [facility] Osmolality Calc [Osmolality] 297 [facility] Potassium [Moles/Vol] 4.7 mmol/L 3.5 - 5.0 mmol/L [facility] Sodium [Moles/Vol] 138 mmol/L 135 - 145 mmol/L [facility] Urea nitrogen [Mass/Vol] 31 mg/dL High 7 - 25 mg/d L [facility] Urea nitrogen/Creatinine [Mass ratio] 24 mg/mg [facility] CONTINUOUS CARDIAC MONITORIN G STRIPOrdered By: Unassigned Pacs on 10-11-2021 [facility] Work Phone: CREATININE,RANDOM URINEon Creatinine (24H U) [Mass/Vol] 130.35 mg/dL [facility] Determination of erythrocyte mean corpuscular volume (MCV)on 10-11-2021 MCV (RBC) [Entitic vol] 87.7 fL 80-94 [facility] Work Phone: HIGH SENSITIVITY TROPONIN I - SINGLE ORDERon 10-11-2021 Interpretation and review of laboratory results Normal [facility] Troponin I.cardiac DL <= 0.01 ng/mL [Mass/Vol] ng/mL <53 ng/L [facility] Hematocrit Auto (Bld) [Volum e fraction]on 10-11-2021 Hematocrit (Bld) [Volume fraction] 42.9 % 40-54 [facility] Work Phone: Ketones Test strip Ql (U)on 10-11-2021 Ketones Ql (U) Negative Negative [facility] Work Phone: LYTES (NA, K, CL) - URINE - RANDOMon 10-11-2021 Chloride (24H U) [Moles/Vol] 96 mmol/L [facility] [facility] Potassium (24H U) [Moles/Vol] 58.6 mmol/L [facility] Sodium (24H U) [Moles/Vol] 80 mmol/L [facility] Laboratory - Chemistry and C hemistry - challengeon 10-11-2021 ALP [Catalytic activity/Vol] 72 U/L 45-117 [facility] Work Phone: ALT [Catalytic activity/Vol] 14 U/L 16-61 [facility] Work Phone: CK [Catalytic activity/Vol] 30 U/L 39-308 [facility] Work Phone: CO2 [Moles/Vol] 28.0 mmol/L 21.0-32.0 [facility] Work Phone: Globulin (S) [Mass/Vol] 3.7 g/dL 2.2-4.2 [facility] Work Phone: Lipase [Catalytic activity/Vol] 15 U/L 73-393 [facility] Work Phone: Urea nitrogen/Creatinine [Mass ratio] 25.2 mg/mg 10-20 [facility] Work Phone: Laboratory - Hematology and Cell countson 10-11-2021 Erythrocyte distribution width (RBC) [Entitic vol] 44.1 fL 35.1-43.9 [facility] Work Phone: Erythrocyte distribution width (RBC) [Ratio] 13.8 % 11.6-14.6 [facility] Work Phone: Immature granulocytes/100 WBC (Bld) 0.600 % 0.0-0.9 [facility] Work Phone: Comment on above: IG% - Immature Granu locytes (promyelocytes, myelocytes and metamyelocytes) > 1% indicates that a LEFT SHIFT is Present. MCH (RBC) [Entitic mass] 29.2 pg 27.0-32.0 [facility] Work Phone: Nucleated RBC/100 WBC (Bld) [Ratio] 0 % 0-5 [facility] Work Phone: MAGNESIUMon 10-11-2021 Magnesium [Mass/Vol] 1.6 mg/dL 1.6 - 2 .6 mg/dL [facility] MCHC Auto (RBC) [Mass/Vol]on 10-11-2021 MCHC (RBC) [Mass/Vol] 33.3 g/dL 32-36 [facility] Work Phone: Mucus LM Ql (Urine sed)on Mucus Ql (Urine sed) 0 SEEN /hpf [facility] Work Phone: Nitrite Test strip Ql (U)on 10-11-2021 Nitrite Ql (U) Negative Negative [facility] Work Phone: No Panel Informationon 10-11 The reference range has not been established for random urine specimens. The test result should be integrated into the clinical context for interpretation. [facility] Interpretation and review of laboratory results Normal [facility] Estimated Creatinine Clearance Calc 46.79 ml/min [facility] Work Phone: Estimated GFR (MDRD) Amer 62 mL/min >60 [facility] Work Phone: Comment on above: GFR Calc Estimated GFR (MDRD) Non-Af Amer 51 mL/min >60 [facility] Work Phone: Comment on above: Non- GFR Calc Tacrolimus (Prograf) Level 75.5 ng/mL 2.0-20.0 [facility] Work Phone: Comment on above: Results confirmed on dilution. Trough (immediately following transplant) 15.0 Trough (steady state, 2 weeks or more after transplant): 3.0 - 8.0 Performed by LC-MS/MS technology.Patient drug level exceeds published reference range.Evaluate clinically for signs of potential toxicity.Performed at: [address] [id number] Director: Amy Gonzalez MD, Phone: [phone] CALLED TO GOYO GARCIA 10/18/21 1114 Izzy Barone.REPORT READ BACK BY SAME. PROTEIN ,RANDOM URINEon 09-14 Protein Unsp time (U) [Mass/Vol] 17 mg/dL [facility] The reference range has not been established for random urine specimens. The test result should be integrated into the clinical context for interpretation. [facility] PT,INR,PTTon 10-11-2021 aPTT Coag (PPP) [Time] 35.9 s High [facility] INR Coag (Bld) [Relative time] 1.1 {INR} [facility] Interpretation and review of laboratory results Abnormal [facility] PT Coag (PPP) [Time] 14.3 s High [facility] Platelets bldon 10-11-2021 Platelets (Bld) [#/Vol] 143 10*3/uL 150-450 [facility] Work Phone: Portable XR Chest Viewson IMPRESSION: 1. The overall appearance of the chest appears unchanged except for further loss of volume in the left base. This may be related to atelectasis associated with chronic scarring. 2. Stable left pleural thickening/fluid. OLOGY EXAM: XR CHEST PORTABLE, 10/11/2021 13:43 PM COMPARISON: June 11, 2018 CLINICAL INDICATIONS: Recent COVID infection, heart transplant, evaluation for pulmonary edema RELEVANT CLINICAL HISTORY: FINDINGS: (Adequate technique) Implanted Devices: None Thorax: The left CP angle is blunted from pleural effusion or pleural thickening. There are patchy opacities in the left base associated with volume loss. There is an ill-defined calcified focus in the right lung base which appears more conspicuous than on the prior examination but this may be related to exposure. Stable heart size. Atherosclerotic calcifications. Sternotomy wires are noted midline. Stable osseous structures. RADIOLOGY Pool Segundo MD - 10/11/2021 EXAM: XR CHEST PORTABLE, 10/11/2021 13:43 PM COMPARISON: June 11, 2018 CLINICAL INDICATIONS: Recent COVID infection, heart transplant, evaluation for pulmonary edema RELEVANT CLINICAL HISTORY: FINDINGS: (Adequate technique) Implanted Devices: None Thorax: The left CP angle is blunted from pleural effusion or pleural thickening. There are patchy opacities in the left base associated with volume loss. There is an ill-defined calcified focus in the right lung base which appears more conspicuous than on the prior examination but this may be related to exposure. Stable heart size. Atherosclerotic calcifications. Sternotomy wires are noted midline. Stable osseous structures. IMPRESSION IMPRESSION: 1. The overall appearance of the chest appears unchanged except for further loss of volume in the left base. This may be related to atelectasis associated with chronic scarring. 2. Stable left pleural thickening/fluid. [facility] Radiology Study observation (narrative) [facility] Portable XR Chest ViewsOrder ed By: Pool Segundo on 10-11-2021 [facility] Work Phone: Protein Test strip Ql (U)on 10-11-2021 Protein Ql (U) Negative Negative [facility] Work Phone: Serum or plasma albumin edwin urement (mass/volume)on 10-11-2021 Albumin [Mass/Vol] 3.7 g/dL 3.2-5.0 [facility] Work Phone: Serum or plasma albumin/glob ulin mass ratioon 10-11-2021 Albumin/Globulin [Mass ratio] 1.0 {ratio} 0.9-2.4 [facility] Work Phone: Serum or plasma calcium edwin urement (mass/volume)on 10-11-2021 Calcium [Mass/Vol] 9.9 mg/dL 8.5-10.1 [facility] Work Phone: Serum or plasma creatinine m easurement (mass/volume)on 10-11-2021 Creatinine [Mass/Vol] 1.43 mg/dL 0.70-1.30 [facility] Work Phone: Comment on above: The validity of the calculated GFR & GFRAA in patients over 70 years has not been determined. Clinical correlation is essential. Serum or plasma urea nitroge n measurement (mass/volume)on 10-11-2021 Urea nitrogen [Mass/Vol] 36 mg/dL 7-18 [facility] Work Phone: Squamous epithelial cells de tection in urine sediment by light microscopyon 10-11-2021 Epithelial cells.squamous LM Ql (Urine sed) 0 SEEN /hpf 0-5 [facility] Work Phone: Thin prep Papanicolaou smear with manual screeningon 10-11-2021 Thin prep Papanicolaou smear with manual screening 7 U/L 15-37 [facility] Work Phone: Thin prep Papanicolaou smear with manual screening 5 5-15 [facility] Work Phone: URINALYSIS REFLEX TO CULTURE PERFORMABLEon 10-11-2021 Appearance (U) Clear Clear [facility] Bacteria LM Ql (Urine sed) ABSENT ABSENT [facility] Color (U) Yellow Yellow [facility] Epithelial cells.squamous LM Ql (Urine sed) ABSENT 1/hpf = 1+, 2-5/hpf = 2+, 0/hpf = 0+, ABSENT [facility] Glucose Test strip (U) [Mass/Vol] Negative Negative [facility] Interpretation and review of laboratory results Normal [facility] Ketones (U) [Mass/Vol] Negative Negative [facility] Leukocyte esterase Test strip Ql (U) Negative Negative [facility] Nitrite Ql (U) Negative Negative [facility] pH (U) 5.5 [pH] 5.0 - 7.0 [facility] Protein (U) [Mass/Vol] Negative Negative [facility] RBC (U) [#/Vol] [facility] RBC LM.HPF (Urine sed) [#/Area] 0-2 0 - 2 /HPF [facility] Specific gravity (U) [Rel density] 1.019 [facility] Urobilinogen (U) [Mass/Vol] 0.2 E.U./dL 0.2 E.U/dL, 1.0 E.U/dL [facility] WBC LM.HPF (Urine sed) [#/Area] 0-5 0 - 5 /HPF [facility] Urine blood detectionon 09-14 RBC Ql (U) Negative Negative [facility] Work Phone: RBC Ql (U) 0 SEEN /hpf 0-5 [facility] Work Phone: Urine clarityon 10-11-2021 Clarity (U) Clear Clear [facility] Work Phone: Urine color determinationon 10-11-2021 Color (U) Yellow Yellow [facility] Work Phone: Urine glucose detectionon Glucose Ql (U) Normal mg/dl Normal [facility] Work Phone: Urine leukocyte esterase det ection by dipstickon 10-11-2021 Leukocyte esterase Test strip Ql (U) Negative Negative [facility] Work Phone: Urine pHon 10-11-2021 pH (U) 6.0 [pH] 5.0 - 8.0 [facility] Work Phone: Urine sediment bacteria coun t by microscopy (number/high power field)on 10-11-2021 Bacteria LM.HPF (Urine sed) [#/Area] 0 /[HPF] None Seen [facility] Work Phone: Urine specific gravity measu rementon 10-11-2021 Specific gravity (U) [Rel density] 1.015 1.002-1.030 [facility] Work Phone: Urobilinogen Auto test strip Ql (U)on 10-11-2021 Urobilinogen Ql (U) Normal mg/dl Normal [facility] Work Phone: Laboratory - Microbiology an d Antimicrobial susceptibilityon 10-04-2021 SARS-CoV-2 (COVID-19) RNA ASHLEIGH+probe Ql (Unsp spec) Detected [facility] Work Phone: No Panel Informationon 10-04 Influenza Types A,B Rapid (Clinic) Not detected [facility] Work Phone: Basophil percentageon 2021 Creatinine [Mass/Vol] 0.9 mg/dL 0.70-1.30 [facility] Work Phone: No Panel Informationon 08-29 Bedside Estimated GFR (eGFR) > 60.0000 mL/min >60 [facility] Work Phone: Absolute lymphocyte counton 08-14-2021 Lymphocytes Auto (Unsp spec) [#/Vol] 1.22 10*3/uL 0.83-4.51 [facility] Work Phone: [phone] Basophil percentageon 2021 Basophils/100 WBC (Bld) 0.5 % 0-1 [facility] Work Phone: [phone] Bilirubin [Mass/Vol] 1.10 mg/dL 0.20-1.00 [facility] Work Phone: [phone] Comment on above: For patients on eltr ombopag therapy, use of Dimension [place] TBIL is not recommended. Chloride [Moles/Vol] 108 mmol/L 98-107 [facility] Work Phone: Eosinophils/100 WBC (Bld) 1.4 % 0-5 [facility] Work Phone: Glucose [Mass/Vol] 109 mg/dL 74-106 [facility] Work Phone: Comment on above: Fasting Glucose resu lt from 100 to 125 mg/dL suggests IMPAIRED HOMEOSTASIS per A.D.A. criteria. Neutrophils (Bld) [#/Vol] 3.6 10*3/uL 2.0-7.7 [facility] Work Phone: Neutrophils/100 WBC (Bld) 65.5 % 47-70 [facility] Work Phone: Potassium [Moles/Vol] 4.7 mmol/L 3.5-5.1 [facility] Work Phone: Protein [Mass/Vol] 7.6 g/dL 6.4-8.2 [facility] Work Phone: [phone] Sodium [Moles/Vol] 140 mmol/L 136-145 [facility] Work Phone: [phone] WBC (Bld) [#/Vol] 5.5 10*3/uL 4.4-11.0 [facility] Work Phone: Blood erythrocytes count (nu mber/volume)on 08-14-2021 RBC (Bld) [#/Vol] 5.49 10*6/uL 4.6-6.2 [facility]: Blood hemoglobin measurement (mass/volume)on 08-14-2021 Hemoglobin (Bld) [Mass/Vol] 16.7 g/dL 13.0-16.5 [facility] Work Phone: Blood lymphocytes/100 leukoc yteson 08-14-2021 Lymphocytes/100 WBC (Bld) 22.1 % 19-41 [facility] Work Phone: Blood monocytes/100 leukocyt eson 08-14-2021 Monocytes/100 WBC (Bld) 9.8 % 0-10 [facility] Work Phone: Blood platelet mean volumeon 08-14-2021 Platelet mean volume (Bld) [Entitic vol] 10.6 fL 6.2-12.0 [facility] Work Phone: Determination of erythrocyte mean corpuscular volume (MCV)on 08-14-2021 MCV (RBC) [Entitic vol] 90.7 fL 80-94 [facility] Work Phone: Hematocrit Auto (Bld) [Volum e fraction]on 08-14-2021 Hematocrit (Bld) [Volume fraction] 49.8 % 40-54 [facility] Work Phone: Laboratory - Chemistry and C hemistry - challengeon 08-14-2021 ALP [Catalytic activity/Vol] 69 U/L 45-117 [facility] Work Phone: ALT [Catalytic activity/Vol] 18 U/L 16-61 [facility] Work Phone: CO2 [Moles/Vol] 27.0 mmol/L 21.0-32.0 [facility] Work Phone: Globulin (S) [Mass/Vol] 3.4 g/dL 2.2-4.2 [facility] Work Phone: Urea nitrogen/Creatinine [Mass ratio] 23.4 mg/mg 10-20 [facility] Work Phone: Laboratory - Hematology and Cell countson 08-14-2021 Erythrocyte distribution width (RBC) [Entitic vol] 47.3 fL 35.1-43.9 [facility] Work Phone: Erythrocyte distribution width (RBC) [Ratio] 14.1 % 11.6-14.6 [facility] Work Phone: Immature granulocytes/100 WBC (Bld) 0.700 % 0.0-0.9 [facility] Work Phone: Comment on above: IG% - Immature Granu locytes (promyelocytes, myelocytes and metamyelocytes) > 1% indicates that a LEFT SHIFT is Present. MCH (RBC) [Entitic mass] 30.4 pg 27.0-32.0 [facility] Work Phone: Nucleated RBC/100 WBC (Bld) [Ratio] 0 % 0-5 [facility] Work Phone: MCHC Auto (RBC) [Mass/Vol]on 08-14-2021 MCHC (RBC) [Mass/Vol] 33.5 g/dL 32-36 [facility] Work Phone: No Panel Informationon 08-14 Estimated Creatinine Clearance Calc 62.54 ml/min [facility] Work Phone: Estimated GFR (MDRD) Amer 87 mL/min >60 [facility] Work Phone: Comment on above: GFR Calc Estimated GFR (MDRD) Non-Af Amer 72 mL/min >60 [facility] Work Phone: Comment on above: Non- GFR Calc Troponin I High Sensitivity 4 pg/mL 3.0-78.0 [facility] Work Phone: Comment on above: Please Note: New Teresa t Units and Gender Specific Reference Ranges. For more information see Policy Stat Procedure [place] High Sensitivity Troponin (TNIH) and attachments. Platelets bldon 08-14-2021 Platelets (Bld) [#/Vol] 172 10*3/uL 150-450 [facility] Work Phone: Serum or plasma albumin edwin urement (mass/volume)on 08-14-2021 Albumin [Mass/Vol] 4.2 g/dL 3.2-5.0 [facility] Work Phone: Serum or plasma albumin/glob ulin mass ratioon 08-14-2021 Albumin/Globulin [Mass ratio] 1.2 {ratio} 0.9-2.4 [facility] Work Phone: Serum or plasma calcium edwin urement (mass/volume)on 08-14-2021 Calcium [Mass/Vol] 9.4 mg/dL 8.5-10.1 [facility] Work Phone: Serum or plasma creatinine m easurement (mass/volume)on 08-14-2021 Creatinine [Mass/Vol] 1.07 mg/dL 0.70-1.30 [facility] Work Phone: Comment on above: The validity of the calculated GFR & GFRAA in patients over 70 years has not been determined. Clinical correlation is essential. Serum or plasma urea nitroge n measurement (mass/volume)on 08-14-2021 Urea nitrogen [Mass/Vol] 25 mg/dL 7-18 [facility] Work Phone: Thin prep Papanicolaou smear with manual screeningon 08-14-2021 Thin prep Papanicolaou smear with manual screening 8 U/L 15-37 [facility] Work Phone: Thin prep Papanicolaou smear with manual screening 5 5-15 [facility] Work Phone: Vital Signs Date Time Vital Sign Value Performing Clinician Facility 12-15-2024 13:25-040 Body height 177.[address] Leoncio Acevedo DO Work Phone: [facility] 12-15-2024 13:25-0400 Body mass index (BMI) [Ratio] 37 kg/m2 Dr. Leoncio Acevedo DO Work Phone: [facility] 12-15-2024 13:25-0400 Body temperature 97 [degF] Dr. Leoncio Acevedo DO Work Phone: [facility] 12-15-2024 13:25-0400 Body weight 117.[address] Leoncio Acevedo DO Work Phone: [facility] 12-15-2024 13:25-0400 Diastolic blood pressure 60 mm[Hg] Dr. Leoncio Acevedo DO Work Phone: [facility] 12-15-2024 13:25-0400 Heart rate 103 /min Dr. Leoncio Acevedo DO Work Phone: [facility] 12-15-2024 13:25-0400 Respiratory rate 20 /min Dr. Leoncio Acevedo DO Work Phone: [facility] 12-15-2024 13:25-0400 SaO2% (BldA) [Mass fraction] 96 % Dr. Leoncio Acevedo DO Work Phone: [facility] 12-15-2024 13:25-0400 Systolic blood pressure 122 mm[Hg] Dr. Leoncio Acevedo DO Work Phone: [facility] 09-22-2024 09:32-0400 Body height 177.[address] Leoncio Acevedo DO Work Phone: [facility] 09-22-2024 09:32-0400 Body mass index (BMI) [Ratio] 36.4 kg/m2 Dr. Leoncio Acevedo DO Work Phone: [facility] 09-22-2024 09:32-0400 Body weight 115.[address] Leoncio Acevedo DO Work Phone: [facility] 09-22-2024 09:32-0400 Diastolic blood pressure 77 mm[Hg] Dr. Leoncio Acevedo DO Work Phone: [facility] 09-22-2024 09:32-0400 Heart rate 87 /min Dr. Leoncio Acevedo DO Work Phone: [facility] 09-22-2024 09:32-0400 Respiratory rate 16 /min Dr. Leoncio Acevedo DO Work Phone: [facility] 09-22-2024 09:32-0400 Systolic blood pressure 123 mm[Hg] Dr. Leoncio Acevedo DO Work Phone: [facility] 06-10-2024 11:02-0500 Body height 177.[address] Leoncio Acevedo DO Work Phone: [facility] 06-10-2024 11:02-0500 Body mass index (BMI) [Ratio] 37.1 kg/m2 Dr. Leoncio Acevedo DO Work Phone: [facility] 06-10-2024 11:02-0500 Body temperature 97.8 [degF] Dr. Leoncio Acevedo DO Work Phone: [facility] 06-10-2024 11:02-0500 Body weight 117.[address] Leoncio Acevedo DO Work Phone: [facility] 06-10-2024 11:02-0500 Diastolic blood pressure 76 mm[Hg] Dr. Leoncio Acevedo DO Work Phone: [facility] 06-10-2024 11:02-0500 Heart rate 92 /min Dr. Leoncio Acevedo DO Work Phone: [facility] 06-10-2024 11:02-0500 Respiratory rate 18 /min Dr. Leoncio Acevedo DO Work Phone: [facility] 06-10-2024 11:02-0500 SaO2% (BldA) [Mass fraction] 98 % Dr. Leoncio Acevedo DO Work Phone: [facility] 06-10-2024 11:02-0500 Systolic blood pressure 130 mm[Hg] Dr. Leoncio Acevedo DO Work Phone: [facility] 05-12-2024 10:51-0500 Body height 177.8 cm Lexi ROBERTSON Work Phone: [facility] 05-12-2024 10:51-0500 Body mass index (BMI) [Ratio] 36.88 kg/m2 Lexi Tapia [employer] Work Phone: [facility] 05-12-2024 10:51-0500 Body temperature 97.7 [degF] Lexi Calabreseaver [employer] EX[employer] IN[employer]IGATOR Work Phone: [facility] 05-12-2024 10:51-0500 Body weight 116.57 kg Lexi Calabreseaver [employer] EX[employer] IN[employer]IGATOR Work Phone: [facility] 05-12-2024 10:51-0500 Diastolic blood pressure 75 mm[Hg] Lexi Calabreseaver [employer] EXAM[employer] IN[employer]STIGATOR Work Phone: [facility] 05-12-2024 10:51-0500 Heart rate 89 /min Lexi Calabreseaver [employer] EXAM[employer] IN[employer]STIGATOR Work Phone: [facility] 05-12-2024 10:51-0500 Respiratory rate 16 /min Lexi Calabreseaver [employer] EXAMINER[employer] INVESTIGATOR Work Phone: [facility] 05-12-2024 10:51-0500 SaO2% (BldA) [Mass fraction] 95 % Lexi Calabreseaver [employer] EXAMINER[employer] INVESTIGATOR Work Phone: [facility] 05-12-2024 10:51-0500 Systolic blood pressure 140 mm[Hg] Lexi Tapia [employer] EX[employer] IN[employer]STIGATOR Work Phone: [facility] 05-12-2024 09:42-0500 Body height 177.8 cm Jeremy Valle MD Work Phone: [facility] 05-12-2024 09:42-0500 Body mass index (BMI) [Ratio] 36.3 kg/m2 Jeremy Valle MD Work Phone: [facility] 05-12-2024 09:42-0500 Body weight 114.76 kg Jeremy Valle MD Work Phone: [facility] 05-14-2023 17:00-0500 Diastolic blood pressure 70 mm[Hg] Blake RIVASBS Work Phone: [facility] 05-14-2023 17:00-0500 Heart rate 85 /min Blake Goldsmithi MBBS Work Phone: [facility] 05-14-2023 17:00-0500 Respiratory rate 23 /min Blake Goldsmithi ROBBS Work Phone: [facility] 05-14-2023 17:00-0500 SaO2% (BldA) [Mass fraction] 96 % Blake RIVASBS Work Phone: [facility] 05-14-2023 17:00-0500 Systolic blood pressure 129 mm[Hg] Blake Goldsmithi ROBBS Work Phone: [facility] 05-14-2023 11:41-0500 Body height 177.8 cm Blake Goldsmithi ROBBS Work Phone: [facility] 05-14-2023 11:41-0500 Body mass index (BMI) [Ratio] 36.31 kg/m2 Blake Goldsmithi ROBBS Work Phone: [facility] 05-14-2023 11:41-0500 Body temperature 98.49 [degF] Blake Goldsmithi ROBBS Work Phone: [facility] 05-14-2023 11:41-0500 Body weight 114.8 kg Blake RIVASBS Work Phone: [facility] 05-14-2023 09:58-0500 Body height 177.8 cm Jeremy Valle MD Work Phone: [facility] 05-14-2023 09:58-0500 Body mass index (BMI) [Ratio] 36.63 kg/m2 Jeremy Valle MD Work Phone: [phone] [place] [address] 05-14-2023 09:58-0500 Body temperature 95.5 [degF] Jeremy Valle MD Work Phone: [phone] [place] [address] 05-14-2023 09:58-0500 Body weight 115.8 kg Jeremy Valle MD Work Phone: [phone])[phone] [place] [address] 05-14-2023 09:58-0500 Diastolic blood pressure 67 mm[Hg] Jeremy Valle MD Work Phone: 3(259)[phone] [place] [address] 05-14-2023 09:58-0500 Heart rate 89 /min Jeremy Valle MD Work Phone: [phone] [place] [address] 05-14-2023 09:58-0500 Respiratory rate 16 /min Jeremy Valle MD Work Phone: [phone] [place] [address] 05-14-2023 09:58-0500 SaO2% (BldA) [Mass fraction] 95 % Jeremy Valle MD Work Phone: [phone] [place] [address] 05-14-2023 09:58-0500 Systolic blood pressure 132 mm[Hg] Jeremy Valle MD Work Phone: [phone] [place] [address] 02-02-2023 13:17-0400 Heart rate 85 /min Dr. Leoncio Acevedo Work Phone: [facility] 02-02-2023 13:17-0400 Respiratory rate 18 /min Dr. Leoncio Acevedo Work Phone: [facility] 02-02-2023 13:17-0400 SaO2% (BldA) [Mass fraction] 97 % Dr. Leoncio Acevedo Work Phone: [facility] 02-02-2023 11:40-0400 Body height 177.[address] Leoncio Acevedo Work Phone: [facility] 02-02-2023 11:40-0400 Body temperature 98 [degF] Dr. Leoncio Acevedo Work Phone: [facility] 02-02-2023 11:40-0400 Diastolic blood pressure 82 mm[Hg] Dr. Leoncio Acevedo Work Phone: [facility] 02-02-2023 11:40-0400 Systolic blood pressure 133 mm[Hg] Dr. Leoncio Acevedo Work Phone: [facility] 12-26-2022 13:00-0400 Body mass index (BMI) [Ratio] 36.4 kg/m2 Dr. Leoncio Acevedo Work Phone: [facility] 12-26-2022 13:00-0400 Body temperature 97.8 [degF] Dr. Leoncio Acevedo Work Phone: [facility] 12-26-2022 13:00-0400 Body weight 115.[address] Leoncio Acevedo Work Phone: [facility] 12-26-2022 13:00-0400 Diastolic blood pressure 76 mm[Hg] Dr. Leoncio Acevedo Work Phone: [facility] 12-26-2022 13:00-0400 Heart rate 101 /min Dr. Leoncio Acevedo Work Phone: [facility] 12-26-2022 13:00-0400 Respiratory rate 18 /min Dr. Leoncio Aceveod Work Phone: [facility] 12-26-2022 13:00-0400 SaO2% (BldA) [Mass fraction] 97 % Dr. Leoncio Acevedo Work Phone: [facility] 12-26-2022 13:00-0400 Systolic blood pressure 118 mm[Hg] Dr. Leoncio Acevedo Work Phone: [facility] 06-20-2022 10:08-0500 Body height 177.[address] Leoncio Acevedo Work Phone: [facility] 06-20-2022 10:08-0500 Body mass index (BMI) [Ratio] 36.8 kg/m2 Dr. Leoncio Acevedo Work Phone: [facility] 06-20-2022 10:08-0500 Body temperature 97.6 [degF] Dr. Leoncio Acevedo Work Phone: [facility] 06-20-2022 10:08-0500 Body weight 116.[address] Leoncio Acevedo Work Phone: [facility] 06-20-2022 10:08-0500 Diastolic blood pressure 76 mm[Hg] Dr. Leoncio Acevedo Work Phone: [facility] 06-20-2022 10:08-0500 Heart rate 81 /min Dr. Leoncio Acevedo Work Phone: [facility] 06-20-2022 10:08-0500 Respiratory rate 16 /min Dr. Leoncio Acevedo Work Phone: [facility] 06-20-2022 10:08-0500 SaO2% (BldA) [Mass fraction] 99 % Dr. Leoncio Acevedo Work Phone: [facility] 06-20-2022 10:08-0500 Systolic blood pressure 114 mm[Hg] Dr. Leoncio Acevedo Work Phone: [facility] 05-25-2022 10:13-0500 Body mass index (BMI) [Ratio] 36.3 kg/m2 Dr. Leoncio Acevedo Work Phone: [facility] 05-25-2022 10:13-0500 Body weight 114.[address] Leoncio Acevedo Work Phone: [facility] 05-25-2022 10:13-0500 Diastolic blood pressure 64 mm[Hg] Dr. Leoncio Acevedo Work Phone: [facility] 05-25-2022 10:13-0500 Heart rate 94 /min Dr. Leoncio Acevedo Work Phone: [facility] 05-25-2022 10:13-0500 Respiratory rate 18 /min Dr. Leoncio Acevedo Work Phone: [facility] 05-25-2022 10:13-0500 Systolic blood pressure 104 mm[Hg] Dr. Leoncio Acevedo Work Phone: [facility] 05-15-2022 11:44-0500 Body height 177.8 cm Juma Celestin MD Work Phone: [facility] 05-15-2022 11:44-0500 Body mass index (BMI) [Ratio] 36.04 kg/m2 Juma Celestin MD Work Phone: [facility] 05-15-2022 11:44-0500 Body temperature 97.2 [degF] Juma Celestin MD Work Phone: [facility] 05-15-2022 11:44-0500 Body weight 113.94 kg Juma Celestin MD Work Phone: [facility] 05-15-2022 11:44-0500 Diastolic blood pressure 77 mm[Hg] Juma Celestin MD Work Phone: [facility] 05-15-2022 11:44-0500 Heart rate 95 /min Juma Celestin MD Work Phone: [facility] 05-15-2022 11:44-0500 Respiratory rate 20 /min Juma Celestin MD Work Phone: [facility] 05-15-2022 11:44-0500 SaO2% (BldA) [Mass fraction] 98 % Juma Celestin MD Work Phone: [facility] 05-15-2022 11:44-0500 Systolic blood pressure 125 mm[Hg] Juma Celestin MD Work Phone: [facility] 05-15-2022 10:47-0500 Body height 177.8 cm Iain Dutta DO Work Phone: [facility] 05-15-2022 10:47-0500 Body mass index (BMI) [Ratio] 35.3 kg/m2 Iain Luzmaria DO Work Phone: [facility] 05-15-2022 10:47-0500 Body weight 111.58 kg Iain [facility] DO Work Phone: [facility] 12-20-2021 09:27-0400 Body height 177.[address] Leoncio Acevedo Work Phone: [facility] Work Phone: 12-20-2021 09:27-0400 Body mass index (BMI) [Ratio] 35.9 kg/m2 Dr. Leoncio Aceevdo Work Phone: [facility] Work Phone: 12-20-2021 09:27-0400 Body temperature 96.8 [degF] Dr. Leoncio Acevedo Work Phone: [facility] Work Phone: 12-20-2021 09:27-0400 Body weight 113.[address] Leoncio Acevedo Work Phone: [facility] Work Phone: 12-20-2021 09:27-0400 Diastolic blood pressure 80 mm[Hg] Dr. Leoncio Acevedo Work Phone: [facility] Work Phone: 12-20-2021 09:27-0400 Heart rate 90 /min Dr. Leoncio Acevedo Work Phone: [facility] Work Phone: 12-20-2021 09:27-0400 Respiratory rate 18 /min Dr. Leoncio Acevedo Work Phone: [facility] Work Phone: 12-20-2021 09:27-0400 SaO2% (BldA) [Mass fraction] 97 % Dr. Leoncio Acevedo Work Phone: [facility] Work Phone: 12-20-2021 09:27-0400 Systolic blood pressure 122 mm[Hg] Dr. Leoncio Acevedo Work Phone: [facility] Work Phone: 11-17-2021 13:58-0400 Body mass index (BMI) [Ratio] 35.4 kg/m2 Dr. Leoncio Acevedo Work Phone: [facility] Work Phone: 11-17-2021 13:58-0400 Body weight 112.[address] Leoncio Acevedo Work Phone: [facility] Work Phone: 11-17-2021 13:58-0400 Diastolic blood pressure 80 mm[Hg] Dr. Leoncio Acevedo Work Phone: [facility] Work Phone: 11-17-2021 13:58-0400 Heart rate 100 /min Dr. Leoncio Acevedo Work Phone: [facility] Work Phone: 11-17-2021 13:58-0400 Respiratory rate 16 /min Dr. Leoncio Acevedo Work Phone: [facility] Work Phone: 11-17-2021 13:58-0400 SaO2% (BldA) [Mass fraction] 97 % Dr. Leoncio Acevedo Work Phone: [facility] Work Phone: 11-17-2021 13:58-0400 Systolic blood pressure 132 mm[Hg] Dr. Leoncio Acevedo Work Phone: [facility] Work Phone: 10-26-2021 10:03-0400 Body height 177.[address] Leoncio Acevedo Work Phone: [facility] Work Phone: 10-26-2021 10:03-0400 Body mass index (BMI) [Ratio] 35.4 kg/m2 Dr. Leoncio Acevedo Work Phone: [facility] Work Phone: 10-26-2021 10:03-0400 Body temperature 97.2 [degF] Dr. Leoncio Acevedo Work Phone: [facility] Work Phone: 10-26-2021 10:03-0400 Body weight 112.[address] Leoncio Acevedo Work Phone: [facility] Work Phone: 10-26-2021 10:03-0400 Diastolic blood pressure 62 mm[Hg] Dr. Leoncio Acevedo Work Phone: [facility] Work Phone: 10-26-2021 10:03-0400 Heart rate 96 /min Dr. Leoncio Acevedo Work Phone: [facility] Work Phone: 10-26-2021 10:03-0400 Respiratory rate 18 /min Dr. Leoncio Acevedo Work Phone: [facility] Work Phone: 10-26-2021 10:03-0400 SaO2% (BldA) [Mass fraction] 96 % Dr. Leoncio Acevedo Work Phone: [facility] Work Phone: 10-26-2021 10:03-0400 Systolic blood pressure 120 mm[Hg] Dr. Leoncio Acevedo Work Phone: [facility] Work Phone: 10-17-2021 13:18-0400 Body temperature 97.81 [degF] Violette Lau MD Work Phone: [facility] 10-17-2021 13:18-0400 Diastolic blood pressure 70 mm[Hg] Violette Lau MD Work Phone: [facility] 10-17-2021 13:18-0400 Heart rate 79 /min Violette Lau MD Work Phone: [facility] 10-17-2021 13:18-0400 Respiratory rate 16 /min Violette Lau MD Work Phone: [facility] 10-17-2021 13:18-0400 SaO2% (BldA) [Mass fraction] 96 % Violette Lau MD Work Phone: [facility] 10-17-2021 13:18-0400 Systolic blood pressure 150 mm[Hg] Violette Lau MD Work Phone: [phone] [address] 10-17-2021 04:21-0400 Body mass index (BMI) [Ratio] 36.26 kg/m2 Violette Lau MD Work Phone: [phone] [address] 10-17-2021 04:21-0400 Body weight 114.62 kg Violette Lau MD Work Phone: [phone] [place] [address] Comment on above: standing 10-11-2021 10:39-0400 Body height 177.8 cm Violette Lau MD Work Phone: [phone] [place] [address] 10-11-2021 07:31-0400 Diastolic blood pressure 95 mm[Hg] Dr. Leoncio Acevedo Work Phone: [facility] Work Phone: 10-11-2021 07:31-0400 Heart rate 81 /min Dr. Leoncio Acevedo Work Phone: [facility] Work Phone: 10-11-2021 07:31-0400 Respiratory rate 20 /min Dr. Leoncio Acevedo Work Phone: [facility] Work Phone: 10-11-2021 07:31-0400 SaO2% (BldA) [Mass fraction] 96 % Dr. Leoncio Acevedo Work Phone: [facility] Work Phone: 10-11-2021 07:31-0400 Systolic blood pressure 145 mm[Hg] Dr. Leoncio Acevedo Work Phone: [facility] Work Phone: 10-11-2021 05:47-0400 Body temperature 98.1 [degF] Dr. Leoncio Acevedo Work Phone: [facility] Work Phone: 10-11-2021 00:24-0400 Body height 177.[address] Leoncio Acevedo Work Phone: [facility] Work Phone: 10-11-2021 00:24-0400 Body mass index (BMI) [Ratio] 36.1 kg/m2 Dr. Leoncio Acevedo Work Phone: [facility] Work Phone: 10-11-2021 00:24-0400 Body weight 114.[address] Leoncio Acevedo Work Phone: [facility] Work Phone: 10-04-2021 06:58-0400 Body temperature 97.9 [degF] Dr. Leoncio Acevedo Work Phone: [facility] Work Phone: 10-04-2021 06:58-0400 Diastolic blood pressure 62 mm[Hg] Dr. Leoncio Acevedo Work Phone: [facility] Work Phone: 10-04-2021 06:58-0400 Heart rate 106 /min Dr. Leoncio Acevedo Work Phone: [facility] Work Phone: 10-04-2021 06:58-0400 Respiratory rate 14 /min Dr. Leoncio Acevedo Work Phone: [facility] Work Phone: 10-04-2021 06:58-0400 SaO2% (BldA) [Mass fraction] 95 % Dr. Leoncio Acevedo Work Phone: [facility] Work Phone: 10-04-2021 06:58-0400 Systolic blood pressure 116 mm[Hg] Dr. Leoncio Acevedo Work Phone: [facility] Work Phone: 09-26-2021 14:07-0400 Body mass index (BMI) [Ratio] 35.7 kg/m2 Dr. Leoncio Acevedo Work Phone: [facility] Work Phone: 09-26-2021 14:07-0400 Body temperature 97.5 [degF] Dr. Leoncio Acevedo Work Phone: [facility] Work Phone: 09-26-2021 14:07-0400 Body weight 112.[address] Leoncio Acevedo Work Phone: [facility] Work Phone: 09-26-2021 14:07-0400 Diastolic blood pressure 68 mm[Hg] Dr. Leoncio Acevedo Work Phone: [facility] Work Phone: 09-26-2021 14:07-0400 Heart rate 84 /min Dr. Leoncio Acevedo Work Phone: [facility] Work Phone: 09-26-2021 14:07-0400 Respiratory rate 14 /min Dr. Leoncio Acevedo Work Phone: [facility] Work Phone: 09-26-2021 14:07-0400 SaO2% (BldA) [Mass fraction] 97 % Dr. Leoncio Acevedo Work Phone: [facility] Work Phone: 09-26-2021 14:07-0400 Systolic blood pressure 112 mm[Hg] Dr. Leoncio Acevedo Work Phone: [facility] Work Phone: 08-18-2021 09:53-0400 Body mass index (BMI) [Ratio] 36.4 kg/m2 Dr. Leoncio Acevedo Work Phone: [facility] Work Phone: 08-18-2021 09:53-0400 Body temperature 96.9 [degF] Dr. Leoncio Acevedo Work Phone: [facility] Work Phone: 08-18-2021 09:53-0400 Body weight 115.[address] Leoncio Acevedo Work Phone: [facility] Work Phone: 08-18-2021 09:53-0400 Diastolic blood pressure 82 mm[Hg] Dr. Leoncio Acevedo Work Phone: [facility] Work Phone: 08-18-2021 09:53-0400 Heart rate 81 /min Dr. Leoncio Acevedo Work Phone: [facility] Work Phone: 08-18-2021 09:53-0400 Respiratory rate 16 /min Dr. Leoncio Acevedo Work Phone: [facility] Work Phone: 08-18-2021 09:53-0400 SaO2% (BldA) [Mass fraction] 97 % Dr. Leoncio Acevedo Work Phone: [facility] Work Phone: 08-18-2021 09:53-0400 Systolic blood pressure 120 mm[Hg] Dr. Leoncio Acevedo Work Phone: [facility] Work Phone: 08-18-2021 09:53-0400 Body height 177.[address] Leoncio Acevedo Work Phone: [facility] Work Phone: 08-18-2021 09:53-0400 Body mass index (BMI) [Ratio] 36.4 kg/m2 Dr. Leoncio Acevedo Work Phone: [facility] Work Phone: 08-18-2021 09:53-0400 Body temperature 96.9 [degF] Dr. Leoncio Acevedo Work Phone: [facility] Work Phone: 08-18-2021 09:53-0400 Body weight 115.[address] Leoncio Acevedo Work Phone: [facility] Work Phone: 08-18-2021 09:53-0400 Diastolic blood pressure 82 mm[Hg] Dr. Leoncio Acevedo Work Phone: [facility] Work Phone: 08-18-2021 09:53-0400 Heart rate 81 /min Dr. Leoncio Acevedo Work Phone: [facility] Work Phone: 08-18-2021 09:53-0400 Respiratory rate 16 /min Dr. Leoncio Acevedo Work Phone: [facility] Work Phone: 08-18-2021 09:53-0400 SaO2% (BldA) [Mass fraction] 97 % Dr. Leoncio Acevedo Work Phone: [facility] Work Phone: 08-18-2021 09:53-0400 Systolic blood pressure 120 mm[Hg] Dr. Leoncio Acevedo Work Phone: [facility] Work Phone: 08-14-2021 10:42-0400 Diastolic blood pressure 68 mm[Hg] Dr. Leoncio Acevedo Work Phone: [facility] Work Phone: 08-14-2021 10:42-0400 Heart rate 81 /min Dr. Leoncio Acevedo Work Phone: [facility] Work Phone: 08-14-2021 10:42-0400 Respiratory rate 19 /min Dr. Leoncio Acevedo Work Phone: [facility] Work Phone: 08-14-2021 10:42-0400 SaO2% (BldA) [Mass fraction] 100 % Dr. Leoncio Acevedo Work Phone: [facility] Work Phone: 08-14-2021 10:42-0400 Systolic blood pressure 141 mm[Hg] Dr. Leoncio Acevedo Work Phone: [facility] Work Phone: 08-14-2021 08:34-0400 Body height 177.[address] Leoncio Acevedo Work Phone: [facility] Work Phone: 08-14-2021 08:34-0400 Body mass index (BMI) [Ratio] 37.8 kg/m2 Dr. Leoncio Acevedo Work Phone: [facility] Work Phone: 08-14-2021 08:34-0400 Body temperature 96.3 [degF] Dr. Leocnio Acevedo Work Phone: [facility] Work Phone: 08-14-2021 08:34-0400 Body weight 119.[address] Leoncio Acevedo Work Phone: [facility] Work Phone: 06-07-2021 08:05-0500 Body temperature 95.7 [degF] Dr. Leoncio Acevedo Work Phone: [facility] Work Phone: 06-07-2021 08:05-0500 Body weight 115.[address] Leoncio Acevedo Work Phone: [facility] Work Phone: 06-07-2021 08:05-0500 Diastolic blood pressure 80 mm[Hg] Dr. Leoncio Acevedo Work Phone: [facility] Work Phone: 06-07-2021 08:05-0500 Heart rate 83 /min Dr. Leoncio Acevedo Work Phone: [facility] Work Phone: 06-07-2021 08:05-0500 Respiratory rate 16 /min Dr. Leoncio Acevedo Work Phone: [facility] Work Phone: 06-07-2021 08:05-0500 SaO2% (BldA) [Mass fraction] 99 % Dr. Leoncio Acevedo Work Phone: [facility] Work Phone: 06-07-2021 08:05-0500 Systolic blood pressure 116 mm[Hg] Dr. Leoncio Acevedo Work Phone: [facility] Work Phone: Encounters Encounter Date Encounter Type Care Provider Facility Start: 12-15-[address] Leoncio Brennan DO -[facility] Start: 12-15-2024 End: 12-15-[address] Leoncio Acevedo DO Work Phone: -[facility] Start: 12-15-2024 End: 12-15-[address] Leoncio Brennan DO -[facility] Work Phone: Start: 09-22-2024 End: 09-22-2024 Patient encounter procedure Nancy GUTIERREZ [facility] Work Phone: Start: 09-22-2024 End: 09-22-[address] Leoncio Acevedo DO Work Phone: [facility] Work Phone: Start: 06-10-2024 End: 06-10-[address] Leoncio Brennan DO -[facility] Work Phone: Start: 06-10-2024 End: 06-10-[address] 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); Encounter for long-term (current) use of medications; Other hyperlipidemia Start: 05-12-2024 ambulatory LEONCIO ACEVEDO Facilit y:[facility] Start: 05-12-2024 ambulatory LEONCIO CURTIS Facilit y:[facility] Start: 05-12-2024 End: 05-12-2024 Subsequent hospital visit by physician Jeremy Valle MD Work Phone: [facility] [place] Start: 04-14-2024 End: 04-14-2024 ambulatory Jimbo Garcia RPh,PharmD [facility] Start: 04-14-2024 End: 04-14-2024 Patient encounter procedure Jimbo Garcia RPh,PharmD [facility] Start: 12-11-2023 End: 12-11-2023 ambulatory Leoncio Acevedo Facility:[facility] Start: 11-27-2023 End: 11-27-2023 ambulatory Samira Duggan RPH [facility] Start: 11-27-2023 End: 11-27-2023 Patient encounter procedure Samira Duggan RPH [facility] Start: 09-23-2023 End: 09-23-2023 ambulatory Jimbo Garcia RPh,PharmD [facility] [place] Start: 09-23-2023 End: 09-23-2023 Patient encounter procedure Jimbo Jose Gibbs,PharmD [facility] [place] Start: 08-19-2023 End: 08-19-2023 ambulatory Jimbo Jose Gibbs,PharmD [facility] Start: 08-19-2023 End: 08-19-2023 Patient encounter procedure Jimbo Jose Gibbs,PharmD [facility] [place] Start: 05-14-2023 End: 05-14-2023 Office outpatient visit 40 minutes Juma Celestin MD Work Phone: [facility] Comment on above: 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); Encounter for long-term (current) use of medications; Other hyperlipidemia; Syncope and collapse; Primary hypertension; High risk medication use; Immunosuppression Start: 05-14-2023 End: 05-14-2023 Subsequent hospital visit by physician Blake CHATMAN Work Phone: [facility] Comment on above: Heart replaced by tr ansplant Arrived Start: 05-13-2023 ambulatory Jimbo Colla RPh,PharmD [facility] Start: 05-13-2023 Patient encounter procedure Jimbo Colla RPh,PharmD [facility] [place] Start: 04-11-2023 ambulatory Miguel Angel Fete RPh,PharmD [facility] Start: 04-11-2023 Patient encounter procedure Miguel Angel Fete RPh,PharmD [facility] [place] Start: 03-12-2023 ambulatory Samira dan [facility] Start: 03-12-2023 Patient encounter procedure Samira Duggan [facility] Start: 02-02-2023 End: 02-02-2023 Emergency department patient visit Dr. Leoncio Acevedo Work Phone: [facility] Work Phone: Start: 01-07-2023 ambulatory Miguel Angel Mendez RPh,PharmD [facility] Start: 01-07-2023 Patient encounter procedure Miguel Angel Perrine RPh,PharmD [facility] Start: 12-26-2022 End: 12-26-[address] Leoncio Acevedo Work Phone: [facility] Work Phone: Start: 10-19-2022 End: 10-19-[address] Leoncio Acevedo Work Phone: [facility] Work Phone: Start: 09-17-2022 ambulatory Brianna Peralta [facility] Work Phone: [facility] Start: 09-17-2022 Patient encounter procedure Brianna Peralta [facility] Work Phone: [facility] [place] Start: 07-30-2022 End: 07-30-[address] Leoncio Acevedo Work Phone: [facility] Work Phone: Start: 07-30-2022 End: 07-30-[address] Leoncio Acevedo Work Phone: [facility]Physical Therapy Start: 07-24-2022 ambulatory Miguel Angel Fete RPh,PharmD [facility] [place] Start: 07-24-2022 Patient encounter procedure Miguel Angel Fete RPh,PharmD [facility] Start: 06-20-2022 End: 06-20-[address] Leoncio Acevedo Work Phone: [facility] Work Phone: Start: 06-20-2022 End: 06-20-[address] Leoncio Acevedo Work Phone: [facility] Start: 05-25-2022 End: 05-25-[address] Leoncio Acevedo Work Phone: [facility] Start: 05-15-2022 End: 05-15-2022 Office outpatient visit 40 minutes Juma Celestin MD Work Phone: [facility] Comment on above: Encounter for afterc are following heart transplant (Primary Dx); Encounter for long-term (current) use of medications; Other hyperlipidemia; Essential hypertension Start: 05-15-2022 End: 05-15-2022 Subsequent hospital visit by physician Iain Dutta DO Work Phone: Cardi[facility] Comment on above: Arrived Start: 03-27-2022 ambulatory Miguel Angel Fete RPh,PharmD Pharmacy Outpatient [facility] [place] Start: 03-27-2022 Patient encounter procedure Miguel Angel Fete RPh,PharmD Pharmacy Outpatient [facility] [place] Start: 12-20-2021 End: 12-20-[address] Leoncio Acevedo Work Phone: [facility] Work Phone: Start: 12-20-2021 End: 12-20-[address] Leoncio Acevedo Work Phone: [facility] Start: 11-17-2021 End: 11-17-[address] Leoncio Acevedo Work Phone: [facility] Start: 10-26-2021 End: 10-26-[address] Leoncio Acevedo Work Phone: [facility] Start: 10-23-2021 End: 10-23-[address] Leoncio Acevedo Work Phone: [facility]-Laboratory Start: 10-11-2021 End: 10-17-2021 Evaluation and management of inpatient Violette Lau MD Work Phone: [facility] Comment on above: Acute kidney injury Start: 10-11-2021 End: 10-11-2021 Emergency department patient visit Dr. Leoncio Acevedo Work Phone: [facility]-Emergency Department Start: 10-05-2021 ambulatory Ky Shultz [facility] Pha rmacy Outpatient RX [place] Start: 10-05-2021 Patient encounter procedure Ky Shultz [facility] Pharmacy Outpatient [facility] [place] Start: 10-04-2021 End: 10-04-[address] Leoncio Acevedo Work Phone: [facility] Start: 09-26-2021 End: 09-26-[address] Leoncio Acevedo Work Phone: [facility] Start: 08-29-2021 End: 08-29-[address] Leoncio Acevedo Work Phone: [facility] Start: 08-18-2021 End: 08-18-[address] Leoncio Acevdeo Work Phone: [facility] Start: 08-14-2021 End: 08-14-[address] Leoncio Acevedo Work Phone: [facility]-Pulmonary Services/Neurology Start: 08-14-2021 End: 08-14-2021 Emergency department patient visit Dr. Leoncio Acevedo Work Phone: [facility]-Emergency Department Start: 08-09-2021 ambulatory Miguel Angel Fete RPh,PharmD Pharmacy Outpatient [facility] [place] Start: 08-09-2021 Patient encounter procedure Miguel Angel Fete RPh,PharmD Pharmacy Outpatient [facility] [place] Start: 06-07-2021 End: 06-07-[address] Leoncio Acevedo Work Phone: [facility] Start: 11-15-2020 End: 11-15-2020 ambulatory Brianna Tasia Peralta [facility] Work Phone: [facility] Start: 11-15-2020 Patient encounter procedure Brianna Peralta [facility] Work Phone: [facility] Start: 10-10-2020 End: 10-10-2020 ambulatory Brianna Peralta [facility] Work Phone: [facility] Start: 10-10-2020 Patient encounter procedure Brianna Peralta [facility] Work Phone: [facility] Start: 10-26-2016 End: 12-10-2016 Ambulatory Thu Montiel Facility:[facility] Start: 12-16-2013 End: 11-18-2014 Admission to same day surgery center Brianna Peralta [facility] Work Phone: [facility] Start: 12-16-2013 End: 11-18-2014 Patient encounter status Brianna Peralta [facility] Work Phone: [facility] Start: 12-09-2013 End: 11-18-2014 Patient encounter status Brianna Peralta [facility] Work Phone: [facility] Procedures Date Procedure Procedure Detail Performing Clinician Start: 06-10-[address] Leoncio Acevedo DO Work Phone: Comment on above: Hemolysis, Results w ill be affected, Requires Recollection. Start: 05-12-2024 Echo tthrc r-t 2d w/wom-mode compl spec&colr d Jeremy Valle MD Work Phone: Start: 05-14-2023 Cath placement & njx coronary art angio img s&i Juma Celestin MD Work Phone: Start: 05-14-2023 Us vasc access sits vsl patency ndl entry Juma Celestin MD Work Phone: Start: 05-14-2023 Cardiac catheterization Juma Celestin MD Work Phone: Start: 05-14-2023 TTE w or wo fol wcon,Doppler Juma Celestin MD Work Phone: Start: 05-14-2023 Ecg routine ecg w/le ast 12 lds w/i&r Tabatha Dwyer MD Work Phone: Start: 02-02-2023 Plain chest X-ray Dr. Kelly Acevedo Work Phone: Start: 05-15-2022 Echo tthrc r-t 2d w/ wo m-mode complete rest&st Iain C Luzmaria DO Work Phone: Start: 05-15-2022 TTE w or wo fol wcon,Doppler Iain C Luzmaria DO Work Phone: Start: 05-15-2022 Lipid 1996 panel - S mook or Plasma Juma Celestin MD Work Phone: Start: 10-17-2021 Creatinine blood Elton Huerta MD Work Phone: Start: 10-17-2021 Drug screen quantita tive tacrolimus Elton Huerta MD Work Phone: Start: 10-16-2021 Creatinine blood Elton Huerta MD Work Phone: Start: 10-16-2021 Drug screen quantita tive tacrolimus Elton Huerta MD Work Phone: Start: 10-15-2021 Creatinine blood Elton Huerta MD Work Phone: Start: 10-15-2021 Drug screen quantita tive tacrolimus Elton Huerta MD Work Phone: Start: 10-14-2021 Assay of blood/uric acid Breanne Heller MD Work Phone: Start: 10-14-2021 Drug screen quantita tive tacrolimus Elton Huerta MD Work Phone: Start: 10-13-2021 Ct head/brain w/o contrast material Kassidy Rocha MD Work Phone: Start: 10-13-2021 Drug screen quantita tive tacrolimus Elton Huerta MD Work Phone: Start: 10-13-2021 Creatinine blood Elton Huerta MD Work Phone: Start: 10-12-2021 Creatinine blood Elton uHerta MD Work Phone: Start: 10-12-2021 CONTINUOUS CARDIAC MONITORING STRIP Other Other Start: 10-12-2021 Electrolyte panel Elton Huerta MD Work Phone: Start: 10-12-2021 Drug screen quantita tive tacrolimus Elton Huerta MD Work Phone: Start: 10-12-2021 Drug screen quantita tive tacrolimus Elton Huerta MD Work Phone: Start: 10-12-2021 Hemoglobin glycosyla zen a1c Elton Huerta MD Work Phone: Start: 10-12-2021 Lipid panel Elton ross MD Work Phone: Start: 10-12-2021 Lipid 1996 panel - S mook or Plasma Violette Lau MD Work Phone: Start: 10-11-2021 CONTINUOUS CARDIAC MONITORING STRIP Other Other Start: 10-11-2021 Creatinine other source Elton Huerta MD Work Phone: Start: 10-11-2021 EXTRA MICRO Elton ross MD Work Phone: Start: 10-11-2021 URINALYSIS REFLEX TO CULTURE Elton Huerta MD Work Phone: Start: 10-11-2021 Urnls dip stick/tabl et reagent auto microscopy Elton Huerta MD Work Phone: Start: 10-11-2021 Radiologic exam ches t single view Elton Huerta MD Work Phone: Start: 10-11-2021 Assay of magnesium Shawn Huerta MD Work Phone: Start: 10-11-2021 CBC AND ELECTRONIC DIFF Elton Huerta MD Work Phone: Start: 10-11-2021 Complete blood count with white cell differential, automated Elton Huerta MD Work Phone: Start: 10-11-2021 Plain chest X-ray Dr. Kelly Acevedo Work Phone: Start: 08-29-2021 MRI of brain with contrast Dr. Leoncio Acevedo Work Phone: Start: 08-14-2021 Plain chest X-ray Dr. Kelly Acevedo Work Phone: Start: 05-17-2021 Lipid 1996 panel - S mook or Plasma Miguel Angel Mendez [facility],PharmD Start: 05-25-2020 Lipid 1996 panel - S mook or Plasma Brianna Peralta [facility] Work Phone: Start: 03-15-2017 H/O: heart recipient Heart rep laced by transplant Brianna Peralta [facility] Work Phone: Start: 06-06-2015 H/O: heart recipient Heart transplan zen Brianna Peralta [facility] Work Phone: Start: 06-04-2015 H/O: heart recipient Heart tra nsplant, orthotopic, status Nancy GUTIERREZ Comment on above: Sumit's been follow ed by the heart transplant team at [facility]. Heart transplant 06/04/15 @ [facility] H/O: heart recipient Status post heart transplant Dr. Leoncio Acevedo Work Phone: H/O: heart recipient Heart repla julieth by transplant Violette Lau MD Work Phone: H/O: heart recipient Encounter f or aftercare following heart transplant Juma Celestin MD Work Phone: H/O: heart recipient History of heart transplant Dr. Leoncio Acevedo Work Phone: H/O: heart recipient Heart repla julieth by transplant Blake CHATMAN Work Phone: H/O: heart recipient Heart repla julieth by transplant Jeremy Valle MD Work Phone: Plan of Treatment Date Care Activity Detail Author Start: 05-15-2027 Lipid panel LIPID SCREENING [facility] Start: 10-12-2026 Fasting lipid profile LIPID SCREENING [facility] Start: 10-12-2026 Lipid panel LIPID SCREENING [facility] Start: 05-17-2026 Fasting lipid profile LIPID SCREENING [facility] Start: 05-25-2025 Fasting lipid profile LIPID SCREENING [facility] Start: 05-11-2025 End: 05-11-2025 Patient encounter procedure [facility] Chris Pereira [facility] Start: 02-16-2025 Tetanus vaccination TETANUS [facility] Start: 12-15-2024 Prostate specific antigen measurement [facility] Start: 12-15-2024 Urate [Mass/volume] in Serum or Plasma [facility] Start: 12-15-2024 Vitamin D, 25-hydroxy measurement [facility] Start: 05-12-2024 End: 04-10-2025 Echocardiography ECHOCARDIOGRAM Echocardiography Routine Heart replaced by transplant Encounter for long-term (current) use of medications Other hyperlipidemia Expected: 05/12/2024 (Approximate), Expires: 04/10/2025 [facility] Work Phone: Comment on above: Expected: 05/12/2024 (Approximate), Expi res: 04/10/2025 Start: 05-12-2024 End: 05-12-2024 Patient encounter procedure Imaging Outpatient [facility] Start: 12-15-2023 Influenza vaccination [facility] Start: 12-11-2023 Tetanus vaccination TETANUS [facility] Start: 05-14-2023 End: 05-14-2024 Cardiac telemetry MOBILE CARDIAC TELEMETRY ECG Routine Heart replaced by transplant Syncope and collapse Expected: 05/14/2023 (Approximate), Expires: 05/14/2024 [facility] Comment on above: Expected: 05/14/2023 (Approximate), Expi res: 05/14/2024 Start: 05-14-2023 End: 05-14-2023 Admission to same day surgery center 05/14/2023 1:00 PM EST - 05/14/2023 2:00 PM EST Surgery [facility] [address] [place] [address] Ihisschedule, Cath All [address] [place] [address] CORONARY ANGIOGRAM [facility] Comment on above: CORONARY ANGIOGRAM Start: 05-14-2023 Subsequent hospital visit by physician 05/14/2023 1:00 PM EST Hospital Encounter [facility] [address] [place] [address] Heart replaced by transplant [facility] Comment on above: Heart replaced by transplant Start: 05-14-2023 End: 05-14-2023 [facility] Start: 02-02-2023 [facility] Start: 12-14-2022 Influenza vaccination [facility] Start: 06-20-2022 Patient referral [facility] Work Phone: Start: 05-15-2022 End: 04-25-2023 ALLOSCREEN RECIPIENT (POST TX PRA) [facility] Comment on above: Expected: 05/15/2022 (Approximate), Expi res: 04/25/2023 Start: 05-15-2022 End: 05-15-2022 Patient encounter procedure [facility] Start: 12-14-2021 Influenza vaccination [facility] Start: 10-11-2021 [facility] Work Phone: Start: 05-17-2021 End: 05-17-2021 Patient encounter procedure [facility] Start: 12-14-2020 Influenza vaccination INFLUENZA VACCINE (#1) [facility] Start: 10-09-2017 Hepatitis B vaccination HEP B VACCINE (3 of 3 - 19+ 3-dose series) [facility] Start: 06-23-2016 Colonoscopy COLORECTAL CANCER SCREENING DISCUSSION [facility] Start: 06-23-2016 Screening for malignant neoplasm of colon COLORECTAL CANCER SCREENING DISCUSSION [facility] Start: 07-29-2015 Prostate specific antigen measurement PROSTATE CANCER SCREENING DISCUSSION [facility] Start: 10-17-2014 Pneumococcal vaccination [facility] Start: 2012 Abdominal aortic aneurysm screening ABDOMINAL AORTIC ANEURYSM HIGH RISK SCREEN [facility] Start: 2007 RSV VACCINE (1 - 1-dose 60+ series) RSV VACCINE (1 - 1-dose 60+ series) [facility] Start: 1997 Zoster vaccine hzv live for subcutaneous use ZOSTER (SHINGLES) VACCINE (1 of 2) [facility] Start: 1966 Zoster vaccine hzv live for subcutaneous use ZOSTER (SHINGLES) VACCINE (1 of 2) [facility] Start: 1959 COVID-19 VACCINE (1) COVID-19 VACCINE (1) [facility] Start: 1952 COVID-19 VACCINE (#1) COVID-19 VACCINE (#1) [facility] Start: 1945 COVID-19 VACCINE (#1) COVID-19 VACCINE (#1) [facility] Cardiac catheterizat ion study INVASIVE CARDIOVASCULAR PROCEDURE Cardiac Cath Routine Heart replaced by transplant 05/14/2023 1:04 PM EST [facility] Echocardiography ECHOCARDIOGRAM Echocardiography Routine Encounter for long-term (current) use of medications Ordered: 05/15/2022 [facility] Comment on above: Ordered: 05/15/2022 Echocardiography ECHOCARDIOGRAM Echocardiography Routine Heart replaced by transplant Ordered: 05/14/2023 [facility] Comment on above: Ordered: 05/14/2023 Patient Education [facility] Work Phone: Patient referral [facility] Work Phone: Tacrolimus [Mass/vol ume] in Blood [facility] Work Phone: XR Chest PA and Lateral [facility] Immunizations Immunization Date Immunization Notes Care Provider [facility] 12-31-2019 Influenza, High-dose Seasonal, Quadrivalent, Preservative Free Juma Celestin MD Work Phone: [facility] 12-31-2019 influenza, injectabl e, quadrivalent, preservative free Dr. Leoncio Acevedo Work Phone: [facility] 12-31-2019 influenza, seasonal, injectable Dr. Leoncio Acevedo Work Phone: [facility] 12-31-2019 influenza virus vacc ine, unspecified formulation Miguel Angel Mendez [facility],PharmD [facility] 12-21-2017 influenza, high dose seasonal, preservative-free Juma Celestin MD Work Phone: [facility] 08-19-2017 pneumococcal conjuga te vaccine, 13 valent Juma Celestin MD Work Phone: [facility] 08-14-2017 hepatitis A and hepatitis B vaccine Brianna Peralta [facility] Work Phone: [facility] 01-30-2016 influenza, high dose seasonal, preservative-free Juma Celestin MD Work Phone: [facility] 03-08-2015 influenza, seasonal, injectable Juma Celestin MD Work Phone: [facility] Work Phone: 02-16-2015 tetanus toxoid, redu julieth diphtheria toxoid, and acellular pertussis vaccine, adsorbed Dr. Leoncio Acevedo Work Phone: [facility] Work Phone: 01-08-2014 hepatitis A and hepatitis B vaccine [facility] Work Phone: [facility] 01-05-2014 influenza, seasonal, injectable [facility] Work Phone: [facility] Work Phone: 01-05-2014 influenza virus vacc ine, unspecified formulation [facility] Work Phone: [facility] 12-25-2013 hepatitis A and hepatitis B vaccine [facility] Work Phone: [facility] 12-18-2013 hepatitis A and hepatitis B vaccine [facility] Work Phone: [facility] 12-10-2013 tetanus toxoid, redu julieth diphtheria toxoid, and acellular pertussis vaccine, adsorbed [facility] Work Phone: [facility] 10-17-2013 pneumococcal polysaccharide vaccine, 23 valent [facility] Work Phone: [facility] 10-17-[address] Sunita Acevedo Work Phone: [facility] Work Phone: 10-17-2013 pneumococcal vaccine , unspecified formulation Dr. Leoncio Acevedo Work Phone: [facility] Payers Date Payer Category Payer Self-pay [id number] 2020 Unknown GENERIC PAYOR ME DICARE SUPPLEMENT [id number] 2020-Present [phone] [id number] [place] [address] [id number] 2020 Unknown GENERIC PAYOR ME DICARE SUPPLEMENT [id number] 2020-Present [phone] [id number] [place] [address] [id number] 2020 Unknown [id number] 2016 Unknown [id number] 2013 Medicare 2013 Medicare MEDICARE MEDICAR E A AND B [id number] 2013-Present [address] [place] [address] [id number] 2012 Medicare [id number] 1945 Unknown [id number] 1945 Unknown [id number] 1945 Unknown [id number] Medicare [id number] Unknown [id number] Unknown [id number] Unknown [id number] Unknown [id number] Social History Date Type Detail Facility Start: 11-05-2011 End: 07-23-2023 Tobacco smoking status NHIS Former smoker [facility] History of tobacco use Cigarette Smoker [facility] Start: 11-05-2011 End: 06-04-2016 Tobacco use and exposure Never used [facility] Start: 06-10-2019 End: 05-14-2023 Alcohol intake Current non-drinker of alcohol (finding) [facility] Start: 06-10-2019 End: 05-14-2023 Alcohol intake [facility] Start: 07-19-2015 Tobacco Comment 45 years ago [facility] Start: 1945 Sex Assigned At Not on file [facility] Start: 08-14-2021 End: 02-02-2023 Tobacco smoking status NHIS Unknown if ever smoked [facility] Start: 11-26-2013 None [facility] Start: 1945 Sex Assigned At Male [facility] History of tobacco use Current smoker [facility] Start: 05-05-2022 End: 05-15-2022 Exposure to SARS-CoV-2 (event) Not sure [facility] Start: 06-10-2019 End: 05-14-2023 Tobacco use panel [facility] Gender identity Identifies as ma le gender (finding) [facility] Start: 05-05-2024 Sexual orientation Heterosexual (fin alejandra) [facility] Start: 06-24-2024 Sex Male (finding) [facility] Medical Equipment Procedure Code Equipment Code Equipment Origin al Text Equipment Identifier Dates Protecta Xt Dr Model [id number] - [id number] Start: 11-05-2011 Icd 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 40 - [id number] Start: 10-14-2013 Comment on above: Description: suture on device Lead Medtronic 5076 - [id number] Start: 11-05-2011 Lead Medtronic 6935 - [id number] Start: 11-05-[address] [facility] 1458q/75 Quartet - [id number] Start: 10-14-2013 Sealed Inflow Conduit [id number] Start: 12-22-2013 Apical Sewing Ring [id number] Start: 12-22-2013 Mixing Machine Tender Cork Gasket [id number] Start: 12-22-2013 Heart Valve Susu lo 4900 34mm - [id number] Start: 12-22-2013 Vad-Blood Pump [id number] Start: 12-22-2013 Mixing Machine Tender Cork Gasket [id number] Start: 12-22-2013 Sealed Outflow Graft With Bend Relief [id number] Start: 12-22-2013 Sealed Outflow Bend Relief Collar [id number] Start: 12-22-2013 Vasc Closure Myn x 5f - [id number], [id number] FDA Start: 06-04-2016 Vasc Closure Myn x 5f - [id number] , [id number] FDA Start: 06-05-2017 Goals Date Patient Goal Desired Activity /State Personal health goal Mental Status Date Assessment Result Facility 02-02-2023 Cognitive function Level Of Cons ciousness Awake;Alert;Appropriate [facility] Work Phone: 08-14-2021 Cognitive function Level Of Cons ciousness Awake;Alert;Appropriate;Follow s Commands [facility] Work Phone: Clinical Notes 06-04-2015 to 09-22-2024 Note Date & Type Note Facility 09-22-2024 Evaluation note Diagnosis Onset Date Resolution Essential (primary) hypertension chronic September 22, 2024 9:26am Heart transplant, orthotopic, status June 04, 2015 chronic September 22, 2024 9:26am Hyperlipemia chronic September 22 9:26am Peripheral neuritis acute December 15, 2024 1:04pm Chronic cough chronic December 152024 1:04pm Gout chronic December 15, 2024 1:04pm [facility] Work Phone: [phone] 448-182706-10-2025 [facility] [address] [place] [address] OFFICE VISIT Date of Service: 09/22/24 MR#: [id number] Acct: [id number] Name: SUMIT DRAPER Rep #: [id number] : 1945 Provider: BRENDA Hampton Age/Sex: 79/M Location: [facility] Status: Signed HPI HPI History of Present Illness Details: Mr. Brambila is a 79-year-old man who presents to the office today for a cardiovascular follow-up visit. He has a history of previous severe ischemic cardiomyopathy, status post ICD implantation and status post class IV heart failure. He eventually underwent orth[facility]opic heart [facility]. He is done well since then. He continues to be followed up with us as well as [facility]. He has had occasional episodes of dizziness but no chest pain, shortness of breath paroxysmal nocturnal dyspnea orpedal edema. He had an echocardiogram performed in August of 2019 with demonstrated preserved ejection fraction of 55%, stage III diastolic dysfunction, moderate left atrial enlargement and 1+ tricuspid regurgitation. He has been doing well otherwise. He recentlyunderwent a left heart catheterization May 2018 which demonstrated no obstructive coronary dise ase, as well as biopsy which demonstrated normal hemodynamics. He underwentan echocardiogram as well as a dobutamine echocardiogram which demonstrated preserved ejection fraction of 55 to 60% with dobutamine increasing to over 70% with no wall motion abnormalities noted. Continued medical therapy was pursued. He did unfortunately and may have an episode where he apparently blacked out while driving and was thought that he may have been a TIA. In early September he didcontract COVID and was prescribed Paxlovid. Unfortunately he was on tacrolimus and this was continued. He developed headache acute kidney injury and hyperkalemia related to tacrolimus toxicity. He was sent to [facility] is kidney function and potassium level were corrected with fluid hydration he was treated for gout and was subsequently discharged for outpatientfollow-up. He has done remarkably well since that episode. He did go for his routine cardiac evaluation In April 2022 and underwent a stress echocardiogram which demonstrated normal global systolic function at rest with an estimated EF of 55 to 60% and stress ejection fraction of over 70% attaining 91% of maximum predicted heart rate. Win also had at least 2 episodes of what appears to be vasovagal syncope. As part of the workup he had blood work done in April which did not demonstrate any significant abnormalities, his creatinine was 1.07, and he also had a 14- dayevent monitor which demonstrated an average heart rate of 81 bpm. He also had acardiac catheterization performed at [facility] demonstrating no evidence of obstructive coronary artery disease or cardiac allograft vasculopathy. The echocardiogram performed at that time demonstrated an ejection fraction of 50 to55%. His resting echocardiogram had demonstrated an ejection fraction of 54%. From a cardiac standpoint, the patient is doing well. He denies any palpitations, chest pain, pressure or heaviness. He denies SOB, Orthopnea, and PND. He does wear a CPAP at night. He does not have bleeding issues; no blood inurine, stool, or nosebleeds. He denies any decrease in energy level, myalgias, or claudication. He does not have edema, or sudden weight gain. He does have occasional lightheadedness with quick positional changes. He denies dizziness, syncopal or near syncopal episodes, and headaches. Intake Vital Signs 07/23/23 10:56 06/10/24 11:02 09/22/24 09:32 Height 5 ft 10 in 5 ft 10 in 5 ft 10 in Weight: 254 lb BMI 36.4 BP 123/77 H Blood Pressure Location Lt brachial Position Sitting Respiration 16 Pulse 87 Pulse Source NIBP Intake Visit Reasons: 1 Y FU/MOVED FROM [facility] Provider Relations Specialist Required: No Accompanied by: Is patient in pain?: Yes (right knee) Pain scale (1-10): 4 Allergies ramipril Adverse Reaction (Intermediate, Verified 09/22/24 09:41) Cough Medications ?Medication ?Instructions ?Recorded ?Confirmed ?Type pravastatin 40 mg tablet 40 mg PO QHS 07/21/15 History magnesium oxide 400 mg PO QDAY 07/24/1709/13 History tacrolimus 1 mg capsule, 1 mg PO Q12H 07/24/17 History immediate-release aspirin 81 mg tablet,delayed 81 mg PO DAILY 09/15/19 0 09/22/24 History release (Adult Aspirin Regimen) melatonin 5 mg capsule 10 mg PO QHS 09/15/19 History multivitamin 1 cap PO DAILY 09/15/1909/13 History mycophenolate mofetil 250 mg 250 mg PO BID 09/15/19 History capsule calcium 315 mg (as 1 tab PO BID 05/25/22 History citrate)-vitamin D3 6.25 mcg (250 unit) tablet cyanocobalamin (vitamin B-12) 1,000 mcg PO DAILY 05/2509/22/24 History 1,000 mcg capsule allopurinol 100 mg tablet 100 mg PO DAILY #90 tabs 09/22/24 Rx losartan 50 mg tablet 25 mg PO DAILY 06/10/2409/13 History terbinafine HCl 250 mg tablet 250 mg PO DAILY #30 tabs 06/10/24 09/22/24 Rx cholecalciferol (vitamin D3) 50 50 mcg PO QDAY 5 09/22/24 History mcg (2,000 unit) capsule Ejection fraction %: 50 Have you fallen in the past year?: Yes (syncope 1y, vasovagal episode; no injury) 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 COVID-19 (10/04/21) Loss of consciousness Gastroenteritis due to norovirus COVID-19 (03/2021) Obesity Positional lightheadedness Skin cancer Spinal stenosis Personal history of immunosuppressive therapy Difficulty balancing Fatigue SOB (shortness of breath) Nonischemic cardiomyopathy Ventricular tachycardia Diastolic dysfunction Gout Osteoarthritis Osteopenia Essential (primary) hypertension Obstructive sleep apnea Renal insufficiency Hyperbilirubinemia Cellulitis and abscess of face Chronic back pain Hyperlipemia Ventricular tachycardia Hyponatremia Acute renal insufficiency Surgical History Heart transplant, orthotopic, 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) H/O right heart catheterization (11/25/18) History of left heart catheterization (05/2018) History of cataract extraction Presence of biventricular implantable cardioverter-defibrillator (ICD) History of tricuspid valve annuloplasty History of nasal septoplasty History of tonsillectomy and adenoidectomy History of basal cell carcinoma History of appendectomy history of LVAD implant History of heart transplant (06/04/15) Family History Father Diabetes Heart disease Myocardial infarction, Onset Age: 65 Mother Heart disease Lupus Arthritis CVA (cerebral vascular accident) Grandfather Colon cancer Heart disease Aunt Diabetes Brother Seizures Social History Smoking Status: Former smoker how long ago did patient quit smokin alcohol intake: never substance use type: does not use what type of physical activity do you participate in: walking frequency: 5-6 times per week ROS Const Const: Negative for fatigue, weakness, fever(s), headache(s), chills, frequent falls, weight gain or weight loss Eyes Eyes: Negative for blind spots, loss of peripheral vision, transient loss of vision, blurry vision,change in vision, double vision, floaters or tunnel vision ENT ENT: Negative for headache(s), dizziness, Nosebleed/epistaxis, balance problems or neck pain Cardio Chest Pain: No Palpitations: No Edema: None Muscle aches with walking: None Resp Respiratory: Negative for SOB with activity, SOB at rest or SOB orthopneaundefinedSOB lying down GI GI: Negative nausea, vomiting, heartburn, bloating, vomiting blood/hematemesis, bright, red blood in stools or black,tarry stools Musc Musc: Negative for muscle aches/ myalgia, muscle weakness, joint pain or balanceproblems Neuro Neuro: Positive for lightheadedness; Negative for dizziness, near syncope, syncope, orthostatic symptoms, frequent falls, headache(s), weakness, blurry vision or double vision Amarjit Hematologic/Lymphatic: Negative for easy bleeding or easy bruising Endo Endo: Negative for fatigue Cardiology Exam Const Appearance: cooperative, healthy appearing, comfortable and no acute distress Nutritional Appearance: well nourished and obese Orientation: alert, awake and oriented x3 Head Head: normal to inspection Ears: hearing grossly normal bilaterally Nose: external nose normal Face and Sinus: face symmetric Mouth: oral mucosae normal Eyes General: appearance normal, both eyes and all related structures Eyelids: eyelids normal EOM: EOM intact bilaterally Neck Neck: normal visual inspection and no JVD Carotids: normal carotid upstroke Chest Chest inspection: normal inspection of the chest, symmetric chest movement and normal respiratory effort; Negative cough Auscultation: Bilateral: Clear to Auscultation Cardio Rate: regular rate Rhythm: regular rhythm Heart sounds: S1 normal and S2 normal; Negative rub, gallop or murmur GI GI: normal to inspection and obese Neuro General: patient alert, patient awake, patient oriented x3 and CN's II-XI intactbilaterally Skin Skin: no rashes or lesions noted Extremities Pulses: Normal: Right Posterior Tibial Pulse, Left Posterior Tibial Pulse, RightRadial Pulse and Left Radial Pulse Lower Extremity Edema: None: Bilateral Psych Psychological: normal affect Supplemental Info Supplemental Information Echocardiogram 05/14/23 ([facility]) Interpretation Summary Left ventricle is normal in size and with low normal systolic function. Ejectionfraction of 50-55% There are no obvious regional wall motion abnormalities however unable to completely visualize all LV segments. There is normal diastolic function Normal right ventricle size and low normal systolic function. Estimated RVSP 25 mmHg There is no hemodynamically significant valve disease Compared to prior study on 05/15/22, there are no significant changes. ECHOCARDIOGRAM 05/17/2021 Interpretation Summary Technically difficult study. The left ventricular chamber size and systolic function are normal. Estimated LVEF 55%. The right ventricular chamber size is normal. RV systolic function is mildly reduced. There is no hemodynamically significant valvular disease. Estimated RVSP 21 mmHg. DOBUTAMINE STRESS ECHOCARDIOGRAM 05/25/2020 Interpretation Summary - Overall, this is a negative dobutamine stress test for ischemia. - Patient achieved 90% of maximal predicted heart rate. Normal blood pressure and heart rate response to dobutamine. No symptoms during stress. - Resting baseline ECG is normal sinus rhythm. There were no diagnostic ECG changes or arrhythmias during stress. - Resting left ventricular ejection fraction 55-60%. Normal, hyperdynamic augmentation of myocardial wall segments with dobutamine infusion. Cardiac Catheterization 05/14/23 ([facility]) Summary No evidence of obstructive coronary artery disease or cardiac allograft vasulopathy. Elevated LVEDP Left Heart Catheterization / Coronary angiogram: 05/17/2021 Impressions No significant CAD or CAV. ? Assessment and Plan Assessment and Plan (1) Heart transplant, orthotopic, status: Status: Chronic Comment: Sumit's been followed by the heart transplant team at [facility]. Heart transplant 06/04/15 @ [facility] Plan: Patient is status post orthotopic heart transplant in 2016 at [facility]. He appears to be doing well at this time. He will continue with his current medical therapy, along with following with [facility]. (2) Essential (primary) hypertension: Status: Chronic Plan: Patient has a history of hypertension. His blood pressure is well-controlled atthis time. He will continue with his current medical therapy, along with monitoring his blood pressures at home. He willnotify our office of any persistently elevated or low blood pressure readings. (3) Hyperlipemia: Status: Chronic Qualifiers: Hyperlipidemia type: mixed hyperlipidemia Qualified Code(s): E78.2 - Mixed hyperlipidemia Plan: Patient has a history of hyperlipidemia. His PCP monitors this. He will continue pravastatin 40 mg daily, along with aggressive risk factor and lifestyle modifications. A copy of his most recent lipid panel would be greatlyappreciated for continuity of care. Plan Details Additional Comments: Patient will follow-up in 12 months, or sooner if needed. Thank you for allowing me to participate in the care of your patient. Please donot hesitate to callif any issues arise. This note was generated using a voice recognition system and there may be incorrect words, spelling, or punctuation that were not noted when reviewing theoffice note prior to saving. Portions of this documentation were copied and pasted from previous office visitnotes to provide cohesive continuity of the history. The note has been reviewed,edited, and updated, as necessary. Follow Up: 12 Months (LAST MODEL MAKER) Please obtain most recent Echo from [facility] Coding Level of Care Code Off vis,est,level 4 Diagnoses Heart transplant, orthotopic, status Z94.1 Essential (primary) hypertension I10 Mixed hyperlipidemia E78.2 Hyperlipidemia type: mixed hyperlipidemia Coding Level of Care Code Off vis,est,level 4 Diagnoses Heart transplant, orthotopic, status Z94.1 Essential (primary) hypertension I10 Mixed hyperlipidemia E78.2 Hyperlipidemia type: mixed hyperlipidemia Clinical Quality Measures Falls Risk Screening/Assistive Devices Have you fallen in the past year?: Yes (syncope 1y, vasovagal episode; no injury) Cardiac Ejection fraction %: 50 09/22/24 0956 ELEVATOR MECHANIC ELEVATOR MECHANIC-C> Date _ Nancy Hampton ELEVATOR MECHANIC ELEVATOR MECHANIC-C Cosigner Signature: Date (if applicable) CC: Dr. Leoncio Acevedo, DO ~ [facility]06-10-2025 Progress note Author Nancy Memo [facility] Services Note Date/Time September 22, 2024 9:56 am [facility] [address] [place] [address] OFFICE VISIT Date of Service: 09/22/24 MR#: [id number] Acct: [id number] Name: SUMIT DRAPER Rep #: [id number] : 1945 Provider: BRENDA Hampton Age/Sex: 79/M Location: [facility] Status: Signed HPI HPI History of Present Illness Details: Mr. Brambila is a 79-year-old man who presents to the office today for a cardiovascular follow-up visit. He has a history of previous severe ischemic cardiomyopathy, status post ICD implantation and status post class IV heart failure. He eventually underwent orthotopic heart transplantation in the [facility] in 2016. He is done well since then. He continues to be followed up with us as well as [facility]. He has had occasional episodes of dizziness but no chest pain, shortness of breath paroxysmal nocturnal dyspnea orpedal edema. He had an echocardiogram performed in August of 2019 with demonstrated preserved ejection fraction of 55%, stage III diastolic dysfunction, moderate left atrial enlargement and 1+ tricuspid regurgitation. He has been doing well otherwise. He recently underwent a left heart catheterization May 2018 which demonstrated no obstructive coronary disease, as well as biopsy which demonstrated normal hemodynamics. He underwentan echocardiogram as well as a dobutamine echocardiogram which demonstrated preserved ejection fraction of 55 to 60% with dobutamine increasing to over 70% with no wall motion abnormalities noted. Continued medical therapy was pursued. He did unfortunately and may have an episode where he apparently blacked out while driving and was thought that he may have been a TIA. In early September he didcontract COVID and was prescribed Paxlovid. Unfortunately he was on tacrolimus and this was continued. He developed headache acute kidney injury and hyperkalemia related to tacrolimus toxicity. He was sent to [facility] is kidney function and potassium level were corrected with fluid hydration he was treated for gout and was subsequently discharged for outpatientfollow-up. He has done remarkably well since that episode. He did go for his routine cardiac evaluation In April 2022 and underwent a stress echocardiogram which demonstrated normal global systolic function at rest with an estimated EF of 55 to 60% and stress ejection fraction of over 70% attaining 91% of maximum predicted heart rate. Win also had at least 2 episodes of what appears to be vasovagal syncope. As part of the workup he had blood work done in April which did not demonstrate any significant abnormalities, his creatinine was 1.07, and he also had a 14-dayevent monitor which demonstrated an average heart rate of 81 bpm. He also had acardiac catheterization performed at [facility] demonstrating no evidence of obstructive coronary artery disease or cardiac allograft vasculopathy. The echocardiogram performed at that time demonstrated an ejection fraction of 50 to 55%. His resting echocardiogram had demonstrated an ejection fraction of 54%. From a cardiac standpoint, the patient is doing well. He denies any palpitations, chest pain, pressure or heaviness. He denies SOB, Orthopnea, and PND. He does wear a CPAP at night. He does not have bleeding issues; no blood inurine, stool, or nosebleeds. He denies any decrease in energy level, myalgias, or claudication. He does not have edema, or sudden weight gain. He does have occasional lightheadedness with quick positional changes. He denies dizziness, syncopal or near syncopal episodes, and headaches. Intake Vital Signs 07/23/23 10:56 06/10/24 11:02 09/22/24 09:32 Height 5 ft 10 in 5 ft 10 in 5 ft 10 in Weight: 254 lb BMI 36.4 BP 123/77 H Blood Pressure Location Lt brachial Position Sitting Respiration 16 Pulse 87 Pulse Source NIBP Intake Visit Reasons: 1 Y FU/MOVED FROM [facility] Provider Relations Specialist Required: No Accompanied by: Is patient in pain?: Yes (right knee) Pain scale (1-10): 4 Allergies ramipril Adverse Reaction (Intermediate, Verified 09/22/24 09:41) Cough Medications ?Medication ?Instructions ?Recorded ?Confirmed ?Type pravastatin 40 mg tablet 40 mg PO QHS 07/21/15 History magnesium oxide 400 mg PO QDAY 07/24/1709/13 History tacrolimus 1 mg capsule, 1 mg PO Q12H 07/24/17 History immediate-release aspirin 81 mg tablet,delayed 81 mg PO DAILY 09/15/19 0 09/22/24 History release (Adult Aspirin Regimen) melatonin 5 mg capsule 10 mg PO QHS 09/15/19 History multivitamin 1 cap PO DAILY 09/15/1909/13 History mycophenolate mofetil 250 mg 250 mg PO BID 09/15/19 History capsule calcium 315 mg (as 1 tab PO BID 05/25/22 History citrate)-vitamin D3 6.25 mcg (250 unit) tablet cyanocobalamin (vitamin B-12) 1,000 mcg PO DAILY 05/2509/22/24 History 1,000 mcg capsule allopurinol 100 mg tablet 100 mg PO DAILY #90 tabs 09/22/24 Rx losartan 50 mg tablet 25 mg PO DAILY 06/10/2409/13 History terbinafine HCl 250 mg tablet 250 mg PO DAILY #30 tabs 06/10/24 09/22/24 Rx cholecalciferol (vitamin D3) 50 50 mcg PO QDAY 5 09/22/24 History mcg (2,000 unit) capsule Ejection fraction %: 50 Have you fallen in the past year?: Yes (syncope 1y, vasovagal episode; no injury) 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 COVID-19 (10/04/21) Loss of consciousness Gastroenteritis due to norovirus COVID-19 (03/2021) Obesity Positional lightheadedness Skin cancer Spinal stenosis Personal history of immunosuppressive therapy Difficulty balancing Fatigue SOB (shortness of breath) Nonischemic cardiomyopathy Ventricular tachycardia Diastolic dysfunction Gout Osteoarthritis Osteopenia Essential (primary) hypertension Obstructive sleep apnea Renal insufficiency Hyperbilirubinemia Cellulitis and abscess of face Chronic back pain Hyperlipemia Ventricular tachycardia Hyponatremia Acute renal insufficiency Surgical History Heart transplant, orthotopic, 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) H/O right heart catheterization (11/25/18) History of left heart catheterization (05/2018) History of cataract extraction Presence of biventricular implantable cardioverter-defibrillator (ICD) History of tricuspid valve annuloplasty History of nasal septoplasty History of tonsillectomy and adenoidectomy History of basal cell carcinoma History of appendectomy history of LVAD implant History of heart transplant (06/04/15) Family History Father Diabetes Heart disease Myocardial infarction, Onset Age: 65 Mother Heart disease Lupus Arthritis CVA (cerebral vascular accident) Grandfather Colon cancer Heart disease Aunt Diabetes Brother Seizures Social History Smoking Status: Former smoker how long ago did patient quit smokin alcohol intake: never substance use type: does not use what type of physical activity do you participate in: walking frequency: 5-6 times per week ROS Const Const: Negative for fatigue, weakness, fever(s), headache(s), chills, frequent falls, weight gain or weight loss Eyes Eyes: Negative for blind spots, loss of peripheral vision, transient loss of vision, blurry vision, change in vision, double vision, floaters or tunnel vision ENT ENT: Negative for headache(s), dizziness, Nosebleed/epistaxis, balance problems or neck pain Cardio Chest Pain: No Palpitations: No Edema: None Muscle aches with walking: None Resp Respiratory: Negative for SOB with activity, SOB at rest or SOB orthopneaundefinedSOB lying down GI GI: Negative nausea, vomiting, heartburn, bloating, vomiting blood/hematemesis, bright, red blood in stools or black,tarry stools Musc Musc: Negative for muscle aches/ myalgia, muscle weakness, joint pain or balanceproblems Neuro Neuro: Positive for lightheadedness; Negative for dizziness, near syncope, syncope, orthostatic symptoms, frequent falls, headache(s), weakness, blurry vision or double vision Amarjit Hematologic/Lymphatic: Negative for easy bleeding or easy bruising Endo Endo: Negative for fatigue Cardiology Exam Const Appearance: cooperative, healthy appearing, comfortable and no acute distress Nutritional Appearance: well nourished and obese Orientation: alert, awake and oriented x3 Head Head: normal to inspection Ears: hearing grossly normal bilaterally Nose: external nose normal Face and Sinus: face symmetric Mouth: oral mucosae normal Eyes General: appearance normal, both eyes and all related structures Eyelids: eyelids normal EOM: EOM intact bilaterally Neck Neck: normal visual inspection and no JVD Carotids: normal carotid upstroke Chest Chest inspection: normal inspection of the chest, symmetric chest movement and normal respiratory effort; Negative cough Auscultation: Bilateral: Clear to Auscultation Cardio Rate: regular rate Rhythm: regular rhythm Heart sounds: S1 normal and S2 normal; Negative rub, gallop or murmur GI GI: normal to inspection and obese Neuro General: patient alert, patient awake, patient oriented x3 and CN's II-XI intactbilaterally Skin Skin: no rashes or lesions noted Extremities Pulses: Normal: Right Posterior Tibial Pulse, Left Posterior Tibial Pulse, RightRadial Pulse and Left Radial Pulse Lower Extremity Edema: None: Bilateral Psych Psychological: normal affect Supplemental Info Supplemental Information Echocardiogram 05/14/23 ([facility]) Interpretation Summary Left ventricle is normal in size and with low normal systolic function. Ejectionfraction of 50-55% There are no obvious regional wall motion abnormalities however unable to completely visualize all LV segments. There is normal diastolic function Normal right ventricle size and low normal systolic function. Estimated RVSP 25 mmHg There is no hemodynamically significant valve disease Compared to prior study on 05/15/22, there are no significant changes. ECHOCARDIOGRAM 05/17/2021 Interpretation Summary Technically difficult study. The left ventricular chamber size and systolic function are normal. Estimated LVEF 55%. The right ventricular chamber size is normal. RV systolic function is mildly reduced. There is no hemodynamically significant valvular disease. Estimated RVSP 21 mmHg. DOBUTAMINE STRESS ECHOCARDIOGRAM 05/25/2020 Interpretation Summary - Overall, this is a negative dobutamine stress test for ischemia. - Patient achieved 90% of maximal predicted heart rate. Normal blood pressure and heart rate response to dobutamine. No symptoms during stress. - Resting baseline ECG is normal sinus rhythm. There were no diagnostic ECG changes or arrhythmias during stress. - Resting left ventricular ejection fraction 55-60%. Normal, hyperdynamic augmentation of myocardial wall segments with dobutamine infusion. Cardiac Catheterization 05/14/23 ([facility]) Summary No evidence of obstructive coronary artery disease or cardiac allograft vasulopathy. Elevated LVEDP Left Heart Catheterization / Coronary angiogram: 05/17/2021 Impressions No significant CAD or CAV. ? Assessment and Plan Assessment and Plan (1) Heart transplant, orthotopic, status: Status: Chronic Comment: Sumit's been followed by the heart transplant team at [facility]. Heart transplant 06/04/15 @ [facility] Plan: Patient is status post orthotopic heart transplant in 2016 at [facility]. He appears to be doing well at this time. He will continue with his current medical therapy, along with following with [facility]. (2) Essential (primary) hypertension: Status: Chronic Plan: Patient has a history of hypertension. His blood pressure is well-controlled atthis time. He will continue with his current medical therapy, along with monitoring his blood pressures at home. He will notify our office of any persistently elevated or low blood pressure readings. (3) Hyperlipemia: Status: Chronic Qualifiers: Hyperlipidemia type: mixed hyperlipidemia Qualified Code(s): E78.2 - Mixed hyperlipidemia Plan: Patient has a history of hyperlipidemia. His PCP monitors this. He will continue pravastatin 40 mg daily, along with aggressive risk factor and lifestyle modifications. A copy of his most recent lipid panel would be greatlyappreciated for continuity of care. Plan Details Additional Comments: Patient will follow-up in 12 months, or sooner if needed. Thank you for allowing me to participate in the care of your patient. Please donot hesitate to call if any issues arise. This note was generated using a voice recognition system and there may be incorrect words, spelling, or punctuation that were not noted when reviewing theoffice note prior to saving. Portions of this documentation were copied and pasted from previous office visitnotes to provide cohesive continuity of the history. The note has been reviewed,edited, and updated, as necessary. Follow Up: 12 Months (LAST MODEL MAKER) Please obtain most recent Echo from [facility] Coding Level of Care Code Off vis,est,level 4 Diagnoses Heart transplant, orthotopic, status Z94.1 Essential (primary) hypertension I10 Mixed hyperlipidemia E78.2 Hyperlipidemia type: mixed hyperlipidemia Coding Level of Care Code Off vis,est,level 4 Diagnoses Heart transplant, orthotopic, status Z94.1 Essential (primary) hypertension I10 Mixed hyperlipidemia E78.2 Hyperlipidemia type: mixed hyperlipidemia Clinical Quality Measures Falls Risk Screening/Assistive Devices Have you fallen in the past year?: Yes (syncope 1y, vasovagal episode; no injury) Cardiac Ejection fraction %: 50 09/22/24 0956 <Electronically signed by Nancy NELSONC> Date _ Nancy Hampton NP, NP-C Cosigner Signature: Date (if applicable) CC: Dr. Leoncio Acevedo, DO ~ [facility] Work Phone: 1(235) 972-509902-26-2025 Evaluation note* Diagnosis Onset Date Resolution Status Admit Date Peripheral neuritis acute Febru 2024 10:54am [facility] Work Phone: 1(427) 287-613602-26-2025 Evaluation note* Diagnosis Onset Date Resolution Status Admit Date Peripheral neuritis acute Febru 2024 10:54am Essential (primary) hypertension chronic September 22, 2024 9:26am Heart transplant, orthotopic, status June 04, 2015 chronic September 9:26am Hyperlipemia chronic September 22, 025 9:26am [facility] Work Phone: 1(101) 627-214101-28-2025 History of Present illness Narrative* Lexi Tapia, MONEY EXAMINER-GANG INVESTIGATOR - 05/12/2024 11:00 AM EST Subjective [facility]iac Transplant [facility] Progress Note Subjective: Sumit Draper is a 79 y.o. male with a history of OHT who presents with the followin year post heart transplant visit. Denies cardiovascular complaints. Positional dizziness on occasion continues. MCT negative in May 2023, done for similar complaints for the 18 months prior to that. He self lowered losartan to 25mg in November 2023. Follows with sleep medicine. Wears CPAP every night. Mildly elevated BP over the last week and has had mild increase in sodium intake. Transplant Info: DOT: 06/04/15 DSA: 05/17/21: 0% CMV Donor: POS CMV Recipient: POS Home Vital Signs: Home BP: 119-133/68-82 Home HR: 83-95 Immunosuppression: Tacro: 1 mg BID Last taken: 9pm last night MMF: 250 mg BID Fasting: Yes Outpatient Encounter Medications as of 05/15/2022 Medication Sig Dispense Refill allopurinol 100 MG tablet Take 1 tablet by mouth daily. 30 tablet 1 aspirin 81 MG Tab take 1 tablet by mouth daily. 30 tablet 3 calcium citrate-vitamin D 315-250 MG-UNIT Tab take 1 tablet by mouth 2 times daily.. 60 tablet 12 CUSTOM MEDICATION Please obtain chem 6 and tacrolimus trough on 10/23/21 and fax to attn: Lesly Segal. Fax#: [phone] 1 Each 0 cyanocobalamin 100 MCG Tab take 100 mcg by mouth daily. losartan 50 MG tablet Take 1 tablet by mouth daily. 90 tablet 3 magnesium oxide 400 MG Tab take 1 tablet by mouth daily.. 30 tablet 11 melatonin 3 MG Tab tablet Take 2 tablets by mouth at bedtime. 1 tablet 0 Multiple Vitamin (MULTIVITAMIN) Cap take 1 capsule by mouth daily. 30 capsule 12 Mycophenolate mofetil (CELLCEPT) 250 MG capsule Take 1 capsule by mouth 2 times daily. 60 capsule 11 Pravastatin 40 MG tablet TAKE 1 TABLET BY MOUTH EVERYDAY AT BEDTIME 90 tablet 3 Tacrolimus (PROGRAF) 0.5 MG capsule Take 2 capsules by mouth 2 times daily. 120 capsule 11 [DISCONTINUED] pravastatin 40 MG tablet Take 1 tablet by mouth at bedtime. 90 tablet 3 [DISCONTINUED] Tacrolimus (PROGRAF) 0.5 MG capsule Take 2 capsules by mouth 2 times daily. 120 capsule 11 Facility-Administered Encounter Medications as of 05/15/2022 Medication Dose Route Frequency Provider Last Rate Last Admin [COMPLETED] Perflutren Lipid Microsphere (DEFINITY) 1.5 mL in Normal saline flush 0.9% 8.5 mL 10 mLIntravenous Once Rashel Bianchi, DO 2 mL at 05/15/22 0920 REVIEW OF SYSTEMS A complete review of systems was performed and positive for symptoms mentioned in the history of present illness. The remainder of system review was negative. Objective: Vitals: 05/12/24 1051 BP: 140/75 Pulse: 89 Resp: 16 Temp: 97.7 degrees F (36.5 degrees C) TempSrc: Oral SpO2: 95% Weight: 116.6 kg (257 lb) Height: 1.778 m (5' 10) Wt Readings from Last 3 Encounters: 05/12/24 116.6 kg (257 lb) 05/12/24 114.8 kg (253 lb) 05/14/23 114.8 kg (253 lb 1.4 oz) HPI: Having some balance issues and some dizziness when he stands up too quickly. Denies exertionalsymptoms. Denies other heart failure symptoms. Sees derm regularly. Uses his CPAP regularly. General: Patient is alert and oriented x3, appears to be in no acute distress. Heent: Head is normocephalic, eyes appear equal, round, reactive to light and accommodation, mucousmembranes are moist, nose is clear. Neck: is supple, no evidence of bruits, JVD: < 6 cm of H2O. No thyromegaly or masses Chest: normal habitus. Lungs: Clear bilaterally. Normal chest excursion, breath sounds are equal. Abdomen: soft, no tenderness or distention. Normal bowel sounds. CV: regular rate and rhythm, S1 and S2 are of normal intensity. No S3 or S4. No murmurs Extremities: edema: trace. No clubbing or cyanosis detected Skin: normal texture without significant lesions. No subcutaneous nodules. Lymph: no adenopathy in the neck and extremities Neuro: no focal sensory or motor deficits Psychiatric: Alert and oriented times 3. No delusions or hallucinations. Affect is appropriate. No psychomotor slowing or agitation. Eye contact is appropriate. Lab Results Component Value Date WBC 6.61 05/12/2024 HGB 16.0 05/12/2024 HCT 49.5 (H) 05/12/2024 PLATELET 208 05/12/2024 MCV 87.8 05/12/2024 Lab Results Component Value Date CHOLESTEROL 119 05/12/2024 TRIG 110 05/12/2024 HDL 38 (L) 05/12/2024 LDLCALC 59 05/12/2024 Lab Results Component Value Date SODIUM 139 05/12/2024 POTASSIUM 4.3 05/12/2024 CHLORIDE 103 05/12/2024 CO2 29 05/12/2024 BUN 18 05/12/2024 CREATSERUM 0.88 05/12/2024 Lab Results Component Value Date/Time TACROLIMUS 5.5 05/12/2024 11:32 AM TACROLIMUS 4.3 05/14/2023 10:40 AM TACROLIMUS 5.0 05/15/2022 09:45 AM TACROLIMUS >60.0 (H) 10/12/2021 07:49 AM TACROLIMUS 5.1 05/17/2021 11:00 AM TACROLIMUS 6.5 06/11/2018 09:51 AM TACROLIMUS 6.4 12/03/2017 11:55 AM TACROLIMUS 6.9 06/05/2017 09:57 AM TACROLIMUS 5.2 03/13/2017 09:56 AM TACROLIMUS 10.4 11/21/2016 08:39 AM 06/10/2019 8:08 AM 11/25/2018 11:31 AM 06/05/2017 12:58 PM 06/05/2017 12:46 PM 06/04/2016 8:37 AM 05/23/2016 11:07 AM 04/25/2016 9:42 AM Cath and Echo Scores Date Heart Cath Performed 11/25/2018 06/05/2017 06/04/2016 04/25/2016 BIOPSY GRADE 1R 0R 0R 0R RA Mean 5 mmHg 4 mmHg 6 mmHg 5 mmHg 8 mmHg PA Systolic 21 mmHg 21 mmHg 21 mmHg 22 mmHg 20 mmHg PA Diastolic 7 mmHg 5 mmHg 10 mmHg 9 mmHg 9 mmHg PA Mean 14 mmHg 12 mmHg 15 mmHg 15 mmHg 14 mmHg PCW Mean 6 mmHg 6 mmHg 6 mmHg 10 mmHg 8 mmHg Mi C.O. 5.26 L/min 7.33 L/min 7.97 L/min 5.29 L/min 4.97 L/min Mi C.I. 2.3 L/min/m2 3.19 L/min/m2 3.47 L/min/m2 2.4 L/min/m2 2.24 L/min/m2 TDCO 4.97 L/min 5.2 L/min TDCI 2.17 L/min/m2 2.26 L/min/m2 Left Heart Cath Result -- Date Echo Performed 06/05/2017 05/23/2016 Left Ventricular Ejection Fraction? 55 % 55 % Right Ventricle Details Mild dilation, dysfunction normal Mitral Valve Normal Tricuspid Valve Normal Mild TR Echo Notes LVEDD 4.0 cm Allomap Scores ALLOMAP, MANUAL ENTER 11/01/2015 12:00 PM NR 12/01/2015 12:00 PM 28 03/28/2016 12:00 PM 36 05/23/2016 12:00 AM 35 Transplant Course / Past medical & Surgical History: 1. 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 Dan) CMV D+/R+ ATG induction Ischemic time 2:02 [facility] [place] Increased risk donor - will need follow up screening Reintubated 06/06 due to bradycardia and aspiration concern. Extubated next day. 2. Cardiac rejection: none to date 3. Immunosupression - prednisone stopped 11/2015. 4. 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 Basal cell carcinoma s/p MOHS 12/2015--MMF reduced to 750 BID 6. 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 Stable graft function and is feeling well. Last Echo (05/12/24): LVEF 50-55%, normal RV function, no significant valvular disease, RVSP 26, stable mmHg. Last Ischemic workup (05/14/23): Cath - mild luminal irregularities, LVEDP 21 Last Alloscreen (05/12/23): No DSA. Immunosuppression regimen: Continue tacrolimus 1 mg BID (trough today 5.5; goal 4-6) and MMF 250 BID (lower dose due to recurrent URI and skin cancer). Anti-infectives: No infectious prophylaxis Adjunctive Therapy: Continue ASA, Ca/Vit D, MVI, MgOxide 400 mg every day. Renal function: Cr remains stable, baseline 1.1-1.2. Continue BP control and lower tacrolimus goal.Admission for [facility] 11/03 after paxlovid resulted in high tacrolimus level, responded to IVF. Review of labs- liver labs were slightly up but now improved . 2.) Hypertension: Blood pressure is slightly above goal here, but at goal at home. - Continue losartan 25 mg every day, will start taking BP more regularly at home and increase if remains up 3.) Hyperlipidemia: Good lipid control. Low HDL but LDL, TG at goal. -Continue pravastatin 40 mg qhs. Lab Results Component Value Date CHOLESTEROL 119 05/12/2024 TRIG 110 05/12/2024 HDL 38 (L) 05/12/2024 LDLCALC 59 05/12/2024 4.) Skin cancer: Lower immunosuppression doses/levels as above. Continue routine dermatology followup. 5.) Osteopenia: Continue Ca/Vit D supplements. 6.) Spinal stenosis and leg pain - Following in spine clinic 7.) Syncope: History appears to be vagal but unusual to develop vasovagal syncope in 70's. MCT done- 05/23/2023 - 06/05/2023. Baseline sample showed Sinus Rhythm with a heart rate of 81.9 bpm 8.) Elevated LVEDP: Last cath was 21 but LV systolic pressure at time of measurement was 147 - maybe blood pressure related. JVP not elevated on exam. For now, CTM. Will ask him to monitor BP log at home and send log in a couple of weeks. If BP elevated, may consider hctz or chlorthalidone which can help with mild diuresis and blood pressure control. 9.) Health Maintenance: Encouraged to follow-up regularly with his PCP so that health maintenance issues are appropriately addressed. 10.) Disposition: he will return to clinic per our routine post-transplant schedule. Thank you for allowing me to participate in the care of this pleasant patient. Please do not hesitate to contact me if there are any further questions. Sincerely, MARCELO Pinedo Advanced Heart Failure and Cardiac Transplant Program [facility] * Lesly Segal RN - 05/12/2024 11:00 AM EST [facility] Cardiac Transplant Clinic Progress Note Subjective: Sumit Draper is a 79 y.o. male with a history of OHT who presents with the followin year post heart transplant visit. Denies cardiovascular complaints. Positional dizziness on occasion continues. MCT negative in May 2023, done for similar complaints for the 18 months prior to that. He self lowered losartan to 25mg in November 2023. Follows with sleep medicine. Wears CPAP every night. Mildly elevated BP over the last week and has had mild increase in sodium intake. Transplant Info: DOT: 06/04/15 DSA: 05/17/21: 0% CMV Donor: POS CMV Recipient: POS Home Vital Signs: Home BP: 119-133/68-82 Home HR: 83-95 Immunosuppression: Tacro: 1 mg BID Last taken: 9pm last night MMF: 250 mg BID Fasting: Yes Outpatient Encounter Medications as of 05/15/2022 Medication Sig Dispense Refill allopurinol 100 MG tablet Take 1 tablet by mouth daily. 30 tablet 1 aspirin 81 MG Tab take 1 tablet by mouth daily. 30 tablet 3 calcium citrate-vitamin D 315-250 MG-UNIT Tab take 1 tablet by mouth 2 times daily.. 60 tablet 12 CUSTOM MEDICATION Please obtain chem 6 and tacrolimus trough on 10/23/21 and fax to attn: Lesly Philipp. Fax#: [phone] 1 Each 0 cyanocobalamin 100 MCG Tab take 100 mcg by mouth daily. losartan 50 MG tablet Take 1 tablet by mouth daily. 90 tablet 3 magnesium oxide 400 MG Tab take 1 tablet by mouth daily.. 30 tablet 11 melatonin 3 MG Tab tablet Take 2 tablets by mouth at bedtime. 1 tablet 0 Multiple Vitamin (MULTIVITAMIN) Cap take 1 capsule by mouth daily. 30 capsule 12 Mycophenolate mofetil (CELLCEPT) 250 MG capsule Take 1 capsule by mouth 2 times daily. 60 capsule 11 Pravastatin 40 MG tablet TAKE 1 TABLET BY MOUTH EVERYDAY AT BEDTIME 90 tablet 3 Tacrolimus (PROGRAF) 0.5 MG capsule Take 2 capsules by mouth 2 times daily. 120 capsule 11 [DISCONTINUED] pravastatin 40 MG tablet Take 1 tablet by mouth at bedtime. 90 tablet 3 [DISCONTINUED] Tacrolimus (PROGRAF) 0.5 MG capsule Take 2 capsules by mouth 2 times daily. 120 capsule 11 Facility-Administered Encounter Medications as of 05/15/2022 Medication Dose Route Frequency Provider Last Rate Last Admin [COMPLETED] Perflutren Lipid Microsphere (DEFINITY) 1.5 mL in Normal saline flush 0.9% 8.5 mL 10 mLIntravenous Once Rashel Bianchi, DO 2 mL at 05/15/22 0920 REVIEW OF SYSTEMS A complete review of systems was performed and positive for symptoms mentioned in the history of present illness. The remainder of system review was negative. Objective: Vitals: 05/12/24 1051 BP: 140/75 Pulse: 89 Resp: 16 Temp: 97.7 degrees F (36.5 degrees C) TempSrc: Oral SpO2: 95% Weight: 116.6 kg (257 lb) Height: 1.778 m (5' 10) Wt Readings from Last 3 Encounters: 05/12/24 116.6 kg (257 lb) 05/12/24 114.8 kg (253 lb) 05/14/23 114.8 kg (253 lb 1.4 oz) [facility] History of Present illness Narrative* Nava Leonardo RN - 05/12/2024 9:00 AM EST Definity Risk Screening: Explained Definity use to patient including potential side effects with emphasis on patient informing the RN/technologist if they develop any symptoms after administration. status: no Medication list reviewed. Known sensitivity to Perflutren or Polyethylene Glycol (PEG-containing products such as bowel preparations or laxatives): no Definity dose: 1.5 ml diluted with 8.5 ml saline (start with 1-2 ml, additional doses as needed) Total dose given: 4 ml After administration of Definity contrast, the patient experienced no side effects and was without complaints. IV removed and intact. Adequate hemostasis achieved. documented in this encounterDay[facility]12-31-2024 History of Present illness Narrative* Ana Miranda - 04/14/2024 10:04 AM EST [facility] OP RX OUTREACH ADVANCED: Shipping/Pickup: Patient has affirmed needing a refill of the following medications for Shipment : Med Name: Mycophenolate 250mg caps Med Name: Tacrolimus 0.5mg caps Contact Info: [facility] [phone] documented in this [facility]08-14-2024 History of Present illness Narrative* Claireterrance Pérez - 11/27/2023 2:56 PM EDT [facility]REACH ADVANCED: Call Information: Method of Contact: By Phone Contact Type: Prescriptions Contactor: [facility] OP Contactee: Patient Shipping/Pickup: Medicare B Refill?: Yes Number of Med B Medications: 2 Med B Name: Mycophenolate 250mg Days Supply Remainin Supply Exhausted On: 12/04/2023 Med B Name: Tacrolimus 0.5mg Days Supply Remainin Supply Exhausted On: 12/04/2023 Medication Name: Mycophenolate 250mg / Tacrolimus 0.5mg Delivery Method: Ship Delivery Location: Home Signature Required: Yes Receive/Pickup Date: 11/29/2023 Shipping Address: [address] [place] [address] Contact Info: Specialty ([place]) [phone] [facility] [phone] [facility] [phone] [place] [phone] Bedside Delivery ([facility]) [phone] * Samira Duggan, [facility] - 11/27/2023 2:56 PM EDT [facility] OP RX OUTREACH ADVANCED: Pre-Verification/Specialty Assessment/Disease Mgt: Medication(s) Name: Tacrolimus and mycophenolate Lab Review: CBC w/diff, Drug level and Chem 6 (with GFR) Assessment type (Select either Initial or Re-Assessment): Re-Assessment Specialty Assessment Review: Name, Age, Sex Demographics Therapeutic Goals Pertinent Medical History Adverse Effects with Enrolled (and related) Medications Recent Labs Medications (dose, route, frequency, and interactions) Allergies Patient Comprehension Appropriate Use Adherence Specialty Medication Management Financial Resources Health Problems/Diagnoses Care Plan Activities Completed: Updated Assessment Findings: Patient is 78 year old male who is s/p heart transplant on 06/04/15. Current IS meds: Tacrolimus 1mg BID (goal trough 4-6) Mycophenolate 250mg BID (lower dose due to recurrent URI and skin cancer) Anti-infectives: none Most recent labs: 05/14/23 Most recent transplant appointment:05/14/23 No adherence, safety, or efficacy issues identified. Monitoring Parameter Review: Within normal limits Contact Info: Specialty ([place]) [phone] [place] [phone] [facility] [phone] [place] [phone] Bedside Delivery ([facility]) [phone] documented in this encounterDayton [facility]06-10-2024 History of Present illness Narrative* Cecilia Chase - 09/23/2023 11:03 AM EDT [facility] OP RX OUTREACH ADVANCED: Call Information: Date and Time of Contact: 09/23/2023 11:04 AM Method of Contact: By Phone Contact Type: Prescriptions Contactor: [facility] OP Contactee: Patient Contact Outcome: Patient declined to fill Patient Declined Fill Detail/Reason: Pt has 2+ weeks on hand; requests call back 09/29 - tutu Shipping/Pickup: Medication Name: Myco mof 250mg, Tacro 0.5mg Contact Info: Specialty ([place]) [phone] [facility] [phone] [facility] [phone] [place] [phone] Bedside Delivery ([facility]) [phone] * Cecilia Chase - 09/23/2023 11:03 AM EDT [facility] OP RX OUTREACH ADVANCED: Call Information: Date and Time of Contact: 10/01/2023 11:30 AM Method of Contact: By Phone Contact Type: Prescriptions Contactor: [facility] OP Contactee: Patient Shipping/Pickup: Medicare B Refill?: Yes Number of Med B Medications: 2 Med B Name: Mycophenolate mofetil 250mg Days Supply Remainin Supply Exhausted On: 10/06/2023 Med B Name: Tacrolimus 0.5mg Days Supply Remainin Supply Exhausted On: 10/06/2023 Medication Name: Myco mof 250mg, Tacro 0.5mg Delivery Method: Ship Delivery Location: Home Signature Required: Yes Receive/Pickup Date: 10/03/2023 Shipping Address: [address] [place] [address] Contact Info: Specialty ([place]) [phone] [facility] [phone] [facility] [phone] [place] [phone] Bedside Delivery ([facility]) [phone] documented in this encounterDayton [facility]05-06-2024 History of Present illness Narrative* Cecilia Chase - 08/19/2023 11:51 AM EDT [facility] OP RX OUTREACH ADVANCED: Call Information: Date and Time of Contact: 08/19/2023 11:53 AM Method of Contact: By Phone Contact Type: Prescriptions Contactor: [facility] OP Contactee: Patient Contact Outcome: Left message Shipping/Pickup: Medication Name: Myco mof 250mg, Tacro 0.5mg Contact Info: Specialty ([place]) [phone] [place] [phone] [facility] [phone] [place] [phone] Bedside Delivery ([facility]) [phone] * Lucila Barragan - 08/19/2023 11:51 AM EDT [facility] OP RX OUTREACH ADVANCED: Call Information: Date and Time of Contact: 08/19/2023 11:59 AM Method of Contact: By Phone Contact Type: Prescriptions Contactor: Patient Contactee: [facility] OP Shipping/Pickup: Medicare B Refill?: Yes Number of Med B Medications: 2 Med B Name: Mycophenolate 250mg Days Supply Remainin Supply Exhausted On: 08/31/2023 Med B Name: Tacrolimus 0.5mg Days Supply Remainin Supply Exhausted On: 08/31/2023 Medication Name: Mycophenolate 250mg, tacrolimus 0.5mg Delivery Method: Ship Delivery Location: Home Signature Required: Yes Receive/Pickup Date: 08/27/2023 Shipping Address: [address] [place] [address] Contact Info: Specialty ([place]) [phone] [place] [phone] [facility] [phone] [place] [phone] Bedside Delivery ([facility]) [phone] documented in this [facility]OS[facility] Nurse Note* Nursing Notes - Tristen Garcia RN - 05/14/2023 5:19 PM EST Discharge instructions and printed AVS reviewed with patient by MERCEDES Ramon all questions answered. Pt verbalizes understanding. IV dc'd with no difficulty and catheter tip intact. Telemetry dc'd. VS stable at time of discharge. Patient being discharged to home by car with spouse. No patient belongingsleft at bedside. Post procedure recovery without events. R groin site without bleeding or hematoma,palpable +2 pulses. Ambulates prior to DC without difficulty. [facility] Miscellaneous Notes* Nursing Notes - Tristen Garcia RN - 05/14/2023 5:19 PM EST Discharge instructions and printed AVS reviewed with patient by MERECDES Ramon all questions answered. Pt verbalizes understanding. IV dc'd with no difficulty and catheter tip intact. Telemetry dc'd. VS stable at time of discharge. Patient being discharged to home by car with spouse. No patient belongingsleft at bedside. Post procedure recovery without events. R groin site without bleeding or hematoma,palpable +2 pulses. Ambulates prior to DC without difficulty. * Brief Op Note - Milan Rai DO - 05/14/2023 1:02 PM EST Preliminary Report - Brief Cardiac Catheterization Procedure Note Sumit Draper ([id number]) Pre Procedural Diagnosis Heart replaced by transplant [Z94.1] Post Procedural Diagnosis Non-obstructive CAD Procedure Performed Left heart catheterization and Coronary angiogram Access Site/Hemostasis Right femoral artery, Sheath left in Findings Left Ventricular End Diastolic Pressure: Elevated Left Ventricular Ejection Fraction: Not assessed Preliminary Results of Angiography Non-obstructive CAD Percutaneous Coronary Intervention No Intervention Intraprocedure Anticoagulation None Post-procedure Anticoagulation Anticoagulation to be restarted: No Estimated Blood Loss Minimal Complications None Admission Does patient need to be admitted: No Surgeon Surgeon(s) and Role: * Jennifer Mcduffie MD - Primary * Milan Rai DO - Fellow Procedural Staff Sedation Nurse: Grant Forte RN; Leticia Montoya, MERCEDES Documenter: Albina Glover RN Full report to follow Milan Rai DO May 14, 2023 1:02 PM * Nursing Notes - Tristen Garcia RN - 05/14/2023 11:44 AM EST Pt arrives to room 2404 in [facility] for [facility]. ECG completed. IV started in R arm. Labs drawn and sent. 0.9 NS IVF initiated @ 100mL/ hr per pump. Pt prep completed. Valuables given to Spouse. Clothes secured in room. Questions about procedure answered. Family brought to bedside. Bed in low position, siderail up x2 and call light given to pt. Tele monitor shows NSR. * Nursing Notes - Brain Franklin RN - 02/07/2023 10:11 AM EDT PREPARING FOR YOUR ELDERLY SITTER PROCEDURE Your catheterization is schedule on 05/14 at: [facility] at the [facility] located at [address] [place] [address]. You are to arrive at [place] registration on the 1st floor at time Transplant Team will notify you of arrival time. BE SURE TO REGISTER FOR CLINIC VISIT, ECHO (IF APPLICABLE), AND CATH. You may use activities aide parking ($10) or park in the [facility] [employer] [facility] just past the [place] ($3). There is a walkway from the 2nd floor of the garage into the [facility]. You are to have nothing to eat after MIDNIGHT. You may drink WATER up to time you arrive.3 HOLD ALL medications until after clinic visit. Expect to be at the hospital 8+ hrs. Bring an up to date list of all medications with you to procedure. If you require CPAP bring it with you. If you have a contrast dye/iodine allergy or if you are on Coumadin, apixiban (Eliquis), rivaroxaban (Xarelto), or dabigatran (Pradaxa) and it was NOT addressed during scheduling, please call NOW to notify the lab ([phone]). Continue asprin, Plavix (clopidogrel), Effient (prasugrel), and Brilinta (ticagrelor). You will receive sedation during your procedure and will not be permitted to drive for 24 hrs. You will need a friend or family member to accompany you home (a bus is not acceptable). Failure to havea responsible person on discharge will result in cancellation of your procedure. Your labs will be drawn during clinic visit. Click the link below to be directed to a video which will explain the catheterization and outpatient process: [email or web address] Please be aware, other departments sometimes advise our patients they will receive a reminder call from the powerhouse laborer prior to their procedure. We do not provide reminder calls. Please pedro your calendar with your procedure date, and call with any questions [phone]. Thank you, MERCEDES De La Paz P[place] Sawyer Via PHONE, MYCHART documented in this [facility]01-30-2024 Surgery Postoperative evaluation and management note* Brief Op Note - Milan Rai DO - 05/14/2023 1:02 PM EST Preliminary Report - Brief Cardiac Catheterization Procedure Note Sumit Draper ([id number]) Pre Procedural Diagnosis Heart replaced by transplant [Z94.1] Post Procedural Diagnosis Non-obstructive CAD Procedure Performed Left heart catheterization and Coronary angiogram Access Site/Hemostasis Right femoral artery, Sheath left in Findings Left Ventricular End Diastolic Pressure: Elevated Left Ventricular Ejection Fraction: Not assessed Preliminary Results of Angiography Non-obstructive CAD Percutaneous Coronary Intervention No Intervention Intraprocedure Anticoagulation None Post-procedure Anticoagulation Anticoagulation to be restarted: No Estimated Blood Loss Minimal Complications None Admission Does patient need to be admitted: No Surgeon Surgeon(s) and Role: * Jennifer Mcduffie MD - Primary * Milan Rai DO - Fellow Procedural Staff Sedation Nurse: Grant Forte, MERCEDES; Leticia Montoya, MERCEDES Documenter: Albina Glover RN Full report to follow Milan Rai DO May 14, 2023 1:02 PM [facility] Work Phone: [phone]) 261-705801-30-2024 Nurse Note* Nursing Notes - Tristen Garcia RN - 05/14/2023 11:44 AM EST Pt arrives to room 2404 in [facility]. ECG completed. IV started in R arm. Labs drawn and sent. 0.9 NS IVF initiated @ 100mL/ hr per pump. Pt prep completed. Valuables given to Spouse. Clothes secured in room. Questions about procedure answered. Family brought to bedside. Bed in low position, siderail up x2 and call light given to pt. Tele monitor shows NSR. [facility]01-30-2024 History and physical note* Jozef Taveras MD - 05/14/2023 10:15 AM EST PRE-CATH H&P UPDATE Patient seen and examined by me on day of procedure. Agree with H&P as documented by Dr. Valle on 05/14/23 , there are no significant updates or changes. This cardiac catheterization is being done to investigate coronary anatomy s/p OHT. Verbal consent obtained and sedation assessment completed. Will proceed with the left cardiac catheterization with coronary angiography. Allergies, Laboratory Studies: has No Known Allergies. Lab Results Component Value Date CREATSERUM 0.99 05/15/2022 CREATURINE 130.35 10/11/2021 Lab Results Component Value Date INR 1.1 10/11/2021 INR 1.2 (H) 06/27/2015 PTT 35.9 (H) 10/11/2021 PTT 32 06/27/2015 Lab Results Component Value Date WBC 4.74 05/15/2022 HGB 15.5 05/15/2022 HCT 46.4 05/15/2022 PLATELET 161 05/15/2022 MCV 86.9 05/15/2022 Estimated GFR: Estimated Creatinine Clearance: 81 mL/min (by C-G formula based on SCr of 0.99 mg/dL). Jozef Taveras MD [employer] Pager [phone] [facility] Work Phone: [phone] History and physical note* Jozef Taveras MD - 05/14/2023 10:15 AM EST PRE-CATH H&P UPDATE Patient seen and examined by me on day of procedure. Agree with H&P as documented by Dr. Valle on 05/14/23 , there are no significant updates or changes. This cardiac catheterization is being done to investigate coronary anatomy s/p OHT. Verbal consent obtained and sedation assessment completed. Will proceed with the left cardiac catheterization with coronary angiography. Allergies, Laboratory Studies: has No Known Allergies. Lab Results Component Value Date CREATSERUM 0.99 05/15/2022 CREATURINE 130.35 10/11/2021 Lab Results Component Value Date INR 1.1 10/11/2021 INR 1.2 (H) 06/27/2015 PTT 35.9 (H) 10/11/2021 PTT 32 06/27/2015 Lab Results Component Value Date WBC 4.74 05/15/2022 HGB 15.5 05/15/2022 HCT 46.4 05/15/2022 PLATELET 161 05/15/2022 MCV 86.9 05/15/2022 Estimated GFR: Estimated Creatinine Clearance: 81 mL/min (by C-G formula based on SCr of 0.99 mg/dL). Jozef Taveras MD [employer] Pager [phone] [facility] History of Present illness Narrative* Lesly Segal RN - 05/14/2023 10:00 AM EST [facility] Cardiac Transplant [facility] Progress Note Subjective: Sumit Draper is a 78 y.o. male with a history of OHT who presents with the followin year post heart transplant visit. Denies cardiovascular complaints. Has had 3 syncopal episodes in the last 18 months after having strong hiccups then dizziness. Relates this to eating and then getting the hiccups. Seen in ER locally who suspected vagal response leading to syncope. Endorses some positional dizziness. Took balance therapy classes. Denies fevers, chills. January: 1 new BCC and 1 new SCC. Uses CPAP regularly. Transplant Info: DOT: 06/04/15 DSA: 05/17/21: 0% CMV Donor: POS CMV Recipient: POS Home Vital Signs: Home BP: 103-125/69-80 Home HR: 84-102 Immunosuppression: Tacro: 1 mg BID Last taken: 9pm last night MMF: 250 mg BID Fasting: Yes Outpatient Encounter Medications as of 05/15/2022 Medication Sig Dispense Refill allopurinol 100 MG tablet Take 1 tablet by mouth daily. 30 tablet 1 aspirin 81 MG Tab take 1 tablet by mouth daily. 30 tablet 3 calcium citrate-vitamin D 315-250 MG-UNIT Tab take 1 tablet by mouth 2 times daily.. 60 tablet 12 CUSTOM MEDICATION Please obtain chem 6 and tacrolimus trough on 10/23/21 and fax to attn: Lesly Segal. Fax#: [phone] 1 Each 0 cyanocobalamin 100 MCG Tab take 100 mcg by mouth daily. losartan 50 MG tablet Take 1 tablet by mouth daily. 90 tablet 3 magnesium oxide 400 MG Tab take 1 tablet by mouth daily.. 30 tablet 11 melatonin 3 MG Tab tablet Take 2 tablets by mouth at bedtime. 1 tablet 0 Multiple Vitamin (MULTIVITAMIN) Cap take 1 capsule by mouth daily. 30 capsule 12 Mycophenolate mofetil (CELLCEPT) 250 MG capsule Take 1 capsule by mouth 2 times daily. 60 capsule 11 Pravastatin 40 MG tablet TAKE 1 TABLET BY MOUTH EVERYDAY AT BEDTIME 90 tablet 3 Tacrolimus (PROGRAF) 0.5 MG capsule Take 2 capsules by mouth 2 times daily. 120 capsule 11 [DISCONTINUED] pravastatin 40 MG tablet Take 1 tablet by mouth at bedtime. 90 tablet 3 [DISCONTINUED] Tacrolimus (PROGRAF) 0.5 MG capsule Take 2 capsules by mouth 2 times daily. 120 capsule 11 Facility-Administered Encounter Medications as of 05/15/2022 Medication Dose Route Frequency Provider Last Rate Last Admin [COMPLETED] Perflutren Lipid Microsphere (DEFINITY) 1.5 mL in Normal saline flush 0.9% 8.5 mL 10 mLIntravenous Once Rashel Bianchi, DO 2 mL at 05/15/22 0920 REVIEW OF SYSTEMS A complete review of systems was performed and positive for symptoms mentioned in the history of present illness. The remainder of system review was negative. Objective: Vitals: 05/14/23 0958 BP: 132/67 Pulse: 89 Resp: 16 Temp: 95.5 degrees F (35.3 degrees C) TempSrc: Oral SpO2: 95% Weight: 115.8 kg (255 lb 4.8 oz) Height: 1.778 m (5' 10) Wt Readings from Last 3 Encounters: 05/14/23 115.8 kg (255 lb 4.8 oz) 05/14/23 113.9 kg (251 lb 1.7 oz) 05/15/22 111.6 kg (246 lb) * Jeremy Valle MD - 05/14/2023 10:00 AM EST Subjective [facility] Cardiac Transplant Clinic Progress Note Subjective: Sumit Draper is a 78 y.o. male with a history of OHT who presents with the followin year post heart transplant visit. Denies cardiovascular complaints. Has had 3 syncopal episodes in the last 18 months after having strong hiccups then dizziness. Relates this to eating and then getting the hiccups. Seen in ER locally who suspected vagal response leading to syncope. Endorses some positional dizziness. Took balance therapy classes. Denies fevers, chills. October: 1 new BCC and 1 new SCC. Uses CPAP regularly. Transplant Info: DOT: 06/04/15 DSA: 05/17/21: 0% CMV Donor: POS CMV Recipient: POS Home Vital Signs: Home BP: 103-125/69-80 Home HR: 84-102 Immunosuppression: Tacro: 1 mg BID Last taken: 9pm last night MMF: 250 mg BID Fasting: Yes Outpatient Encounter Medications as of 05/15/2022 Medication Sig Dispense Refill allopurinol 100 MG tablet Take 1 tablet by mouth daily. 30 tablet 1 aspirin 81 MG Tab take 1 tablet by mouth daily. 30 tablet 3 calcium citrate-vitamin D 315-250 MG-UNIT Tab take 1 tablet by mouth 2 times daily.. 60 tablet 12 CUSTOM MEDICATION Please obtain chem 6 and tacrolimus trough on 10/23/21 and fax to attn: Lesly Braxtonvis. Fax#: [phone] 1 Each 0 cyanocobalamin 100 MCG Tab take 100 mcg by mouth daily. losartan 50 MG tablet Take 1 tablet by mouth daily. 90 tablet 3 magnesium oxide 400 MG Tab take 1 tablet by mouth daily.. 30 tablet 11 melatonin 3 MG Tab tablet Take 2 tablets by mouth at bedtime. 1 tablet 0 Multiple Vitamin (MULTIVITAMIN) Cap take 1 capsule by mouth daily. 30 capsule 12 Mycophenolate mofetil (CELLCEPT) 250 MG capsule Take 1 capsule by mouth 2 times daily. 60 capsule 11 Pravastatin 40 MG tablet TAKE 1 TABLET BY MOUTH EVERYDAY AT BEDTIME 90 tablet 3 Tacrolimus (PROGRAF) 0.5 MG capsule Take 2 capsules by mouth 2 times daily. 120 capsule 11 [DISCONTINUED] pravastatin 40 MG tablet Take 1 tablet by mouth at bedtime. 90 tablet 3 [DISCONTINUED] Tacrolimus (PROGRAF) 0.5 MG capsule Take 2 capsules by mouth 2 times daily. 120 capsule 11 Facility-Administered Encounter Medications as of 05/15/2022 Medication Dose Route Frequency Provider Last Rate Last Admin [COMPLETED] Perflutren Lipid Microsphere (DEFINITY) 1.5 mL in Normal saline flush 0.9% 8.5 mL 10 mLIntravenous Once Rashel Bianchi, DO 2 mL at 05/15/22 0920 REVIEW OF SYSTEMS A complete review of systems was performed and positive for symptoms mentioned in the history of present illness. The remainder of system review was negative. Objective: Vitals: 05/14/23 0958 BP: 132/67 Pulse: 89 Resp: 16 Temp: 95.5 degrees F (35.3 degrees C) TempSrc: Oral SpO2: 95% Weight: 115.8 kg (255 lb 4.8 oz) Height: 1.778 m (5' 10) Wt Readings from Last 3 Encounters: 05/14/23 115.8 kg (255 lb 4.8 oz) 05/14/23 113.9 kg (251 lb 1.7 oz) 05/15/22 111.6 kg (246 lb) HPI: Had a syncopal episode 3 months ago in the setting of hiccups. Has had 2 other episodes like this in the past couple of years. Went to ED, was thought to be vagal mediated. Having some balance issues and some dizziness when he stands up too quickly. Denies exertional symptoms. Denies other heart failure symptoms. Sees derm regularly, had an excision of a skin lesion a few months ago, seeing them again in July. Uses his CPAP regularly. General: Patient is alert and oriented x3, appears to be in no acute distress. Heent: Head is normocephalic, eyes appear equal, round, reactive to light and accommodation, mucousmembranes are moist, nose is clear. Neck: is supple, no evidence of bruits, JVD: < 6 cm of H2O. No thyromegaly or masses Chest: normal habitus. Lungs: Clear bilaterally. Normal chest excursion, breath sounds are equal. Abdomen: soft, no tenderness or distention. Normal bowel sounds. CV: regular rate and rhythm, S1 and S2 are of normal intensity. No S3 or S4. No murmurs Extremities: edema: trace. No clubbing or cyanosis detected Skin: normal texture without significant lesions. No subcutaneous nodules. Lymph: no adenopathy in the neck and extremities Neuro: no focal sensory or motor deficits Psychiatric: Alert and oriented times 3. No delusions or hallucinations. Affect is appropriate. No psychomotor slowing or agitation. Eye contact is appropriate. Lab Results Component Value Date WBC 5.63 05/14/2023 HGB 15.6 05/14/2023 HCT 48.1 05/14/2023 PLATELET 180 05/14/2023 MCV 89.6 05/14/2023 Lab Results Component Value Date CHOLESTEROL 118 05/14/2023 TRIG 109 05/14/2023 HDL 36 (L) 05/14/2023 LDLCALC 60 05/14/2023 Lab Results Component Value Date SODIUM 143 05/14/2023 POTASSIUM 4.7 05/14/2023 CHLORIDE 106 05/14/2023 CO2 29 05/14/2023 BUN 23 05/14/2023 CREATSERUM 1.07 05/14/2023 Lab Results Component Value Date/Time TACROLIMUS 4.3 05/14/2023 10:40 AM TACROLIMUS 5.0 05/15/2022 09:45 AM TACROLIMUS >60.0 (H) 10/12/2021 07:49 AM TACROLIMUS 5.1 05/17/2021 11:00 AM TACROLIMUS 5.0 05/25/2020 11:12 AM TACROLIMUS 6.5 06/11/2018 09:51 AM TACROLIMUS 6.4 12/03/2017 11:55 AM TACROLIMUS 6.9 06/05/2017 09:57 AM TACROLIMUS 5.2 03/13/2017 09:56 AM TACROLIMUS 10.4 11/21/2016 08:39 AM 06/10/2019 8:08 AM 11/25/2018 11:31 AM 06/05/2017 12:58 PM 06/05/2017 12:46 PM 06/04/2016 8:37 AM 05/23/2016 11:07 AM 04/25/2016 9:42 AM Cath and Echo Scores Date Heart Cath Performed 11/25/2018 06/05/2017 06/04/2016 04/25/2016 BIOPSY GRADE 1R 0R 0R 0R RA Mean 5 mmHg 4 mmHg 6 mmHg 5 mmHg 8 mmHg PA Systolic 21 mmHg 21 mmHg 21 mmHg 22 mmHg 20 mmHg PA Diastolic 7 mmHg 5 mmHg 10 mmHg 9 mmHg 9 mmHg PA Mean 14 mmHg 12 mmHg 15 mmHg 15 mmHg 14 mmHg PCW Mean 6 mmHg 6 mmHg 6 mmHg 10 mmHg 8 mmHg Mi C.O. 5.26 L/min 7.33 L/min 7.97 L/min 5.29 L/min 4.97 L/min Mi C.I. 2.3 L/min/m2 3.19 L/min/m2 3.47 L/min/m2 2.4 L/min/m2 2.24 L/min/m2 TDCO 4.97 L/min 5.2 L/min TDCI 2.17 L/min/m2 2.26 L/min/m2 Date Echo Performed 06/05/2017 05/23/2016 Left Ventricular Ejection Fraction? 55 % 55 % Right Ventricle Details Mild dilation, dysfunction normal Mitral Valve Normal Tricuspid Valve Normal Mild TR Echo Notes LVEDD 4.0 cm Allomap Scores ALLOMAP, MANUAL ENTER 11/01/2015 12:00 PM NR 12/01/2015 12:00 PM 28 03/28/2016 12:00 PM 36 05/23/2016 12:00 AM 35 Transplant Course / Past medical & Surgical History: 1. 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 Dan) CMV D+/R+ ATG induction Ischemic time 2:02 [facility] [place] Increased risk donor - will need follow up screening Reintubated 06/06 due to bradycardia and aspiration concern. Extubated next day. 2. Cardiac rejection: none to date 3. Immunosupression - prednisone stopped 11/2015. 4. 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 Basal cell carcinoma s/p MOHS 12/2015--MMF reduced to 750 BID 6. 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 Stable graft function and is feeling well. Last Echo (04/17/23): LVEF 50-55%, low-normal RV function, no valvular disease, RVSP 25, stable mmHg. Last Ischemic workup (05/14/23): Cath - mild luminal irregularities, LVEDP 21 Last Alloscreen (05/14/23): No DSA. Immunosuppression regimen: Continue tacrolimus 1 mg BID (trough today 4.3; goal 4-6) and MMF 250 BID (lower dose due to recurrent URI and skin cancer). Anti-infectives: No infectious prophylaxis Adjunctive Therapy: Continue ASA, Ca/Vit D, MVI, MgOxide 400 mg every day. Renal function: Cr remains stable, baseline 1.1-1.2. Continue BP control and lower tacrolimus goal.Admission for [facility] 11/03 after paxlovid resulted in high tacrolimus level, responded to IVF. Review of labs with mild Tbili elevation (0.3) - intermittently mildly elevated. Rest of LFTs normal including albumin, AST/ALT, alkphos, plt. 2.) Hypertension: Blood pressure is slightly above goal here, but at goal at home. - Continue losartan 50 mg qd. 3.) Hyperlipidemia: Good lipid control. Low HDL but LDL, TG at goal. -Continue pravastatin 40 mg qhs. Lab Results Component Value Date CHOLESTEROL 118 05/14/2023 TRIG 109 05/14/2023 HDL 36 (L) 05/14/2023 LDLCALC 60 05/14/2023 4.) Skin cancer: Lower immunosuppression doses/levels as above. Continue routine dermatology followup. 5.) Osteopenia: Continue Ca/Vit D supplements. 6.) Spinal stenosis and leg pain - Following in spine clinic 7.) Syncope: History appears to be vagal but unusual to develop vasovagal syncope in 70's. Will order MCT to ensure no evidence of AV block or tachyarrhythmias 8.) Elevated LVEDP: 21 on cath today but LV systolic pressure at time of measurement was 147 - maybe blood pressure related. JVP not elevated on exam. For now, CTM. Will ask him to monitor BP log at home and send log in a couple of weeks. If BP elevated, will consider hctz or chlorthalidone which can help with mild diuresis and blood pressure control. 9.) Health Maintenance: Encouraged to follow-up regularly with his PCP so that health maintenance issues are appropriately addressed. 10.) Disposition: he will return to clinic per our routine post-transplant schedule. Thank you for allowing me to participate in the care of this pleasant patient. Please do not hesitate to contact me if there are any further questions. Plan for echo next year and coronary angiogram in 2025 Sincerely, Jeremy Valle MD Advanced Heart Failure and Cardiac Transplant Program [facility] History of Present illness Narrative* Cecilia Chase - 05/13/2023 1:51 PM EST [facility]: Call Information: Date and Time of Contact: 05/13/2023 1:53 PM Method of Contact: By Phone Contact Type: Prescriptions Contactor: [facility] Contactee: Patient Shipping/Pickup: Medicare B Refill?: Yes Number of Med B Medications: 2 Med B Name: Mycophenolate 250 mg caps Days Supply Remainin Supply Exhausted On: 05/21/2023 Med B Name: Tacrolimus 0.5 mg caps Days Supply Remainin Supply Exhausted On: 05/21/2023 Medication Name: Mycophenolate 250 mg caps, Tacrolimus 0.5 mg caps Delivery Method: Pickup Delivery Location: Pharmacy Signature Required: Yes Receive/Pickup Date: 05/14/2023 Shipping Address: [facility] [facility] SIG REQ - MED B Contact Info: Specialty ([place]) [phone] [facility] [phone] [facility] [phone] [place] [phone] Bedside Delivery ([facility]) [phone] documented in this [facility]28[facility] History of Present illness Narrative* Janie Taylor - 04/11/2023 9:50 AM EST [facility]: Call Information: Date and Time of Contact: 04/11/2023 9:51 AM Method of Contact: By Phone Contact Type: Prescriptions Contactor: [facility] Contactee: Patient Shipping/Pickup: Medicare B Refill?: Yes Number of Med B Medications: 2 Med B Name: Tacrolimus Days Supply Remainin Supply Exhausted On: 04/14/2023 Med B Name: Mycophenolate Days Supply Remainin Supply Exhausted On: 04/14/2023 Medication Name: Mycophenolate tacrolimus Delivery Method: Ship Delivery Location: Home Signature Required: Yes Mailing/Pickup Date: 04/17/2023 Shipping Address: [address] [facility] Contact Info: Specialty ([place]) [phone] [facility] [phone] [facility] [phone] [place] [phone] Bedside Delivery ([facility]) [phone] * Yoav Ya - 04/11/2023 9:50 AM EST 1.3.24 Pt aware of adjusted copay. documented in this [facility]28-[facility] History of Present illness Narrative* Philly Pereira - 03/12/2023 11:35 AM EST [facility]: Call Information: Date and Time of Contact: 03/12/2023 11:35 AM Method of Contact: By Phone Contact Type: Prescriptions Contactor: [facility] Contactee: Patient Shipping/Pickup: Medicare B Refill?: Yes Number of Med B Medications: 2 Med B Name: Mycophenoalte 250mg Days Supply Remainin Supply Exhausted On: 03/22/2023 Med B Name: Tacrolimus 0.5mg Days Supply Remainin Supply Exhausted On: 03/22/2023 Medication Name: Myco 250mg and Tacro 0.5mg Delivery Method: Air Delivery Location: Home Signature Required: Yes Mailing/Pickup Date: 03/15/2023 Shipping Address: [address] [facility] Contact Info: Specialty ([place]) [phone] [place] [phone] [facility] [phone] [place] [phone] Bedside Delivery ([facility]) [phone] documented in this [facility]Day[facility] Nurse Note* Nursing Notes - Brain Franklin RN - 02/07/2023 10:11 AM EDT PREPARING FOR YOUR ELDERLY SITTER PROCEDURE Your catheterization is schedule on 05/14 at: [facility] at the [facility] located at [address] [place] [address]. You are to arrive at [place] registration on the 1st floor at time Transplant Team will notify you of arrival time. BE SURE TO REGISTER FOR CLINIC VISIT, ECHO (IF APPLICABLE), AND CATH. You may use activities aide parking ($10) or park in the [facility] just past the [place] ($3). There is a walkway from the 2nd floor of the garage into the [facility]. You are to have nothing to eat after MIDNIGHT. You may drink WATER up to time you arrive.3 HOLD ALL medications until after clinic visit. Expect to be at the hospital 8+ hrs. Bring an up to date list of all medications with you to procedure. If you require CPAP bring it with you. If you have a contrast dye/iodine allergy or if you are on Coumadin, apixiban (Eliquis), rivaroxaban (Xarelto), or dabigatran (Pradaxa) and it was NOT addressed during scheduling, please call NOW to notify the lab ([phone]). Continue asprin, Plavix (clopidogrel), Effient (prasugrel), and Brilinta (ticagrelor). You will receive sedation during your procedure and will not be permitted to drive for 24 hrs. You will need a friend or family member to accompany you home (a bus is not acceptable). Failure to havea responsible person on discharge will result in cancellation of your procedure. Your labs will be drawn during clinic visit. Click the link below to be directed to a video which will explain the catheterization and outpatient process: [email or web address] Please be aware, other departments sometimes advise our patients they will receive a reminder call from the powerhouse laborer prior to their procedure. We do not provide reminder calls. Please pedro your calendar with your procedure date, and call with any questions [phone]. Thank you, MERCEDES De La Paz P[employer] Sawyer Via PHONE, MYCHART [facility]09-25-2023 History of Present illness Narrative* Janie Taylor - 01/07/2023 12:33 PM EDT [facility]: Call Information: Date and Time of Contact: 01/07/2023 12:38 PM Method of Contact: By Phone Contact Type: Prescriptions Contactor: [facility] OP Contactee: Patient Shipping/Pickup: Medicare B Refill?: Yes Number of Med B Medications: 2 Med B Name: TACROLIMUS 0.5 MG Days Supply Remainin Supply Exhausted On: 01/21/2023 Med B Name: MYCOPHENOLATE MOF 250 MG Days Supply Remainin Supply Exhausted On: 01/21/2023 Medication Name: TACROLIMUS 0.5 MG MYCOPHENOLATE MOF 250 MG Delivery Method: Air Delivery Location: Home Signature Required: Yes Mailing/Pickup Date: 01/15/2023 Shipping Address: [address] [place] [address] Contact Info: Specialty ([place]) [phone] [facility] [phone] [facility] [phone] [place] [phone] Bedside Delivery ([facility]) [phone] documented in this encounterDayton [facility]06-[facility]-2023 History of Present illness Narrative* Philly Pereira - 09/17/2022 4:10 PM EDT [facility]: Call Information: Date and Time of Contact: 09/17/2022 4:10 PM Method of Contact: By Phone Contact Type: Prescriptions Contactor: [facility] OP Contactee: Patient Shipping/Pickup: Medicare B Refill?: Yes Number of Med B Medications: 2 Med B Name: Tacrolimus 0.5mg Days Supply Remainin Supply Exhausted On: 09/24/2022 Med B Name: Mycophenolate 250mg Days Supply Remainin Supply Exhausted On: 09/24/2022 Medication Name: Mycophenolate 250mg, Tacrolimus 0.5mg Delivery Method: Air Delivery Location: Home Signature Required: Yes Mailing/Pickup Date: 09/19/2022 Shipping Address: [address] [place] [address] Contact Info: Specialty (Jenifer) [phone] [facility] [phone] [facility] [phone] [place] [phone] Bedside Delivery ([facility]) [phone] * Brianna Peralta [facility] - 09/17/2022 4:10 PM EDT [facility] OUTREACH ADVANC[facility]: Call Information: Date and Time of Contact: 09/17/2022 4:19 PM Pre-Verification/Specialty Assessment/Disease Mgt: Medication(s) Name: Tacrolimus and mycophenolate Lab Review: CBC w/diff, Drug level and Chem 6 (with GFR) Assessment type (Select either Initial or Re-Assessment): Re-Assessment Specialty Assessment Review: Name, Age, Sex Demographics Therapeutic Goals Health Problems/Diagnoses/Comorbidities Pertinent Medical History Adverse Effects with Enrolled (and related) Medications Recent Labs Medications (dose, route, frequency, and interactions) Allergies Dietary Requirements Patient Comprehension Appropriate Use Adherence Specialty Medication Management Mental Reasoning, Judgement, Orientation, and Memory Financial Resources Usual Environment Functional Limitations Emergency Contact(s) Person(s) responsible for care Health Problems/Diagnoses Immunizations Care Plan Activities Completed: Updated Assessment Findings: Aftercare heart transplantation / complications of transplanted heart with immunosupressed and High risk medication use and monitoring: ? he is doing well from transplant on 06/04/2015. Stable graft function and is feeling well. ? Last Echo (05/15/22): LVEF 54%, normal RV function, no valvular disease, RVSP 21 mmHg. Prior 05/2021: LVEF 55%, normal RV. ? Last Ischemic workup (05/15/22): DSE - no ischemia, no CP/ECG changes. Prior LHC (05/2021): No CAD/CAV. LVEDP 16 mmHg. ? Last Alloscreen (05/17/21): No DSA. 05/15/22: pending ? Immunosuppression regimen: Continue tacrolimus 1 mg BID (trough today 5.0; goal 4-6) and MMF 250 BID (lower dose due to recurrent URI and skin cancer). ? Anti-infectives: No infectious prophylaxis ? Adjunctive Therapy: Continue ASA, Ca/Vit D, MVI, MgOxide 400 mg every day. ? Renal function: Cr remains stable, baseline 1.1-1.2. Continue BP control and lower tacrolimus goal. Admission for NETTE 11/03 after paxlovid resulted in high tacrolimus level, responded to IVF. ? Review of labs with mild Tbili elevation - intermittently mildly elevated. Rest of LFTs normal including albumin, AST/ALT, alkphos, plt. Patient doing well with no issues. Monitoring Parameter Review: Within normal limits Contact Info: Specialty (Jenifer) [phone] [place] [phone] [facility] [phone] [place] [phone] Bedside Delivery ([facility]) [phone] [facility] Discharge summary Author Geneva Pratt [facility] July 31, 2022 9:02am Note Date/Time July 30, 2022 2:4 8pm [facility] Physical Therapy [facility] [address] [place] [address] / REHABILITATION SERVICES DISCHARGE SUMMARY MR#: [id number] Acct: [id number] Name: SUMIT DRAPER Rep #: [id number] : 1945 77 From: Geneva Taylor Referring Dr.: Dr. Leoncio Acevedo DO Status: REG RCR Insurance: MEDICARE PART A B [facility] It has been my pleasure to treat SUMIT DRAPER referred by Dr. Leoncio Acevedo DO, with the diagnosis of Balance Problems for a total of 10 visit(s). Discharge Date: 07/30/22 Please see the following information for a summary of their discharge status. Subjective: Pt feels that there has been some improvement. He reports that at times he may have dizzy with rolling over or turning his head. As far as how heis improving. He feels that he is doing the exercises with less veering and swaying. R knee pain (arthritis) Pain Intensity (Out of 10): 2 % Improvement: 50 Objective/Function: FGA 22. CATSIB 120. Walks 90+ feet with EO and CGA and no veering. VOR: head and eyes together and smooth pursuit X 60 seconds with no dizziness and CGA Goal 1:: I HEP Goal Progress: Goal Met Goal 2:: Increase balance by increase FGA score (score at eval was 13) Goal Progress: Goal Met Goal 3:: Increase balance by increase CATSIB score (score was 90 at eval) Goal Progress: Goal Met Goal 4:: Be able to walk with horizontal head turns without veering or dizzines (pool door tp alan phil) Goal Progress: Goal Met Goal 5:: Be able to complete standing smooth pursuit and head and eye movements together for 1 min without dizziness or LOB Goal Progress: Progressing Goal 6:: Be able to walk 90 feet without veering Goal Progress: Goal Met Plan: DC PT to HEP Discharge Comments: DC PT to HEP If there are questions or concerns regarding this patient's physical therapy, please feel free to call me at [phone]. Thank you for the referral of thispatient. Sincerely, MOHSEN Oropeza Balance/Gait/Functional tests - Balance/Special Test Scores Functional Gait Assessment Score: 22 % Disability: 26.6700 CATSIB Score (Max score 120 seconds): 120 Lower Extremity Functional Score: 54 <Electronically signed by Geneva Pratt MPT> 07/31/22 0902 CC: Dr. Leoncio Acevedo, DO ~ Signed [facility] Work Phone: 1(675) 777-572604-11-2023 History of Present illness Narrative* Najma Ledesma - 07/24/2022 1:39 PM EDT [facility] OUTREACH [facility]: Call Information: Date and Time of Contact: 07/24/2022 1:39 PM Method of Contact: By Phone Contact Type: Prescriptions Contactor: [facility] OP Contactee: Patient Shipping/Pickup: Medicare B Refill?: Yes Number of Med B Medications: 2 Med B Name: Mycophenolate Days Supply Remainin Supply Exhausted On: 08/01/2022 Med B Name: Tacrolimus Days Supply Remainin Supply Exhausted On: 08/01/2022 Delivery Method: Air Delivery Location: Home Signature Required: Yes Mailing/Pickup Date: 07/27/2022 Shipping Address: [address] [place] [address] Contact Info: Specialty ([place]) [phone] [place] [phone] [facility] [phone] [place] [phone] Bedside Delivery ([facility]) [phone] documented in this [facility]01-31-2023 History of Present illness Narrative* Juma Celestin MD - 05/15/2022 11:00 AM EST Images from the original note were not included. [facility] Cardiac Transplant Clinic Progress Note Subjective: Sumit Draper is a 77 y.o. male with a history of OHT who presents with the followin year post heart transplant visit. Denies cardiovascular complaints. Goes to [employer] 5 times/week. Follows with dermatology locally: Hx of basal and SCC. Appetite good. Denies n/v/d. Denies fevers. Had COVID in March 2021. Received mAB. Hospitalization in September 2021 for NETTE after taking Paxlovid that was prescribed locally. Refuses COVID vaccine. Feels like he is more wobbly since the September hospitalization Transplant Info: DOT: 06/04/15 DSA: 05/17/21: 0% CMV Donor: POS CMV Recipient: POS Home Vital Signs: Home BP: 110-125/77-84 Home HR: 84-101 Immunosuppression: Tacro: 1 mg BID Last taken: 9 pm last night MMF: 250 mg BID Fasting: Yes Outpatient Encounter Medications as of 05/15/2022 Medication Sig Dispense Refill allopurinol 100 MG tablet Take 1 tablet by mouth daily. 30 tablet 1 aspirin 81 MG Tab take 1 tablet by mouth daily. 30 tablet 3 calcium citrate-vitamin D 315-250 MG-UNIT Tab take 1 tablet by mouth 2 times daily.. 60 tablet 12 CUSTOM MEDICATION Please obtain chem 6 and tacrolimus trough on 10/23/21 and fax to attn: Lesly Segal. Fax#: [phone] 1 Each 0 cyanocobalamin 100 MCG Tab take 100 mcg by mouth daily. losartan 50 MG tablet Take 1 tablet by mouth daily. 90 tablet 3 magnesium oxide 400 MG Tab take 1 tablet by mouth daily.. 30 tablet 11 melatonin 3 MG Tab tablet Take 2 tablets by mouth at bedtime. 1 tablet 0 Multiple Vitamin (MULTIVITAMIN) Cap take 1 capsule by mouth daily. 30 capsule 12 Mycophenolate mofetil (CELLCEPT) 250 MG capsule Take 1 capsule by mouth 2 times daily. 60 capsule 11 Pravastatin 40 MG tablet TAKE 1 TABLET BY MOUTH EVERYDAY AT BEDTIME 90 tablet 3 Tacrolimus (PROGRAF) 0.5 MG capsule Take 2 capsules by mouth 2 times daily. 120 capsule 11 [DISCONTINUED] pravastatin 40 MG tablet Take 1 tablet by mouth at bedtime. 90 tablet 3 [DISCONTINUED] Tacrolimus (PROGRAF) 0.5 MG capsule Take 2 capsules by mouth 2 times daily. 120 capsule 11 Facility-Administered Encounter Medications as of 05/15/2022 Medication Dose Route Frequency Provider Last Rate Last Admin [COMPLETED] Perflutren Lipid Microsphere (DEFINITY) 1.5 mL in Normal saline flush 0.9% 8.5 mL 10 mLIntravenous Once Rashel Bianchi, DO 2 mL at 05/15/22 0920 REVIEW OF SYSTEMS A complete review of systems was performed and positive for symptoms mentioned in the history of present illness. The remainder of system review was negative. Objective: Vitals: 05/15/22 1144 BP: 125/77 Pulse: 95 Resp: 20 Temp: 97.2 degrees F (36.2 degrees C) TempSrc: Oral SpO2: 98% Weight: 113.9 kg (251 lb 3.2 oz) Height: 1.778 m (5' 10) Wt Readings from Last 3 Encounters: 10/17/21 114.6 kg (252 lb 11.2 oz) 05/17/21 108.9 kg (240 lb) 05/17/21 112.5 kg (248 lb) General: Patient is alert and oriented x3, appears to be in no acute distress. Heent: Head is normocephalic, eyes appear equal, round, reactive to light and accommodation, mucousmembranes are moist, nose is clear. Neck: is supple, no evidence of bruits, JVD: < 6 cm of H2O. No thyromegaly or masses Chest: normal habitus. Lungs: Clear bilaterally. Normal chest excursion, breath sounds are equal. Abdomen: soft, no tenderness or distention. Normal bowel sounds. CV: regular rate and rhythm, S1 and S2 are of normal intensity. No S3 or S4. No murmurs Extremities: edema: trace. No clubbing or cyanosis detected Skin: normal texture without significant lesions. No subcutaneous nodules. Lymph: no adenopathy in the neck and extremities Neuro: no focal sensory or motor deficits Psychiatric: Alert and oriented times 3. No delusions or hallucinations. Affect is appropriate. No psychomotor slowing or agitation. Eye contact is appropriate. Lab Results Component Value Date WBC 4.74 05/15/2022 HGB 15.5 05/15/2022 HCT 46.4 05/15/2022 PLATELET 161 05/15/2022 MCV 86.9 05/15/2022 Lab Results Component Value Date CHOLESTEROL 101 05/15/2022 TRIG 101 05/15/2022 HDL 32 (L) 05/15/2022 LDLCALC 49 05/15/2022 Lab Results Component Value Date SODIUM 142 05/15/2022 POTASSIUM 4.4 05/15/2022 CHLORIDE 107 05/15/2022 CO2 28 05/15/2022 BUN 24 05/15/2022 CREATSERUM 0.99 05/15/2022 Lab Results Component Value Date/Time TACROLIMUS 5.0 05/15/2022 09:45 AM TACROLIMUS >60.0 (H) 10/12/2021 07:49 AM TACROLIMUS 5.1 05/17/2021 11:00 AM TACROLIMUS 5.0 05/25/2020 11:12 AM TACROLIMUS 5.0 06/10/2019 08:28 AM TACROLIMUS 6.5 06/11/2018 09:51 AM TACROLIMUS 6.4 12/03/2017 11:55 AM TACROLIMUS 6.9 06/05/2017 09:57 AM TACROLIMUS 5.2 03/13/2017 09:56 AM TACROLIMUS 10.4 11/21/2016 08:39 AM 06/10/2019 11/25/2018 06/05/2017 06/04/2016 05/23/2016 04/25/2016 03/01/2016 Cath and Echo Scores Date Heart Cath Performed 11/25/2018 06/05/2017 06/04/2016 04/25/2016 02/29/2016 BIOPSY GRADE 1R 0R 0R 0R 1R RA Mean 5 mmHg 4 mmHg 6 mmHg 5 mmHg 8 mmHg PA Systolic 21 mmHg 21 mmHg 21 mmHg 22 mmHg 20 mmHg PA Diastolic 7 mmHg 5 mmHg 10 mmHg 9 mmHg 9 mmHg PA Mean 14 mmHg 12 mmHg 15 mmHg 15 mmHg 14 mmHg PCW Mean 6 mmHg 6 mmHg 6 mmHg 10 mmHg 8 mmHg Mi C.O. 5.26 L/min 7.33 L/min 7.97 L/min 5.29 L/min 4.97 L/min Mi C.I. 2.3 L/min/m2 3.19 L/min/m2 3.47 L/min/m2 2.4 L/min/m2 2.24 L/min/m2 TDCO 4.97 L/min 5.2 L/min TDCI 2.17 L/min/m2 2.26 L/min/m2 Left Heart Cath Result -- Mild luminal irregularities, LVEDP 12 mmHg Date Echo Performed 06/05/2017 05/23/2016 Left Ventricular Ejection Fraction? 55 % 55 % Right Ventricle Details Mild dilation, dysfunction normal Mitral Valve Normal Tricuspid Valve Normal Mild TR Echo Notes LVEDD 4.0 cm Multiple values from one day are sorted in reverse-chronological order Allomap Scores ALLOMAP, MANUAL ENTER 11/01/2015 NR 12/01/2015 28 03/28/2016 36 05/23/2016 35 Multiple values from one day are sorted in chronological order Transplant Course / Past medical & Surgical History: 1. 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 Dan) CMV D+/R+ ATG induction Ischemic time 2:02 [facility] Increased risk donor - will need follow up screening Reintubated 06/06 due to bradycardia and aspiration concern. Extubated next day. 2. Cardiac rejection: none to date 3. Immunosupression - prednisone stopped 11/2015. 4. 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 Basal cell carcinoma s/p MOHS 12/2015--MMF reduced to 750 BID 6. 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 Stable graft function and is feeling well. Last Echo (05/15/22): LVEF 54%, normal RV function, no valvular disease, RVSP 21 mmHg. Prior 05/2021:LVEF 55%, normal RV. Last Ischemic workup (05/15/22): DSE - no ischemia, no CP/ECG changes. Prior LHC (05/2021): No CAD/CAV. LVEDP 16 mmHg. Last Alloscreen (05/17/21): No DSA. 05/15/22: pending Immunosuppression regimen: Continue tacrolimus 1 mg BID (trough today 5.0; goal 4-6) and MMF 250 BID (lower dose due to recurrent URI and skin cancer). Anti-infectives: No infectious prophylaxis Adjunctive Therapy: Continue ASA, Ca/Vit D, MVI, MgOxide 400 mg every day. Renal function: Cr remains stable, baseline 1.1-1.2. Continue BP control and lower tacrolimus goal.Admission for NETTE 11/03 after paxlovid resulted in high tacrolimus level, responded to IVF. Review of labs with mild Tbili elevation - intermittently mildly elevated. Rest of LFTs normal including albumin, AST/ALT, alkphos, plt. 2.) Hypertension: Blood pressure is well controlled. They are concerned BP will become low as he tried to lose weight. Continue to monitor and we will adjust meds if hypotensive. - Continue losartan 50 mg qd. 3.) Hyperlipidemia: Good lipid control. Low HDL but LDL, TG at goal. -Continue pravastatin 40 mg qhs. Lab Results Component Value Date CHOLESTEROL 101 05/15/2022 TRIG 101 05/15/2022 HDL 32 (L) 05/15/2022 LDLCALC 49 05/15/2022 4.) Skin cancer: Lower immunosuppression doses/levels as above. Continue routine dermatology followup. 5.) Osteopenia: Continue Ca/Vit D supplements. 6.) Spinal stenosis and leg pain - Following in spine clinic 7.) Health Maintenance: Encouraged to follow-up regularly with his PCP so that health maintenance issues are appropriately addressed. 8.) Disposition: he will return to clinic per our routine post-transplant schedule. LHC at next annual exam in 2023. Thank you for allowing me to participate in the care of this pleasant patient. Please do not hesitate to contact me if there are any further questions. Sincerely, Juma Celestin MD Advanced Heart Failure and Cardiac Transplant Program [facility] * Mick Romero RN - 05/15/2022 11:00 AM EST [facility] Cardiac Transplant Clinic Progress Note Subjective: Sumit Draper is a 77 y.o. male with a history of OHT who presents with the followin year post heart transplant visit. Denies cardiovascular complaints. Goes to [employer] 5 times/week. Follows with dermatology locally: Hx of basal and SCC. Appetite good. Denies n/v/d. Denies fevers. Had COVID in March 2021. Received mAB. Hospitalization in September 2021 for NETTE after taking Paxlovid that was prescribed locally. Refuses COVID vaccine. Feels like he is more wobbly since the September hospitalization Transplant Info: DOT: 06/04/15 DSA: 05/17/21: 0% CMV Donor: POS CMV Recipient: POS Home Vital Signs: Home BP: 110-125/77-84 Home HR: 84-101 Immunosuppression: Tacro: 1 mg BID Last taken: 9 pm last night MMF: 250 mg BID Fasting: Yes Outpatient Encounter Medications as of 05/15/2022 Medication Sig Dispense Refill allopurinol 100 MG tablet Take 1 tablet by mouth daily. 30 tablet 1 aspirin 81 MG Tab take 1 tablet by mouth daily. 30 tablet 3 calcium citrate-vitamin D 315-250 MG-UNIT Tab take 1 tablet by mouth 2 times daily.. 60 tablet 12 CUSTOM MEDICATION Please obtain chem 6 and tacrolimus trough on 10/23/21 and fax to attn: Lesly Segal. Fax#: [phone] 1 Each 0 cyanocobalamin 100 MCG Tab take 100 mcg by mouth daily. losartan 50 MG tablet Take 1 tablet by mouth daily. 90 tablet 3 magnesium oxide 400 MG Tab take 1 tablet by mouth daily.. 30 tablet 11 melatonin 3 MG Tab tablet Take 2 tablets by mouth at bedtime. 1 tablet 0 Multiple Vitamin (MULTIVITAMIN) Cap take 1 capsule by mouth daily. 30 capsule 12 Mycophenolate mofetil (CELLCEPT) 250 MG capsule Take 1 capsule by mouth 2 times daily. 60 capsule 11 Pravastatin 40 MG tablet TAKE 1 TABLET BY MOUTH EVERYDAY AT BEDTIME 90 tablet 3 Tacrolimus (PROGRAF) 0.5 MG capsule Take 2 capsules by mouth 2 times daily. 120 capsule 11 [DISCONTINUED] pravastatin 40 MG tablet Take 1 tablet by mouth at bedtime. 90 tablet 3 [DISCONTINUED] Tacrolimus (PROGRAF) 0.5 MG capsule Take 2 capsules by mouth 2 times daily. 120 capsule 11 Facility-Administered Encounter Medications as of 05/15/2022 Medication Dose Route Frequency Provider Last Rate Last Admin [COMPLETED] Perflutren Lipid Microsphere (DEFINITY) 1.5 mL in Normal saline flush 0.9% 8.5 mL 10 mLIntravenous Once Rashel Bianchi, DO 2 mL at 05/15/22 0920 REVIEW OF SYSTEMS A complete review of systems was performed and positive for symptoms mentioned in the history of present illness. The remainder of system review was negative. Objective: Vitals: 05/15/22 1144 BP: 125/77 Pulse: 95 Resp: 20 Temp: 97.2 degrees F (36.2 degrees C) TempSrc: Oral SpO2: 98% Weight: 113.9 kg (251 lb 3.2 oz) Height: 1.778 m (5' 10) Wt Readings from Last 3 Encounters: 10/17/21 114.6 kg (252 lb 11.2 oz) 05/17/21 108.9 kg (240 lb) 05/17/21 112.5 kg (248 lb) [facility] History of Present illness Narrative* Thu Aponte - 03/27/2022 12:28 PM EST [facility] RX OUTREACH ADVANCED: Call Information: Date and Time of Contact: 03/27/2022 12:41 PM Method of Contact: By Phone Contact Type: Prescriptions Contactor: [facility] OP Contactee: Patient Shipping/Pickup: Medicare B Refill?: Yes Number of Med B Medications: 2 Med B Name: [id number] Days Supply Remainin Supply Exhausted On: 04/04/2022 Med B Name: Tacro0.5 Days Supply Remainin Supply Exhausted On: 04/04/2022 Medication Name: [id number] and tacro0.5 Delivery Method: Air Delivery Location: Home Signature Required: No Mailing/Pickup Date: 04/02/2022 ([place] and [place] be home 04/02. reuested 04/02 shipping ) Shipping Address: [address] [place] [address] Contact Info: Specialty ([place]) [phone] [place] [phone] [facility] [phone] [place] [phone] Bedside Delivery ([facility]) [phone] * Thu Aponte - 03/27/2022 12:28 PM EST [facility] RX OUTREACH ADVANCED: Call Information: Date and Time of Contact: 04/02/2022 12:07 PM Method of Contact: By Phone Contact Type: Prescriptions Contactor: [facility] OP Contactee: Patient Shipping/Pickup: Medicare B Refill?: Yes Number of Med B Medications: 2 Med B Name: Myco 250 Days Supply Remainin Supply Exhausted On: 04/03/2022 Med B Name: Tacro0.5 Days Supply Remainin Supply Exhausted On: 04/03/2022 Delivery Method: Air Delivery Location: Home Signature Required: Yes Mailing/Pickup Date: 04/02/2022 Shipping Address: [facility] [address] [facility] Contact Info: Specialty ([place]) [phone] [place] [phone] [facility] [phone] [place] [phone] Bedside Delivery ([facility]) [phone] documented in [facility] Hospital course Narrative* Kassidy Rocha MD - 10/17/2021 11:04 AM EDT Images from the original note were not included. Discharge Summary Name: Sumit Draper Age: 76 y.o. Birthday: 1945 Admit Date: 10/11/2021 Discharge Date: 10/17/2021 Discharge Unit: Admission Information Admitting Physician: Violette Lau MD Discharge Information Discharge Physician: Violette Lau MD Problem List Active Hospital Problems Diagnosis Acute kidney injury Resolved Hospital Problems No resolved problems to display. FURTHER RECOMMENDATIONS - Resume tacrolimus 1 mg BID, starting 10/17/21 in the evening - Resume losartan 50 mg mg daily starting 10/18/21 - Check tacrolimus trough level and chem 7 on 10/23/21 and fax to transplant health care law specialist DISCHARGE LETTER Dear Doctors, I recently had the opportunity to care of Mr. Sumit Draper during his recent hospital stay at [facility] As you may know, Sumit Draper is a 76 y.o. male with a history of OHT in 2016, HLD, HTN, osteopenia, spinal stenosis who presents with the following: The following describes his hospital course: Tacrolimus Toxicity Tacrolimus pre-drug trough level > 60 on 10/12/2021. Likely acutely increased in setting of taking Paxlovid and continuing tacrolimus 1 mg BID. Manifesting as NETTE (Cr 1.31 on admission), hyperkalemia (K5.1 on admission), headache, mild tremor, and nausea/emesis. Received 1L IV normal saline x2. Tacrolimus held throughout his hospital stay. Tacrolimus level 15.7, Cr 1.16, K 4.9 on discharge day (10/17/21). - Resume tacrolimus 1 mg BID, starting 10/17/21 in the evening - Check tacrolimus trough level and chem 7 within 1 week of discharge, and forward to transplant health care law specialist Non-Oliguric Acute Kidney Injury, resolved Likely related to tacrolimus toxicity, possible superimposed pre-renal etiology with dehydration 2/2 poor PO intake and nausea from recent COVID infection while on losartan. Cr 1.31 on admission frombaseline ~1. No subjective evidence of UTI, no CVA tenderness on exam. FeNa indicated pre-renal etiology. Received IV fluids as above. Home losartan 50 mg daily was held until renal function improved. Losartan 50 mg daily to be resumed on 10/18/21 Acute gout flare History of gout, not currently on any therapy (allopurinol discontinued in the past). Currently endorses left great toe pain. Uric acid level of 7.4 on 10/15/21. Started colchicine 0.6 mg bid on 10/15, transitioned to allopurinol 100 mg daily on 10/17/21 Headache, improved Likely related to tacrolimus toxicity. No focal neurologic deficits on physical exam. CT head from 10/13 showed no acute intracranial abnormality. Symptom management with prn Tylenol. IV fluids as above History of OHT 06/04/2015 He is overall doing well from transplant on 06/04/2015. Stable graft function per 05/17/2021 transplant note. Denies - Echo 05/17/2021: EF 55%. RVSP 21 mmHg. - LHC (today): No CAD/CAV. LVEDP 16 mmHg. - Immunosuppression regimen: tacrolimus 1 mg BID (goal 4-6) management as discussed above, MMF 250 BID continued (lower dose due to recurrent URI and skin cancer) - Anti-infectives: No infectious prophylaxis - Adjunctive Therapy: Continue aspirin, Ca/Vit D, MVI, Magnesium oxide outpatient HTN Home Losartan 50 mg daily held in setting of NTETE, to be resumed on 10/18/21 HLD Continued home Pravastatin 40 mg daily PHYSICAL EXAM AT TIME OF DISCHARGE Vitals: 10/17/21 1318 BP: 150/70 Pulse: 79 Resp: 16 Temp: 97.8 F (36.6 C) O2 Sat (%): [95 %-98 %] 96 % O2 Device: room air Physical Exam Constitutional: In no acute distress. Not diaphoretic. Appears stated age HEENT: Normocephalic, atraumatic. EOMI, PERRLA. No scleral icterus. Cardiovascular: RRR, normal S1 and S2, no murmurs. Radial pulses intact bilaterally. No pitting edema in lower extremities Pulmonary: No increased work of breathing. LCTAB. No crackles, rales, wheezes Abdominal: Abdomen is flat. Bowel sounds are normal. No tenderness on palpation Musculoskeletal: No tenderness on palpation. Left great toe wrapped. Neurological: Alert and oriented x3. No weakness. Mild bilateral hand tremor Skin: Warm and dry. No rash. Not jaundiced. Psychiatric: Mood and affect normal. Behavior normal. At the time of discharge the patient's mental status was alert and oriented x4. Upon discharge the patient's code status was Full Code Sincerely, Kassidy Rocha MD Internal Medicine Resident [facility] CONSULTS DURING ADMISSION IP CONSULT TO CARDIAC REHAB IMAGING/PROCEDURES/RESULTS CT HEAD WITHOUT CONTRAST Final Result IMPRESSION: No acute intracranial findings. CHEST PORTABLE Final Result IMPRESSION: 1. The overall appearance of the chest appears unchanged except for further loss of volume in the left base. This may be related to atelectasis associated with chronic scarring. 2. Stable left pleural thickening/fluid. Should you require further information or copies of results or reports please contact [employer] @ [phone] LABS AT TIME OF DISCHARGE Lab Results Component Value Date SODIUM 138 10/17/2021 POTASSIUM 4.9 10/17/2021 CHLORIDE 108 10/17/2021 CO2 21 10/17/2021 BUN 23 10/17/2021 CREATSERUM 1.16 10/17/2021 GLUCOSE 110 (H) 10/17/2021 Lab Results Component Value Date WBC 5.96 10/17/2021 HGB 12.1 (L) 10/17/2021 HCT 35.5 (L) 10/17/2021 PLATELET 211 10/17/2021 MCV 86.4 10/17/2021 Lab Results Component Value Date INR 1.1 10/11/2021 INR 1.2 (H) 06/27/2015 INR 1.2 (H) 06/26/2015 PT 14.3 (H) 10/11/2021 PT 15.0 (H) 06/27/2015 PT 14.7 (H) 06/26/2015 RESULTS/STUDIES PENDING AT DISCHARGE - None PATIENTS MEDICAL HOME AT DISCHARGE Leoncio Acevedo [id number] / [place] [id number] CURRENT OUTPATIENT MEDS Medication List for when you go home START taking these medications allopurinol 100 MG TABS Take 1 tablet by mouth daily. Commonly known as: ZYLOPRIM CUSTOM MEDICATION Please obtain chem 6 and tacrolimus trough on 10/23/21 and fax to attn: Lesly Segal. Fax#: [phone] CONTINUE taking these medications aspirin 81 MG TABS take 1 tablet by mouth daily. calcium citrate-vitamin D 315-250 MG-UNIT TABS take 1 tablet by mouth 2 times daily.. cyanocobalamin 100 MCG TABS take 100 mcg by mouth daily. Commonly known as: VITAMIN B12 losartan 50 MG TABS Take 1 tablet by mouth daily. Commonly known as: COZAAR Start taking on: October 18, 2021 magnesium oxide 400 MG TABS take 1 tablet by mouth daily.. Commonly known as: MAG-OX melatonin 3 MG TABS Take 2 tablets by mouth at bedtime. multivitamin CAPS take 1 capsule by mouth daily. mycophenolate mofetil 250 MG CAPS Take 1 capsule by mouth 2 times daily. Doctor's comments: Diagnosis Code: ICD 9:V42.1, ICD 10:Z94.1 - Heart transplant. Date of Transplant: 06/04/2015. Date of Transplant Encounter Discharge: 06/27/2015. Information Verified by: Tsering Estevez RN Commonly known as: CELLCEPT For diagnoses: Heart replaced by transplant pravastatin 40 MG TABS Take 1 tablet by mouth at bedtime. Commonly known as: PRAVACHOL tacrolimus 0.5 MG CAPS Take 2 capsules by mouth 2 times daily. Doctor's comments: Diagnosis Code: ICD 9:V42.1, ICD 10:Z94.1 - Heart transplant. Date of Transplant: 06/04/2015. Date of Transplant Encounter Discharge: 06/27/2015. Information Verified by: Jamar Romero RN Commonly known as: PROGRAF For diagnoses: Heart replaced by transplant FOLLOW UP Other [facility]- Pul[facility] [address] [facility] [id number] Follow up You have been referred to outpatient cardiac rehab, please call if you have any questions. Associated attestation - Violette Lau MD - 10/17/2021 4:08 PM EDT Attending Addendum: I saw and independently examined Mr.Howard Chasity Draper with the heart failure team on the discharge day. We reviewed his interval medical history, lab work and imaging data. We felt that the goals of the inpatient stay were met and he was ready for hospital discharge. The house staff note above includes a summary of the hospital course and discharge plan which I reviewed this and edited to reflect my own plan. Once Again, thank you for giving me the opportunity to participate in the care of Mr.Howard Chasity Draper and please do not hesitate to contact me for any further questions or concerns. Briefly, Mr. Draper is a very pleasant 76-year-old gentleman with history of orthotopic heart transplant 2015 who presented as a transfer from outside ED for evaluation of severe headache and concernof hyperkalemia and acute kidney injury on his labs. Most recently, patient reported symptoms of COVID starting on 10/02/21 with positive test on 10/04/21. He was prescribed Paxlovid x 5 days. During that time he noted a metallic taste in his mouth, diarrhea, myalgias, and frequent headaches that didnot respond to Tylenol. He had vertiginous symptoms when walking which as also new. He continued onhis tacrolimus while taking paxlovid as he was not instructed otherwise. Tacrolimus level on admission was severely elevated > 60. At that time we felt that his symptoms of headache, Nette I, and hyperkalemia were related to tacrolimus toxicity. Tacrolimus was held for a total 4 of days. He was monitored closely. His kidney function and potassium level were corrected and responded to fluid hydration and return to baseline on discharge. His tacrolimus level fell daily until it was 15 mg dL at time of discharge. At that time his headache was resolved completely and will resume him on his outpatient dose of tacrolimus 1 mg p.o. B.i.d.. The plan is to obtain a trough level in 1 week. During his hospital stay also he underwent CT scan of the brain due to severe headache and concern of breast syndrome. His CT of the brain was unremarkable. He was discharged in stable condition. He will need a follow-up trough tacrolimus level in 1 week and follow-up in the Heart Transplant Clinic as scheduled. Time spent in discharge instructions, coordination of care and counselin minutes. Sincerely, Violette Lau MD Professor of Internal Medicine Division of Cardiovascular Medicine Section of Heart Failure/Transplant Fax: [phone] [email or web address]* Plan of Care - Kain Stratton RN - 10/17/2021 12:27 AM EDT Problem: Patient Care Overview Goal: Plan of Care Review Outcome: Ongoing Goal: Individualization & Mutuality Outcome: Ongoing Goal: Discharge Needs Assessment Outcome: Ongoing Goal: Interdisciplinary Rounds/Family Conf Outcome: Ongoing [facility]07-05-2022 Miscellaneous Notes* Plan of Care - Kain Stratton RN - 10/17/2021 12:27 AM EDT Problem: Patient Care Overview Goal: Plan of Care Review Outcome: Ongoing Goal: Individualization & Mutuality Outcome: Ongoing Goal: Discharge Needs Assessment Outcome: Ongoing Goal: Interdisciplinary Rounds/Family Conf Outcome: Ongoing * Plan of Care - Kain Stratton RN - 10/16/2021 12:24 AM EDT Problem: Patient Care Overview Goal: Plan of Care Review Outcome: Ongoing Goal: Individualization & Mutuality Outcome: Ongoing Goal: Discharge Needs Assessment Outcome: Ongoing Goal: Interdisciplinary Rounds/Family Conf Outcome: Ongoing * Plan of Care - Kain Stratton RN - 10/14/2021 11:21 PM EDT Problem: Patient Care Overview Goal: Plan of Care Review Outcome: Ongoing Goal: Individualization & Mutuality Outcome: Ongoing Goal: Discharge Needs Assessment Outcome: Ongoing Goal: Interdisciplinary Rounds/Family Conf Outcome: Ongoing * Plan of Care - Kain Stratton RN - 10/13/2021 11:16 PM EDT Problem: Patient Care Overview Goal: Plan of Care Review Outcome: Ongoing Goal: Individualization & Mutuality Outcome: Ongoing Goal: Discharge Needs Assessment Outcome: Ongoing Goal: Interdisciplinary Rounds/Family Conf Outcome: Ongoing * Certification - Elton Huerta MD - 10/11/2021 3:25 PM EDT I certify that this patient requires inpatient services at this time. I anticipate the expected length of stay will include at least two midnights. Inpatient services are due to the following medicalconcerns history of heart transplant, COVID-19 infection, NETTE. Plans for post hospitalization care will be discharge to home. Elton Huerta MD Internal Medicine PGY2 [facility] History of Present illness Narrative* Kassidy Rocha MD - 10/16/2021 12:42 PM EDT CHF/ACS/HRT1 DAILY PROGRESS NOTE IDENTIFYING INFORMATION PATIENT: Sumit Draper ADMIT DATE: 10/11/2021 TIME OF EVALUATION: 10/16/2021 12:42 PM HOSPITAL STAY: LOS: 5 days SUBJECTIVE/INTERVAL HISTORY Sumit Draper's events from the last 12-24 hours were reviewed. Started colchicine for left great toe gout yesterday. No acute events overnight. 2/10 headache, 3/10 great toe pain this morning. Denies chest pain or shortness of breath. Cr 1.07, K 4.8 ASSESSMENT AND PLAN Sumit Draper is a 76 y.o. male with a history of OHT in 2016, HLD, HTN, osteopenia, spinal stenosis who presents with the following: Updates Today: - Continue to hold tacrolimus, check daily random tacrolimus - No IV fluids today, encourage oral hydration Tacrolimus Toxicity Tacrolimus pre-drug trough level > 60 on 10/12/2021. Likely acutely increased in setting of taking Paxlovid and continuing tac 1 mg BID. Manifesting as NETTE, headache, mild tremor, and nausea/emesis. - Repeat random tacrolimus level qam - Hold Tacrolimus, plan to resume once random tacrolimus level is < 10 - S/p 1L NS on 10/13 and 10/14 Non-Oliguric Acute Kidney Injury, resolved Likely related to tacrolimus toxicity, possible superimposed pre-renal etiology with dehydration 2/2 poor PO intake and nausea from recent COVID infection while on ARB. Serum creatinine 1.31 on admission from baseline ~1. No subjective evidence of UTI, no CVA tenderness on exam. FeNa indicates pre-renal etiology. - Urinalysis/urine culture negative for infection - IV fluids as above - Hold Losartan 50 mg daily, restart pending improvement in kidney function Acute gout flare History of gout, not currently on any therapy (allopurinol discontinued in the past). Currently endorses left great toe pain. Uric acid level of 7.4 on 10/15 - Started colchicine 0.6 mg bid on 10/15 Headache, improved Likely related to tacrolimus toxicity. He has a normal neurologic exam without focal abnormality. 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 Stable graft function per 05/17/2021 transplant note. Denies - Echo 05/17/2021: EF 55%. RVSP 21 mmHg. - LHC (today): No CAD/CAV. LVEDP 16 mmHg. - Immunosuppression regimen: Hold tacrolimus 1 mg BID (goal 4-6), continue MMF 250 BID (lower dose due to recurrent URI and skin cancer) - Anti-infectives: No infectious prophylaxis - Adjunctive Therapy: Continue ASA, Ca/Vit D, MVI, MgOx outpatient - Renal function: Cr elevated as above Thrombocytopenia Platelet count noted 141 on admission. Will continue to monitor with daily labs and continue treatment as above. Class II obesity Body mass index is 35.7 kg/m . on admission. Encourage diet/exercise. Chronic Medical Conditions: HTN: Hold home losartan 50 mg daily in setting of NETTE, can spot dose PO hydralazine if hypertensive HLD: Continue Pravastatin 40 mg daily Code: Full Code DVT ppx: subcutaneous heparin Diet: DIET HEART HEALTHY - 4 GM SODIUM Dispo: likely discharge to home This patient was discussed with Dr. Violette Lau MD during rounds Kassidy Rocha MD Internal Medicine Resident, PGY-3 [facility] MEDICATIONS SCHEDULED: aspirin chewable tablet 81 mg, 81 mg, QHS calcium citrate-vitamin D 315-250 MG-UNIT per tablet 1 tablet, 1 tablet, BID colchicine tablet 0.6 mg, 0.6 mg, BID heparin injection 5,000 Units, 5,000 Units, Q8H melatonin tablet 6 mg, 6 mg, QHS mycophenolate mofetil (CELLCEPT) capsule 250 mg, 250 mg, BID pravastatin (PRAVACHOL) tablet 40 mg, 40 mg, QHS [Held by provider] tacrolimus (PROGRAF) capsule 1 mg, 1 mg, BID FLUIDS/DRIPS: PRNs: acetaminophen, 650 mg, Q4H PRN magnesium oxide, 800 mg, As directed PRN Magnesium Sulfate IVPB, 4 g, As directed PRN ondansetron, 4 mg, Q6H PRN potassium chloride, 20 mEq, As directed PRN potassium chloride, 40-60 mEq, As directed PRN ALLERGIES: He has No Known Allergies. OBJECTIVE FINDINGS Vital Signs (24hrs): Temp: [97.8 F (36.6 C)-98.4 F (36.9 C)] 98.4 F (36.9 C) Pulse (Heart Rate): [70-85] 70 Resp Rate: [16-20] 16 BP: (121-164)/(66-90) 164/90 O2 Sat (%): [93 %-99 %] 97 % Weight: [114.2 kg (251 lb 11.2 oz)] 114.2 kg (251 lb 11.2 oz) Hemodynamic/Invasive Device Data (24 hrs): Pulmonary/Cardiac Hemodynamics Pulse (Heart Rate): 70 Neuro ICP/CPP Monitoring MAP (mmHg): (!) 120 mmHg Neuro ICP/CPP Monitoring 2 MAP (mmHg): (!) 120 mmHg Ventilation/Oxygen Therapy (24hrs): Oxygen Therapy O2 Sat (%): 97 % O2 Device: room air Lines/Drains/Airways/Wounds: Patient Lines/Drains/Airways Status Active Lines, Drains, Airways, & Wound Overview Name Placement date Placement time Site Days Peripheral IV Line - Single Lumen 10/12/21 1230 forearm, anterior, right 20 gauge;1 04/18 in length 10/12/21 1230 -- 4 Fluid Management (24hrs): -Intake/Output last 3 shifts: I/O last 3 completed shifts: In: 3150 [P.O.:3150] Out: 4850 [Urine:4850] Physical Examination: Physical Exam Vitals: 10/16/21 1030 BP: 164/90 Pulse: 70 Resp: 16 Temp: 98.4 F (36.9 C) Constitutional: In no acute distress. Not diaphoretic. Appears stated age HEENT: Normocephalic, atraumatic. EOMI, PERRLA. No scleral icterus. Cardiovascular: RRR, normal S1 and S2, no murmurs. Radial pulses intact bilaterally. No pitting edema in lower extremities Pulmonary: No increased work of breathing. LCTAB. No crackles, rales, wheezes Abdominal: Abdomen is flat. Bowel sounds are normal. No tenderness on palpation Musculoskeletal: No tenderness on palpation. Left great toe wrapped. Neurological: Alert and oriented x3. No weakness. Mild bilateral hand tremor Skin: Warm and dry. No rash. Not jaundiced. Psychiatric: Mood and affect normal. Behavior normal. DIAGNOSTIC RESULTS/PROCEDURES Labs-ABGs Labs-CBC WBC/Hgb/Hct/Plts: 6.31/12.0/36.2/180 (10/16 424) Labs-Chem 7([facility]) Bun/Creat/Cl/CO2/Glucose: 20/1.07/109/21/121 (10/16 424) Na/K+/Phos/Mg/Ca: 139/4.8/--/--/-- (10/16 9199) Labs-Coags Additional Labs Lab Results Component Value Date BNP 106 (H) 10/11/2021 BNP 2,782 (H) 12/10/2013 BNP 2,593 (H) 12/08/2013 BNP 2,484 (H) 11/20/2013 Lab Results Component Value Date TROP 0.01 11/16/2013 Lab Results Component Value Date CHOLESTEROL 105 10/12/2021 CHOLESTEROL 118 06/11/2018 TRIG 149 10/12/2021 TRIG 142 06/11/2018 HDL 32 (L) 10/12/2021 HDL 36 (L) 06/11/2018 Component Ref Range & Units 10/12/21 0749 Tacrolimus, Trough Bone Marrow Transplant: 4.0-12.0, Therapeutic: 5.0-15.0 ng/mL >60.0 High Imaging/Radiological Studies: CT HEAD WITHOUT CONTRAST Final Result IMPRESSION: No acute intracranial findings. CHEST PORTABLE Final Result IMPRESSION: 1. The overall appearance of the chest appears unchanged except for further loss of volume in the left base. This may be related to atelectasis associated with chronic scarring. 2. Stable left pleural thickening/fluid. Consults/Procedures: IP CONSULT TO CARDIAC REHAB Associated attestation - Violette Lau MD - 10/17/2021 4:10 PM EDT Attending Addendum: I saw and personally examined .Sumit Draper during heart failure rounds with the heart failurefellow and team. We reviewed his vital signs and pertinent symptoms, physical exam findings, recentlaboratory data, and cardiovascular testing. Together, we formulated an assessment and plan that issummarized and documented in the house staff note above, which I have edited to reflect my own planfor this patient. Headache resolved. Gouty attack responded favorably to treatment with colchicine. Kidney function and potassium level were at baseline on today's lab. Tacrolimus level is still elevated around 23. Will continue to hold on monitor for 1 more day. Plan to start daily tacrolimus dose of 1 mg p.o. B.i.d. Once his trough level falls below 15. Continue colchicine for cardiac attack treatment Violette Lau MD Professor of Internal Medicine Division of Cardiovascular Medicine Section of Heart Failure/Transplant Fax: [phone] [email or web address] * Kassidy Rocha MD - 10/15/2021 7:42 AM EDT CHF/ACS/HRT1 DAILY PROGRESS NOTE IDENTIFYING INFORMATION PATIENT: Sumit Draper ADMIT DATE: 10/11/2021 TIME OF EVALUATION: 10/15/2021 7:42 AM HOSPITAL STAY: LOS: 4 days SUBJECTIVE/INTERVAL HISTORY Sumit Draper's events from the last 12-24 hours were reviewed. Had acute episode of left great to pain overnight. States that he has a history of gout (not currently on allopurinol because it was discontinued in the past), and this pain is similar. He denies fever, chills, chest pain, shortness of breath. K still 5.1 today. Cr 1.16. He is net positive 0.4 L over the past 24 hr. ASSESSMENT AND PLAN Sumit Draper is a 76 y.o. male with a history of OHT in 2016, HLD, HTN, osteopenia, spinal stenosis who presents with the following: Updates Today: - Continue to hold tacrolimus, check daily random tacrolimus - Start colchicine 0.6 mg bid - No IV fluids today, encourage oral hydration Tacrolimus Toxicity Tacrolimus pre-drug trough level > 60 on 10/12/2021. Likely acutely increased in setting of taking Paxlovid and continuing tac 1 mg BID. Manifesting as NETTE, headache, mild tremor, and nausea/emesis. - Repeat random tac level qam - Hold Tacrolimus, plan to resume once random tacrolimus level is < 20 - S/p 1L NS on 10/13 and 10/14 Non-Oliguric Acute Kidney Injury, resolved Likely related to tacrolimus toxicity, possible superimposed pre-renal etiology with dehydration 2/2 poor PO intake and nausea from recent COVID infection while on ARB. Serum creatinine 1.31 on admission from baseline ~1. No subjective evidence of UTI, no CVA tenderness on exam. FeNa indicates pre-renal etiology. - Urinalysis/urine culture negative for infection - IV fluids as above - Hold Losartan 50 mg daily, restart pending improvement in kidney function Acute gout flare History of gout, not currently on any therapy (allopurinol discontinued in the past). Currently endorses left great toe pain. Uric acid level of 7.4 on 10/15 - Started colchicine 0.6 mg bid on 10/15 Headache, resolved Likely related to tacrolimus toxicity. He has a normal neurologic exam without focal abnormality. 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 Stable graft function per 05/17/2021 transplant note. Denies - Echo 05/17/2021: EF 55%. RVSP 21 mmHg. - LHC (today): No CAD/CAV. LVEDP 16 mmHg. - Immunosuppression regimen: Hold tacrolimus 1 mg BID (goal 4-6), continue MMF 250 BID (lower dose due to recurrent URI and skin cancer) - Anti-infectives: No infectious prophylaxis - Adjunctive Therapy: Continue ASA, Ca/Vit D, MVI, MgOx outpatient - Renal function: Cr elevated as above Thrombocytopenia Platelet count noted 141 on admission. Will continue to monitor with daily labs and continue treatment as above. Class II obesity Body mass index is 35.7 kg/m . on admission. Encourage diet/exercise. Chronic Medical Conditions: HTN: Hold home losartan 50 mg daily in setting of NETTE, can spot dose PO hydralazine if hypertensive HLD: Continue Pravastatin 40 mg daily Code: Full Code DVT ppx: subcutaneous heparin Diet: DIET HEART HEALTHY - 4 GM SODIUM Dispo: likely discharge to home This patient was discussed with Dr. Violette Lau MD during rounds Kassidy Rocha MD Internal Medicine Resident, PGY-3 [facility] MEDICATIONS SCHEDULED: aspirin chewable tablet 81 mg, 81 mg, QHS calcium citrate-vitamin D 315-250 MG-UNIT per tablet 1 tablet, 1 tablet, BID heparin injection 5,000 Units, 5,000 Units, Q8H melatonin tablet 6 mg, 6 mg, QHS mycophenolate mofetil (CELLCEPT) capsule 250 mg, 250 mg, BID pravastatin (PRAVACHOL) tablet 40 mg, 40 mg, QHS [Held by provider] tacrolimus (PROGRAF) capsule 1 mg, 1 mg, BID FLUIDS/DRIPS: PRNs: acetaminophen, 650 mg, Q4H PRN magnesium oxide, 800 mg, As directed PRN Magnesium Sulfate IVPB, 4 g, As directed PRN ondansetron, 4 mg, Q6H PRN potassium chloride, 20 mEq, As directed PRN potassium chloride, 40-60 mEq, As directed PRN ALLERGIES: He has No Known Allergies. OBJECTIVE FINDINGS Vital Signs (24hrs): Temp: [98.1 F (36.7 C)-98.5 F (36.9 C)] 98.5 F (36.9 C) Pulse (Heart Rate): [75-89] 75 Resp Rate: [16-30] 20 BP: (131-146)/(66-81) 136/67 O2 Sat (%): [94 %-96 %] 96 % Weight: [115.4 kg (254 lb 6.4 oz)] 115.4 kg (254 lb 6.4 oz) Hemodynamic/Invasive Device Data (24 hrs): Pulmonary/Cardiac Hemodynamics Pulse (Heart Rate): 75 Neuro ICP/CPP Monitoring MAP (mmHg): 96 mmHg Neuro ICP/CPP Monitoring 2 MAP (mmHg): 96 mmHg Ventilation/Oxygen Therapy (24hrs): Oxygen Therapy O2 Sat (%): 96 % O2 Device: room air Lines/Drains/Airways/Wounds: Patient Lines/Drains/Airways Status Active Lines, Drains, Airways, & Wound Overview Name Placement date Placement time Site Days Peripheral IV Line - Single Lumen 10/12/21 1230 forearm, anterior, right 20 gauge;1 / in length 10/12/21 1230 -- 2 Fluid Management (24hrs): -Intake/Output last 3 shifts: I/O last 3 completed shifts: In: 2523.1 [P.O.:1630; I.V.:893.1] Out: 2124 [Urine:5] Physical Examination: Physical Exam Vitals: 10/15/21 0645 BP: 136/67 Pulse: 75 Resp: 20 Temp: 98.5 F (36.9 C) Constitutional: In no acute distress. Not diaphoretic. Appears stated age HEENT: Normocephalic, atraumatic. EOMI, PERRLA. No scleral icterus. Cardiovascular: RRR, normal S1 and S2, no murmurs. Radial pulses intact bilaterally. No pitting edema in lower extremities Pulmonary: No increased work of breathing. LCTAB. No crackles, rales, wheezes Abdominal: Abdomen is flat. Bowel sounds are normal. No tenderness on palpation Musculoskeletal: No tenderness on palpation. Left great toe wrapped. Neurological: Alert and oriented x3. No weakness. Mild bilateral hand tremor Skin: Warm and dry. No rash. Not jaundiced. Psychiatric: Mood and affect normal. Behavior normal. DIAGNOSTIC RESULTS/PROCEDURES Labs-ABGs Labs-CBC WBC/Hgb/Hct/Plts: 6.53/11.9/34.9/159 (10/16 355) Labs-Chem 7([facility]) Bun/Creat/Cl/CO2/Glucose: 22/1.16/107/21/113 (10/16 355) Na/K+/Phos/Mg/Ca: 138/5.1/--/--/-- (10/16 355) Labs-Coags Additional Labs Lab Results Component Value Date BNP 106 (H) 10/11/2021 BNP 2,782 (H) 12/10/2013 BNP 2,593 (H) 12/08/2013 BNP 2,484 (H) 11/20/2013 Lab Results Component Value Date TROP 0.01 11/16/2013 Lab Results Component Value Date CHOLESTEROL 105 10/12/2021 CHOLESTEROL 118 06/11/2018 TRIG 149 10/12/2021 TRIG 142 06/11/2018 HDL 32 (L) 10/12/2021 HDL 36 (L) 06/11/2018 Component Ref Range & Units 10/12/21 0749 Tacrolimus, Trough Bone Marrow Transplant: 4.0-12.0, Therapeutic: 5.0-15.0 ng/mL >60.0 High Imaging/Radiological Studies: CT HEAD WITHOUT CONTRAST Final Result IMPRESSION: No acute intracranial findings. CHEST PORTABLE Final Result IMPRESSION: 1. The overall appearance of the chest appears unchanged except for further loss of volume in the left base. This may be related to atelectasis associated with chronic scarring. 2. Stable left pleural thickening/fluid. Consults/Procedures: IP CONSULT TO CARDIAC REHAB Associated attestation - Violette Lau MD - 10/16/2021 12:15 PM EDT Attending Addendum: I saw and personally examined Mr.Howard Chasity Draper during heart failure rounds with the heart failurefellow and team. We reviewed his vital signs and pertinent symptoms, physical exam findings, recentlaboratory data, and cardiovascular testing. Together, we formulated an assessment and plan that issummarized and documented in the house staff note above, which I have edited to reflect my own planfor this patient. Headaches improved. Brain CT: no acute abnormality. K is elevated Continue oral hydration. Daily tacro levels. Start colchicine 0.6 mg b.i.d. For acute gouty attack. Continue to monitor tack row linewas level daily and will start his prior outpatient dose at 1 mg p.o. B.i.d. once the level falls below 15 Violette Lau MD Professor of Internal Medicine Division of Cardiovascular Medicine Section of Heart Failure/Transplant Fax: [phone] [email or web address] * Kassidy Rocha MD - 10/14/2021 2:59 PM EDT CHF/ACS/HRT1 DAILY PROGRESS NOTE IDENTIFYING INFORMATION PATIENT: Sumit Draper ADMIT DATE: 10/11/2021 TIME OF EVALUATION: 10/14/2021 3:02 PM HOSPITAL STAY: LOS: 3 days SUBJECTIVE/INTERVAL HISTORY Sumit Draper's events from the last 12-[address] head from yesterday showed no acute intracranial process. This morning he denies headache, tremors, chest pain. He was net negative 0.8L, Cr 1.18, K 5.1 ASSESSMENT AND PLAN Sumit Draper is a 76 y.o. male with a history of OHT in 2016, HLD, HTN, osteopenia, spinal stenosis who presents with the following: Updates Today: - Continue to hold tacrolimus, check daily random tacrolimus - Continue IV hydration with 1L NS Tacrolimus Toxicity Tacrolimus pre-drug trough level > 60 on 10/12/2021. Likely acutely increased in setting of taking Paxlovid and continuing tac 1 mg BID. Manifesting as NETTE, headache, mild tremor, and nausea/emesis. - Repeat random tac level qam - Hold Tacrolimus - Fluids: 1 L over 10 hours today, repeat as needed - CT head without contrast to evaluate for PRES Non-Oliguric Acute Kidney Injury, resolved Likely related to tacrolimus toxicity, possible superimposed pre-renal etiology with dehydration 2/2 poor PO intake and nausea from recent COVID infection while on ARB. Serum creatinine 1.31 on admission from baseline ~1. No subjective evidence of UTI, no CVA tenderness on exam. FeNa indicates pre-renal etiology. - Urinalysis/urine culture negative for infection - Urine lytes/protein: FeNa 0.6% - IV fluids as above - Hold Losartan 50 mg daily, restart pending improvement in kidney function Headache, resolved Likely related to tacrolimus toxicity. He has a normal neurologic exam without focal abnormality. 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 Stable graft function per 05/17/2021 transplant note. Denies - Echo 05/17/2021: EF 55%. RVSP 21 mmHg. - LHC (today): No CAD/CAV. LVEDP 16 mmHg. - Immunosuppression regimen: Hold tacrolimus 1 mg BID (goal 4-6), continue MMF 250 BID (lower dose due to recurrent URI and skin cancer) - Anti-infectives: No infectious prophylaxis - Adjunctive Therapy: Continue ASA, Ca/Vit D, MVI, MgOx outpatient - Renal function: Cr elevated as above Thrombocytopenia Platelet count noted 141 on admission. Will continue to monitor with daily labs and continue treatment as above. Class II obesity Body mass index is 35.7 kg/m . on admission. Encourage diet/exercise. Chronic Medical Conditions: HTN: Hold home losartan 50 mg daily in setting of NETTE, can spot dose PO hydralazine if hypertensive HLD: Continue Pravastatin 40 mg daily Code: Full Code DVT ppx: subcutaneous heparin Diet: DIET HEART HEALTHY - 4 GM SODIUM Dispo: likely discharge to home This patient was discussed with Dr. Violette Lau MD during rounds Kassidy Rocha MD Internal Medicine Resident, PGY-3 [facility] MEDICATIONS SCHEDULED: aspirin chewable tablet 81 mg, 81 mg, QHS calcium citrate-vitamin D 315-250 MG-UNIT per tablet 1 tablet, 1 tablet, BID heparin injection 5,000 Units, 5,000 Units, Q8H melatonin tablet 6 mg, 6 mg, QHS mycophenolate mofetil (CELLCEPT) capsule 250 mg, 250 mg, BID pravastatin (PRAVACHOL) tablet 40 mg, 40 mg, QHS [Held by provider] tacrolimus (PROGRAF) capsule 1 mg, 1 mg, BID FLUIDS/DRIPS: sodium chloride 0.9% 100 mL/hr at 10/14/21 1228 PRNs: acetaminophen, 650 mg, Q4H PRN magnesium oxide, 800 mg, As directed PRN Magnesium Sulfate IVPB, 4 g, As directed PRN ondansetron, 4 mg, Q6H PRN potassium chloride, 20 mEq, As directed PRN potassium chloride, 40-60 mEq, As directed PRN ALLERGIES: He has No Known Allergies. OBJECTIVE FINDINGS Vital Signs (24hrs): Temp: [97.6 F (36.4 C)-98.5 F (36.9 C)] 98.3 F (36.8 C) Pulse (Heart Rate): [73-83] 80 Resp Rate: [16-24] 24 BP: (127-146)/(60-81) 146/75 O2 Sat (%): [94 %-97 %] 96 % Weight: [114.8 kg (253 lb 1.6 oz)] 114.8 kg (253 lb 1.6 oz) Hemodynamic/Invasive Device Data (24 hrs): Pulmonary/Cardiac Hemodynamics Pulse (Heart Rate): 80 Neuro ICP/CPP Monitoring MAP (mmHg): 102 mmHg Neuro ICP/CPP Monitoring 2 MAP (mmHg): 102 mmHg Ventilation/Oxygen Therapy (24hrs): Oxygen Therapy O2 Sat (%): 96 % O2 Device: room air Lines/Drains/Airways/Wounds: Patient Lines/Drains/Airways Status Active Lines, Drains, Airways, & Wound Overview Name Placement date Placement time Site Days Peripheral IV Line - Single Lumen 10/12/21 1230 forearm, anterior, right 20 gauge;1 1/4 in length 10/12/21 1230 -- 2 Fluid Management (24hrs): -Intake/Output last 3 shifts: I/O last 3 completed shifts: In: 2803 [P.O.:2350; I.V.:453] Out: 3325 [Urine:3325] Physical Examination: Physical Exam Vitals: 10/14/21 1408 BP: 146/75 Pulse: 80 Resp: 24 Temp: 98.3 F (36.8 C) Constitutional: In no acute distress. Not diaphoretic. Appears stated age HEENT: Normocephalic, atraumatic. EOMI, PERRLA. No scleral icterus. Cardiovascular: RRR, normal S1 and S2, no murmurs. Radial pulses intact bilaterally. No pitting edema in lower extremities Pulmonary: No increased work of breathing. LCTAB. No crackles, rales, wheezes Abdominal: Abdomen is flat. Bowel sounds are normal. No tenderness on palpation Musculoskeletal: No tenderness on palpation. Normal range of motion. Neurological: Alert and oriented x3. No weakness. Mild bilateral hand tremor Skin: Warm and dry. No rash. Not jaundiced. Psychiatric: Mood and affect normal. Behavior normal. DIAGNOSTIC RESULTS/PROCEDURES Labs-ABGs Labs-CBC WBC/Hgb/Hct/Plts: 5.83/11.9/35.1/149 (10/14 404) Labs-Chem 7([facility]) Bun/Creat/Cl/CO2/Glucose: 25/1.18/108/23/98 (10/14 404) Na/K+/Phos/Mg/Ca: 139/5.1/--/--/-- (10/14 404) Labs-Coags Additional Labs Lab Results Component Value Date BNP 106 (H) 10/11/2021 BNP 2,782 (H) 12/10/2013 BNP 2,593 (H) 12/08/2013 BNP 2,484 (H) 11/20/2013 Lab Results Component Value Date TROP 0.01 11/16/2013 Lab Results Component Value Date CHOLESTEROL 105 10/12/2021 CHOLESTEROL 118 06/11/2018 TRIG 149 10/12/2021 TRIG 142 06/11/2018 HDL 32 (L) 10/12/2021 HDL 36 (L) 06/11/2018 Component Ref Range & Units 10/12/21 0749 Tacrolimus, Trough Bone Marrow Transplant: 4.0-12.0, Therapeutic: 5.0-15.0 ng/mL >60.0 High Imaging/Radiological Studies: CT HEAD WITHOUT CONTRAST Final Result IMPRESSION: No acute intracranial findings. CHEST PORTABLE Final Result IMPRESSION: 1. The overall appearance of the chest appears unchanged except for further loss of volume in the left base. This may be related to atelectasis associated with chronic scarring. 2. Stable left pleural thickening/fluid. Consults/Procedures: IP CONSULT TO CARDIAC REHAB Associated attestation - Violette Lau MD - 10/14/2021 7:40 PM EDT Attending Addendum: I saw and personally examined Mr.Howard Chasity Draper during heart failure rounds with the heart failurefellow and team. We reviewed his vital signs and pertinent symptoms, physical exam findings, recentlaboratory data, and cardiovascular testing. Together, we formulated an assessment and plan that issummarized and documented in the house staff note above, which I have edited to reflect my own planfor this patient. Headaches improved. Brain CT: no acute abnormality. K is elevated Continue IV hydration. Daily tacro levels. Violette Lau MD Professor of Internal Medicine Division of Cardiovascular Medicine Section of Heart Failure/Transplant Fax: [phone] [email or web address] * Kassidy Rocha MD - 10/13/2021 2:49 PM EDT CHF/ACS/HRT1 DAILY PROGRESS NOTE IDENTIFYING INFORMATION PATIENT: Sumit Draper ADMIT DATE: 10/11/2021 TIME OF EVALUATION: 10/13/2021 2:49 PM HOSPITAL STAY: LOS: 2 days SUBJECTIVE/INTERVAL HISTORY Sumit Draper's events from the last 12-24 hours were reviewed. Endorses headache and left eye pressure. Does not notice hand tremor. Denies chest pain, shortness of breath, change in urine output. ASSESSMENT AND PLAN Sumit Draper is a 76 y.o. male with a history of OHT in 2016, HLD, HTN, osteopenia, spinal stenosis who presents with the following: Updates Today: - Continue to hold tacrolimus, check daily random tacrolimus - CT head without contrast - IV hydration with 1L NS Tacrolimus Toxicity Tacrolimus pre-drug trough level > 60 on 10/12/2021. Likely acutely increased in setting of taking Paxlovid and continuing tac 1 mg BID. Manifesting as NETTE, headache, mild tremor, and nausea/emesis. - Repeat random tac level qam - Hold Tacrolimus - Fluids: 1 L over 10 hours today, repeat as needed - CT head without contrast to evaluate for PRES Non-Oliguric Acute Kidney Injury, improving Likely related to tacrolimus toxicity, possible superimposed pre-renal etiology with dehydration 2/2 poor PO intake and nausea from recent COVID infection while on ARB. Serum creatinine 1.31 on admission from baseline ~1. No subjective evidence of UTI, no CVA tenderness on exam. FeNa indicates pre-renal etiology. - Urinalysis/urine culture negative for infection - Urine lytes/protein: FeNa 0.6% - IV fluids as above - Hold Losartan 50 mg daily, restart pending improvement in kidney function Non-Intractable Headache Likely related to tacrolimus toxicity. He has a normal neurologic exam without focal abnormality, low concern for intracranial process. - Symptom management with Tylenol - IVF as above - CT head without contrast to evaluate for PRES History of OHT 06/04/2015 He is overall doing well from transplant on 06/04/2015. Stable graft function per 05/17/2021 transplant note. Denies - Echo 05/17/2021: EF 55%. RVSP 21 mmHg. - LHC (today): No CAD/CAV. LVEDP 16 mmHg. - Immunosuppression regimen: Hold tacrolimus 1 mg BID (goal 4-6), continue MMF 250 BID (lower dose due to recurrent URI and skin cancer) - Anti-infectives: No infectious prophylaxis - Adjunctive Therapy: Continue ASA, Ca/Vit D, MVI, MgOx outpatient - Renal function: Cr elevated as above Thrombocytopenia - Platelet count noted 141 on admission. Will continue to monitor with daily labs and continue treatment as above. Class II obesity - Body mass index is 35.7 kg/m . on admission. Encourage diet/exercise. Chronic Medical Conditions: HTN: Hold home losartan 50 mg daily in setting of NETTE, can spot dose PO hydralazine if hypertensive HLD: Continue Pravastatin 40 mg daily MEDICATIONS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 [phone] Bunny [phone] [facility] [phone] [place] [phone] Bedside Delivery ([facility]) [phone] documented in this encounterOS[facility]04[facility]27-[facility]22 History of Present illness Narrative* Blaze Downey - 08/09/2021 1:33 PM EDT [facility] OUTREACH ADVANCED: Call Information: Date and Time of Contact: 08/09/2021 1:34 PM Method of Contact: By Phone Contact Type: Prescriptions Contactor: [facility] Contactee: Patient Shipping/Pickup: Medicare B Refill?: Yes Number of Med B Medications: 2 Med B Name: Mycophenolate mof 250 Days Supply Remainin Supply Exhausted On: 08/16/2021 Med B Name: Tacrolimus 0.5 Days Supply Remainin Supply Exhausted On: 08/16/2021 Medication Name: Myco mof 250, tacro 0.5 Delivery Method: Air Delivery Location: Pharmacy Signature Required: Yes Mailing/Pickup Date: 08/11/2021 Shipping Address: [address] [place] [address] Contact Info: Specialty ([place]) [phone] [facility] [phone] [facility] [phone] [place] [phone] Bedside Delivery ([facility]) [phone] documented in this encounterOS[facility]21 History of Present illness Narrative* Ky Shultz [facility],PharmD - 11/15/2020 12:38 PM EDT [facility] OUTREACH: Call Information: Date and Time of Contact: 11/15/2020 12:45 PM Method of Contact: By Phone Contact Type: Prescriptions Contactor: Patient Contactee: [facility] Shipping/Pickup: Mailing/Pickup Date: 11/16/2020 Medicare B Refill: Yes Med B Name: mycophenolate MF 250 mg Days Remainin Supply Exhausted On: 11/20/2020 Med B Name: tacro 0.5 Days Remainin Supply Exhausted on: 11/20/2020 Medication Name: mycophenolate 250 mg, tacrolimus 0.5 mg Delivery Method: Air Delivery Location: Home Signature Required: Yes Shipping Address: [address] [facility] Contact Info: Specialty ([place]) [phone] [facility] [phone] [facility] [phone] [place] [phone] Bedside Delivery ([facility]) [phone] * Judith Bui - 11/15/2020 12:38 PM EDT [facility] OUTREACH: Call Information: Date and Time of Contact: 11/15/2020 12:39 PM Method of Contact: By Phone Contact Type: Prescriptions Contactor: [facility] Contactee: Patient Contact Outcome: Left message and Follow-up (1-2 days) Shipping/Pickup: Medication Name: mycophenolate mofetil 250 mg and tacrolimus 0.5 mg Contact Info: Specialty ([place]ifer) [phone] [facility] [phone] [facility] [phone] [place] [phone] Bedside Delivery ([facility]) [phone] documented in this encounterDayton [facility]06-28-[facility] History of Present illness Narrative* Brianna Peralta [facility] - 10/10/2020 11:29 AM EDT [facility] OUTREACH: Pre-Verification: Medication(s) Name: Mycophenolate & tacrolimus Lab Review: CBC w/diff, Drug level and Chem 6 (with GFR) Drug interactions reviewed: relevant drug interactions were evaluated by pharmacist Clinically relevant drug interaction identified: Interactions: Drug management plan: Drug interaction education provided to patient? () Drug interactions reviewed: Clinically relevant drug interaction identified: relevant drug interactions were not identified by pharmacist Interactions: Drug management plan: Drug interaction education provided to patient? () Specialty Assessment: Assessment type: Re-Assessment Specialty Assessment Review: Name, Age, Sex Demographics Therapeutic Goals Health Problems/Diagnoses/Comorbidities Pertinent Medical History Adverse Effects with Enrolled (and related) Medications Recent Labs Allergies Dietary Requirements Medications (dose, route, frequency, and interactions) Mental Reasoning, Judgement, Orientation, and Memory Financial Resources Usual Environment Functional Limitations Emergency Contact(s) Person(s) responsible for care Specialty Medication Management Adherence Care Plan Activities Completed: Updated Assessment Findings: Reassessment completed through chart note, lab, and fill history review. No adherence, safety, or efficacy issues identified. Patient's ability to Self-Administer Oral Medication(s): Can self-administer oral medications Patient's Ability to Self-Administer Injectable Medication(s): Not Applicable Re-Assessment Benefit: Receiving benefit Patient Will Continue Therapy: Confirms Monitoring Parameters Assessment: Were assessed Monitoring Parameter Review: Within normal limits Re-Assessment Due: 11/14/21 Goal Progress: Satisfactory Counseling: Patient counseled on the following topics: Expectations and possible outcomes of therapy Contact Info: Specialty ([place]) [phone] [place] [phone] [facility] [phone] [place] [phone] Bedside Delivery ([facility]) [phone] * Larisa Mortensen - 10/10/2020 11:29 AM EDT [facility]RE[facility]: Call Information: Date and Time of Contact: 10/10/2020 11:32 AM Method of Contact: By Phone Contact Type: Prescriptions Contactor: [facility] OP Contactee: Patient Shipping/Pickup: Mailing/Pickup Date: 10/18/2020 Medicare B Refill: Yes Med B Name: tacrolimus 0.5 Days Remainin Supply Exhausted On: 10/20/2020 Med B Name: mycophenolate 250 Days Remainin Supply Exhausted on: 10/20/2020 Delivery Method: Air Delivery Location: Home Signature Required: Yes Shipping Address: [address] [facility] [address] Contact Info: Specialty ([place]ifer) [phone] [place] [phone] [facility] [phone] [place] [phone] Bedside Delivery ([facility]) [phone] documented in this encounterDayton [facility]02-20-2016 Evaluation note * Diagnosis Onset Date Resolution Status Essential (primary) hypertension chronic Heart transplant, orthotopic, status June 04 16 chronic Hyperlipemia chronic Positional lightheadedness c [facility] Work Phone: 1(706) 734-951402-20-2016 Evaluation note* Diagnosis Onset Date Resolution Status Essential (primary) hypertension chronic Heart transplant, orthotopic, status June 04 16 chronic Hyperlipemia chronic Positional lightheadedness c hronic Syncope acute Essential (primary) hypertension chronic Heart transplant, orthotopic, status June 04 16 chronic Hyperlipemia chronic Positional lightheadedness c [facility] Work Phone: 1(242) 969-112402-20-2016 Evaluation note* Diagnosis Onset Date Resolution Status Essential (primary) hypertension chronic Heart transplant, orthotopic, status June 04 16 chronic Hyperlipemia chronic Positional lightheadedness c hronic Essential (primary) hypertension chronic Heart transplant, orthotopic, status June 04 16 chronic Hyperlipemia chronic Positional lightheadedness [facility] Work Phone: 1(457) 883-630902-20-2016 Evaluation note* Diagnosis Onset Date Resolution Status Essential (primary) hypertension chronic Heart transplant, orthotopic, status June 04 16 chronic Hyperlipemia chronic Positional lightheadedness c hronic Gastroenteritis due to norovirus acute Loss of consciousness acute Heart transplant, orthotopic, status June 04 16 chronic Personal history of immunosuppressive therapy chronic COVID- [facility] Work Phone: 1(895) 197-880002-20-2016 Evaluation note* Diagnosis Onset Date Resolution Status Essential (primary) hypertension chronic Heart transplant, orthotopic, status June 04 16 chronic Hyperlipemia chronic Positional lightheadedness c hronic Gastroenteritis due to norovirus acute Heart transplant, orthotopic, status June 04 16 chronic Personal history of immunosuppressive therapy chronic Loss of consciousness resolv ed COVID-19 October 04, 2021 [facility] Work Phone: 1(958) 555-911002-20-2016 Evaluation note* Diagnosis Onset Date Resolution Status Essential (primary) hypertension chronic Heart transplant, orthotopic, status June 04 16 chronic Hyperlipemia chronic Positional lightheadedness c hronic Gastroenteritis due to norovirus acute Heart transplant, orthotopic, status June 04 16 chronic Personal history of immunosu ppressive therapy chronic Loss of consciousness resolv ed COVID-19 October 04, 2021 acute COVID-19 October 04, 2021 acute Tacrolimus-induced GI toxicity acute Tacrolimus-induced nephrotoxicity acute Thrombocytopenia noneactive History of heart transplant noneactive [facility] Work Phone: 1(296) 540-218502-20-2016 Evaluation note* Diagnosis Onset Date Resolution Status Gastroenteritis due to norovirus acute Heart transplant, orthotopic, status June 04 16 chronic Personal history of immunosu ppressive therapy chronic Loss of consciousness resolv ed COVID-19 October 04, 2021 acute COVID-19 October 04, 2021 acute Tacrolimus-induced GI toxicity acute Tacrolimus-induced nephrotoxicity acute Thrombocytopenia noneactive History of heart transplant noneactive Essential (primary) hypertension chronic Heart transplant, orthotopic, status June 04 chronic Hyperlipemia chronic Fecal urgency acute Gout acute Essential (primary) hypertension chronic Heart transplant, orthotopic, status June 04 16 chronic Positional lightheadedness c [facility] Work Phone: 1(746) 206-130602-20-2016 Evaluation note* Diagnosis Onset Date Resolution Status Essential (primary) hypertension chronic Heart transplant, orthotopic, status June 04 16 chronic Hyperlipemia chronic Urinary frequency acute Essential (primary) hypertension chronic Gout chronic Heart transplant, orthotopic, status June 04 16 chronic Positional lightheadedness c [facility] Work Phone: Discharge summary Author Nimesh Bell [facility] February 02, 2023 1:00pm Note Date/Time February 02, 2023 1 2:06pm [facility] Medical Records Department [address] [place] [id number] Emergency Department Summary 02/02/23 MR#: [id number] Acct: [id number] Name: SUMIT DRAPER Rep #:[id number] : 1945 77 From: Nimesh Bell MD PCP: Dr. Leoncio Acevedo, DO Status:RE G ER Location: ED HPI History of Present Illness Chief Complaint: Syncope Narrative Narrative: Presents after syncopal episode. He developed hiccups after which he became quite lightheaded felt like he was going to pass out braced himself and then hada syncopal episode. He has had 3 prior episodes of syncope secondary to hiccupsin the past. He does have a history of heart transplant, he is on immune suppressants. No head injury. He has some slight right-sided chest wall pain after the fall no extremity injury. He is denying any palpitations. No fevers or chills. No shortness of breath or pleuritic component. 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 Ventricular tachycardia Ventricular tachycardia Home Medications pravastatin 40 mg tablet 40 mg PO QHS 07/21/15 [History Last Taken Unknown] magnesium oxide 400 mg PO QDAY 07/24/17 [History Last Taken Unknown] tacrolimus 1 mg capsule, immediate-release 1 mg PO Q12H 07/24/17 [History Last Taken Unknown] aspirin 81 mg tablet,delayed release (Adult Aspirin Regimen) 81 mg PO DAILY 09/15/19 [History Last Taken Unknown] melatonin 5 mg capsule 10 mg PO QHS 09/15/19 [History Last Taken Unknown] multivitamin 1 cap PO DAILY 09/15/19 [History Last Taken Unknown] mycophenolate mofetil 250 mg capsule 250 mg PO BID 09/15/19 [History Last Taken Unknown] calcium citrate 315 mg calcium-vitamin D3 6.25 mcg (250 unit) tablet 1 tab PO BID 05/25/22 [History Last Taken Unknown] cyanocobalamin (vitamin B-12) 1,000 mcg capsule 1,000 mcg PO DAILY 05/25/22 [History Last Taken Unknown] losartan 50 mg tablet 50 mg PO DAILY 05/25/22 [History Last Taken Unknown] allopurinol 100 mg tablet 100 mg PO DAILY #90 tabs 12/26/22 [Rx Last Taken Unknown] terbinafine HCl 250 mg tablet 250 mg PO DAILY #30 tabs 12/26/22 [Rx Last Taken Unknown] Allergy/AdvReac Type Severity Reaction Status Date / Time ramipril AdvReac Intermediate Cough Verified 02/02/23 11:43 Family History Father Diabetes Heart disease Myocardial infarction, Onset Age: 65 Mother Heart disease Lupus Arthritis CVA (cerebral vascular accident) Grandfather Colon cancer Heart disease Aunt Diabetes Brother Seizures Surgical History H/O right heart catheterization (11/25/18) Heart transplant, orthotopic, 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) History of appendectomy History of basal cell carcinoma History of cataract extraction History of heart transplant (06/04/15) History of left heart catheterization (05/2018) history of LVAD implant History of nasal septoplasty History of tonsillectomy and adenoidectomy History of tricuspid valve annuloplasty Presence of biventricular implantable cardioverter-defibrillator (ICD) Social History Smoking Status: Former smoker how long ago did patient quit smokin alcohol intake: never substance use type: does not use what type of physical activity do you participate in: walking frequency: 5-6 times per week ROS ROS ED ROS Narrative Past medical history: Reviewed Medications: Reviewed Social history: Noncontributory Review of systems: All systems negative except as indicated General: No fever. Syncope as in HPI Eyes: No visual changes ENT: No upper airway congestion, normal voice Neck: No neck pain Cardiovascular: No chest pain Respiratory: No shortness of breath or cough Gastrointestinal: No abdominal pain, nausea vomiting or diarrhea Genitourinary: No dysuria Musculoskeletal: Denies myalgias no difficulty with ambulation Skin: No rash Neurological: No memory loss, confusion or any focal weakness EXAM Physical Exam Narrative Exam Narrative: Physical exam General: Well nourished, Well developed, No Acute Distress Head: Normocephalic, Atraumatic Eyes: Conjunctiva not pale ENT: Moist mucous membranes Neck: Supple, Nontender, No lymphadenopathy Cardiovascular: Regular rate, Regular rhythm Chest wall: Midline scars that are old, left posterior axillary line lower rib pain this is mild without any evidence of bruising. Respiratory: No distress, CTA bilaterally Abdomen: Soft, Nontender, Nondistended Back: Nontender, Normal Inspection. Negative for: CVA tenderness Extremities: Nontender, No edema Skin: Normal color, No rash Neurological: Alert, Normal Strength, Normal Sensation Psychological: Normal affect Const Vital Signs: 02/02/23 11:40 02/02/23 11:56 Temperature 98 F Temperature Source Temporal Pulse Rate 80 Respiratory Rate 16 Respiratory Effort Normal Non-Labored Blood Pressure 133/82 H Blood Pressure Mean 99 Pulse Ox 100 Oxygen Delivery Method Room Air MDM MDM MDM Narrative Medical decision making narrative: Patient's work-up is unremarkable. He had a syncopal episode, I do believe thiswas induced by the hiccups since this is happened in the past. There is no evidence of cardiac involvement EKG is unremarkable he did not have palpitations, he did have quite a bit of lightheadedness and felt like he was going to pass out before hand. It was not sudden. I do not believe he meets admission criteria. I talked to family members also given history and they are okay with discharge. Reviewed his history and I do not believe any medication changes are needed. Lab Data Labs: Laboratory Results - last 24 hr 02/02/23 12:04 WBC 7.2 RBC 5.51 Hgb 16.1 Hct 48.9 MCV 88.7 MCH 29.2 MCHC 32.9 RDW Std Deviation 46.8 H RDW Coeff of Jaimie 14.6 Plt Count 185 MPV 10.4 Immature Gran % (Auto) 0.800 Neut % (Auto) 72.3 H Lymph % (Auto) 18.9 L [place] % (Auto) 6.9 Eos % (Auto) 0.7 Baso % (Auto) 0.4 Absolute Neuts (auto) 5.2 Absolute Lymphs (auto) 1.37 Nucleated RBC % 0 Troponin I High Sens 10 Radiography Diagnostic Testing: Clinical Impression(s) from Imaging Studies Chest X-Ray 02/02/23 12:01 IMPRESSION: Moderate left lower lobe and mild right lower lobe fibrosis. Electronically Signed: Pedro Taylor MD at 12:38 EDT , Chest x-ray read by me as no new changes and unremarkable. Discharge Plan Triage Chief Complaint: Syncope ED Provider: Nimesh Bell Dx/Rx/DC Orders Clinical Impression: Syncope, History of heart transplant Instructions: What Is Syncope Prescriptions: No Action magnesium oxide 400 mg capsule 400 mg capsule 400 mg PO QDAY mycophenolate mofetil 250 mg capsule 250 mg PO BID aspirin [Adult Aspirin Regimen] 81 mg tablet,delayed release (DR/EC) 81 mg PO DAILY melatonin 5 mg capsule 10 mg PO QHS multivitamin capsule 1 cap PO DAILY losartan 50 mg tablet 50 mg PO DAILY calcium citrate-vitamin D3 315 mg-6.25 mcg (250 unit) tablet 1 tab PO BID cyanocobalamin (vitamin B-12) 1,000 mcg capsule 1,000 mcg PO DAILY terbinafine HCl 250 mg tablet 250 mg PO DAILY Qty: 30 12RF allopurinol 100 mg tablet 100 mg PO DAILY Qty: 90 1RF pravastatin 40 MG tablet 40 mg PO QHS tacrolimus 1 mg capsule 1 mg PO Q12H Primary Care Provider: Leoncio Acevedo Referrals: Leoncio Acevedo, [Primary Care Provider] - 3-5 Days What to do if you have Problems For any increased pain, shortness of breath, bleeding, nausea or vomiting, chestpain, or any unexpected problems, contact your Primary Care Provider. Call [facility] ([phone]) or report to the closest Emergency Room. Call 911 if necessary. 02/02/23 1300 <Electronically signed by Nimesh Bell MD> Cosigner Signature (if applicable): CC: Dr. Leoncio Acevedo DO ~ Signed [facility] Work Phone: Evaluation note* Diagnosis Heart replaced by transplant- Primary Acute kidney injury Acute kidney failure, unspecified [facility] Diagnosis Encounter for aftercare following heart transplant- Primary Aftercare following organ transplant Encounter for long-term (current) use of medications Encounter for long-term (current) use of other medications Other hyperlipidemia Essential hypertension Unspecified essential hypertension [facility] Diagnosis Encounter for aftercare following heart transplant Aftercare following [facility] Diagnosis Onset Date Resolution Status Acute bacterial conjunctivitis acute Nail fungal infection acute Essential (primary) hypertension chronic Gout chronic Hyperlipemia chronic Positional lightheadedness c hronic [facility] Work Phone: Evaluation note* Diagnosis Heart replaced by transplant [facility] Heart replaced by transplant- Primary Encounter for long-term (current) use of medications Encounter for long-term (current) use of other medications Other hyperlipidemia Syncope and collapse Primary hypertension Unspecified essential hypertension High risk medication use Encounter for long-term (current) use of other medications Immunosuppression Unspecified disorder of immune mechanism [facility] Diagnosis V tach Paroxysmal ventricular tachycardia Gout Gout, unspecified Insomnia, unspecified Acute kidney injury- Primary Acute kidney failure, unspecified High risk medication use Encounter for long-term (current) use of other medications Heart replaced by transplant Spinal stenosis, unspecified spinal region Aftercare following organ transplant High risk medications (not anticoagulants) long-term use Encounter for long-term (current) use of other medications Immunosuppressed status Unspecified disorder of immune mechanism Heart transplanted Heart replaced by transplant Pulmonary nodule Solitary pulmonary nodule Obstructive sleep apnea syndrome Obstructive sleep apnea (adult) (pediatric) Strongyloides stercoralis infection Strongyloidiasis Essential hypertension Unspecified essential hypertension Generalized anxiety disorder BETSY on CPAP Obstructive sleep apnea (adult) (pediatric) [facility] Diagnosis V tach Paroxysmal ventricular tachycardia Gout Gout, unspecified Insomnia, unspecified Heart replaced by transplant- Primary Encounter for long-term (current) use of medications Encounter for long-term (current) use of other medications Other hyperlipidemia [facility] Phone[facility] Work Phone: Hospital Discharge instructions* Attachments The following attachments cannot be sent through Care Everywhere. * Coronary Angiogram: Post-op (Kiswahili) [facility] (narrative)No reason for referral information availableWRiverside [facility] Work Phone: Reason for visit Narrative* Auth/Cert Specialty Diagnoses / Procedures Referred By Contludivina t Referred To Contact Diagnoses NETTE/Covid/ Hx of OHT Violette Lau MD [address] [place] [address] [facility] [address] [place] [address] Referral ID Status Reason Start Date Expiration Date Visits Re quested Visits Authorized [id number] 1 1 [facility] Summary Purpose Family History Relationship Condition Age at Onset Recorded Date/T teetee father Diabetes mellitus Unknown Cardiac disease Unknown Myocardial infarction 65 mother Cardiac disease Unknown Lupus erythematosus Unknown Arthritis Unknown Cerebrovascular accident (CVA) Unknown grandfather Malignant neoplasm of colon Unknown aunt Diabetes mellitus Unknown brother Seizure Unknown Advance Directives Latest Code Status on File Code Status Date Activated Date Inactivated Comments Full Code 06/11/2018 1:24 PM Full Code 06/04/2016 9:39 AM 06/04/2016 3:56 PM Full Code 12/28/2015 9:26 AM 12/28/2015 12:25 PM Full Code 11/01/2015 11:09 AM 11/01/2015 2:09 PM Full Code-Unverified 06/22/2015 8:50 AM 06/27/2015 6:39 P M Advance Directive Response Recorded Date/ Time Advance Directives Yes July 31 10:55am Living Will No August 14, 2021 8: 39am Power of Edge Polisher Yes August 14, 2021 8:39am Advance Directive Response Recorded Date/ Time Advance Directives Yes August 18, 2021 8:18am Living Will No August 18, 2021 8: 18am Power of Edge Polisher Yes August 18, 2021 8:18am Name of Medical Power of Edge Polisher August 14, 2021 8:39am Advance Directive Response Recorded Date/ Time Name of Medical Power of Edge Polisher August 14, 2021 8:39am Name of Medical Power of Edge Polisher Tabatha October 11, 2021 12:27am Advance Directives Yes August 18, 2021 8:18am Living Will Yes October 11, 2021 12:27am Power of Edge Polisher Yes October 11 12:27am Latest Code Status on File Code Status Date Activated Date Inactivated Comments Full Code 10/11/2021 1:19 PM Full Code 06/11/2018 1:24 PM 10/11/2021 1:19 PM Full Code 06/04/2016 9:39 AM 06/04/2016 3:56 PM Full Code 12/28/2015 9:26 AM 12/28/2015 12:25 PM Full Code 11/01/2015 11:09 AM 11/01/2015 2:09 PM Advance Directive Response Recorded Date/ Time Name of Medical Power of Edge Polisher Tabatha October 11, 2021 12:27am Advance Directives Yes August 18, 2021 8:18am Living Will Yes October 11, 2021 12:27am Power of Edge Polisher Yes October 11 12:27am Latest Code Status on File Code Status Date Activated Date Inactivated Comments Full Code 10/11/2021 1:19 PM Code Status History Code Status Date Activated Date Inactivated Comments Full Code 06/11/2018 1:24 PM 10/11/2021 1:19 PM Full Code 06/04/2016 9:39 AM 06/04/2016 3:56 PM Full Code 12/28/2015 9:26 AM 12/28/2015 12:25 PM Full Code 11/01/2015 11:09 AM 11/01/2015 2:09 PM Latest Code Status on File Code Status Date Activated Date Inactivated Comments Full Code 10/11/2021 1:19 PM Code Status History Code Status Date Activated Date Inactivated Comments Full Code 06/11/2018 1:24 PM 10/11/2021 1:19 PM Full Code 06/04/2016 9:39 AM 06/04/2016 3:56 PM Full Code 12/28/2015 9:26 AM 12/28/2015 12:25 PM Full Code 11/01/2015 11:09 AM 11/01/2015 2:09 PM Advance Directive Response Recorded Date/ Time Advance Directives Yes August 18, 2021 8:18am Living Will Yes October 11, 2021 12:27am Power of Edge Polisher Yes October 11 12:27am Advance Directive Response Recorded Date/ Time Advance Directives Yes August 18, 2021 8:18am Living Will No February 02 11:56am Power of Edge Polisher No February 02, 2023 11:56am Date Activated Date Inactivated Comments 10/11/2021 1:19 PM Date Activated Date Inactivated Comments 06/11/2018 1:24 PM 10/11/2021 1:19 PM Date Activated Date Inactivated Comments 06/04/2016 9:39 AM 06/04/2016 3:56 PM Date Activated Date Inactivated Comments 12/28/2015 9:26 AM 12/28/2015 12:25 PM Date Activated Date Inactivated Comments 11/01/2015 11:09 AM 11/01/2015 2:09 PM Date Activated Date Inactivated Comments 10/11/2021 1:19 PM Date Activated Date Inactivated Comments 06/11/2018 1:24 PM 10/11/2021 1:19 PM Date Activated Date Inactivated Comments 06/04/2016 9:39 AM 06/04/2016 3:56 PM Date Activated Date Inactivated Comments 12/28/2015 9:26 AM 12/28/2015 12:25 PM Date Activated Date Inactivated Comments 11/01/2015 11:09 AM 11/01/2015 2:09 PM Advance Directive Response Recorded Date/ Time Living Will No February 02 11:56am Power of Edge Polisher No February 02, 2023 11:56am Advance Directives Yes August 18, 2021 8:18am Advance Directive Response Recorded Date/ Time Living Will No February 02 11:56am Do you have a Healthcare Power of Edge Polisher? No February 02, 2023 11:56am Advance Directives Yes August 18, 2021 8:18am Chief Complaint and Reason for Visit Chief Complaint 6 MO FU syncope 24 HR HOLTER MONITOR Reason for Visit Essential (primary) hypertension Heart transplant, orthotopic, status Hyperlipemia Positional lightheadedness Chief Complaint 6 MO FU syncope 24 HR HOLTER MONITOR ER FU Reason for Visit Essential (primary) hypertension Heart transplant, orthotopic, status Hyperlipemia Positional lightheadedness Syncope Essential (primary) hypertension Heart transplant, orthotopic, status Hyperlipemia Positional lightheadedness Chief Complaint 6 MO FU syncope 24 HR HOLTER MONITOR ER FU SYNCOPE, HYPERLIPIDEMIA Reason for Visit Essential (primary) hypertension Heart transplant, orthotopic, status Hyperlipemia Positional lightheadedness Essential (primary) hypertension Heart transplant, orthotopic, status Hyperlipemia Positional lightheadedness Chief Complaint syncope 24 HR HOLTER MONITOR ER FU SYNCOPE, HYPERLIPIDEMIA [facility] [place] PCR COVID TEST/SYMPTOMATIC covid + n/v/d Reason for Visit Essential (primary) hypertension Heart transplant, orthotopic, status Hyperlipemia Positional lightheadedness Gastroenteritis due to norovirus Loss of consciousness Heart transplant, orthotopic, status Personal history of immunosuppressive therapy COVID-19 Chief Complaint syncope 24 HR HOLTER MONITOR ER FU SYNCOPE, HYPERLIPIDEMIA [facility] [place] PCR COVID TEST/SYMPTOMATIC covid + n/v/d [facility] F[facility] Reason for Visit Essential (primary) hypertension Heart transplant, orthotopic, status Hyperlipemia Positional lightheadedness Gastroenteritis due to norovirus Heart transplant, orthotopic, status Personal history of immunosuppressive therapy Loss of consciousness COVID-19 Chief Complaint syncope 24 HR HOLTER MONITOR ER FU SYNCOPE, HYPERLIPIDEMIA [facility] [place] PCR COVID TEST/SYMPTOMATIC covid + n/v/d 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 [place] [place] PCR COVID TEST/SYMPTOMATIC covid + n/v/d 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 Thrombocytopenia History of heart transplant Essential (primary) hypertension Heart transplant, orthotopic, status Hyperlipemia Fecal urgency Gout Essential (primary) hypertension Heart transplant, orthotopic, status Positional lightheadedness Chief Complaint 6 M FU 6 M FU Reason for Visit Essential (primary) hypertension Heart transplant, orthotopic, status Hyperlipemia Urinary frequency Essential (primary) hypertension Gout Heart transplant, orthotopic, status Positional lightheadedness Chief Complaint 6 M FU 6 M FU BALANCE, GAIT AND MOBILITY RX HERE Reason for Visit Essential (primary) hypertension Heart transplant, orthotopic, status Hyperlipemia Urinary frequency Essential (primary) hypertension Gout Heart transplant, orthotopic, status Positional lightheadedness Chief Complaint RIGHT EYE REDNESS 6 M FU SYNCOPE Reason for Visit Acute bacterial conj unctivitis Nail fungal infection Essential (primary) hypertension Gout Hyperlipemia Positional lightheadedness Chief Complaint Admit Date 6 M FU June 10, 2024 10:54am Reason for Visit Admit Date Peripheral neuritis June 10, 2024 10:54am Chief Complaint Admit Date 6 M FU June 10, 2024 10:54am 1 Y FU/MOVED FROM [facility] September 22, 2024 9: 26am Reason for Visit Admit Date Peripheral neuritis June 10, 2024 10:54am Essential (primary) hypertension September 222024 9:26am Heart transplant, orthotopic, status Edwin 2024 9:26am Hyperlipemia September 22, 2024 9:26 am Chief Complaint Admit Date 1 Y FU/MOVED FROM [facility] September 22, 2024 9: 26am 6 M FU December 15, 2024 1:04pm Reason for Visit Admit Date Essential (primary) hypertension September 222024 9:26am Heart transplant, orthotopic, status Edwin 2024 9:26am Hyperlipemia September 22, 2024 9:26 am Peripheral neuritis December 15, 2024 1:04pm Chronic cough December 15, 2024 1:04pm Gout December 15, 2024 1:04pm Reason for Referral Specialty Diagnoses / Procedures Referred By Contac t Referred To Contact Cardiovascular Medicine Diagnoses Heart replaced by transplant Violette Lau MD [address] [place] [address] Referral ID Status Reason Start Date Expiration Date V isits Requested Visits Authorized [id number] New Request 10/17/2021 11/11/2022 1 1 Specialty Diagnoses / Procedures Referred By Contac t Referred To Contact Procedures DVT/VTE RISK ASSESSMENT Violette Lau MD [address] [place] [address] Referral ID Status Reason Start Date Expiration Date V isits Requested Visits Authorized [id number] New Request 10/11/2021 11/05/2022 1 1 Specialty Diagnoses / Procedures Referred By Contac t Referred To Contact Elton Huerta [facility] [address] [facility] [address] [place] [address] Referral ID Status Reason Start Date Expiration Date Visits Re quested Visits Authorized Specialty Diagnoses / Procedures Referred By Contac t Referred To Contact Diagnoses Encounter for long-term (current) use of medications Procedures ECHOCARDIOGRAM VA ECHO HEART XTHORACIC,COMPLETE W DOPPLER Juma Celestin MD [address] [place] [address] Referral ID Status Reason Start Date Expiration Date V isits Requested Visits Authorized [id number] New Request 05/15/2022 06/09/2023 1 1 Specialty Diagnoses / Procedures Referred By Contac t Referred To Contact Diagnoses Encounter for aftercare following heart transplant 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 Procedures ECHOCARDIOGRAM PHARMACOLOGICAL STRESS TEST VA ECHO TTHRC R-T 2D W/WO M-MODE REST&STRS CONT ECG VA DOPPLER ECHO HEART,LIMITED,F/U VA DOPPLER COLOR FLOW VELOCITY MAP Iain Dutta DO [address] [place] [phone] Referral ID Status Reason Start Date Expiration Date V isits Requested Visits Authorized [id number] New Request 05/17/2021 06/11/2022 1 1 Specialty Diagnoses / Procedures Referred By Contac t Referred To Contact Procedures ECG Jennifer Mcduffie MD [address] [place] [address] Referral ID Status Reason Start Date Expiration Date V isits Requested Visits Authorized [id number] New Request 05/14/2023 06/07/2024 1 1 Specialty Diagnoses / Procedures Referred By Contac t Referred To Contact Diagnoses Heart replaced by transplant Syncope and collapse Procedures MOBILE CARDIAC TELEMETRY Jeremy Valle MD [address] [place] [address] Referral ID Status Reason Start Date Expiration Date V isits Requested Visits Authorized [id number] New Request 05/14/2023 06/07/2024 1 1 Specialty Diagnoses / Procedures Referred By Contac t Referred To Contact Diagnoses Heart replaced by transplant Procedures ECHOCARDIOGRAM VA ECHO HEART XTHORACIC,COMPLETE W DOPPLER Jeremy Valle MD [address] [place] [address] Referral ID Status Reason Start Date Expiration Date V isits Requested Visits Authorized [id number] New Request 05/14/2023 06/07/2024 1 1 Specialty Diagnoses / Procedures Referred By Contac t Referred To Contact Diagnoses Heart replaced by transplant Encounter for long-term (current) use of medications Other hyperlipidemia Procedures ECHOCARDIOGRAM VA ECHO TTHRC R-T 2D W/WOM-MODE COMPL SPEC&COLR D Mario Messina MD [address] [place] [address] Referral ID Status Reason Start Date Expiration Date V isits Requested Visits Authorized [id number] New Request 05/12/2024 06/06/2025 1 1 Additional Source Comments (unrecognized sect ion and content) No Status Records FoundNo Status Records FoundNo Status Records Found INFORMATION SOURCE (unrecogn ized section and content) DATE CREATED AUTHOR 10/09/2017 [facility] DATE CREATED AUTHOR AUTHOR'S ORGANIZ ATION 09/22/2024 [facility] DATE CREATED AUTHOR AUTHOR'S ORGANIZ ATION 12/03/2024 [facility] Care Teams (unrecognized sec tion and content) Factory Machine Computer Operator Relationship Specialty Start Date End Date Leoncio Acevedo DO PCP - General Family Medicine 11/02/11 Mckinley Villarreal MD [address] [place] [address] PCP - Referring 1 Cardiovascular Medicine 11/17/13 Miguel Angel Mendez, AMILCAR,PharmD 11/18/19 Brianna Peralta, [facility] [address] [place] [address] Pharmacist 11/18/19 Factory Machine Computer Operator Relationship Specialty Start Date End Date Leoncio Acevedo DO PCP - General Family Medicine 11/02/11 Mckinley Villarreal MD [address] [place] [address] PCP - Referring 1 Cardiovascular Medicine 11/17/13 Miguel Angel Mendez RPh,PharmD 11/18/19 Brianna Peralta, [facility] [address] [facility] [address] [place] [address] Pharmacist 11/18/19 Factory Machine Computer Operator Relationship Specialty Start Date End Date Leoncio Acevedo DO PCP - General Family Medicine 11/02/11 Mckinley Villarreal MD [address] [place] [address] PCP - Referring 1 Cardiovascular Medicine 11/17/13 Iain Dutta DO [address] [place], [place] [id number] PCP - Referring 2 Heart Failure 10/12/21 Juma Celestin MD [address] [place] [address] PCP - Referring 3 Heart Failure 10/12/21 Miguel Angel Mendez RP,PharmD 11/18/19 Brianna Peralta, [facility] [address] [facility] [address] [place] [address] Pharmacist 11/18/19 Factory Machine Computer Operator Relationship Specialty Start Date End Date Leoncio Acevedo DO PCP - General Family Medicine 11/02/11 Mckinley Villarreal MD [address] [place] [address] PCP - Referring 1 Cardiovascular Disease 11/17/13 Iain Dutta DO [address] [place], [place] [id number] PCP - Referring 2 Advanced Heart Failure and Transplant Cardiology 10/12/21 Juma Celestin MD [address] [place] [address] PCP - Referring 3 Advanced Heart Failure and Transplant Cardiology 10/12/21 Miguel Angel Mendez RPh,PharmD 11/18/19 Brianna Peralta, [facility] [address] [place] [address] Pharmacist 11/18/19 Factory Machine Computer Operator Relationship Specialty Start Date End Date Leoncio Acevedo DO PCP - General Family Medicine 11/02/11 Mckinley Villarreal MD [address] [place] [phone] PCP - Referring 1 Cardiovascular Disease 11/17/13 Iain Dutta DO [address] [place], [place] [phone] PCP - Referring 2 Advanced Heart Failure and Transplant Cardiology 10/12/21 Juma Celestin MD [address] [place] [address] PCP - Referring 3 Advanced Heart Failure and Transplant Cardiology 10/12/21 Miguel Angel Mendez RPh,PharmD 11/18/19 Brianna Peralta, [facility] [address] [facility] [address] [place] [address] Pharmacist 11/18/19 Factory Machine Computer Operator Relationship Specialty Start Date End Date Leoncio Acevedo DO PCP - General Family Medicine 11/02/11 Mckinley Villarreal MD [address] [place] [address] PCP - Referring 1 Cardiovascular Disease 11/17/13 Iain Dutta DO [address] [place], [place] [phone] PCP - Referring 2 Advanced Heart Failure and Transplant Cardiology 10/12/21 Juma Celestin MD [address] [place] [address] PCP - Referring 3 Advanced Heart Failure and Transplant Cardiology 10/12/21 Miguel Angel Mendez, AMILCARh,PharmD 11/18/19 Brianna Peralta, [facility] [address] [place] [address] Pharmacist 11/18/19 Factory Machine Computer Operator Relationship Specialty Start Date End Date Leoncio Acevedo DO PCP - General Family Medicine 11/02/11 Mckinley Villarreal MD [address] [place] [phone] PCP - Referring 1 Cardiovascular Disease 11/17/13 Iain Dutta DO [address] [place], [place] [phone] PCP - Referring 2 Advanced Heart Failure and Transplant Cardiology 10/12/21 Juma Celestin MD [address] [place] [address] PCP - Referring 3 Advanced Heart Failure and Transplant Cardiology 10/12/21 Miguel Angel Mendez RPh,PharmD 11/18/19 Brianna Peralta, [facility] [address] [facility] [address] [place] [address] Pharmacist 11/18/19 Team Status: Active Member Role Status Dates Dr. Leoncio Acevedo , DO Family Provider Active Dr. Leoncio Acevedo , DO Primary Care Provider Active Team Status: Inactive Member Role Status Dates Dr. Leoncio Acevedo , DO Primary Care Pr ovider, Attending Provider, Referring Provider Active Team Status: Inactive Member Role Status Dates Dr. Leoncio Acevedo , Primary Care Provider, Referr ing Provider Active Dr. 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 Operator Relationship Specialty Start Date End Date Biju Acevedomargarita PCP - General Family Medicine 11/02/11 Mckinley Villarreal MD [address] [place] [address] PCP - Referring 1 Cardiovascular Disease 11/17/13 Iain Dutta DO [address] [place], [place] [phone] PCP - Referring 2 Advanced Heart Failure and Transplant Cardiology 10/12/21 Juma Celestin MD [address] [place] [phone] PCP - Referring 3 Advanced Heart Failure and Transplant Cardiology 10/12/21 Miguel Angel Mendez, AMILCAR,PharmD 11/18/19 Brianna Peralta, [facility] [address] [facility] [address] [place], [place] [phone] Pharmacist 11/18/19 Factory Machine Computer Operator Relationship Specialty Start Date End Date Biju Acevedomargarita (Fax) PCP - General Family Medicine 11/02/11 Mckinley Villarreal MD [address] [place] [address] PCP - Referring 1 Cardiovascular Disease 11/17/13 Iain Dutta DO [address] [facility] [address] [place], [place] [phone] PCP - Referring 2 Advanced Heart Failure and Transplant Cardiology 10/12/21 Juma Celestin MD [address] [place] [phone] PCP - Referring 3 Advanced Heart Failure and Transplant Cardiology 10/12/21 Miguel Angel Mendez RPh,PharmD 11/18/19 Brianna Peralta [facility] [address] [facility] [address] [place] [address] Pharmacist 11/18/19 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 Machine 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 Operator Relationship Specialty Start Date End Date Leoncio Acevedo DO PCP - General Family Medicine 11/02/11 Mckinley Villarreal MD [address] [place] [phone] PCP - Referring 1 Cardiovascular Disease 11/17/13 Iain Dutta DO [address] [facility] [address] [place], [place] [phone] PCP - Referring 2 Advanced Heart Failure and Transplant Cardiology 10/12/21 Juma Celestin MD [address] [place] [phone] PCP - Referring 3 Advanced Heart Failure and Transplant Cardiology 10/12/21 Miguel Angel Mendez RPh,PharmD 11/18/19 Brianna Peralta [facility] [address] [facility] [address] [place] [address] Pharmacist 11/18/19 Team Status: Inactive Member Role Status Dates Dr. Leoncio Acevedo DO Primary Care Provider, Referr ing Provider Active Andrea MIMS, PA Attending Provider Active Team Status: Inactive Member Role Status Dates Dr. Leoncio Acevedo DO Primary Care Provider Active Dr. 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 Relationship Specialty Start Date End Date Leoncio Acevedo DO PCP - General Family Medicine 11/02/11 Mckinley Villarreal MD [address] [place] [phone] PCP - Referring 1 Cardiovascular Disease 11/17/13 Iain Dutta DO [address] [place], [place] [phone] PCP - Referring 2 Advanced Heart Failure and Transplant Cardiology 10/12/21 Juma Celestin MD [address] [place] [address] PCP - Referring 3 Advanced Heart Failure and Transplant Cardiology 10/12/21 Miguel Angel Mendez [facility],PharmD 11/18/19 Brianna Peralta [facility] [address] [facility] [address] [place] [address] Pharmacist 11/18/19 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 Machine 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 Operator Relationship Specialty Start Date End Date Leoncio Acevedo DO PCP - General Family Medicine 11/02/11 Mckinley Villarreal MD [address] [place] [address] PCP - Referring 1 Cardiovascular Disease 11/17/13 Iain Dutta DO [address] [facility] [address] [place] [address] PCP - Referring 2 Advanced Heart Failure and Transplant Cardiology 10/12/21 Juma Celestin MD [address] [place] [address] PCP - Referring 3 Advanced Heart Failure and Transplant Cardiology 10/12/21 Miguel Angel Mendez RPh,PharmD 11/18/19 Brianna Peralta [facility] [address] [facility] [address] [place] [address] Pharmacist 11/18/19 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 Machine 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 Operator Relationship Specialty Start Date End Date Leoncio Acevedo DO PCP - General Family Medicine 11/02/11 Mckinley Villarreal MD [address] [place] [address] PCP - Referring 1 Cardiovascular Disease 11/17/13 Iain Dutta DO [address] [facility] [address] [place], [place] [phone] PCP - Referring 2 Advanced Heart Failure and Transplant Cardiology 10/12/21 Juma Celestin MD [address] [place] [phone] PCP - Referring 3 Advanced Heart Failure and Transplant Cardiology 10/12/21 Miguel Angel Mendez RPh,PharmD 11/18/19 Brianna Peralta [facility] [address] [facility] [address] [place] [address] Pharmacist 11/18/19 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 Machine 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 Operator Relationship Specialty Start Date End Date Leoncio Acevedo DO PCP - General Family Medicine 11/02/11 Mckinley Villarreal MD [address] [place] [phone] PCP - Referring 1 Cardiovascular Disease 11/17/13 Iain Dutta DO [address] [facility] [address] [place], [place] [phone] PCP - Referring 2 Advanced Heart Failure and Transplant Cardiology 10/12/21 Juma Celestin MD [address] [place] [phone] PCP - Referring 3 Advanced Heart Failure and Transplant Cardiology 10/12/21 Miguel Angel Mendez RPh,PharmD 11/18/19 Brianna Peralta RPH [address] [place] [address] [address] [place] [phone] Pharmacist 11/18/19 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 Machine 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 Operator Relationship Specialty Start Date End Date Leoncio Acevedo DO PCP - General Family Medicine 11/02/11 Mckinley Villarreal MD [address] [place] [phone] PCP - Referring 1 Cardiovascular Disease 11/17/13 Iain Dutta DO [address] [facility] [address] [place], [place] [address] PCP - Referring 2 Advanced Heart Failure and Transplant Cardiology 10/12/21 Juma Celestin MD [address] [place] [phone] PCP - Referring 3 Advanced Heart Failure and Transplant Cardiology 10/12/21 Miguel Angel Mendez RPh,PharmD 11/18/19 Brianna Peralta RPH [address] [facility] [address] [place] [address] Pharmacist 11/18/19 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 Machine Computer Operator Relationship Specialty Start Date End Date Leoncio Acevedo DO PCP - General Family Medicine 11/02/11 Mckinley Villarreal MD [address] [place] [phone] PCP - Referring 1 Cardiovascular Disease 11/17/13 Iain Dutta DO [address] [facility] [address] [place], [place] [phone] PCP - Referring 2 Advanced Heart Failure and Transplant Cardiology 10/12/21 Juma Celestin MD [address] [place] [address] PCP - Referring 3 Advanced Heart Failure and Transplant Cardiology 10/12/21 Miguel Angel Mendez, [facility],PharmD 11/18/19 Brianna Peralta [facility] [address] [facility] [address] [place] [address] Pharmacist 11/18/19 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 Machine 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 Operator Relationship Specialty Start Date End Date Leoncio Acevedo DO PCP - General Family Medicine 11/02/11 Mckinley Villarreal MD [address] [place] [phone] PCP - Referring 1 Cardiovascular Disease 11/17/13 Iain Dutta DO [address] [facility] [address] [place] [address] PCP - Referring 2 Advanced Heart Failure and Transplant Cardiology 10/12/21 Juma Celestin MD [address] [place] [phone] PCP - Referring 3 Advanced Heart Failure and Transplant Cardiology 10/12/21 Miguel Angel Mendez RPh,PharmD 11/18/19 Brianna Peralta RP [address] [facility] [address] [place] [address] Pharmacist 11/18/19 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 Machine Computer Operator Relationship Specialty Start Date End Date Leoncio Acevedo DO PCP - General Family Medicine 11/02/11 Mckinley Villarreal MD [address] [place] [phone] PCP - Referring 1 Cardiovascular Disease 11/17/13 Iain Dutta DO [address] [facility] [address] [place], [place] [phone] PCP - Referring 2 Advanced Heart Failure and Transplant Cardiology 10/12/21 Juma Celestin MD [address] [place] [phone] PCP - Referring 3 Advanced Heart Failure and Transplant Cardiology 10/12/21 Miguel Angel Mendez RPh,PharmD 11/18/19 Brianna Peralta RP [address] [facility] [address] [place] [address] Pharmacist 11/18/19 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 Machine Computer Operator Relationship Specialty Start Date End Date Leoncio Acevedo DO PCP - General Family Medicine 11/02/11 Mckinley Villarreal MD [address] [place] [address] PCP - Referring 1 Cardiovascular Disease 11/17/13 Iain Dutta DO [address] [place], [place] [phone] PCP - Referring 2 Advanced Heart Failure and Transplant Cardiology 10/12/21 Juma Celestin MD [address] [place] [phone] PCP - Referring 3 Advanced Heart Failure and Transplant Cardiology 10/12/21 Miguel Angel Mendez 11/18/19 Brianna Peralta [facility] [address] [facility] [address] [place] [address] Pharmacist 11/18/19 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 Machine Computer Operator Relationship Specialty Start Date End Date Leoncio Acevedo DO PCP - General Family Medicine 11/02/11 Mckinley Villarreal MD [address] [place] [phone] PCP - Referring 1 Cardiovascular Disease 11/17/13 Iain Dutta DO [address] [facility] [address] [place], [place] [phone] PCP - Referring 2 Advanced Heart Failure and Transplant Cardiology 10/12/21 Juma Celestin MD [address] [place] [address] PCP - Referring 3 Advanced Heart Failure and Transplant Cardiology 10/12/21 [facility]ly [facility] 11/18/19 Brianna Peralta [facility] [address] [facility] [address] [place] [address] Pharmacist 11/18/19 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 Machine Computer Operator Relationship Specialty Start Date End Date Leoncio Acevedo DO PCP - General Family Medicine 11/02/11 Mckinley Villarreal MD [address] [place] [phone] PCP - Referring 1 Cardiovascular Disease 11/17/13 Iain Dutta DO [address] [facility] [address] [place], [place] [phone] PCP - Referring 2 Advanced Heart Failure and Transplant Cardiology 10/12/21 Juma Celestin MD [address] [place] [phone] PCP - Referring 3 Advanced Heart Failure and Transplant Cardiology 10/12/21 [facility] 11/18/19 Brianna Peralta [facility] [address] [facility] [address] [place] [address] Pharmacist 11/18/19 Team Status: Inactive Member Role Status Dates Dr. Leoncio Acevedo DO Primary Care Provider Active Start: June 10, 2024 End: June 10, 2024 Dr. Leoncio Acevedo DO Attending Provider Active Start: June 10, 2024 End: June 10, 2024 Dr. Leoncio Acevedo DO Referring Provider Active Start: June 10, 2024 End: June 10, 2024 Team Status: Active Member Role Status Dates Dr. Leoncio Acevedo DO Primary Care Provider Active Team Status: Inactive Member Role Status Dates Dr. Leoncio Acevedo DO Primary Care Provider Active Start: September 22, 2024 End: September 22, 2024 Dr. Leoncio Acevedo DO Referring Provider Active Start: September 22, 2024 End: September 22, 2024 Nancy Hampton ELEVATOR MECHANIC, ELEVATOR MECHANIC-C Attending Provider Active Start: September 22, 2024 End: September 22, 2024 Team Status: Active Member Role/Relationship Status Dates Dr. Leoncio Acevedo DO Primary Care Provider Active Team Status: Inactive Member Role/Relationship Status Dates Dr. Leoncio Acevedo DO Primary Care Provider Active Start: September 22, 2024 End: September 22, 2024 Dr. Leoncio Acevedo DO Referring Provider Active Start: September 22, 2024 End: September 22, 2024 Nancy Hampton ELEVATOR MECHANIC, ELEVATOR MECHANIC-C Attending Provider Active Start: September 22, 2024 End: September 22, 2024 Team Status: Inactive Member Role/Relationship Status Dates Dr. Leoncio Acevedo DO Primary Care Provider Active Start: December 15, 2024 End: December 15, 2024 Dr. Leoncio Acevdeo DO Attending Provider Active Start: December 15, 2024 End: December 15, 2024 Dr. Leoncio Acevedo DO Referring Provider Active Start: December 15, 2024 End: December 15, 2024 Team Status: Active Member Role/Relationship Status Dates Dr. Leoncio Acevedo DO Primary Care Provider Active Start: December 15, 2024 Dr. Leoncio Acevedo DO Attending Provider Active Start: December 15, 2024 Dr. Leoncio Acevedo DO Referring Provider Active Start: December 15, 2024 Goals (unrecognized section and content) Goals may be documented in a n alternate sectionGoals may be documented in an alternate sectionGoals may be documented in an alternate sectionGoals may be documented in an alternate sectionGoals may be documented in an alternate sectionGoals may be documented in an alternate sectionGoals may be documented in an alternate sectionGoals may be documented in an alternate sectionGoals may be documented in an alternate sectionGoals may be documented in an alternate sectionGoals may be documented in an alternate sectionGoals may be documented in an alternate sectionGoals may be documented in an alternate section Scheduled Active and Recently Administ ered Medications (unrecognized section and content) Medication Order 10/15/2021 10/16/2021 10/17/2021 aspirin chewable tablet 81 mg 81 mg, Oral, DAILY AT BEDTIME, First dose on Sat10/11/21 at 2100, Until Discontinued 2100 (Given - Provider: Kain Stratton RN) 2115 (Given - Provider: Kain Stratton RN) calcium citrate-vitamin D 315-250 MG-UNIT per tablet 1 tablet 1 tablet, Oral, 2 TIMES DAILY, First dose on Sat10/11/21 at 1700, Until Discontinued 08 (Given - Provider: Prem Turner RN)1700 (Given - Provider: Prem Turner RN) 0748 (Given - Provider: Prem Turner RN)162 (Given - Provider: Prem Turner RN) 075 (Given - Provider: Prem Caal RN) colchicine tablet 0.6 mg 0.6 mg, Oral, 2 TIMES DAILY, First dose on Sat10/15/21 at 1115, Until Discontinued, Do not split, break, crush or chew this medication. Contact pharmacy if altered route or dose is needed. 1152 (Given - Provider: Prem Turner RN)2101 (Given - Provider: Kain Stratton RN) 0749 (Given - Provider: Prem Turner RN)2115 (Given - Provider: Kain Stratton RN) 075 (Given - Provider: Prem Caal RN) heparin injection 5,000 Units(Linked Group 1) 5,000 Units, Subcutaneous, EVERY 8 HOURS (0800/1600/2200), First dose on Sat10/11/21 at 1600, Until Discontinued 08 (Given - Provider: Prem Turner RN)1700 (Given - Provider: Prem Turner RN)2101 (Not Given - Provider: Kain Stratton RN - Reason: Order Parameters not met) 0748 (Given - Provider: Prem Turner RN)162 (Given - Provider: Prem Turner RN)2116 (Given - Provider: Kain Stratton RN) 075 (Given - Provider: Prem Caal RN)1600 (Canceled Entry - Provider: System Discharge - Comment: Automatically canceled at discontinue of medication order) hydrALAZINE (APRESOLINE) tablet 25 mg (COMPLETED) 25 mg, Oral, ONCE, 1 dose, On Sat10/17/21 at 1200 1207 (Given - Provid er: Prem Caal RN) losartan (COZAAR) tablet 50 mg 50 mg, Oral, DAILY, First dose on Sat10/17/21 at 1115, Until Discontinued 112 (Held by provid er - Provider: Kassidy Rocha MD - Reason: Other)1208 (Canceled Entry - Provider: Prem Caal RN)1644 (Unheld by provider - Provider: System Discharge) melatonin tablet 6 mg 6 mg, Oral, DAILY AT BEDTIME, First dose on Sat10/11/21 at 2100, Until Discontinued 2100 (Given - Provider: Kain Stratton RN) 2115 (Given - Provider: Kain Stratton RN) mycophenolate mofetil (CELLCEPT) capsule 250 mg 250 mg, Oral, 2 TIMES DAILY, First dose on Sat10/11/21 at 1700, Until Discontinued, ---MEDICATION EXPOSURE PRECAUTIONS--- Do not split, break, crush or open this medication. Contact pharmacy if altered route or dose is needed. 0805 (Given - Provider: Prem Turner RN)1700 (Given - Provider: Prem Turner RN) 0749 (Given - Provider: Prem Turner RN)1628 (Given - Provider: Prem Turner RN) 0756 (Given - Provider: Prem Caal RN) pravastatin (PRAVACHOL) tablet 40 mg 40 mg, Oral, DAILY AT BEDTIME, First dose on Sat10/11/21 at 2100, Until Discontinued 2101 (Given - Provider: Kain Stratton RN) 2116 (Given - Provider: Kain Stratton RN) tacrolimus (PROGRAF) capsule 1 mg 1 mg, Oral, 2 TIMES DAILY, First dose on Sat10/11/21 at 2100, Until Discontinued, Do not split, break, crush, or open doses of this medication. Contact pharmacy if altered dose or route needed. Do not split, break, crush, or open doses of this medication. Contact pharmacy if altered dose or route needed. 0900 (Automatically Held - Provider: Elton Huerta MD)2100 (Automatically Held - Provider: Elton Huerta MD) 0900 (Automatically Held - Provider: Elton Huerta MD)2100 (Automatically Held - Provider: Elton Huerta MD) 0900 (Automatically Held - Provider: Elton Huerta MD)1644 (Unheld by provider - Provider: System Discharge) PRN Medication Order 10/15/2021 10/16/2021 10/17/2021 acetaminophen (TYLENOL) tablet 650 mg 650 mg, Oral, EVERY 4 HOURS NEEDED, Starting on Sat10/13/21 at 1119, Until Sat10/17/21 at 1644, Mild Pain, Maximum dose of acetaminophen is 4000 mg from all sources in 24 hours. 0805 (Given - Provider: Prem Turner RN)1152 (Given - Provider: Prem Turner, RN)1702 (Given - Provider: Prem Turner, RN)2102 (Given - Provider: Kain Stratton, MERCEDES) 0748 (Given - Provider: Prem Turner, MERCEDES)1209 (Given - Provider: Prem Turner RN)1824 (Given - Provider: Prem Turner RN) 0018 (Given - Provider: Kain Stratton RN) magnesium oxide (MAG-OX) tablet 800 mg 800 mg, Oral, ADMINISTER DIRECTED, Starting on Sat10/11/21 at 1034, Until Sat10/17/21 at 1644, See admin instructions, For Magnesium 1.6 - 2.0, give 800 mg of Magnesium oxide. Magnesium Sulfate 4 g in sterile water 50 ml premix IVPB 4 g, Intravenous, Administer over 4 Hours, ADMINISTER DIRECTED, Starting on Sat10/11/21 at 1034, Until Sat10/17/21 at 1644, Other, Magnesium Replacement Therapy, Magnesium Replacement Therapy: 1. If Magnesium less than 1.6, give 4 g Magnesium Sulfate IVPB over 4 hours (may give over 1 hour if arrhythmias present). ondansetron (ZOFRAN) tablet 4 mg 4 mg, Oral, EVERY 6 HOURS NEEDED, Starting on Sat10/13/21 at 1137, Until Sat10/17/21 at 1644, Nausea / Vomiting potassium chloride (K-DUR) tablet ER 20 mEq 20 mEq, Oral, ADMINISTER DIRECTED, Starting on Sat10/11/21 at 1034, Until Sat10/17/21 at 1644, See admin instructions, If Cr 2.0 - 2.5 mg/dL For Potassium less than 3.6, give 20 mEq Potassium Chloride orally, recheck in AM. If Cr greater than 2.5 mg/dL contact physician/LIP for Potassium less than 3.6 for replacement orders. If potassium is low please administer magnesium first if indicated potassium chloride (K-DUR) tablet ER 40-60 mEq 40-60 mEq, Oral, ADMINISTER DIRECTED, Starting on Sat10/11/21 at 1034, Until Sat10/17/21 at 1644, See admin instructions, If Cr less than 2.0 mg/dL 1. For Potassium 3.6 - 4.0, give 40 mEq of Potassium Chloride orally, recheck in the AM. 2. For Potassium less than 3.6, give 60 mEq Potassium Chloride orally, recheck in 8 hours. 3. If potassium is low please administer magnesium first if indicated. Linked Groups Order Group 1: heparin injection 5,000 UnitsJump to med 5,000 Units, Subcutaneous, EVERY 8 HOURS (0800/1600/2200), First dose on Sat10/11/21 at 1600, Until Discontinued And PLATELET COUNT (CANCELED) Routine, EVERY 3 DAYS AM LAB, First occurrence on Sat10/11/21 at 1320, Until Specified, New collection Scheduled Medication Order 05/12/2023 05/13/2023 05/14/2023 aspirin chewable tablet 324 mg (COMPLETED) 324 mg, Oral, ONCE, 1 dose, On Sat05/14/23 at 1000, Patient to receive at least 30 minutes prior to procedure. Instruct patient to chew and not swallow., Pre-op/Pre-Proc 1052 (Given - Provid er: Tristen Garcia RN) Continuous Medication Order 05/12/2023 05/13/2023 05/14/2023 Sodium chloride 0.9% IV solution Intravenous, at 100 mL/hr, CONTINUOUS, Starting on Sat05/14/23 at 1000, Until Sat05/14/23 at 1920, Pre-op/Pre-Proc 1117 ($$New Bag$$ - Provider: Tristen Garcia RN) Sodium chloride 0.9% IV solution 150 mL/hr, Intravenous, CONTINUOUS, Starting on Sat05/14/23 at 1315, Until Sat05/14/23 at 1614, Post-op/Post-Proc 1332 ($$New Bag$$ - Provider: Tristen Garcia RN) PRN Medication Order 05/12/2023 05/13/2023 05/14/2023 Acetaminophen (TYLENOL) tablet 325 mg 325 mg, Oral, EVERY 6 HOURS NEEDED, Starting on Sat05/14/23 at 1303, Until Sat05/14/23 at 1920, Mild Pain, Maximum dose of acetaminophen is 4000 mg from all sources in 24 hours., Post-op/Post-Proc fentaNYL (SUBLIMAZE) injection (CANCELED) Administer over 2 Minutes, NEEDED, Starting on Sat05/14/23 at 1229, Until Sat05/14/23 at 1311, Intra-op/Intra-Proc 1229 (Given - Provid er: Leticia Montoya RN)1238 (Given - Provider: Grant Forte, MERCEDES) iodixanol (VISIPAQUE) injection 320 mg/mL for [facility] IR (CANCELED) NEEDED, Starting on Sat05/14/23 at 1301, Until Sat05/14/23 at 1311, Intra-op/Intra-Proc 1301 (Given - Provid er: Jennifer Mcduffie MD) Lidocaine 2 % injection (CANCELED) NEEDED, Starting on Sat05/14/23 at 1234, Until Sat05/14/23 at 1311, Intra-op/Intra-Proc 1234 (Given - Provid er: Jennifer Mcduffie MD - Comment: right femoral) midazolam (VERSED) injection (CANCELED) NEEDED, Starting on Sat05/14/23 at 1229, Until Sat05/14/23 at 1311, Intra-op/Intra-Proc 1229 (Given - Provid er: Leticia Montoya RN)1238 (Given - Provider: Grant Forte, MERCEDES) No Frequency Medication Order 05/12/2023 05/13/2023 05/14/2023 aspirin chewable tablet 1 dose, Starting on Sat05/14/23 at 0950, Until Sat05/15/23 at 1000, Created by cabinet override [id number] (Canceled Entry - Provider: Tristen Garcia RN) Sodium chloride 0.9% IV solution 1 dose, Starting on Sat05/14/23 at 0950, Until Sat05/15/23 at 1000, Created by cabinet override [id number] (Canceled Entry - Provider: Tristen Garcia, RN) Reason for Visit (unrecogniz ed section and content) Reason Comments Follow-up Specialty Diagnoses / Procedures Referred By Agathaac t Referred To Contact Diagnoses 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] Procedures VA CATH PLACEMENT & NJX CORONARY ART ANGIO IMG S&I VA L HRT CATH W/NJX L VENTRICULOGRAPHY IMG S&I CORONARY ANGIOGRAM LEFT HEART CATHETERIZATION [facility] [address] [place] [address] [facility] [address] [place] [address] Referral ID Status Reason Start Date Expiration Date Visits Re quested Visits Authorized [id number] 1 1 Reason Comments Follow-up Specialty Diagnoses / Procedures Referred By Contac t Referred To Contact Diagnoses Encounter for aftercare following heart transplant Procedures ECHOCARDIOGRAM VA ECHO HEART XTHORACIC,COMPLETE W DOPPLER Iain Dutta, DO [address] [place] [address] Referral ID Status Reason Start Date Expiration Date V isits Requested Visits Authorized [id number] New Request 05/17/2021 06/11/2022 1 1 Specialty Diagnoses / Procedures Referred By Agathaac t Referred To Contact Diagnoses Encounter for aftercare following heart transplant 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 Procedures ECHOCARDIOGRAM PHARMACOLOGICAL STRESS TEST VA ECHO TTHRC R-T 2D W/WO M-MODE REST&STRS CONT ECG VA DOPPLER ECHO HEART,LIMITED,F/U VA DOPPLER COLOR FLOW VELOCITY MAP Iain Dutta, DO [address] [place] [address] Referral ID Status Reason Start Date Expiration Date V isits Requested Visits Authorized [id number] New Request 05/17/2021 06/11/2022 1 1 Specialty Diagnoses / Procedures Referred By Contac t Referred To Contact Diagnoses 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 This clinical summary was aggregated from multiple sources. Caution should be exercised in using it in the provision of clinical care. This summary normalizes information from multiple sources, and as a consequence, information in this document may materially change the coding, format and clinical context of patient data. In addition, data may be omitted in some cases. CLINICAL DECISIONS SHOULD BE BASED ON THE PRIMARY CLINICAL RECORDS. [facility] [employer] [facility]. provides no warranty or guarantee of the accuracy or completeness of information in this document.
== END | disposition home or self-care (01) ==
LOC: BIMLAB 14:13
PROVIDERS: PCP Family Medicine; Referring Provider Family Medicine; Visit Provider Family Medicine
DX: R35.0 Frequency of micturition (principal); E55.9 Vitamin D deficiency, unspecified; G62.9 Polyneuropathy, unspecified; M10.9 Gout, unspecified; Z12.5 Encounter for screening for malignant neoplasm of prostate
CPT/HCPCS: 36415; 82306; 84153; 84550; G0103